=== PATIENT | male | born 1940 | race Caucasian/White ===

== ENCOUNTER → 2016-12-06 | Outpatient (CLI) | payer OTHER ==
[~2016-12-06] MED LIST: AMLO-110 PO; ASCO1CAP3 PO; ASPEC325 PO; ASPI81TA28 PO; CHOL400T PO; CLC100 PO; COEN1CAP37 PO; DOCU100C31 PO; FRRG PO; IBUP-103 PO; LOSA50TA6 PO; LVNIS30 SQ; NRV5 PO; NTRGSL/4 UT; OMEGCAP2 PO; OXYC-57 PO; PRLSR20 PO; SIMV40TA2 PO; VITAMIN D3 PO
[2016-12-06 10:16] LABS: ALT/SGPT 30 U/L (12-78); AST/SGOT 11 U/L (15-37); BLOOD UREA NITROGEN 23 mg/dl (7-18); BUN/CREATININE RATIO 13.3 (10-20); CALCIUM 9.3 mg/dl (8.5-10.1); CARBON DIOXIDE 33 mmol/L (21-32); CHLORIDE 106 mmol/L (98-107); GLUCOSE 101 mg/dl (70-99); POTASSIUM 4.2 mmol/L (3.5-5.1); SODIUM 143 mmol/L (136-145)
[2016-12-06 10:19] LABS: CHOLESTEROL 180 mg/dl (0-200); CHOLESTEROL/HDL RATIO 3.7; HDL CHOLESTEROL 49 mg/dl; LDL CHOLESTEROL CALCULATED 93 mg/dl; TRIGLYCERIDES 188 mg/dl (0-150); VERY LOW DENSITY LIPOPROT CALC 38 mg/dl
== END | disposition home or self-care (01) ==
LOC: C.LAB 09:08
PROVIDERS: ATTEND Internal Medicine Cardiovascular Disease
DX: I25.10 Atherosclerotic heart disease of native coronary artery without angina pectoris (principal); E78.00 Pure hypercholesterolemia, unspecified; I10 Essential (primary) hypertension

== ENCOUNTER 2017-02-21 05:12 | Inpatient (IN) | payer OTHER ==
[2017-01-26 15:22] VITALS: BMI 27.0
--- NOTE | 2017-01-26 16:08 | PAT Medication Instructions ---
Service Date January 26, 2017. Current Home Medication List Ascorbic Acid (Vitamin C), 500 MG PO QPM Aspirin (Aspirin Ec), 81 MG PO HS Coenzyme Q10 (Ubidecarenone) (Co Q-10), 200 MG PO BID Ibuprofen Tab (Advil), 200-400 MG PO PRN Losartan Potassium (Cozaar), 50 MG PO QAM Nitroglycerin (Nitrostat), 0.4 MG UT PRN Orange-3 Fatty Acids (Fish Oil), 2 CAPSULES PO BID Omeprazole (Prilosec), 20 MG PO PRN Simvastatin (Zocor), 40 MG PO HS [Vitamin D3], 1 TAB PO QPM Medication Instructions For Your Scheduled Surgery Nitroglycerin (Nitrostat), 0.4 MG UT PRN (only if needed) - Hold the following medications 2 weeks prior to surgery: Orange-3 Fatty Acids (Fish Oil), 2 CAPSULES PO BID Coenzyme Q10 (Ubidecarenone) (Co Q-10), 200 MG PO BID - Hold the following medications 7 days prior to surgery per surgeon instructions: Ibuprofen Tab (Advil), 200-400 MG PO PRN - Hold the following medications the morning of surgery: Losartan Potassium (Cozaar), 50 MG PO QAM - Take the following medications the morning of surgery with a sip of water: Omeprazole (Prilosec), 20 MG PO PRN - Take the following medications as scheduled the night before surgery: Simvastatin (Zocor), 40 MG PO HS Vitamin D3, 1 TAB PO QPM Ascorbic Acid (Vitamin C), 500 MG PO QPM Aspirin (Aspirin Ec), 81 MG PO HS If you have any questions please call us at [phone] or [phone] ( Laurie) or [phone]
[2017-01-26 16:28] LABS: BASO % 0.4 %; BASO ABS # 0.03 K/uL (0-0.2); COMPLETE YES; EOS % 2.7 %; HEMATOCRIT 42.3 % (42-52); IG% 0.1 %; LYMPH % 34.7 %; LYMPH ABS # 2.42 K/uL (1.2-3.4); MEAN CELL VOLUME 97.9 fL (80-100); MEAN CORPUSCULAR HEMOGLOBIN 31.5 pg (25-34); MEAN CORPUSCULAR HGB CONC 32.2 g/dl (32-36); MEAN PLATELET VOLUME 9.2 fL (7.4-10.4); NEUT % 54.1 %; PLATELET COUNT 181 K/uL (130-400); RED BLOOD COUNT 4.32 M/uL (4.7-6.1); WHITE BLOOD COUNT 6.97 K/uL (4.8-10.8)
[2017-01-26 16:33] LABS: MANUAL MICROSCOPIC REQUIRED? NO; REVIEW REQ? NO; URINE APPEARANCE CLEAR (CLEAR); URINE BILIRUBIN NEG (NEG); URINE COLOR YELLOW; URINE NITRITE NEG (NEG); URINE PH 6.5 (4.5-7.5); URINE SPECIFIC GRAVITY 1.017 (1.000-1.030); UROBILINOGEN NEG (NEG)
--- NOTE | 2017-01-26 16:39 | History and Physical ---
History & Physical Date January 26, 2017. Chief Complaint Right knee pain History of Present Illness The patient is a 76 year old male patient of Dr. Gastelum from [facility] with complaints of right knee pain that interferes with his life on a daily basis. He has failed conservative management, such as behavior modification, rest, ice, OTC medications, injections, and bracing. Jose states it makes it difficult performing some of his ADL's and certain elective activity. Pain is present at rest and with activity. The patient denies any numbness or tingling distally and no calf pain. Past Medical/Surgical History Medical Problems: (1) Benign hypertension (2) Hyperlipidemia (3) Osteoarthritis Surgical History: -Cataracts b/l -Hernia repair -Finger fibroma -Skin basal cell excision Additional History Hepatic Disease: No Endocrine Disorder: No Kidney Disease: No Hypertension: Yes Heart Disease: No Bleeding Tendencies: No Infectious Diseases: No Other: Social History: -The patient admits to 3 ETOH beverages per week. Lives in a safe environment. Continues to work. Denies any tobacco or illegal drug use. Family History: -Noncontributory Review of Systems: -The patient denies headache, chest pain, shortness of breath, fevers, chills, or night sweats Allergies Coded Allergies: No Known Allergies (Unverified , 01/26/17) Home Medications Scheduled Ascorbic Acid (Vitamin C), 500 MG PO QPM Aspirin (Aspirin Ec), 81 MG PO HS Coenzyme Q10 (Ubidecarenone) (Co Q-10), 200 MG PO BID Ibuprofen Tab (Advil), 200-400 MG PO PRN Losartan Potassium (Cozaar), 50 MG PO QAM Nitroglycerin (Nitrostat), 0.4 MG UT PRN Rutherford-3 Fatty Acids (Fish Oil), 2 CAPSULES PO BID Omeprazole (Prilosec), 20 MG PO PRN Simvastatin (Zocor), 40 MG PO HS [Vitamin D3], 1 TAB PO QPM Physical Examination Skin: warm/dry, no rash Eyes: normal inspection, + pertinent finding (wearing reading glasses ) ENT: normal ENT inspection Head: normocephalic, atraumatic Respiratory/Chest: lungs clear, normal breath sounds, no respiratory distress Cardiovascular: regular rate, rhythm, no edema, no murmur (the patient reports a history of murmur but I was unable to identify any of murmur ) Abdomen / GI: normal bowel sounds, non tender Extremities: normal inspection, + pertinent finding (range of motion 0-130 degrees with pain at endpoints of flexion, notable joint line tenderness, crepitation noted in the patellofemoral joint, ligamentously stable, extensor mechanism intact, varus alingment 7 degrees on the right) Neurologic/Psych: no motor/sensory deficits, alert, normal reflexes, oriented x 3 Addiitonal Comments: Radiographs: -Xrays of the right knee reveal endstage DJD with bone on bone joint space narrowing medially, sclerotic bone change, periarticular osteophytosis, subchondral cyst formation. No evidence of fracture or dislocation. Diagnosis Right knee osteoarthritis Plan of Treatment Jose is to undergo a Right total knee arthroplasty by Dr. Enmanuel Sigala MD from [facility] scheduled for 02/21/17 at the [facility]. Jose had an appointment at the PAT office at the [facility] on 01/26/17 to obtain preoperative EKG, CXR, UA, CBC with diff, Lytes, BUN/Creatinine, PT/INR, and Type and Screen. Jose will obtain preoperative medical clearance from Dr. Snáchez's office. The patient will use a walker post-operatively. Jose would like to use a rehab hospital upon discharge from the hospital but understands approval may be an issue and is accepting if plans change otherwise , such as home health. Jose will use post-operative medications, including Percocet and Lovenox 30mg BID x 3 weeks after surgery, along with Iron and Vitamin C for 4 weeks. These medications will be provided upon discharge after surgery. All appropriate consents and forms were completed and signed at his pre-operative history and physical. Approximately 60 minutes was spent with the patient during this appointment. Jose will follow-up with Dr. Sigala at [facility] 2 weeks after surgery for staple removal. Any other questions or concerns please notify our office at [phone], thank you.
--- NOTE | 2017-01-26 16:40 | DIAGNOSTIC IMAGING REPORT ---
CHEST PREADMISSION(PA/LAT) CLINICAL HISTORY: PAT preoperative evaluation COMPARISON STUDY: 01/15/2013 FINDINGS: The bones soft tissues and hemidiaphragms are normal. The cardiomediastinal silhouette is normal. The lungs are clear. The pulmonary vasculature is normal. IMPRESSION: Negative chest. Electronically signed by: David Avalos M.D. 01/26/2017 4:38 PM Dictated Date/Time: 01/26/2017 4:38 PM
[2017-01-26 16:43] LABS: INR 0.9 (0.9-1.1); PARTIAL THROMBOPLASTIN RATIO 1.1
[2017-01-26 16:59] LABS: BUN/CREATININE RATIO 14.6 (10-20); CALCIUM 9.6 mg/dl (8.5-10.1); CREATININE 1.6 mg/dl (0.60-1.40); POTASSIUM 4.2 mmol/L (3.5-5.1)
[~2017-02-21] VITALS: Ht 170.2 cm; Wt 77.5 kg
[2017-02-21] VITALS (10 sets, daily range): BP systolic 146–184; BP diastolic 73–97; PULSE 47–53; TEMP 36.5–36.6; O2SAT 94–98; Ht 170.2 cm; Wt 77.5 kg
[~2017-02-21 05:12] MED LIST changes: -AMLO-110 PO; -ASPEC325 PO; -CHOL400T PO; -CLC100 PO; -DOCU100C31 PO; -FRRG PO; -LVNIS30 SQ; -NRV5 PO; -OXYC-57 PO
[2017-02-21] MEDS ORDERED: CEFAZOLIN 2000 MG/60 ML D5W 60 ML IV SCH (06:00)
[2017-02-21] MEDS ORDERED: LACTATED RINGER'S 1000ML IV SCH (06:00)
[2017-02-21] MEDS ORDERED: ROPIVACAINE 5MG/ML 30 ML 150 MG, BUPIVACAINE/EPINEPHR 0.5% MPF 30 ML, KETOROLAC TROMETH... INFIL SCH ×7 (06:00)
[2017-02-21] MEDS ORDERED: LACTATED RINGER'S 1000ML 1,000 ML IV SCH (06:00)
[2017-02-21] MEDS ORDERED: BUPIVACAINE 0.5 % 5 MG/1 ML PF 10ML VIAL ONE (06:25)
[2017-02-21] MEDS ORDERED: BUPIVACAINE 0.25% 30 ML VIAL ONE (06:26)
[2017-02-21] MEDS: TRANEXAMIC ACID INJ 1,000 MG in SODIUM CHLORIDE 0.9% 100ML 100 ML IV SCH ×2 (06:27→06:30)
--- NOTE | 2017-02-21 06:35 | History & Physical Bridge Note ---
H&P Re-Evaluation Bridge Note: I have examined the patient, reviewed the History & Physical and in the interval since the performance of the History & Physical I have noted the following changes of clinical significance: No changes noted
[2017-02-21] MEDS ORDERED: MIDAZOLAM HCL 1 MG/ML 2ML VIAL ONE (06:37)
[2017-02-21] MEDS ORDERED: FENTANYL CITRATE INJ 50 MCG/1 ML 2 ML VIAL ONE (06:37)
[2017-02-21] MEDS ORDERED: ORTHO JOINT ANESTHETIC ONE (06:40)
[2017-02-21] MEDS ORDERED: POVIDONE-IODINE OP SOLN 30 ML BTL ONE (06:40)
[2017-02-21] MEDS ORDERED: EpHEDrine SULFATE INJ 50 MG/ML AMP IV PRN (09:15)
[2017-02-21] MEDS ORDERED: HYDROmorphone INJ 2 MG/ML SYR/VIAL IV PRN (09:15)
[2017-02-21] MEDS ORDERED: PHENYLEPHRINE 100MCG/ML 5ML SYR IV PRN (09:15)
[2017-02-21] MEDS ORDERED: ONDANSETRON INJ 2 MG/ML 2 ML VIAL IV PRN ×2 (09:15→11:00)
[2017-02-21] MEDS ORDERED: ATROPINE SULFATE 0.1 MG/ML 5ML SYR IV PRN (09:15)
[2017-02-21] MEDS ORDERED: LIDOCAINE HCL 2% 2 ML VIAL (20MG/ML) ONE (09:49)
[2017-02-21] MEDS ORDERED: PROPOFOL IV EMULSION 10 MG/ML 20 ML VIAL IV ONE (09:49)
--- NOTE | 2017-02-21 10:42 | [facility] Post Operative Brief Note ---
Immediate Operative Summary Operative Date Feb 21, 2017. Pre-Operative Diagnosis Right Knee Osteoarthritis Post-Operative Diagnosis Right Knee Osteoarthritis Procedure(s) Performed Right Total Knee Arthroplasty Surgeon Dr. Enmanuel Sigala Early Learning Teacher Surgeon(s) Bree Leal PA-C; Avtar Antony MD - Resident Estimated Blood Loss 120ml Findings Severe Right knee OA Fluids (cc crystalloids) 2000 Specimens A. Right Knee Bone and Tissue Drains n/a Anesthesia Spinal & adductor block Complication(s) None Disposition Recovery Room / PACU (Stable)
--- NOTE | 2017-02-21 10:45 | [facility] Operative Report ---
Operative Report Operative Date Feb 21, 2017. Pre-Operative Diagnosis Right Knee Osteoarthritis Post-Operative Diagnosis Same Procedure(s) Performed Right Total Knee Arthroplasty Surgeon Dr. Enmanuel Sigala Pumper Gager Surgeon(s) Bree Leal PA-C; Avtar Antony MD - Resident Estimated Blood Loss 120ml Findings Examined Under Anesthesia: ROM -- There was 5 degrees to 130 degrees of flexion Ligamentous examination -- revealed stable Lyssa, posterior drawer, varus and valgus stress at 0 and 30 degrees. Severe Right knee DJD with bone on bone medial compartment, mild-moderate changes P-F and lateral compartment, varus alignment. Fluids 2000 Specimens A. Right Knee Bone and Tissue Drains n/a Anesthesia Spinal & adductor block Complication(s) None Disposition Recovery Room / PACU (Stable) Indications This is a 76-year-old male who has clinical and radiographic findings consistent with osteoarthritis of the a right knee. I recommended that a right total knee replacement be performed. The patient understands the risks of surgery, which include but not limited to: bleeding, infection, re-operation, damage to nerves and arteries, continued knee pain, knee stiffness, DVT, and . The patient understands all of these instructions and explanations, all of his questions have been satisfactorily addressed and the patient has elected to proceed. Informed consent was signed. Description of Procedure IMPLANTS: 1. Femur: Triathlon #6 Right PS. 2. Tibia: Triathlon #6 primary. 3. Insert: Triathlon #6 x9mm PS X3 poly. 4. Patella: Triathlon A35 x 10mm X3 poly. Description of Procedure: The patient was taken to the Operating Room and placed in the supine position after spinal and adductor nerve block was administered. My initials and a multidisciplinary time-out were used to identify the right leg as the correct operative limb. A tourniquet was placed high in the thigh. Prior to the incision, 2 grams of intravenous Ancef were given. The right leg was then prepped and draped in a standard sterile fashion. An Esmarch was used to exsanguinate the leg and the tourniquet was inflated to 250 mmHg. The planned mid-line 12 cm incision was created exposing the extensor mechanism. The medial parapatellar arthrotomy was made and the patella was everted. The femur was addressed first and the guide lamar was placed intramedullary. The initial cutting block was placed with 5 degrees of valgus and removing 10 mm for the anterior cut. The cut was made and the 4-in-1 cutting block initially a size 7 and then downsize to a size 6 femur was placed. These cuts and the cuts to place the box were made in the standard fashion. Our attention was then drawn to the tibia cut with the external cutting guide, taking 4mm from the medial, low side. A #6 Tibial baseplate fit well. A trial with a 9mm spacer showed excellent stability in both flexion and extension, with good ligament balance. Range of motion of 0-130 degrees. The tibial baseplate was pinned and the final preparation for the keel was made. Next the patella was prepared by reaming from 25mm down to 16mm and an additional 1 mm was removed freehand with a saw. A35 button was found to fit best. The peg holes were made in the standard fashion. All the trial components were tested again, with good stability and slight lateral tracking of the patella. A partial lateral release was performed. All components were removed. The tourniquet was deflated. Hemostasis was obtained. 93 ml of "joint juice" were injected into the soft tissues and periosteum. After a 15 minute break, the limb was exsanguinated again and the tourniquet was re- inflated. All surfaces were copiously irrigated prior to placement of the components. The Tibial baseplate and patellar button were placed using the first batch of cement. A bone plug was placed in the femur and covered with bone wax. The femur was placed using the second batch. Again a 9mm trial poly was placed and the range of motion and stability were unchanged. Once the cement had cured, the 9mm X3 poly was placed. The extensor mechanism was closed with 1-0 and 0 Vicryl with the knee bent approximately 60 degrees in a standard fashion. The peritenon and deep fascia was closed with 2-0 Vicryl. The subcutaneous layer was closed with 3-0 Vicryl. The skin was closed with ghanshyam. The limb was cleaned and dried. Xeroform was placed over top followed by 4x4's, ABDs, sterile Webril, and a foot to thigh Maycol bandage. The patient was then transferred to the Recovery Room in stable condition. The sponge and needle counts were correct. POST-OP INSTRUCTIONS: The patient will be WBAT. The patient will be admitted to the hospital. The patient will use the knee immobilizer when ambulating and standing until good quad control is achieved. Labs will be obtained during her stay. DVT prophylaxis will included Lovenox for 3 weeks then switching to aspirin for 3 more weeks, TEDs, and mechanical foot pumps. I attest to the content of the Intraoperative Record and any orders documented therein. Any exceptions are noted below.
--- NOTE | 2017-02-21 10:58 | [facility] Operative Report ---
Operative Report Operative Date Feb 21, 2017. Pre-Operative Diagnosis Right Knee Osteoarthritis Post-Operative Diagnosis Same Procedure(s) Performed Right Total Knee Arthroplasty Surgeon Dr. Enmanuel Sigala Director Of Vocational Training Surgeon(s) Bree Leal PA-C; Avtar Antony MD - Resident Estimated Blood Loss 120ml Findings DJD right knee Fluids 2000 Specimens A. Right Knee Bone and Tissue Drains n/a Anesthesia Spinal & adductor block Complication(s) None Disposition Recovery Room / PACU (Stable) Indications Patient is a 76 year old male with complaints of progressively worsening right knee pain, failed conservative treatment. X-rays obtained, found to have end- stage DJD of right knee. Surgical intervention recommended. He wished to proceed with surgery. Risks/complications discussed, informed consent obtained. Description of Procedure Patient was taken to the operating room, given IV Ancef for surgical prophylaxis. Time out performed, prepped and draped in routine sterile fashion. I was present the entire case, please see Dr. Sigala's operative report for further detail. Patient was awakened and taken to the recovery room in stable condition. I attest to the content of the Intraoperative Record and any orders documented therein. Any exceptions are noted below.
[2017-02-21] MEDS ORDERED: NITROGLYCERIN 0.4 MG SL PER TAB CHARGE UT PRN (11:00)
[2017-02-21] MEDS ORDERED: BISACODYL 10 MG SUPP PR PRN (11:00)
[2017-02-21] MEDS ORDERED: MAGNESIUM HYDROXIDE SUSP 30 ML UDC PO PRN (11:00)
[2017-02-21] MEDS ORDERED: MoRPHine SULFATE 2 MG/ML CARP IV PRN (11:00)
[2017-02-21] MEDS ORDERED: TAMSULOSIN HCL 0.4 MG CAP PO PRN (11:00)
[2017-02-21] MEDS ORDERED: SOD PHOSPHATE/SOD BIPHOSPHATE ENEMA 132 ML BTL PR PRN (11:00)
--- NOTE | 2017-02-21 11:17 | DIAGNOSTIC IMAGING REPORT ---
RIGHT KNEE 1 OR 2 VIEWS ROUTINE CLINICAL HISTORY: Right knee osteoarthritis. Postoperative evaluation. COMPARISON: Right knee radiographs August 05, 2016. FINDINGS: Alignment of the total right knee arthroplasty is anatomic. There is no fracture or unexpected radiopaque foreign body. There are skin ghanshyam. IMPRESSION: Expected findings following total right knee arthroplasty. Electronically signed by: Daniele Meléndez M.D. 02/21/2017 11:16 AM Dictated Date/Time: 02/21/2017 11:15 AM
--- NOTE | 2017-02-21 11:31 | Anesthesiology Progress Note ---
Anesthesia Post Op Note Date & Time Feb 21, 2017 at 11:32 Vital Signs Pain Intensity: 0 Vital Signs Past 12 Hours Date Time Temp Pulse Resp B/P (MAP) Pulse Ox O2 Delivery O2 Flow Rate FiO2 02/21/17 11:20 36.4 47 16 126/69 98 Nasal Cannula 2 02/21/17 11:10 47 16 126/78 98 Nasal Cannula 2 02/21/17 11:00 44 16 130/70 98 Nasal Cannula 2 02/21/17 10:50 46 16 127/77 98 Mask 10 02/21/17 10:43 36.3 47 16 114/77 100 Mask 10 02/21/17 05:41 36.6 50 20 169/92 94 Room Air Notes Mental Status: alert / awake / arousable, participated in evaluation Pt Amnestic to Procedure: Yes Nausea / Vomiting: adequately controlled Pain: adequately controlled Airway Patency, RR, SpO2: stable & adequate BP & HR: stable & adequate Hydration State: stable & adequate Anesthetic Complications: no major complications apparent
[2017-02-21] MEDS ORDERED: METOCLOPRAMIDE HCL INJ 5 MG/ML 2 ML VIAL ONE (12:34)
[2017-02-21] MEDS ORDERED: HydrALAZINE HCL 20 MG/ML VIAL IV. PRN (14:15)
--- NOTE | 2017-02-21 14:19 | Medical Consult ---
Consultation Date of Consultation: Feb 21, 2017. Attending Physician: Enmanuel Sigala MD Reason for Consultation: Medical management History of Present Illness This is a 76 y/o male with a history of CAD, HTN, HLD and GERD who presents s/p right TKA with Dr. Sigala on 02/21 for medical management. The patient reports feeling well post operatively. He states that he was able to eat without any difficulties. A Still catheter is in place. He denies passing gas or having a bowel movement. He complains of some mild pain at the right knee and some residual numbness/tingling from anesthesia, but this is resolving. The patient denies fevers, chills, sweats, chest pain, palpitations, claudication, cough, wheezing, shortness of breath, nausea, vomiting, abdominal pain, dysuria, hematuria, urinary retention, paralysis, weakness. Past Medical/Surgical History CAD HTN HLD GERD H/o cardiac cath (no stents) Family History Colon cancer Diabetes mellitus Heart disease Social History Smoking Status: Former Smoker (quit 40 years ago) Smokeless Tobacco Use: No Alcohol Use: socially (1 beer or glass of wine 3x/week) Drug Use: none Marital Status: Housing Status: lives with significant other Occupation Status: retired Allergies Coded Allergies: No Known Allergies (Unverified , 02/21/17) Current Inpatient Medications Current Inpatient Medications Medications (Trade) Dose Ordered Sig/Gregory Route Start Time Stop Time Status Last Admin Dose Admin Ropivacaine 150 mg/Bupivacaine HCl/Epinephrine Bitart 30 ml/ Ketorolac Tromethamine 30 mg/Dexamethasone Sodium Phosphate 4 mg/Ketamine HCl 10 mg/Clonidine 100 mcg/Sodium Chloride 30 ml/ Empty Bag 93.2 ml @ 0 mls/hr PREOP INFIL 02/21/17 06:00 02/21/17 18:00 02/21/17 06:00 93.2 MLS/HR Lactated Ringer's 1,000 ml @ 60 mls/hr [id number] IV 02/21/17 06:00 02/21/17 22:39 Cefazolin Sodium 60 ml @ 100 mls/hr PREOP IV 02/21/17 06:00 02/21/17 18:00 02/21/17 07:03 100 MLS/HR Tranexamic Acid 1000 mg/Sodium Chloride 110 ml @ 660 mls/hr TODAY@06,0630 IV 02/21/17 06:00 02/21/17 18:00 02/21/17 06:27 660 MLS/HR Lactated Ringer's 1,000 ml @ 15 mls/hr Q24H IV 02/21/17 06:00 02/22/17 05:59 02/21/17 06:26 15 MLS/HR Potassium Chloride/Dextrose/ Sod Cl 1,000 ml @ 100 mls/hr Q10H IV 02/21/17 12:30 02/22/17 12:29 Cefazolin Sodium 2000 mg/Dextrose 60 ml @ 100 mls/hr Q8H IV 02/21/17 14:00 02/21/17 22:35 Celecoxib (CeleBREX CAP) 200 mg BID PO 02/21/17 21:00 03/23/17 20:59 Oxycodone HCl (Roxicodone Immediate Rel Tab) 1 TABLET FOR PAIN RATING... Q4H PRN PO 02/21/17 11:00 03/07/17 10:59 Morphine Sulfate (MoRPHine SULFATE INJ) 2mg for pain 1-5 3mg ... Q2H PRN IV 02/21/17 11:00 03/07/17 10:59 Acetaminophen (Tylenol Tab) 650 mg Q6H PRN PO 02/21/17 11:00 03/23/17 10:59 Magnesium Hydroxide (Milk Of Magnesia Susp) 30 ml Q6H PRN PO 02/21/17 11:00 03/23/17 10:59 Bisacodyl (Dulcolax Supp) 10 mg DAILY PRN MI 02/21/17 11:00 03/23/17 10:59 Sodium Biphosphate/ Sodium Phosphate (Fleet Enema) 132 ml DAILY PRN MI 02/21/17 11:00 03/23/17 10:59 Docusate Sodium (coLACE CAP) 100 mg BID PO 02/21/17 21:00 03/23/17 20:59 Multivitamins (Multivitamin Tab) 1 tab QAM PO 02/22/17 09:00 03/24/17 08:59 Ondansetron HCl (Zofran Inj) 4 mg Q6H PRN IV 02/21/17 11:00 03/23/17 10:59 Ferrous Gluconate (Ferrous Gluconate Tab) 324 mg TIDM PO 02/21/17 12:30 03/23/17 12:29 Pantoprazole Sodium (Protonix Tab) 40 mg QAM PO 02/22/17 09:00 03/24/17 08:59 Tamsulosin HCl (Flomax Cap) 0.4 mg QAM PRN PO 02/21/17 11:00 03/23/17 10:59 Enoxaparin Sodium (Lovenox Inj) 30 mg Q12H SQ 02/22/17 09:00 03/15/17 08:59 Ascorbic Acid (Vitamin C Tab) 500 mg QPM PO 02/21/17 21:00 03/23/17 20:59 Aspirin (Ecotrin Tab) 81 mg HS PO 02/21/17 21:00 03/23/17 20:59 Losartan Potassium (coZAAR TAB) 50 mg QAM PO 02/22/17 09:00 03/24/17 08:59 Nitroglycerin (Nitrostat Tab) 0.4 mg UD PRN UT 02/21/17 11:00 03/23/17 10:59 Simvastatin (Zocor Tab) 40 mg HS PO 02/21/17 21:00 03/23/17 20:59 Cholecalciferol (Vitamin D Tab) 1,000 inter.unit QPM PO 02/21/17 21:00 03/23/17 20:59 Review of Systems See HPI for pertinent positives and negatives. All other systems reviewed and negative. Physical Exam Date Time Temp Pulse Resp B/P (MAP) Pulse Ox O2 Delivery O2 Flow Rate FiO2 02/21/17 13:39 52 16 165/76 (105) 96 Room Air 02/21/17 12:43 36.6 49 17 153/77 (102) 98 Room Air 02/21/17 11:40 98 Nasal Cannula 2.0 02/21/17 11:40 36.6 47 20 154/81 (105) 98 Nasal Cannula 2.0 02/21/17 11:40 Nasal Cannula 02/21/17 11:20 36.4 47 16 126/69 98 Nasal Cannula 2 02/21/17 11:10 47 16 126/78 98 Nasal Cannula 2 02/21/17 11:00 44 16 130/70 98 Nasal Cannula 2 02/21/17 10:50 46 16 127/77 98 Mask 10 6/6/17 10:43 36.3 47 16 114/77 100 Mask 10 02/21/17 05:41 36.6 50 20 169/92 94 Room Air General Appearance: WD/WN, no apparent distress Head: normocephalic, atraumatic Eyes: normal inspection, PERRL, EOMI ENT: normal ENT inspection, hearing grossly normal, pharynx normal Neck: supple, no JVD, trachea midline Respiratory/Chest: lungs clear, normal breath sounds, no respiratory distress Cardiovascular: regular rate, rhythm, no gallop, no murmur Abdomen/GI: normal bowel sounds, non tender, soft Extremities/Musculoskelatal: normal inspection (right leg wrapped in clifford bandage), normal capillary refill, no pedal edema Neurologic/Psych: alert, normal mood/affect, oriented x 3 Skin: normal color, warm/dry, no rash Assessment & Plan 76 y/o male with a history of CAD, HTN, HLD and GERD who presents s/p right TKA with Dr. Sigala on 02/21 for medical management. -Pain management, DVT prophylaxis, and PT/OT as per primary team -POD #0 Bradycardia--stable. Asymptomatic -Pt states his HR typically runs low to mid 50s -HR has been in 40s here -Continue to monitor, currently asymptomatic CAD -Continue ASA 81 mg PO qd HTN--stable -Hold Losartan for now until renal function checked/stable -Pre op labs show creatinine of 1.6, but this appears to be his new baseline for the last 9 months -Cover with hydralazine 10 mg IV q6h prn SBP >180 HLD -Continue simvastatin 20 mg PO qd GERD -Omeprazole changed to pantoprazole 40 mg PO qam Allergic rhinitis -Claritin 10 mg PO qd Thank you for this consultation. We will continue to follow. Assessment and Plan Attending Addendum: I have physically seen and examined this patient, directed their medical care, supervised the Physician Gypsum Block Setter's activity, and agree with the H&P as noted above, with the following changes: NONE.
[2017-02-21] MEDS: CEFAZOLIN IV 2,000 MG in DEXTROSE 5% 50ML 50 ML IV SCH ×2 (14:28→20:56)
[2017-02-21] MEDS: D5W AND 1/2NSS + 20MEQ KCL 1,000 ML IV SCH ×2 (14:28→22:14)
[2017-02-21] MEDS: FERROUS GLUCONATE 324 MG TAB PO SCH ×2 (14:29→18:41)
[2017-02-21] MEDS: ACETAMINOPHEN 325 MG TAB PO PRN (14:34)
[2017-02-21] MEDS ORDERED: CETIRIZINE HCL 10 MG TAB PO ONE (14:43)
[2017-02-21] MEDS ORDERED: LORATADINE 10 MG TAB PO ONE (15:00)
--- NOTE | 2017-02-21 18:52 | Orthopedic Progress Note ---
Orthopedic Progress Note Date of Service Feb 21, 2017. Subjective Post OP Day: 0 Reports: feeling well, Denies: chest pain, SOB Additional Notes: Had been up walking in brace with nurse earlier today. Only using Tylenol for pain. Objective calves soft nontender, dressing C/D/I, A&O x3 Resting comfortably in chair with knee bent 90 degrees. Date Time Temp Pulse Resp B/P (MAP) Pulse Ox O2 Delivery O2 Flow Rate FiO2 02/21/17 15:03 36.5 47 16 147/79 (101) 98 Nasal Cannula 2.0 02/21/17 14:41 47 16 146/73 (97) 96 Room Air 02/21/17 13:39 52 16 165/76 (105) 96 Room Air 02/21/17 12:43 36.6 49 17 153/77 (102) 98 Room Air 02/21/17 11:40 98 Nasal Cannula 2.0 02/21/17 11:40 36.6 47 20 154/81 (105) 98 Nasal Cannula 2.0 02/21/17 11:40 Nasal Cannula 02/21/17 11:20 36.4 47 16 126/69 98 Nasal Cannula 2 02/21/17 11:10 47 16 126/78 98 Nasal Cannula 2 02/21/17 11:00 44 16 130/70 98 Nasal Cannula 2 02/21/17 10:50 46 16 127/77 98 Mask 10 02/21/17 10:43 36.3 47 16 114/77 100 Mask 10 02/21/17 05:41 36.6 50 20 169/92 94 Room Air Assessment & Plan Assessment: POD # 0 s/p R TKA Plan: continue pain control. WBAT with brace, can d/c brace in 24 hrs and once good quad control. PT/OT. Reg diet. D/C brown 02/22/17 am. Change dressing 02/23/2017, keep covered while in hospital. DVT Prophylaxis: TEDs and foot pumps, start Lovenox 02/22/17 am. Check labs in am. Discharge Planning DVT Prophylaxis: TEDs, Lovenox (Start 02/22/17 in am and continue for 3 weeks, then swithch to ASA 325 mg PO BID for another 3 weeks.)
[2017-02-21] MEDS: SIMVASTATIN 20 MG TAB PO SCH (20:50)
[2017-02-21] MEDS: ASCORBIC ACID 500 MG TAB PO SCH (20:51)
[2017-02-21] MEDS: CHOLECALCIFEROL 1000 INTER.UNIT TAB PO SCH (20:52)
[2017-02-21] MEDS: CeleBREX 200 MG CAP PO SCH (20:53)
[2017-02-21] MEDS: ASPIRIN 81 MG ECTAB PO SCH (20:53)
[2017-02-21] MEDS: DOCUSATE SODIUM 100 MG CAP PO SCH (20:54)
[2017-02-21] MEDS ORDERED: NON-FORMULARY MEDICATION (Coenzyme Q10 (Ubidecarenone) (Co Q-10) 200 MG) PO SCH (21:00)
[2017-02-21] MEDS ORDERED: SIMVASTATIN 40 MG TAB PO SCH (21:00)
[2017-02-21] MEDS: OXYCODONE HCL IR 5 MG TAB (IMMEDIATE RELEASE) PO PRN (22:13)
[2017-02-22] VITALS (7 sets, daily range): BP systolic 134–173; BP diastolic 73–84; PULSE 52–65; TEMP 36.4–36.8; O2SAT 95–97
[2017-02-22 05:36] LABS: HEMATOCRIT 30.4 % (42-52); MEAN CELL VOLUME 95.6 fL (80-100); MEAN CORPUSCULAR HEMOGLOBIN 33.3 pg (25-34); MEAN CORPUSCULAR HGB CONC 34.9 g/dl (32-36); MEAN PLATELET VOLUME 9.6 fL (7.4-10.4); PLATELET COUNT 152 K/uL (130-400); RED BLOOD COUNT 3.18 M/uL (4.7-6.1); WHITE BLOOD COUNT 11.48 K/uL (4.8-10.8)
[2017-02-22 06:02] LABS: BUN/CREATININE RATIO 13.8 (10-20); CALCIUM 7.9 mg/dl (8.5-10.1); CREATININE 1.6 mg/dl (0.60-1.40); POTASSIUM 4.5 mmol/L (3.5-5.1)
--- NOTE | 2017-02-22 08:28 | Clinical Documentation Query ---
CLINICAL DOCUMENTATION QUERY Dr. CHRISTIANSEN, In your clinical opinion does this patient have: ( x ) Chronic kidney disease, stage 3 ( ) Other explanation of clinical findings (Please Explain) ( ) Unable to determine (Please Define) ( ) Need to Discuss ( ) Not Agree The medical record reflects the following clinical findings, treatment, and risk factors. Clinical Indicators: 76 yo male presenting for a R TKA. Review of IM consult indicates pt with new baseline Cr of 1.6. Resultant GFR range is 38.6-49.1 Treatment: monitor PRP's Risk Factors: age, HTN, CAD Please clarify and document your clinical opinion in the progress notes and discharge summary. Terms such as "probable", "suspected", "likely", "questionable", "possible", or "still to be ruled out" are acceptable. IF IN AGREEMENT, YOU MUST DOCUMENT ABOVE DIAGNOSTIC STATEMENT IN DAILY PROGRESS NOTES AND DISCHARGE SUMMARY. This document is not part of the patient's record. Thank You, Alee Cummins RN [phone]
[2017-02-22] MEDS ORDERED: FRRG PO (08:29)
[2017-02-22] MEDS ORDERED: CLC100 PO (08:29)
[2017-02-22] MEDS ORDERED: LVNIS30 SQ (08:29)
[2017-02-22] MEDS ORDERED: OXYC-57 PO (08:30)
--- NOTE | 2017-02-22 08:33 | Anesthesiology Progress Note ---
Anesthesia Post Op Note Date & Time Feb 22, 2017 at 08:33 Vital Signs Vital Signs Past 12 Hours Date Time Temp Pulse Resp B/P (MAP) Pulse Ox O2 Delivery O2 Flow Rate FiO2 02/22/17 07:55 95 Room Air 02/22/17 07:25 36.5 53 14 142/82 (102) 95 Room Air 02/22/17 07:15 Room Air 02/22/17 04:00 36.4 55 18 134/73 (93) 97 Room Air 02/21/17 23:45 Room Air 02/21/17 23:35 36.6 50 18 150/77 (101) 94 Room Air 02/21/17 22:36 170/97 (121) 02/21/17 21:48 36.5 53 16 184/80 (114) 97 Room Air Notes Mental Status: alert / awake / arousable, participated in evaluation Pt Amnestic to Procedure: Yes Nausea / Vomiting: adequately controlled Pain: adequately controlled Airway Patency, RR, SpO2: stable & adequate BP & HR: stable & adequate Hydration State: stable & adequate Neuraxial Anesthesia: was administered, sensory block resolved Anesthetic Complications: no major complications apparent
[2017-02-22] MEDS: D5W AND 1/2NSS + 20MEQ KCL 1,000 ML IV SCH (08:34)
--- NOTE | 2017-02-22 08:41 | Discharge Instructions ---
Discharge Instructions Date of Service Feb 22, 2017. Admission Reason for Admission: Right Knee Osteoarthritis Discharge Discharge Diagnosis / Problem: Right Knee Osteoarthritis Discharge Goals Goal(s): Decrease discomfort, Improve function, Increase independence Activity Recommendations Activity Limitations: per Instructions/Follow-up section Weightbearing Status: Left weightbearing (as tolerated), Right weightbearing ( as tolerated) . Instructions / Follow-Up Instructions / Follow-Up New Medicine: * You will likely be taking one or more of these medications: 1. Lovenox - You will be on Lovenox for 3 weeks after surgery to prevent blood clots. The CBC blood test will need to be done every Monday while on Lovenox. Do not take anti-inflammatory pills (Advil or Aleve) while on Lovenox. Aspirin, 81 mg is OK. 2. Percocet - Take, as directed, when you need it, every four to six hours to control your pain. 3. Colace & Senokot - Take to prevent constipation which can be caused by narcotics. These can be bought [id number] at the pharmacy 4. Iron supplement - get over the counter or a script has been provided. This can make you constipated when taken alone or in combination with pain medication. Please take over the counter stool softener (Colace) and have a laxative available if needed. If you have questions or concerns regarding constipation please call the office. * The most common side effects of pain medicine and iron are nausea and constipation. If nausea or constipation is too much of a problem or if you have any questions about your new medicines or doses, call [facility] at . We will try to help you manage these issues. VERY IMPORTANT TO READ AND REVIEW" Blood Clots and Blood Thinning Medicine: * You are given Lovenox during the immediate post-operative period to lessen the risk of blood clots forming in your legs and/or lungs. Lovenox is usually given for six weeks after surgery. * You need to get your blood checked every Monday three weeks or as directed. Physical Therapy: * Do your physical therapy at home. These are the exercises you learned while in the hospital (quad sets, leg raises, calf pumps, gluteal squeezes, knee bending, and heel props.) You should do these exercises 3-4 times per day. * You will either go to inpatient rehab ([facility]), home with Home Therapy and nursing or home with outpatient rehab. You should do rehab with the therapist 2-3 times per week. You should do therapy on your own daily. * You may bear full weight on your leg with crutches or walker unless otherwise advised. Home Exercise: * You were shown a series of exercises (heel props, heel slides, etc.) in the hospital. Do these exercises three to four times each day including the exercises you were shown in physical therapy. Walking: * You may be up for short periods of time. Standing and walking for 1-2 hours at a time is usually okay. You should not stand or walk for excessive periods of time as this may cause increased pain and swelling. SELF CARE INSTRUCTIONS AFTER TOTAL KNEE REPLACEMENT A. You may need to continue a physical therapy program after discharge from the hospital. There are several options available to you. Your doctor will assist you in selecting the best one for you. 1. An out-patient facility 2 to 3 times a week for therapy or home therapy. 2. Continue working on all exercises taught to you in the hospital. Your goals should be to increase bending of your knee to 90 degrees and beyond and to fully straighten your knee. B. Your therapist will notify you when you are able to progress from a walker to a cane. C. Wear TEDS as much as possible.~ They may be removed at night for laundering. D. Do not place a pillow behind your knee when resting. A pillow at your ankle is okay. E. Ice your knee 15-20 minutes every 2-3 hours and elevate it above the level of your heart. F. You may shower on the fourth day after surgery using regular soap and water. Do not submerge until the wound is completely healed (approximately 2 weeks ). Until the fourth day after surgery, cover the incision/bandage with a bag or plastic wrap. G. Anyone who is touching your surgical incision area should wash their hands and wear gloves. H. Keep your incision covered with gauze pads under the BANDAR hose until it is dry. VERY IMPORTANT TO READ AND REVIEW A. YOU WILL BE GIVEN AN ORDER AT DISCHARGE FOR PT/INR (BLOOD WORK). PLEASE HAVE THIS DONE INSTRUCTED. PLEASE CALL OUR OFFICE AFTER YOUR BLOODWORK IS COMPLETE SO WE CAN TRACK YOUR RESULTS. IF YOU ARE GOING TO OUTPATIENT PHYSICAL THERAPY, YOU WILL NEED TO GO TO OUTPATIENT TESTING TO HAVE IT DRAWN. B. There are a few signs you need to watch for after you are home. Call [facility] if you notice any of the followin. Increased severe knee pain. Some pain is expected especially when you exercise. 2. Increased swelling in your leg or knee; pain or swelling of the calf muscle in either lower leg. 3. Any fluid drainage from the incision. 4. Shortness of breath or chest pain. 5. Numbness and tingling in the surgical extremity C. Please call [facility] at if you have any concerns or questions about your operation or recovery. The doctor or his nurse will return your call promptly. D. Do not have any elective dental work or other elective procedures done for 6 weeks after your knee replacement. When you have any invasive procedure (dental cleaning, extraction, colonoscopy etc) performed, you will need to take antibiotics to prevent infection from developing in your artificial joint. Tell your other health care providers you have an artificial joint. My office will supply you with further information and the antibiotics. Call your doctor if: * Temperature above 101 degrees F. * Pain not relieved by pain medicine ordered. * Increased drainage or redness from incision. * Notify your doctor with any questions or concerns. Follow-up Visit: You will follow-up with Dr. Sigala 10-14 days after surgery. The office number is . Avoid all tobacco products. If you need help to stop smoking, call [place] at . This is a free call. Current Hospital Diet Patient's current hospital diet: Regular Diet Discharge Diet Recommended Diet: Regular Diet Procedures Procedures Performed: Right Total Knee Arthroplasty Pending Studies Studies pending at discharge: no Laboratory Results Lipid Panel Test 12/06/16 09:11 Range/Units Triglycerides Level 188 H 0-150 mg/dl Cholesterol Level 180 0-200 mg/dl HDL Cholesterol 49 mg/dl Cholesterol/HDL Ratio 3.7 LDL Cholesterol, Calculated 93 mg/dl Medical Emergencies . Who to Call and When: Medical Emergencies: If at any time you feel your situation is an emergency, please call 911 immediately. . Non-Emergent Contact Non-Emergency issues call your: Surgeon Call Non-Emergent contact if: you have a fever, temperature is above 101, your pain is not controlled, wound has increased drainage, wound has increased pain, you have any medication questions . "Provider Documentation" section prepared by Bree Leal. . VTE Core Measure Inpt VTE Proph given/why not?: Enoxaparin (Lovenox)SQ (30 mg SQ twice daily x 3 weeks after surgery; then take Aspirin 325mg twice daily with food x 3 weeks.) [place] [facility] Monitoring Program Search Results: patient reviewed within database, no issues identified
[2017-02-22] MEDS: DOCUSATE SODIUM 100 MG CAP PO SCH ×2 (08:48→20:39)
[2017-02-22] MEDS: ACETAMINOPHEN 325 MG TAB PO PRN (08:48)
[2017-02-22] MEDS: LORATADINE 10 MG TAB PO SCH (08:48)
[2017-02-22] MEDS: OXYCODONE HCL IR 5 MG TAB (IMMEDIATE RELEASE) PO PRN ×3 (08:48→22:38)
[2017-02-22] MEDS: PANTOprazole SOD 40 MG TAB PO SCH (08:49)
[2017-02-22] MEDS: MULTIVITAMIN TAB PO SCH (08:49)
[2017-02-22] MEDS: FERROUS GLUCONATE 324 MG TAB PO SCH ×3 (08:49→18:10)
[2017-02-22] MEDS: CeleBREX 200 MG CAP PO SCH ×2 (08:51→20:40)
--- NOTE | 2017-02-22 08:53 | Orthopedic Progress Note ---
Orthopedic Progress Note Date of Service Feb 22, 2017. Subjective Post OP Day: 1 Reports: feeling well, pain controlled w PO medications, Denies: complaints, chest pain, SOB, nausea / vomiting, light headedness, calf pain Additional Notes: Tolerating a regular diet. OOB bed eating breakfast this morning. States that his pain is about a 3/10. Objective calves soft nontender, N/V intact, capillary refill less than 2 sec., dressing C /D/I, A&O x3, toes mobile Knee immobilizer on at this time as he is sitting in chair for breakfast. Dressings intact. Distal pulses 1+. Foot warm. Able to slightly SLR independently, but again Knee immobilizer is on. Alert and oriented x 3. Date Time Temp Pulse Resp B/P (MAP) Pulse Ox O2 Delivery O2 Flow Rate FiO2 02/22/17 07:55 95 Room Air 02/22/17 07:25 36.5 53 14 142/82 (102) 95 Room Air 02/22/17 07:15 Room Air 02/22/17 04:00 36.4 55 18 134/73 (93) 97 Room Air 02/21/17 23:45 Room Air 02/21/17 23:35 36.6 50 18 150/77 (101) 94 Room Air 02/21/17 22:36 170/97 (121) 02/21/17 21:48 36.5 53 16 184/80 (114) 97 Room Air 02/21/17 16:00 98 Nasal Cannula 2.0 02/21/17 15:03 36.5 47 16 147/79 (101) 98 Nasal Cannula 2.0 02/21/17 14:41 47 16 146/73 (97) 96 Room Air 02/21/17 13:39 52 16 165/76 (105) 96 Room Air 02/21/17 12:43 36.6 49 17 153/77 (102) 98 Room Air 02/21/17 11:40 98 Nasal Cannula 2.0 02/21/17 11:40 36.6 47 20 154/81 (105) 98 Nasal Cannula 2.0 02/21/17 11:40 Nasal Cannula 02/21/17 11:20 36.4 47 16 126/69 98 Nasal Cannula 2 02/21/17 11:10 47 16 126/78 98 Nasal Cannula 2 02/21/17 11:00 44 16 130/70 98 Nasal Cannula 2 02/21/17 10:50 46 16 127/77 98 Mask 10 02/21/17 10:43 36.3 47 16 114/77 100 Mask 10 Laboratory Results 24 Hours: Test 02/22/17 04:55 Hematocrit 30.4 % Hemoglobin 10.6 g/dL Additional Notes: Knee x-rays taken post op on 02/21/17 show stable prosthesis in good alignment. Assessment & Plan Assessment: POD # 1 s/p R TKA Plan: continue pain control. - pain medication as prescribed. WBAT with brace, can d/c brace once good quad control. PT/OT. Reg diet. Still removed 02/22/2017. Change dressing 02/23/2017, keep covered while in hospital. Dressings not changed today. DVT Prophylaxis: TEDs and foot pumps, Lovenox to start this morning. Will continue x 3 weeks post op. H/H stable VSS Script for walker written and in patient chart. Plans for home with OPPT (although he states this is "up for discussion"). Discussed with nursing to have case management see again to see if home health is something he'd rather have. Will continue to follow, possible discharge to home on 02/23/17. Findings discussed with Dr. Sigala. I, Dr. Sigala, saw and examined the patient and discussed the management with my PA. I reviewed my PAs note and agree with the documented findings and the plan of care I developed. Discharge Planning Pain Management: Oxy IR DVT Prophylaxis: TEDs, Lovenox (Start 02/22/17 in am and continue for 3 weeks, then swithch to ASA 325 mg PO BID for another 3 weeks.)
[2017-02-22] MEDS ORDERED: LOSARTAN POTASSIUM 50 MG TAB PO SCH (09:00)
[2017-02-22] MEDS ORDERED: CETIRIZINE HCL 10 MG TAB PO SCH (09:00)
[2017-02-22] MEDS: ENOXAPARIN 30 MG/0.3 ML SYR SQ SCH ×2 (10:47→20:39)
--- NOTE | 2017-02-22 12:49 | Hospitalist Progress Note ---
Hospitalist Progress Note Date of Service Feb 22, 2017. Subjective Pt evaluation today including: conversation w/ patient Doing well, pain controlled, no CP or SOB. Abdomen: No pain, No nausea All Other Systems: Reviewed and Negative Objective Vital Signs Date Time Temp Pulse Resp B/P (MAP) Pulse Ox O2 Delivery O2 Flow Rate FiO2 02/22/17 11:40 36.8 65 16 152/73 (99) 95 Room Air 02/22/17 07:55 95 Room Air 02/22/17 07:25 36.5 53 14 142/82 (102) 95 Room Air 02/22/17 07:15 Room Air 02/22/17 04:00 36.4 55 18 134/73 (93) 97 Room Air 02/21/17 23:45 Room Air 02/21/17 23:35 36.6 50 18 150/77 (101) 94 Room Air 02/21/17 22:36 170/97 (121) 02/21/17 21:48 36.5 53 16 184/80 (114) 97 Room Air 02/21/17 16:00 98 Nasal Cannula 2.0 02/21/17 15:03 36.5 47 16 147/79 (101) 98 Nasal Cannula 2.0 02/21/17 14:41 47 16 146/73 (97) 96 Room Air 02/21/17 13:39 52 16 165/76 (105) 96 Room Air Physical Exam General Appearance: WD/WN, no apparent distress (sitting in chair eating lunch) Eyes: normal inspection, sclerae normal ENT: + pertinent finding (slightly LAC COURTE OREILLES) Neck: trachea midline Respiratory/Chest: lungs clear, normal breath sounds, no respiratory distress, no accessory muscle use Cardiovascular: regular rate, rhythm, no edema, no gallop, no murmur Abdomen: normal bowel sounds, non tender, soft Extremities: no pedal edema, no calf tenderness, + pertinent finding (right knee in dresing and wrap) Neurologic/Psychiatric: alert, normal mood/affect, oriented x 3 Skin: normal color, warm/dry, no rash Laboratory Results Last 24 Hours Test 02/22/17 04:55 White Blood Count 11.48 K/uL Red Blood Count 3.18 M/uL Hemoglobin 10.6 g/dL Hematocrit 30.4 % Mean Corpuscular Volume 95.6 fL Mean Corpuscular Hemoglobin 33.3 pg Mean Corpuscular Hemoglobin Concent 34.9 g/dl RDW Standard Deviation 40.4 fL RDW Coefficient of Variation 11.5 % Platelet Count 152 K/uL Mean Platelet Volume 9.6 fL Sodium Level 143 mmol/L Potassium Level 4.5 mmol/L Chloride Level 109 mmol/L Carbon Dioxide Level 28 mmol/L Anion Gap 6.0 mmol/L Blood Urea Nitrogen 22 mg/dl Creatinine 1.60 mg/dl Est Creatinine Clear Calc Drug Dose 37.3 ml/min Estimated GFR () 48.1 Estimated GFR (Non- 41.5 BUN/Creatinine Ratio 13.8 Random Glucose 133 mg/dl Calcium Level 7.9 mg/dl Assessment and Plan 76 y/o male with a history of nonobstructive CAD, HTN, HLD, CKD stage III, and GERD who presents s/p right TKA with Dr. Sigala on 02/21 for medical management. -Pain management, DVT prophylaxis with Lovenox 30 q12 x 3 weeks, and PT/OT as per primary team -POD #1 Bradycardia--stable. Asymptomatic -Pt states his HR typically runs low to mid 50s -HR has been in 40s here but now improved -Continue to monitor, currently asymptomatic CKD Stage III-coke oven mason baseline at 1.6 since 05/2016 but was 1.4 prior to that. He was unaware of this. -avoid nephrotoxins--would recommend AGAINST NSAIDs -follow PRP tomorrow and if coke oven mason stable, can restart losartan cautiously -follow as outpatient with PCP -renally dose all meds CAD-nonobstructive as per pt report on cath in 2010, no stress test he thinks since then, followed by Dr. Orourke of Cardiology -Continue ASA 81 mg PO qd, statin -control BP HTN--elevated due to being off losartan -Hold Losartan for elevated coke oven mason which is stale from pre-op -if coke oven mason stable tomorrow, can restart losartan -consider amlodipine instead if cannot restart losartan -Cover with hydralazine 10 mg IV q6h prn SBP >180 Prediabetes-HgbA1C 6.0% in 05/2016 -check A1C here again in AM HLD/bilateral JOSH-stable -Continue simvastatin 20 mg PO qd -has upcoming carotid US scheduled GERD -continue PPI Allergic rhinitis -Claritin 10 mg PO qd Thank you for this consultation. We will continue to follow.
[2017-02-22] MEDS: ASCORBIC ACID 500 MG TAB PO SCH (20:39)
[2017-02-22] MEDS: CHOLECALCIFEROL 1000 INTER.UNIT TAB PO SCH (20:39)
[2017-02-22] MEDS: ASPIRIN 81 MG ECTAB PO SCH (20:39)
[2017-02-22] MEDS: SIMVASTATIN 20 MG TAB PO SCH (20:40)
[2017-02-23] MEDS: OXYCODONE HCL IR 5 MG TAB (IMMEDIATE RELEASE) PO PRN ×4 (05:36→22:39)
[2017-02-23 05:59] VITALS: BP 173/98; PULSE 58; TEMP 36.9; O2SAT 96
[2017-02-23 06:45] LABS: BASO % 0.2 %; BASO ABS # 0.02 K/uL (0-0.2); COMPLETE YES; HEMATOCRIT 31.7 % (42-52); IG% 0.2 %; LYMPH % 21.6 %; LYMPH ABS # 2.44 K/uL (1.2-3.4); MEAN CELL VOLUME 96.9 fL (80-100); MEAN CORPUSCULAR HEMOGLOBIN 32.4 pg (25-34); MEAN CORPUSCULAR HGB CONC 33.4 g/dl (32-36); MEAN PLATELET VOLUME 9.7 fL (7.4-10.4); MONO % 13.8 %; NEUT % 63.2 %; PLATELET COUNT 171 K/uL (130-400); RED BLOOD COUNT 3.27 M/uL (4.7-6.1); WHITE BLOOD COUNT 11.29 K/uL (4.8-10.8)
[2017-02-23 06:47] LABS: PARTIAL THROMBOPLASTIN RATIO 1.1
[2017-02-23 07:13] LABS: BUN/CREATININE RATIO 12.2 (10-20); CALCIUM 8.4 mg/dl (8.5-10.1); CREATININE 1.7 mg/dl (0.60-1.40); MAGNESIUM 2.2 mg/dl (1.8-2.4); POTASSIUM 4.1 mmol/L (3.5-5.1)
[2017-02-23 07:45] LABS: ESTIMATED AVERAGE GLUCOSE 123 mg/dl; HA1C FLAG Normal (Normal)
[2017-02-23 07:46] VITALS: BP 164/84; PULSE 64
[2017-02-23] MEDS: FERROUS GLUCONATE 324 MG TAB PO SCH ×3 (07:52→17:40)
[2017-02-23] MEDS: CeleBREX 200 MG CAP PO SCH ×2 (07:53→20:16)
[2017-02-23] MEDS: LORATADINE 10 MG TAB PO SCH (07:54)
[2017-02-23] MEDS: MULTIVITAMIN TAB PO SCH (07:54)
[2017-02-23] MEDS: DOCUSATE SODIUM 100 MG CAP PO SCH ×2 (07:54→20:14)
[2017-02-23] MEDS: PANTOprazole SOD 40 MG TAB PO SCH (07:55)
[2017-02-23] MEDS: ENOXAPARIN 30 MG/0.3 ML SYR SQ SCH ×2 (07:56→20:55)
--- NOTE | 2017-02-23 08:23 | Orthopedic Progress Note ---
Orthopedic Progress Note Date of Service Feb 23, 2017. 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 Objective calves soft nontender, N/V intact, capillary refill less than 2 sec., dressing C /D/I, incision C/D/I, A&O x3, toes mobile, CMS intact Date Time Temp Pulse Resp B/P (MAP) Pulse Ox O2 Delivery O2 Flow Rate FiO2 02/23/17 07:46 64 164/84 (110) 02/23/17 05:59 36.9 58 16 173/98 (123) 96 Room Air 02/22/17 23:12 36.8 58 17 142/73 (96) 95 02/22/17 20:05 Room Air 02/22/17 18:13 64 16 173/82 (112) 96 Room Air 02/22/17 18:13 172/84 (113) 02/22/17 16:15 Room Air 02/22/17 15:41 36.7 52 16 158/79 (105) 97 Room Air 02/22/17 11:40 36.8 65 16 152/73 (99) 95 Room Air Laboratory Results 24 Hours: Test 02/23/17 05:49 White Blood Count 11.29 K/uL Red Blood Count 3.27 M/uL Hemoglobin 10.6 g/dL Hematocrit 31.7 % Mean Corpuscular Volume 96.9 fL Mean Corpuscular Hemoglobin 32.4 pg Mean Corpuscular Hemoglobin Concent 33.4 g/dl Platelet Count 171 K/uL Mean Platelet Volume 9.7 fL Neutrophils (%) (Auto) 63.2 % Lymphocytes (%) (Auto) 21.6 % Monocytes (%) (Auto) 13.8 % Eosinophils (%) (Auto) 1.0 % Basophils (%) (Auto) 0.2 % Neutrophils # (Auto) 7.14 K/uL Lymphocytes # (Auto) 2.44 K/uL Monocytes # (Auto) 1.56 K/uL Eosinophils # (Auto) 0.11 K/uL Basophils # (Auto) 0.02 K/uL Assessment & Plan Assessment: POD # 2 s/p R TKA Plan: continue pain control. - pain medication as prescribed. WBAT with brace, can d/c brace once good quad control. PT/OT. Reg diet. Still removed 02/22/2017. Changed dressing this AM, keep covered while in hospital. DVT Prophylaxis: TEDs and foot pumps, Lovenox started yesterday morning. Will continue x 3 weeks post op. H/H stable VSS Script for walker written and in patient chart. Plans for home with OPPT (although he states this is "up for discussion"). Discussed with nursing to have case management see again to see if home health is something he'd rather have. Will continue to follow, possible discharge to home this afternoon. Findings discussed with Dr. Sigala. I, Dr. Sigala, saw and examined the patient and discussed the management with my PA. I reviewed my PAs note and agree with the documented findings and the plan of care I developed. Discharge Planning Pain Management: Oxy IR DVT Prophylaxis: TEDs, Lovenox (Start 02/22/17 in am and continue for 3 weeks, then swithch to ASA 325 mg PO BID for another 3 weeks.)
[2017-02-23] MEDS ORDERED: NRV5 PO (08:47)
[2017-02-23] MEDS ORDERED: ASPEC325 PO (08:47)
[2017-02-23] MEDS: AMLODIPINE BESYLATE 5 MG TAB PO SCH (10:15)
[2017-02-23 11:34] VITALS: BP 159/83; PULSE 62; O2SAT 96
[2017-02-23 14:01] VITALS: O2SAT 96
[2017-02-23 15:17] VITALS: BP 128/79; PULSE 61; TEMP 37.1; O2SAT 94
--- NOTE | 2017-02-23 16:04 | Orthopedic Progress Note ---
Orthopedic Progress Note Date of Service Feb 23, 2017. 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 Objective calves soft nontender, N/V intact, capillary refill less than 2 sec., dressing C /D/I, incision C/D/I, A&O x3, toes mobile, CMS intact Date Time Temp Pulse Resp B/P (MAP) Pulse Ox O2 Delivery O2 Flow Rate FiO2 02/23/17 15:17 37.1 61 16 128/79 (95) 94 Room Air 02/23/17 14:01 96 Room Air 02/23/17 11:34 62 159/83 (108) 96 Room Air 02/23/17 08:00 Room Air 02/23/17 07:50 Room Air 02/23/17 07:46 64 164/84 (110) 02/23/17 05:59 36.9 58 16 173/98 (123) 96 Room Air 02/22/17 23:12 36.8 58 17 142/73 (96) 95 02/22/17 20:05 Room Air 02/22/17 18:13 64 16 173/82 (112) 96 Room Air 02/22/17 18:13 172/84 (113) 02/22/17 16:15 Room Air Laboratory Results 24 Hours: Test 02/23/17 05:49 White Blood Count 11.29 K/uL Red Blood Count 3.27 M/uL Hemoglobin 10.6 g/dL Hematocrit 31.7 % Mean Corpuscular Volume 96.9 fL Mean Corpuscular Hemoglobin 32.4 pg Mean Corpuscular Hemoglobin Concent 33.4 g/dl Platelet Count 171 K/uL Mean Platelet Volume 9.7 fL Neutrophils (%) (Auto) 63.2 % Lymphocytes (%) (Auto) 21.6 % Monocytes (%) (Auto) 13.8 % Eosinophils (%) (Auto) 1.0 % Basophils (%) (Auto) 0.2 % Neutrophils # (Auto) 7.14 K/uL Lymphocytes # (Auto) 2.44 K/uL Monocytes # (Auto) 1.56 K/uL Eosinophils # (Auto) 0.11 K/uL Basophils # (Auto) 0.02 K/uL Assessment & Plan Assessment: POD # 2 s/p R TKA Plan: continue pain control. - pain medication as prescribed. WBAT with walker assistance PT/OT. Reg diet. Changed dressing this AM, keep covered while in hospital. DVT Prophylaxis: TEDs and foot pumps, Lovenox started yesterday morning. Will continue x 3 weeks post op. H/H stable VSS After discussion with Case Management, pt opted for D/C to home with home health therapy for 2 wks ([facility]) Will continue to follow with probable discharge tomorrow. Findings discussed with Dr. Sigala. Discharge Planning Discharge Planning: home with home health Pain Management: Percocet, Oxy IR DVT Prophylaxis: TEDs, Lovenox (Start 02/22/17 in am and continue for 3 weeks, then swithch to ASA 325 mg PO BID for another 3 weeks.) Therapy: Physical Therapy, Occupational Therapy
[2017-02-23] MEDS: SIMVASTATIN 20 MG TAB PO SCH (20:15)
[2017-02-23] MEDS: ASPIRIN 81 MG ECTAB PO SCH (20:15)
[2017-02-23] MEDS: CHOLECALCIFEROL 1000 INTER.UNIT TAB PO SCH (20:17)
[2017-02-23] MEDS: ASCORBIC ACID 500 MG TAB PO SCH (20:17)
[2017-02-23 23:06] VITALS: BP 157/77; PULSE 70; TEMP 37.2; O2SAT 95
[2017-02-24 07:39] VITALS: BP 164/85; PULSE 69; TEMP 36.7; O2SAT 96
--- NOTE | 2017-02-24 07:49 | Hospitalist Progress Note ---
Hospitalist Progress Note Date of Service Feb 23, 2017. Subjective Pt evaluation today including: conversation w/ patient Doing well, renal function only slightly worse today but essentially stable. Pain controlled. BPs up and added amlodipine All Other Systems: Reviewed and Negative Objective Vital Signs Date Time Temp Pulse Resp B/P (MAP) Pulse Ox O2 Delivery O2 Flow Rate FiO2 02/23/17 11:34 62 159/83 (108) 96 Room Air 02/23/17 08:00 Room Air 02/23/17 07:50 Room Air 02/23/17 07:46 64 164/84 (110) 02/23/17 05:59 36.9 58 16 173/98 (123) 96 Room Air 02/22/17 23:12 36.8 58 17 142/73 (96) 95 02/22/17 20:05 Room Air 02/22/17 18:13 64 16 173/82 (112) 96 Room Air 02/22/17 18:13 172/84 (113) 02/22/17 16:15 Room Air 02/22/17 15:41 36.7 52 16 158/79 (105) 97 Room Air 02/22/17 11:40 36.8 65 16 152/73 (99) 95 Room Air Physical Exam General Appearance: WD/WN, no apparent distress Eyes: normal inspection, sclerae normal ENT: hearing grossly normal Neck: trachea midline Respiratory/Chest: lungs clear, normal breath sounds, no respiratory distress, no accessory muscle use Cardiovascular: regular rate, rhythm, no edema, no gallop, no murmur Abdomen: normal bowel sounds, non tender, soft Extremities: no pedal edema, no calf tenderness Neurologic/Psychiatric: alert, normal mood/affect, oriented x 3 Skin: no rash Laboratory Results Last 24 Hours Test 02/23/17 05:49 White Blood Count 11.29 K/uL Red Blood Count 3.27 M/uL Hemoglobin 10.6 g/dL Hematocrit 31.7 % Mean Corpuscular Volume 96.9 fL Mean Corpuscular Hemoglobin 32.4 pg Mean Corpuscular Hemoglobin Concent 33.4 g/dl Platelet Count 171 K/uL Mean Platelet Volume 9.7 fL Neutrophils (%) (Auto) 63.2 % Lymphocytes (%) (Auto) 21.6 % Monocytes (%) (Auto) 13.8 % Eosinophils (%) (Auto) 1.0 % Basophils (%) (Auto) 0.2 % Neutrophils # (Auto) 7.14 K/uL Lymphocytes # (Auto) 2.44 K/uL Monocytes # (Auto) 1.56 K/uL Eosinophils # (Auto) 0.11 K/uL Basophils # (Auto) 0.02 K/uL RDW Standard Deviation 42.4 fL RDW Coefficient of Variation 11.9 % Immature Granulocyte % (Auto) 0.2 % Immature Granulocyte # (Auto) 0.02 K/uL Activated Partial Thromboplast Time 29.8 SECONDS Partial Thromboplastin Ratio 1.1 Sodium Level 144 mmol/L Potassium Level 4.1 mmol/L Chloride Level 109 mmol/L Carbon Dioxide Level 26 mmol/L Anion Gap 9.0 mmol/L Blood Urea Nitrogen 21 mg/dl Creatinine 1.70 mg/dl Est Creatinine Clear Calc Drug Dose 35.1 ml/min Estimated GFR () 44.7 Estimated GFR (Non- 38.6 BUN/Creatinine Ratio 12.2 Random Glucose 121 mg/dl Estimated Average Glucose 123 mg/dl Hemoglobin A1c 5.9 % Calcium Level 8.4 mg/dl Magnesium Level 2.2 mg/dl Assessment and Plan 76 y/o male with a history of nonobstructive CAD, HTN, HLD, CKD stage III, and GERD who presents s/p right TKA with Dr. Sigala on 02/21 for medical management. -Pain management, DVT prophylaxis with Lovenox 30 q12 x 3 weeks, and PT/OT as per primary team -POD #2 Bradycardia--improved. 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 He was unaware of this. 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 Orourke of Cardiology -Continue ASA 81 mg PO qd, statin -control BP HTN--elevated due to being off losartan -as above, dc losartan -start amlodipine Prediabetes-HgbA1C 6.0% in 05/2016, now 5.9% -low carb diet -follow as outpt HLD/bilateral JOSH-stable -Continue simvastatin 20 mg PO qd -has upcoming carotid US scheduled GERD -continue PPI Allergic rhinitis -Claritin 10 mg PO qd Stable for dc to home Thank you for this consultation.
[2017-02-24] MEDS: DOCUSATE SODIUM 100 MG CAP PO SCH (08:21)
[2017-02-24] MEDS: PANTOprazole SOD 40 MG TAB PO SCH (08:21)
[2017-02-24] MEDS: MULTIVITAMIN TAB PO SCH (08:21)
[2017-02-24] MEDS: ENOXAPARIN 30 MG/0.3 ML SYR SQ SCH (08:21)
[2017-02-24] MEDS: AMLODIPINE BESYLATE 5 MG TAB PO SCH (08:21)
[2017-02-24] MEDS: LORATADINE 10 MG TAB PO SCH (08:21)
[2017-02-24] MEDS: FERROUS GLUCONATE 324 MG TAB PO SCH ×2 (08:21→12:50)
--- NOTE | 2017-02-24 08:23 | Orthopedic Progress Note ---
Orthopedic Progress Note Date of Service Feb 24, 2017. Subjective Post OP Day: 3 Reports: feeling well, pain controlled w PO medications, Denies: complaints, chest pain, SOB, nausea / vomiting, light headedness, calf pain, using DIRECTOR CORPORATE COMMUNICATIONS Objective calves soft nontender, N/V intact, capillary refill less than 2 sec., dressing C /D/I, incision C/D/I, A&O x3, toes mobile, CMS intact Date Time Temp Pulse Resp B/P (MAP) Pulse Ox O2 Delivery O2 Flow Rate FiO2 02/24/17 07:39 36.7 69 18 164/85 (111) 96 Room Air 02/23/17 23:06 37.2 70 18 157/77 (103) 95 Room Air 02/23/17 20:10 Room Air 02/23/17 15:17 37.1 61 16 128/79 (95) 94 Room Air 02/23/17 14:01 96 Room Air 02/23/17 11:34 62 159/83 (108) 96 Room Air Assessment & Plan Assessment: POD # 3 s/p R TKA Plan: continue pain control. - pain medication as prescribed. WBAT with walker assistance PT/OT this AM then Discharge to home. Reg diet. DVT Prophylaxis: TEDs and foot pumps, Lovenox started Monday morning. Will continue x 3 weeks post op then do an additional 2-3 wks of ASA 325 mg PO BID. H/H stable VSS After discussion with Case Management, pt opted for D/C to home with home health therapy for 2 wks ([facility]) Findings discussed with Dr. Sigala. Discharge Planning Discharge Planning: home with home health Pain Management: Percocet, Oxy IR DVT Prophylaxis: TEDs, Lovenox (Start 02/22/17 in am and continue for 3 weeks, then swithch to ASA 325 mg PO BID for another 3 weeks.) Therapy: Physical Therapy, Occupational Therapy
[2017-02-24] MEDS: CeleBREX 200 MG CAP PO SCH (08:58)
[2017-02-24 09:42] VITALS: BP 164/85; PULSE 69; TEMP 36.7; O2SAT 96
[2017-02-24] MEDS: OXYCODONE HCL IR 5 MG TAB (IMMEDIATE RELEASE) PO PRN (10:24)
--- NOTE | 2017-02-24 12:58 | Discharge Summary ---
Orthopedic Discharge Summary Admission Date/Reason Feb 21, 2017 at 06:31 Right Knee Osteoarthritis. Discharge Date/Disposition Feb 24, 2017 Home with services ([facility]) Diagnosis Principal Diagnosis: Right knee osteoarthritis Procedure(s) Performed Right Total Knee Arthroplasty Consultations Hospitalist Consultation due to chronic health issues. Cleared for discharge this AM. Case Management eval to set up Home Health Services. Medication Reconciliation Percocet 5/325 mg take 1-2 tabs PO q 4-6 hrs prn pain #30 dispensed. Lovenox 30 mg SQ q12 hrs x 3 wks After completion of Lovenox patient will take Aspirin 325 mg PO BID for 3 additional weeks Amlodipine Besylate 5 mg PO qAM x 30 days. Docusate Sodium 100 mg PO BID x 30 days. Ferrous Gluconate 324mg PO TID x 30 days. Will continue all previous prescription meds. Admission Physical Exam As per Admitting History & Physical. Hospital Course Day 1 post-op: patient was doing well. Had no complaints of CP, SOB, N/V/D/C, fever, chills or sweats. Pain was well controlled with oral pain meds. Patient had some pain/discomfort this PT/OT, but was able to transition from bed to chair and perform straight leg raises with immobilizer in place. Day 2 post-op: patient states that he tried to go for a walk the night before and experienced severe pain throughout entire Right LE and had to be helped back to his bed. AM eval; denies CP, SOB, N/V/D/C, fever ,chills, sweat or pain at that time. Able to do straight leg raise but was hesitant to try flexion at knee joint. Dressing changed. AM PT/OT: patient had 3 episodes of HELLER while ambulating with walker that immediately subsided with rest. Met with Case Management and requested home health therapy for 2 wks before switching to outpatient PT. Saw patient that afternoon and states that he may benefit from additional night stay with AM PT/OT. Day 3 post-op: Patient doing very well this AM. Able to extent to 0 and flex to 90 with only mild discomfort. State that he will be ready to leave after AM PT/OT. No CP, SOB, N/V/D/C, fever, chills, sweats or N/T in Rt LE. Discharge placed. Pt scheduled to see Dr. Sigala in 2 weeks. Discharge Instructions Please refer to the electronic Patient Visit Report (Discharge Instructions) for additional information. Additional Copies To Enmanuel Sigala MD
--- NOTE | 2017-02-24 19:47 | Hospitalist Progress Note ---
Hospitalist Progress Note Date of Service Feb 24, 2017. Subjective Pt evaluation today including: conversation w/ patient Doing well, BPs still high but has not yet received BP meds today. No CP or SOB All Other Systems: Reviewed and Negative Objective Vital Signs Date Time Temp Pulse Resp B/P (MAP) Pulse Ox O2 Delivery O2 Flow Rate FiO2 02/24/17 09:42 36.7 69 18 96 Room Air 02/24/17 07:45 Room Air 02/24/17 07:39 36.7 69 18 164/85 (111) 96 Room Air 02/23/17 23:06 37.2 70 18 157/77 (103) 95 Room Air 02/23/17 20:10 Room Air Physical Exam General Appearance: WD/WN, no apparent distress Eyes: normal inspection, sclerae normal ENT: hearing grossly normal Neck: trachea midline Respiratory/Chest: lungs clear, normal breath sounds, no respiratory distress, no accessory muscle use Cardiovascular: regular rate, rhythm, no edema, no murmur Abdomen: normal bowel sounds, non tender, soft Extremities: no calf tenderness Neurologic/Psychiatric: alert, normal mood/affect, oriented x 3 Skin: normal color, warm/dry, no rash Assessment and Plan 76 y/o male with a history of nonobstructive CAD, HTN, HLD, CKD stage III, and GERD who presents s/p right TKA with Dr. Sigala on 02/21 for medical management. -Pain management, DVT prophylaxis with Lovenox 30 q12 x 3 weeks then ASA 325 bid x 3 weeks, and PT/OT as per primary team -POD #3 Bradycardia--improved. 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 He was unaware of this. 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 Orourke of Cardiology -Continue ASA 81 mg PO qd, statin -control BP HTN--elevated due to being off losartan, just started amlodipine and not given yet this AM -as above, dc losartan -continue amlodipine 5mg daily Prediabetes-HgbA1C 6.0% in 05/2016, now 5.9% -low carb diet -follow as outpt HLD/bilateral JOSH-stable -Continue simvastatin 20 mg PO qd -has upcoming carotid US scheduled GERD -continue PPI Allergic rhinitis -Claritin 10 mg PO qd Stable for dc to home Thank you for this consultation.
== END 2017-02-24 14:12 | disposition home health service (06) | DRG 470 ==
LOC: C.ACU 05:12 → C.3E 06:31 → ENRESERV 11:16
PROVIDERS: ADMIT Orthopaedic Surgery Sports Medicine; ATTEND Orthopaedic Surgery Sports Medicine
PROC: 0SRC0J9 Replacement of Right Knee Joint with Synthetic Substitute, Cemented, Open Approach (ICD-10-PCS; principal; 2017-02-21 07:00)
DX: M17.31 Unilateral post-traumatic osteoarthritis, right knee (principal); E78.5 Hyperlipidemia, unspecified; I12.9 Hypertensive chronic kidney disease with stage 1 through stage 4 chronic kidney disease, or unspecified chronic kidney disease; N18.3 Chronic kidney disease, stage 3 (moderate); R00.1 Bradycardia, unspecified; K21.9 Gastro-esophageal reflux disease without esophagitis; I25.10 Atherosclerotic heart disease of native coronary artery without angina pectoris; R73.03 Prediabetes; J32.9 Chronic sinusitis, unspecified; Z85.828 Personal history of other malignant neoplasm of skin; Z79.899 Other long term (current) drug therapy; Z79.82 Long term (current) use of aspirin

== ENCOUNTER → 2017-04-07 | Outpatient (CLI) | payer OTHER ==
[~2017-04-07] MED LIST changes: +AMLO-110 PO; +ASPEC325 PO; +CHOL400T PO; +CLC100 PO; +DOCU100C31 PO; +FRRG PO; -IBUP-103 PO; -LOSA50TA6 PO; +LVNIS30 SQ; +NRV5 PO; +OXYC-57 PO
--- NOTE | 2017-04-07 16:35 | DIAGNOSTIC IMAGING REPORT ---
ULTRASOUND VENOUS DOPPLER ULTRASOUND OF THE RIGHT LOWER EXTREMITY CLINICAL HISTORY: Right leg pain COMPARISON STUDY: May 20, 2015 FINDINGS: Real-time and color flow Doppler imaging were performed. Flow was seen within the femoral, popliteal and calf veins with no intraluminal thrombus demonstrated. The saphenous vein is patent. There is 25 x 36 x 11 mm complex right popliteal cyst IMPRESSION: 1. No evidence of right lower extremity DVT 2. Small right popliteal cyst Electronically signed by: Luciano Hewitt M.D. 04/07/2017 4:33 PM Dictated Date/Time: 04/07/2017 4:32 PM
== END | disposition home or self-care (01) ==
LOC: C.ULTR 15:46
PROVIDERS: ATTEND Physician Assistant
DX: M25.561 Pain in right knee (principal); M71.21 Synovial cyst of popliteal space [Baker], right knee

== ENCOUNTER → 2017-05-18 | Outpatient (CLI) | payer OTHER ==
--- NOTE | 2017-05-18 10:33 | DIAGNOSTIC IMAGING REPORT ---
RENAL ULTRASOUND HISTORY: Follow-up RENAL CYST, N28.1, N40.1 COMPARISON: Renal ultrasound 05/27/2015. FINDINGS: Right kidney: 9.7 cm. No hydronephrosis. Normal corticomedullary differentiation and cortical thickness. A 1.7 cm upper pole cyst. 1 cm cortical calcification within the lower pole. Stable 5 mm cyst within the interpolar region. Left kidney: 10.3 cm. No hydronephrosis. Normal corticomedullary differentiation and cortical thickness. A 2 cm upper pole cyst. Bladder: No bladder wall thickening. The bilateral ureteral jets were identified. IMPRESSION: 1. No hydronephrosis. 2. Slight increase in size of the bilateral renal cysts. The largest on the left measures 2 cm. Electronically signed by: Juan Jose Carey M.D. 05/18/2017 10:32 AM Dictated Date/Time: 05/18/2017 10:29 AM
[2017-05-18 10:43] LABS: BLOOD UREA NITROGEN 17 mg/dl (7-18); BUN/CREATININE RATIO 11.9 (10-20)
== END | disposition home or self-care (01) ==
LOC: C.ULTR 09:33
PROVIDERS: ATTEND Urology
DX: N28.1 Cyst of kidney, acquired (principal); N40.1 Benign prostatic hyperplasia with lower urinary tract symptoms

== ENCOUNTER 2017-05-29 15:06 | Emergency (ER) | payer OTHER ==
[~2017-05-29] VITALS: Ht 170.2 cm; Wt 68.9 kg
[~2017-05-29 15:06] MED LIST changes: -AMLO-110 PO; -CHOL400T PO; -DOCU100C31 PO
[2017-05-29 15:15] VITALS: BP 168/92; PULSE 56; TEMP 36.7; O2SAT 94; Ht 170.2 cm; Wt 68.9 kg
[2017-05-29] MEDS ORDERED: AMLO-110 PO (15:40)
[2017-05-29] MEDS ORDERED: DOCU100C31 PO (16:05)
[2017-05-29] MEDS ORDERED: CHOL400T PO (16:09)
--- NOTE | 2017-05-29 16:30 | EMERGENCY ROOM VISIT NOTE ---
ED Visit Note First contact with patient: 15:28 CHIEF COMPLAINT: Dog bite right lower leg 3 weeks ago HISTORY OF PRESENT ILLNESS: Patient is a 76-year-old white male who presents to the emergency department for evaluation after he was bitten by a dog on the right leg about 3 weeks ago. He reports that he was walking his dog, and neighbor with whom he is loosely acquainted was also walking their dog. He states the dog bit him on the lateral aspect of the right knee. He says within the next 5-10 minutes, he was home, had washed out with soap and water and applied Neosporin to the area. The pain has since healed. The patient reports that his tetanus is up to date. He has no knowledge of the dog's vaccination status, the only way he has to get in touch with the dog's barbecue cook is by email, and he reports that he sent an email to the barbecue cook this morning. He is wondering whether he can be tested for rabies. He states the dog was aggressive , but not acting unusually. REVIEW OF SYSTEMS: Review of systems as per HPI. All other systems reviewed were negative. At least 6 systems reviewed. PMH: Electronic medical records are reviewed and summarized as above/below. See Problem List. Patient's tetanus vaccination is current. SOCIAL HISTORY: Patient lives at home with his . He is retired. Does not smoke. PHYSICAL EXAM: Vital Signs: Reviewed Nurse's notes. HEAD: Atraumatic, without temporal or scalp tenderness. EYES: PERRL, EOMI, no discharge or injection. SKIN: Normal. NEUROLOGICAL: Alert and cooperative. Sensory and motor functions grossly intact. EMERGENCY DEPARTMENT COURSE: The patient was seen and evaluated as above. [facility] Animal Bite paperwork was completed. According to the Department of Health treatment algorithm, I discussed the patient that the recommendation would be that he should proceed with the post exposure rabies prophylaxis vaccination series. The vaccination series was explained to the patient in detail including risks, benefits and alternatives. At this time the patient would like to defer, and wait to see if he can get additional information from the dog 's barbecue cook. If he desires to proceed, he was encouraged to return to the ED for his vaccinations. Regarding the dog bite, the site is well-healed, without signs of infection, and does not require any antibiotic therapy. Blood pressure screening: Patient was found to have a slightly elevated blood pressure due to circumstances. Patient does have a history of hypertension and is followed for this. Medication reconciliation: I attest that I have personally reviewed the patient' s current medication list. 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 Chr Kdny Status: Chronic (6) Right knee DJD Status: Resolved Surgical Problems: (1) Cataract Nos Status: Resolved (2) History of total knee arthroplasty Status: Resolved Current/Historical Medications Scheduled Amlodipine (Norvasc), 5 MG PO QAM Ascorbic Acid (Vitamin C), 500 MG PO 3XWK Aspirin (Aspirin Ec), 81 MG PO HS Cholecalciferol (Vitamin D3), 400 UNITS PO 3XWK Coenzyme Q10 (Ubidecarenone) (Co Q-10), 200 MG PO BID Nitroglycerin (Nitrostat), 0.4 MG UT PRN [place]-3 Fatty Acids (Fish Oil), 2 CAPSULES PO BID Omeprazole (Prilosec), 20 MG PO PRN Simvastatin (Zocor), 20 MG PO HS Scheduled PRN Docusate Sodium (Docusate Sodium), 100 MG PO BID PRN for Constipation Allergies Coded Allergies: No Known Allergies (Unverified , 02/21/17) Vital Signs Date Time Temp Pulse Resp B/P (MAP) Pulse Ox O2 Delivery O2 Flow Rate FiO2 05/29/17 16:45 05/29/17 15:15 36.7 56 20 168/92 94 Room Air Departure Information Impression Primary Impression: Dog bite of right lower leg Referrals Brendan Sánchez M.D. (PCP) Patient Instructions My [facility] Additional Instructions Return to the emergency department if you desire to proceed with post exposure rabies prophylaxis.
--- NOTE | 2017-05-29 16:39 | EMERGENCY ROOM VISIT NOTE ---
ED Visit Note First contact with patient: 15:28 Patient was seen by our PA/BANKRUPTCY MANAGER. I was involved in the patient's care and did evaluate the patient myself. I was involved in the care throughout the ER stay. The patient had questions regarding rabies. The patient does know the candy polisher of the dog and the dog is domesticated. He will contact the candy polisher. No rabies vaccinations to be started today.
== END 2017-05-29 16:45 | disposition home or self-care (01) ==
LOC: C.EDB 15:07 → C.EDD 16:45
DX: S89.81XA Other specified injuries of right lower leg, initial encounter (principal); W54.0XXA Bitten by dog, initial encounter; Y92.89 Other specified places as the place of occurrence of the external cause; Y93.K1 Activity, walking an animal; I25.10 Atherosclerotic heart disease of native coronary artery without angina pectoris; K21.9 Gastro-esophageal reflux disease without esophagitis; E78.5 Hyperlipidemia, unspecified; I12.9 Hypertensive chronic kidney disease with stage 1 through stage 4 chronic kidney disease, or unspecified chronic kidney disease; Z79.82 Long term (current) use of aspirin; Z79.899 Other long term (current) drug therapy

== ENCOUNTER 2017-06-05 08:54 | Emergency (ER) | payer OTHER ==
[~2017-06-05] VITALS: Ht 170.2 cm; Wt 76.0 kg
[~2017-06-05 08:54] MED LIST changes: +AMLO-110 PO; -ASPEC325 PO; +CHOL400T PO; -CLC100 PO; +DOCU100C31 PO; -FRRG PO; -LVNIS30 SQ; -NRV5 PO; -OXYC-57 PO; -VITAMIN D3 PO
[2017-06-05 09:00] VITALS: TEMP 36.6; Ht 170.2 cm; Wt 76.0 kg
[2017-06-05] MEDS ORDERED: IBUPROFEN 600 MG TAB PO STA (09:20)
[2017-06-05] MEDS ORDERED: RABIES IMMUNE GLOBULIN (HUMAN) 150 INTER.UNIT/ML 2 ML VIAL IM. ONE (09:30)
[2017-06-05] MEDS ORDERED: RABIES VACCINE (IMOVAX) HUMAN DIPL CELL 2.5 INTER.UNIT/ML SYR IM. ONE (09:30)
--- NOTE | 2017-06-05 09:55 | EMERGENCY ROOM VISIT NOTE ---
ED Visit Note First contact with patient: 09:07 CHIEF COMPLAINT: Need for rabies prophylaxis HISTORY OF PRESENT ILLNESS: This 76-year-old male patient presents to the emergency department, ambulatory, with a female. The patient was bitten by a dog on May 15 or states. The patient was seen here in the emergency department on May 29 for a puncture wound in the lateral right knee. The patient at that time was instructed that he should receive rabies prophylaxis injections. At that time, the patient states he wanted to look into the dog's history to verify the dog was vaccinated properly. The patient spoke with the dog's owners in [place], who state the dogs last rabies vaccination was in February 2014. Rabies vaccinations are generally good for approximately 3 years. The dog did have a booster shot after the bite. The patient states the vet stated that there were no symptoms of rabies, but the patient is concerned due to the late rabies booster and the aggressiveness of the dog. The patient presents today because he would like to receive the rabies vaccinations. The patient denies any symptoms including nausea, vomiting, fatigue, neurological symptoms, confusion, numbness, tingling, redness or swelling at the site of the bite, or other associated symptoms. REVIEW OF SYSTEMS: A 6 system review of systems was completed with positives and pertinent negatives listed in the HPI. ALLERGIES: None MEDICATIONS: amlodipine, vitamin C, aspirin, vitamin D, CoQ10, docusate sodium , nitroglycerin, fish oil, Prilosec, Zocor PMH: Hyperlipidemia, hypertension, GERD. SOCIAL HISTORY: The patient lives locally with family. He denies drug, alcohol , tobacco use.. PHYSICAL EXAM: Vital Signs: Reviewed Nurse's notes, vital signs stable. GENERAL : This is a 76-year-old white male, in no acute distress, well-developed, well- nourished. HEAD: Atraumatic, without temporal or scalp tenderness. EYES: PERRLA, EOMI, no discharge or injection. SKIN: Scar on the lateral right knee, the wound has healed over. Capillary refill less than 2 seconds. NEUROLOGICAL : Alert and oriented to person place and time. Normal sensation to light and sharp touch. MUSCULOSKELETAL: Motor functions grossly intact of the bilateral lower extremities. Full range of motion. There is no tenderness. EMERGENCY DEPARTMENT COURSE: I examined the patient. The patient states he is concerned about the immunoglobulin shot, that it may hurt. He does request Percocet due to the potential for pain. I discussed with the patient that I do not normally have to give patient's narcotic pain medication due to these injections. I offered him ibuprofen and he states "I will take whatever you are willing to give me." The patient was given a dose of 600 mg ibuprofen prior to the injections. The patient was given RIG 20 Units/kg. 150 Units. The patient was given Imovax 1ml IM. He was given an ice pack for comfort after the injections. The patient was observed for 20 minutes with no reaction. The patient was discharged home in stable condition. DIFFERENTIAL DIAGNOSIS: Dog bite, rabies, need for rabies prophylaxis DIAGNOSIS: Rabies prophylaxis DISCHARGE INSTRUCTIONS: Today is day 0. Return to the ER on days 3, 7, 14, and 28 for subsequent vaccinations. Return sooner or follow up with your family doctor for signs of infection (increased redness, discharge, fever) or for complications with the vaccine series. 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 Chr Kdny Status: Chronic (6) Right knee DJD Status: Resolved Surgical Problems: (1) Cataract Nos Status: Resolved (2) History of total knee arthroplasty Status: Resolved Current/Historical Medications Scheduled Amlodipine (Norvasc), 5 MG PO QAM Ascorbic Acid (Vitamin C), 500 MG PO 3XWK Aspirin (Aspirin Ec), 81 MG PO HS Cholecalciferol (Vitamin D3), 400 UNITS PO 3XWK Coenzyme Q10 (Ubidecarenone) (Co Q-10), 200 MG PO BID Nitroglycerin (Nitrostat), 0.4 MG UT PRN [place]-3 Fatty Acids (Fish Oil), 2 CAPSULES PO BID Omeprazole (Prilosec), 20 MG PO PRN Simvastatin (Zocor), 20 MG PO HS Scheduled PRN Docusate Sodium (Docusate Sodium), 100 MG PO BID PRN for Constipation Allergies Coded Allergies: No Known Allergies (Unverified , 06/05/17) Vital Signs Date Time Temp Pulse Resp B/P (MAP) Pulse Ox O2 Delivery O2 Flow Rate FiO2 06/05/17 10:30 50 18 149/83 96 06/05/17 09:00 36.6 67 18 157/80 93 Room Air Medications Administered Medications (Trade) Dose Ordered Sig/Gregory Route Start Time Stop Time Status Last Admin Dose Admin Ibuprofen (Motrin Tab) 600 mg NOW STAT PO 06/05/17 09:20 06/05/17 09:23 DC 06/05/17 09:28 600 MG Rabies Vaccine Human Diploid Cell (Imovax Rabies) 2.5 interunit ONCE ONCE IM. 06/05/17 09:30 06/05/17 09:31 DC 06/05/17 09:35 2.5 INTERUNIT Rabies Immune Globulin (Imogam Rabies Inj) 1,500 interunit ONCE ONCE IM. 06/05/17 09:30 06/05/17 09:31 DC 06/05/17 09:59 1,500 INTERUNIT Departure Information Impression Primary Impression: Encounter for prophylactic rabies immune globin Additional Impression: Need for prophylactic vaccination against rabies Dispostion Home / Self-Care Condition GOOD Referrals Brendan Sánchez M.D. (PCP) Patient Instructions My [facility], Rabies Additional Instructions Today is day 0. Return to the ER on days 3, 7, and 14 for subsequent vaccinations. Return sooner or follow up with your family doctor for signs of infection ( increased redness, discharge, fever) or for complications with the vaccine series. Problem Qualifiers
[2017-06-05 10:30] VITALS: BP 149/83; PULSE 50; O2SAT 96
== END 2017-06-05 10:36 | disposition home or self-care (01) ==
LOC: C.EDB 08:54
DX: Z20.3 Contact with and (suspected) exposure to rabies (principal); Z23 Encounter for immunization; Z79.82 Long term (current) use of aspirin; Z79.899 Other long term (current) drug therapy; E78.5 Hyperlipidemia, unspecified; K21.9 Gastro-esophageal reflux disease without esophagitis; I25.10 Atherosclerotic heart disease of native coronary artery without angina pectoris; N18.4 Chronic kidney disease, stage 4 (severe); I12.9 Hypertensive chronic kidney disease with stage 1 through stage 4 chronic kidney disease, or unspecified chronic kidney disease; Z98.49 Cataract extraction status, unspecified eye; Z96.659 Presence of unspecified artificial knee joint

== ENCOUNTER 2017-06-08 13:17 | Emergency (ER) | payer OTHER ==
[~2017-06-08] VITALS: Ht 170.2 cm; Wt 77.4 kg
[2017-06-08 13:19] VITALS: TEMP 36.8; Ht 170.2 cm; Wt 77.4 kg
--- NOTE | 2017-06-08 13:44 | EMERGENCY ROOM VISIT NOTE ---
ED Visit Note First contact with patient: 13:37 Chief Complaint: Rabies Return Visit History of Present Illness: This patient is a 76-year-old male who presents to the Emergency Department via private vehicle for their second Rabies Vaccination Injections. The patient reports that they had no reaction to previous injection. Patient denies the development of any fevers, chills, sweats, or URI symptoms. Medications: Unchanged from previous visit. Allergies: None PMH: Unchanged from previous visit. SHx: Pt. lives locally. ROS: All pertinent positive and negative review of systems are appropriately documented in the History of Present Illness. Physical Exam: VITAL SIGNS - Vital signs and Nursing Notes were reviewed. Stable. GENERAL - 76 year old male, well-developed, well-nourished, and in no acute distress. SKIN - Without rashes or lesions. NEURO - Patient is A&O and communicates appropriately with the provider. ED Course: Previous ED visit note was reviewed by myself prior to patient evaluation. Patient reports mp reaction to the previous injection(s). Patient received 2.5 IU of IMOVAX intramuscularly. Patient was observed in the Emergency Department for greater than 20 minutes prior to discharge without signs of reaction. Patient was educated on worrisome symptoms for return visit to the Emergency Department. Patient discharged to home with the intent for follow-up in the Emergency Department as scheduled for the remainder of their injections. He notes that he is well aware of the times he is to return in the future. 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 Chr Kdny Status: Chronic (6) Right knee DJD Status: Resolved Surgical Problems: (1) Cataract Nos Status: Resolved (2) History of total knee arthroplasty Status: Resolved Current/Historical Medications Scheduled Amlodipine (Norvasc), 5 MG PO QAM Ascorbic Acid (Vitamin C), 500 MG PO 3XWK Aspirin (Aspirin Ec), 81 MG PO HS Cholecalciferol (Vitamin D3), 400 UNITS PO 3XWK Coenzyme Q10 (Ubidecarenone) (Co Q-10), 200 MG PO BID Nitroglycerin (Nitrostat), 0.4 MG UT PRN [place]-3 Fatty Acids (Fish Oil), 2 CAPSULES PO BID Omeprazole (Prilosec), 20 MG PO PRN Simvastatin (Zocor), 20 MG PO HS Scheduled PRN Docusate Sodium (Docusate Sodium), 100 MG PO BID PRN for Constipation Allergies Coded Allergies: No Known Allergies (Unverified , 06/08/17) Vital Signs Date Time Temp Pulse Resp B/P (MAP) Pulse Ox O2 Delivery O2 Flow Rate FiO2 06/08/17 14:06 80 20 157/92 98 06/08/17 13:19 36.8 62 20 145/77 96 Room Air Medications Administered Medications (Trade) Dose Ordered Sig/Gregory Route Start Time Stop Time Status Last Admin Dose Admin Rabies Vaccine Human Diploid Cell (Imovax Rabies) 2.5 interunit ONCE ONCE IM. 06/08/17 13:45 06/08/17 13:46 DC 06/08/17 13:58 2.5 INTERUNIT Departure Information Impression Primary Impression: Rabies, need for prophylactic vaccination against Dispostion Home / Self-Care Condition GOOD Referrals Brendan Sánchez M.D. (PCP) Patient Instructions My [facility] Additional Instructions Discharge Instructions: You were seen in the Emergency Department today for your Rabies Prophylaxis Injection. You should continue to follow the Discharge Instructions outlined for you in your initial Emergency Department visit. Please return with any new/concerning symptoms.
[2017-06-08] MEDS ORDERED: RABIES VACCINE (IMOVAX) HUMAN DIPL CELL 2.5 INTER.UNIT/ML SYR IM. ONE (13:45)
[2017-06-08 14:06] VITALS: BP 157/92; PULSE 80; O2SAT 98
== END 2017-06-08 14:08 | disposition home or self-care (01) ==
LOC: C.EDB 13:18 → C.EDD 14:08
DX: Z20.3 Contact with and (suspected) exposure to rabies (principal); Z23 Encounter for immunization; I25.10 Atherosclerotic heart disease of native coronary artery without angina pectoris; K21.9 Gastro-esophageal reflux disease without esophagitis; E78.5 Hyperlipidemia, unspecified; I12.9 Hypertensive chronic kidney disease with stage 1 through stage 4 chronic kidney disease, or unspecified chronic kidney disease; N18.9 Chronic kidney disease, unspecified; M17.9 Osteoarthritis of knee, unspecified; Z96.659 Presence of unspecified artificial knee joint; Z98.49 Cataract extraction status, unspecified eye; Z79.899 Other long term (current) drug therapy; Z79.82 Long term (current) use of aspirin

== ENCOUNTER 2017-06-12 10:14 | Emergency (ER) | payer OTHER ==
[2017-06-12 10:20] VITALS: TEMP 36.9
[2017-06-12] MEDS ORDERED: RABIES VACCINE (IMOVAX) HUMAN DIPL CELL 2.5 INTER.UNIT/ML SYR IM. ONE (10:45)
--- NOTE | 2017-06-12 10:51 | EMERGENCY ROOM VISIT NOTE ---
ED Visit Note First contact with patient: 10:42 CHIEF COMPLAINT: Rabies prophylaxis HISTORY OF PRESENT ILLNESS: This 76-year-old male patient presents to the emergency department ambulatory for their third rabies shot. The patient has not had any complications from the previous injections. They deny any other complaints. REVIEW OF SYSTEMS: A 6 system review of systems was completed with positives and pertinent negatives listed in the HPI. ALLERGIES: No known drug allergies MEDICATIONS: Unchanged from previous PMH: Unchanged from previous visit. PHYSICAL EXAM: Vital Signs: Reviewed Nurse's notes, vital signs stable. GENERAL : This is a 76-year-old male, in no acute distress, well-developed, well- nourished. HEAD: Atraumatic, without temporal or scalp tenderness. EYES: PERRLA, EOMI, no discharge or injection. SKIN: Normal. NEUROLOGICAL: Alert and cooperative. Sensory and motor functions grossly intact. EMERGENCY DEPARTMENT COURSE: I examined the patient. The patient was given Imovax 1ml IM. The patient was observed for 20 minutes with no reaction. The patient was discharged home in stable condition. DIAGNOSIS: Rabies prophylaxis DISCHARGE INSTRUCTIONS: Continue vaccination schedule as directed. Return for any complications. 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 Chr Kdny Status: Chronic (6) Right knee DJD Status: Resolved Surgical Problems: (1) Cataract Nos Status: Resolved (2) History of total knee arthroplasty Status: Resolved Current/Historical Medications Scheduled Amlodipine (Norvasc), 5 MG PO QAM Ascorbic Acid (Vitamin C), 500 MG PO 3XWK Aspirin (Aspirin Ec), 81 MG PO HS Cholecalciferol (Vitamin D3), 400 UNITS PO 3XWK Coenzyme Q10 (Ubidecarenone) (Co Q-10), 200 MG PO BID Nitroglycerin (Nitrostat), 0.4 MG UT PRN [place]-3 Fatty Acids (Fish Oil), 2 CAPSULES PO BID Omeprazole (Prilosec), 20 MG PO PRN Simvastatin (Zocor), 20 MG PO HS Scheduled PRN Docusate Sodium (Docusate Sodium), 100 MG PO BID PRN for Constipation Allergies Coded Allergies: No Known Allergies (Unverified , 06/12/17) Vital Signs Date Time Temp Pulse Resp B/P (MAP) Pulse Ox O2 Delivery O2 Flow Rate FiO2 06/12/17 11:05 56 20 157/103 97 Room Air 06/12/17 10:20 36.9 60 20 142/87 97 Room Air Medications Administered Medications (Trade) Dose Ordered Sig/Gregory Route Start Time Stop Time Status Last Admin Dose Admin Rabies Vaccine Human Diploid Cell (Imovax Rabies) 2.5 interunit ONCE ONCE IM. 06/12/17 10:45 06/12/17 10:46 DC 06/12/17 11:05 2.5 INTERUNIT Departure Information Impression Primary Impression: Rabies, need for prophylactic vaccination against Dispostion Home / Self-Care Condition GOOD Referrals Brendan Sánchez M.D. (PCP) Patient Instructions My [facility] Additional Instructions Continue vaccination schedule as directed. Return for any complications.
[2017-06-12 11:05] VITALS: BP 157/103; PULSE 56; O2SAT 97
== END 2017-06-12 11:27 | disposition home or self-care (01) ==
LOC: C.EDB 10:16 → C.EDD 11:27
DX: Z20.3 Contact with and (suspected) exposure to rabies (principal); Z23 Encounter for immunization; I25.10 Atherosclerotic heart disease of native coronary artery without angina pectoris; K21.9 Gastro-esophageal reflux disease without esophagitis; E78.5 Hyperlipidemia, unspecified; N18.4 Chronic kidney disease, stage 4 (severe); I12.9 Hypertensive chronic kidney disease with stage 1 through stage 4 chronic kidney disease, or unspecified chronic kidney disease; Z79.82 Long term (current) use of aspirin; Z79.899 Other long term (current) drug therapy

== ENCOUNTER 2017-06-19 14:53 | Emergency (ER) | payer OTHER ==
[~2017-06-19] VITALS: Ht 170.2 cm; Wt 77.4 kg
[2017-06-19 15:00] VITALS: TEMP 36.8; Ht 170.2 cm; Wt 77.4 kg
--- NOTE | 2017-06-19 15:26 | EMERGENCY ROOM VISIT NOTE ---
ED Visit Note First contact with patient: 15:15 CHIEF COMPLAINT: Rabies prophylaxis HISTORY OF PRESENT ILLNESS: This 76-year-old male patient presents to the emergency department, ambulatory, for their fourth and final rabies shot. The patient has not had any complications from the previous injections. They deny any other complaints. The patient was initially bitten by a dog who had a rabies vaccination which was completed just over 3 years prior. REVIEW OF SYSTEMS: A 6 system review of systems was completed with positives and pertinent negatives listed in the HPI. ALLERGIES: None MEDICATIONS: Please see list. I did personally review the patient's medication list at bedside. PMH: Unchanged from previous visit. PHYSICAL EXAM: Vital Signs: Reviewed Nurse's notes, vital signs stable. GENERAL : This is a 76-year-old male, in no acute distress, well-developed, well- nourished. HEAD: Atraumatic, without temporal or scalp tenderness. EYES: PERRLA, EOMI, no discharge or injection. SKIN: Normal. NEUROLOGICAL: Alert and cooperative. Sensory and motor functions grossly intact. EMERGENCY DEPARTMENT COURSE: I examined the patient. The patient was given Imovax 1ml IM. The patient was observed for 20 minutes with no reaction. The patient was discharged home in stable condition. DIAGNOSIS: Rabies prophylaxis DISCHARGE INSTRUCTIONS: This was your final vaccination. Please return for any complications. You may use OTC Tylenol and/or ibuprofen for any discomfort. 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 Chr Kdny Status: Chronic (6) Right knee DJD Status: Resolved Surgical Problems: (1) Cataract Nos Status: Resolved (2) History of total knee arthroplasty Status: Resolved Current/Historical Medications Scheduled Amlodipine (Norvasc), 5 MG PO QAM Ascorbic Acid (Vitamin C), 500 MG PO 3XWK Aspirin (Aspirin Ec), 81 MG PO HS Cholecalciferol (Vitamin D3), 400 UNITS PO 3XWK Coenzyme Q10 (Ubidecarenone) (Co Q-10), 200 MG PO BID Nitroglycerin (Nitrostat), 0.4 MG UT PRN [place]-3 Fatty Acids (Fish Oil), 2 CAPSULES PO BID Omeprazole (Prilosec), 20 MG PO PRN Simvastatin (Zocor), 20 MG PO HS Scheduled PRN Docusate Sodium (Docusate Sodium), 100 MG PO BID PRN for Constipation Allergies Coded Allergies: No Known Allergies (Unverified , 06/12/17) Vital Signs Date Time Temp Pulse Resp B/P (MAP) Pulse Ox O2 Delivery O2 Flow Rate FiO2 06/19/17 15:00 36.8 68 18 154/83 96 Room Air Medications Administered Medications (Trade) Dose Ordered Sig/Gregory Route Start Time Stop Time Status Last Admin Dose Admin Rabies Vaccine Human Diploid Cell (Imovax Rabies) 2.5 interunit ONCE ONCE IM. 06/19/17 15:30 06/19/17 15:31 DC 06/19/17 15:45 2.5 INTERUNIT Departure Information Impression Primary Impression: Rabies, need for prophylactic vaccination against Dispostion Home / Self-Care Condition GOOD Referrals Brendan Sánchez M.D. (PCP) Patient Instructions My [facility], Rabies Vaccine suspension for injection Additional Instructions This was your final vaccination. Please return for any complications. You may use OTC Tylenol and/or ibuprofen for any discomfort.
[2017-06-19] MEDS ORDERED: RABIES VACCINE (IMOVAX) HUMAN DIPL CELL 2.5 INTER.UNIT/ML SYR IM. ONE (15:30)
[2017-06-19 16:05] VITALS: BP 173/99; PULSE 66; O2SAT 95
== END 2017-06-19 16:06 | disposition home or self-care (01) ==
LOC: C.EDB 14:55 → C.EDD 16:06
DX: Z23 Encounter for immunization (principal); Z20.3 Contact with and (suspected) exposure to rabies; T14.90XA Injury, unspecified, initial encounter; W54.0XXA Bitten by dog, initial encounter; I12.9 Hypertensive chronic kidney disease with stage 1 through stage 4 chronic kidney disease, or unspecified chronic kidney disease; N18.9 Chronic kidney disease, unspecified; I25.10 Atherosclerotic heart disease of native coronary artery without angina pectoris; K21.9 Gastro-esophageal reflux disease without esophagitis; E78.5 Hyperlipidemia, unspecified; Z96.659 Presence of unspecified artificial knee joint; Z79.82 Long term (current) use of aspirin

== ENCOUNTER → 2017-06-22 | Outpatient (CLI) | payer OTHER | END | disposition home or self-care (01) | LOC: C.RDSM 14:09 | PROVIDERS: ATTEND Orthopaedic Surgery Sports Medicine | DX: Z96.651 Presence of right artificial knee joint (principal) ==

== ENCOUNTER → 2017-06-26 | Outpatient (CLI) | payer OTHER | END | disposition home or self-care (01) | LOC: C.LAB 11:02 | PROVIDERS: ATTEND Urology | DX: R97.20 Elevated prostate specific antigen [PSA] (principal) ==

== ENCOUNTER → 2017-08-16 | Outpatient (CLI) | payer OTHER | END | disposition home or self-care (01) | LOC: C.PATHSPEC 10:23 | PROVIDERS: ATTEND Urology | DX: R97.20 Elevated prostate specific antigen [PSA] (principal) ==

== ENCOUNTER → 2017-09-20 | Outpatient (CLI) | payer OTHER ==
[~2017-09-20] MED LIST changes: -AMLO-110 PO; +AMLO5TAB3 PO
[2017-09-20 09:35] LABS: HEMATOCRIT 39.7 % (42-52); HEMOGLOBIN 13.3 g/dL (14.0-18.0); MEAN CORPUSCULAR HEMOGLOBIN 32.8 pg (25-34); MEAN CORPUSCULAR HGB CONC 33.5 g/dl (32-36); MEAN PLATELET VOLUME 9.4 fL (7.4-10.4); PLATELET COUNT 175 K/uL (130-400); RED CELL DISTRIBUTION WIDTH CV 12.5 % (11.5-14.5); RED CELL DISTRIBUTION WIDTH SD 44.5 fL (36.4-46.3); WHITE BLOOD COUNT 6.47 K/uL (4.8-10.8)
[2017-09-20 09:49] LABS: HEMOGLOBIN A1C 5.7 % (4.5-5.6)
[2017-09-20 10:27] LABS: ALT/SGPT 26 U/L (12-78); BLOOD UREA NITROGEN 21 mg/dl (7-18); CALCIUM 9.2 mg/dl (8.5-10.1); CARBON DIOXIDE 33 mmol/L (21-32); CREATININE 1.54 mg/dl (0.60-1.40); GLUCOSE 104 mg/dl (70-99); POTASSIUM 3.8 mmol/L (3.5-5.1); SODIUM 140 mmol/L (136-145)
[2017-09-20 10:37] LABS: CHOLESTEROL 178 mg/dl (0-200); LDL CHOLESTEROL CALCULATED 92 mg/dl
== END | disposition home or self-care (01) ==
LOC: C.LAB 08:42
PROVIDERS: ATTEND Family Medicine
DX: E78.5 Hyperlipidemia, unspecified (principal); I10 Essential (primary) hypertension; R73.01 Impaired fasting glucose

== ENCOUNTER → 2017-10-28 | Outpatient (CLI) | payer OTHER ==
[~2017-10-28] MED LIST changes: +AMLO-110 PO; -AMLO5TAB3 PO
--- NOTE | 2017-10-28 15:55 | DIAGNOSTIC IMAGING REPORT ---
CHEST 2 VIEWS ROUTINE CLINICAL HISTORY: 76 years-old Male presenting with Cough, fever. TECHNIQUE: PA and lateral views of the chest were obtained. COMPARISON: 01/26/2017. FINDINGS: Atherosclerosis of the aortic arch. Cardiac silhouette normal in size. Lungs and pleural spaces clear. Osseous structures normal. Upper abdomen normal. IMPRESSION: 1. No acute cardiopulmonary disease. Electronically signed by: Eduardo Arias M.D. 10/28/2017 3:54 PM Dictated Date/Time: 10/28/2017 3:53 PM
== END | disposition home or self-care (01) ==
LOC: C.RAD 15:40
PROVIDERS: ATTEND Family Medicine Hospice and Palliative Medicine
DX: I70.0 Atherosclerosis of aorta (principal); R05 Cough; R50.9 Fever, unspecified

== ENCOUNTER 2018-01-27 13:48 | Emergency (ER) | payer OTHER ==
[~2018-01-27] VITALS: Ht 170.2 cm; Wt 81.0 kg
[2018-01-27 13:51] VITALS: TEMP 36.7; Ht 170.2 cm; Wt 81.0 kg
[2018-01-27 14:41] LABS: ALBUMIN 3.7 gm/dl (3.4-5.0); BASO % 0.3 %; BASO ABS # 0.02 K/uL (0-0.2); CALCIUM 9.4 mg/dl (8.5-10.1); CREATININE 1.6 mg/dl (0.60-1.40); EOS % 1.6 %; HEMATOCRIT 42.2 % (42-52); HEMOGLOBIN 14.3 g/dL (14.0-18.0); LYMPH % 30.3 %; LYMPH ABS # 1.93 K/uL (1.2-3.4); MEAN CELL VOLUME 95.3 fL (80-100); MEAN CORPUSCULAR HEMOGLOBIN 32.3 pg (25-34); MEAN CORPUSCULAR HGB CONC 33.9 g/dl (32-36); MEAN PLATELET VOLUME 9.5 fL (7.4-10.4); MONO % 9.3 %; MONO ABS # 0.59 K/uL (0.11-0.59); NEUT % 58.5 %; NEUT ABS # 3.73 K/uL (1.4-6.5); PLATELET COUNT 172 K/uL (130-400); POTASSIUM 3.7 mmol/L (3.5-5.1); RED CELL DISTRIBUTION WIDTH CV 12.2 % (11.5-14.5); WHITE BLOOD COUNT 6.37 K/uL (4.8-10.8)
[2018-01-27 14:44] LABS: TOTAL PROTEIN 7.8 gm/dl (6.4-8.2)
--- NOTE | 2018-01-27 15:04 | EMERGENCY ROOM VISIT NOTE ---
History First contact with patient: 13:53 Chief Complaint: CHEST PAIN Stated Complaint: MODERATE CHEST PAIN UPPER LEFT Nursing Triage Summary: Pt ambulated to room. Reports intermittent chest since 0200. Reports a dull ache left chest, 2-3. Pt reports does not worsen with activity. Pt reports he has a aneurysm/aortic arch. Reports he takes an aspirin 81mg daily and did take today. Reports he took a NTG s/l and reports chest pain worsened. Pt reports has had cardiac cath in the past; no stents. SB, HR 48 at this time. Pt reports hhis left hand does get "white" intermittently. Reports this is not new. 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 The pain is there 80% of the time, he cannot determine what makes it worse or better. The pain started when he was resting. Activity doesn 't make the pain worse. Movement doesn't make the pain worse. The patient has been getting left sided chest pain at rest for the past two years but it has only lasted for a few seconds to minutes. This episode is distinctly different. The pain goes up into the left shoulder but does not radiate down the left arm. He still currently has the chest pain. Pt does see a metallurgical laboratory assistant because "he has a lot of risk factors". Pt does not get chest pain while exercising. SHX: 20pack year smoking history. Review of Systems See HPI for pertinent positives and negatives. A total of ten systems were reviewed and were otherwise negative. Constitutional: No fever, No chills ENT: No hearing loss Respiratory: No cough, No sputum, No shortness of breath Cardiovascular: + chest pain Abdomen: No pain, No nausea, No vomiting, No diarrhea Musculoskeletal: No joint pain Genitourinary - Male: No dysuria Psychiatric: No depression symptoms Past Medical/Surgical History Medical Problems: (1) Benign hypertension (2) Coronary artery disease (3) Gastro-Esophageal Reflux Disease Without Esophagitis (4) Hyperlipidemia, Unspecified (5) Hypertensive Chronic Kidney Disease W Stg 1-4/Unsp Chr Kdny (6) Right knee DJD Surgical Problems: (1) Cataract Nos (2) History of total knee arthroplasty Family History Colon cancer Diabetes mellitus Heart disease Social History Smoking Status: Former Smoker Drug Use: none Marital Status: Housing Status: lives with significant other Occupation Status: retired Current/Historical Medications Scheduled Amlodipine (Norvasc), 5 MG PO QAM Ascorbic Acid (Vitamin C), 500 MG PO 3XWK Aspirin (Aspirin Ec), 81 MG PO HS Cholecalciferol (Vitamin D3), 400 UNITS PO 3XWK Coenzyme Q10 (Ubidecarenone) (Co Q-10), 200 MG PO BID Nitroglycerin (Nitrostat), 0.4 MG UT PRN [place]-3 Fatty Acids (Fish Oil), 2 CAPSULES PO BID Omeprazole (Prilosec), 20 MG PO PRN Simvastatin (Zocor), 20 MG PO HS Scheduled PRN Docusate Sodium (Docusate Sodium), 100 MG PO BID PRN for Constipation Physical Exam Vital Signs Date Time Temp Pulse Resp B/P (MAP) Pulse Ox O2 Delivery O2 Flow Rate FiO2 01/27/18 16:50 47 20 179/93 97 Room Air 01/27/18 15:53 48 20 179/83 97 Room Air 01/27/18 14:30 46 01/27/18 13:51 36.7 55 18 140/79 97 Room Air Physical Exam Gen: No acute distress. HEENT: Head - normocephalic and atraumatic. Pupils are equal, round, and reactive to light. Extraocular eye muscles are intact and sclera are anicteric. Ears - bilaterally patent canals with noninjected tympanic membranes and no evidence of hemotympanum. Nose - moist nasal mucosa without discharge. Mouth - moist buccal mucosa. Oropharynx is nonerythematous and there is no tonsillar exudate or edema noted. Neck: Supple; no JVD, nuchal rigidity, cervical lymphadenopathy, or auscultated bruits. Heart: Regular rate and rhythm. There is a normal S1 and S2 with no murmurs, clicks, or gallops appreciated. Palpating the chest does not reproduce his pain. Lungs: Clear to auscultation bilaterally with no wheezes, rales, or rhonchi. Abdomen: Soft, completely nontender, nondistended, with good bowel sounds. There are no palpable pulsatile masses or hepatosplenomegaly. There is no guarding, rigidity, or rebound noted. Extremities: No evidence of cyanosis, clubbing. 2+pitting edema in the RLE s/p TKA. There are easily palpable peripheral pulses. The lift off test on the left produced pain in the pt's left shoulder, this however was a distinctly different pain than the patient was experiencing. Neuro:The patient is awake and alert, oriented to day, time, and place. Muscle strength is 5/5 in all 4 extremities. The patient has equal carton and can supply supervisor strength and equal pedal push and pull. There are no cerebellar signs. Medical Decision & Procedures Laboratory Results 01/27/18 14:01 Red Blood Count 4.43, Mean Corpuscular Volume 95.3, Mean Corpuscular Hemoglobin 32.3, Mean Corpuscular Hemoglobin Concent 33.9, Mean Platelet Volume 9.5, Neutrophils (%) (Auto) 58.5, Lymphocytes (%) (Auto) 30.3, Monocytes (%) (Auto) 9.3, Eosinophils (%) (Auto) 1.6, Basophils (%) (Auto) 0.3, Neutrophils # (Auto) 3.73, Lymphocytes # (Auto) 1.93, Monocytes # (Auto) 0.59, Eosinophils # (Auto) 0.10, Basophils # (Auto) 0.02 01/27/18 16:52 Test 01/27/18 14:01 01/27/18 14:33 01/27/18 16:52 White Blood Count 6.37 K/uL (4.8-10.8) Red Blood Count 4.43 M/uL (4.7-6.1) Hemoglobin 14.3 g/dL (14.0-18.0) Hematocrit 42.2 % (42-52) Mean Corpuscular Volume 95.3 fL (80-100) Mean Corpuscular Hemoglobin 32.3 pg (25-34) Mean Corpuscular Hemoglobin Concent 33.9 g/dl (32-36) Platelet Count 172 K/uL (130-400) Mean Platelet Volume 9.5 fL (7.4-10.4) Neutrophils (%) (Auto) 58.5 % Lymphocytes (%) (Auto) 30.3 % Monocytes (%) (Auto) 9.3 % Eosinophils (%) (Auto) 1.6 % Basophils (%) (Auto) 0.3 % Neutrophils # (Auto) 3.73 K/uL (1.4-6.5) Lymphocytes # (Auto) 1.93 K/uL (1.2-3.4) Monocytes # (Auto) 0.59 K/uL (0.11-0.59) Eosinophils # (Auto) 0.10 K/uL (0-0.5) Basophils # (Auto) 0.02 K/uL (0-0.2) RDW Standard Deviation 42.0 fL (36.4-46.3) RDW Coefficient of Variation 12.2 % (11.5-14.5) Immature Granulocyte % (Auto) 0.0 % Immature Granulocyte # (Auto) 0.00 K/uL (0.00-0.02) Total Bilirubin 0.4 mg/dl (0.2-1) Aspartate Amino Transf (AST/SGOT) 15 U/L (15-37) Alanine Aminotransferase (ALT/SGPT) 25 U/L (12-78) Alkaline Phosphatase 72 U/L (45-117) Total Protein 7.8 gm/dl (6.4-8.2) Albumin 3.7 gm/dl (3.4-5.0) Globulin 4.1 gm/dl (2.5-4.0) Albumin/Globulin Ratio 0.9 (0.9-2) Lipase 197 U/L (73-393) Bedside Troponin I 0.030 ng/ml (0-0.045) Anion Gap 2.0 mmol/L (3-11) Est Creatinine Clear Calc Drug Dose 43.3 ml/min Estimated GFR () 52.5 Estimated GFR (Non- 45.3 BUN/Creatinine Ratio 12.4 (10-20) Calcium Level 8.8 mg/dl (8.5-10.1) Medications Administered Medications (Trade) Dose Ordered Sig/Gregory Route Start Time Stop Time Status Last Admin Dose Admin Sodium Chloride 500 ml @ 999 mls/hr Q31M IV 01/27/18 15:15 02/26/18 15:14 01/27/18 15:25 999 MLS/HR Medical Decision The patient's care and disposition was discussed with Dr. Brar, Attending ED Physician. This is a 77M with chest pain. Differential diagnosis include cardiac ischemia , aortic dissection, pulmonary embolism, pneumonia, pneumothorax, musculoskeletal, infections, gastrointestinal, as well as others were entertained. Triage Nursing notes were reviewed. ED Course included an extensive history and physical exam, labs, EKG and X-ray. The patient was having chest pain when his EKG was done. The likelihood of an ACS is very low. Patient does have a history of an aortic aneurysm - this may be the cause of his symptoms. After hydration and improvement in creatinine we will order a CT for PE. 2pm - Pt was seen and examined at bedside by resident. 5:30 - Lab Results were discussed with patient, creatinine is improving, we are ordering a CT for PE. The pt was informed about the findings as listed above. All questions were answered. Patient was signed out to Dr. Brar, Head Trauma GCS Score: 15 Impression Primary Impression: Chest pain of unknown etiology Departure Information Dispostion Home / Self-Care Condition GOOD Referrals Brendan Sánchez M.D. (PCP) Patient Instructions My [facility] Resident Involvement: Resident Care Provided Care Provided: Adult ED
[2018-01-27] MEDS: SODIUM CHLORIDE 0.9% 500ML 500 ML IV SCH ×2 (15:25→15:46)
--- NOTE | 2018-01-27 15:47 | DIAGNOSTIC IMAGING REPORT ---
CHEST ONE VIEW PORTABLE HISTORY: 77 years-old Male chest pain acute atypical chest pain COMPARISON: Chest radiograph 10/28/2017 TECHNIQUE: Portable AP view of the chest FINDINGS: Cardiac silhouette is upper limits of normal in size. Atherosclerosis of the aorta. No pneumothorax, pleural effusion, focal airspace consolidation or overt pulmonary edema. Bones of the chest appear grossly intact. Degenerative changes of the shoulders and spine. IMPRESSION: No acute process. The above report was generated using voice recognition software. It may contain grammatical, syntax or spelling errors. Electronically signed by: Karri Mcgowan M.D. 01/27/2018 3:45 PM Dictated Date/Time: 01/27/2018 3:44 PM
[2018-01-27 17:21] LABS: CALCIUM 8.8 mg/dl (8.5-10.1); CREATININE 1.48 mg/dl (0.60-1.40)
[2018-01-27] MEDS ORDERED: OPTIRAY 320 IV PRN (17:45)
[2018-01-27 18:41] VITALS: BP 172/97
--- NOTE | 2018-01-27 18:53 | DIAGNOSTIC IMAGING REPORT ---
(CHEST FOR PE) ANGIO WITH CT DOSE: 485.42 mGy.cm HISTORY: 77 years-old Male presents with acute upper chest pain and shortness of breath TECHNIQUE: Multiple CTA images of the chest were obtained after the intravenous administration of 95 ml Optiray 320. Coronal and sagittal MIPS were obtained from the axial data set and were submitted for review. A dose lowering technique was utilized adhering to the principles of ALARA. COMPARISON: Chest radiograph of same day. FINDINGS: CTA: Moderate multichamber cardiac enlargement without pericardial effusion. Coronary arterial calcifications are noted. Fusiform dilation of the ascending thoracic aorta again distal to the sinotubular junction measures 4.7 x 4.6 cm in AP and transverse dimension. Moderate atherosclerosis of the thoracic aorta and proximal great vessels which appear patent. No aortic dissection. Reflux of contrast into the IVC. Mild dilation of the main pulmonary artery, 3.1 cm. Pulmonary arterial is opacified to the level of the subsegmental branches and demonstrates no focal filling defects to suggest pulmonary thromboembolic disease. CT CHEST: No dominant thyroid nodule or pathologic adenopathy. No pleural effusion or pneumothorax. Minimal dependent subsegmental bibasilar atelectasis. No lobar airspace consolidation to suggest pneumonia. There are no suspicious pulmonary nodules or masses. Pleural-based 3 mm nodule of the lingula is likely benign. Central airways are patent. Process of the imaged upper abdomen. Hyperattenuating 2.0 cm lesion of the superior pole left kidney suggests hemorrhagic or proteinaceous cyst. Soft tissues are unremarkable. Bones appear intact. Multilevel degenerative spurring about the spine. IMPRESSION: 1. Fusiform aneurysmal dilation of the ascending thoracic aorta beginning distal to the sinotubular junction measures 4.7 x 4.6 cm. No dissection. 2. No evidence of pulmonary thromboembolic disease. 3. No lobar airspace consolidation or pathologic adenopathy. 4. Cardiomegaly with dilation of the main pulmonary artery, possibly reflecting pulmonary arterial hypertension within the appropriate clinical setting. 5. 2.0 cm proteinaceous or hemorrhagic cyst of the superior pole left kidney. The above report was generated using voice recognition software. It may contain grammatical, syntax or spelling errors. Electronically signed by: Karri Mcgowan M.D. 01/27/2018 6:52 PM Dictated Date/Time: 01/27/2018 6:46 PM
[2018-01-27 19:51] VITALS: PULSE 53; O2SAT 96
--- NOTE | 2018-01-27 20:35 | EMERGENCY ROOM VISIT NOTE ---
History Report prepared by Ericka: Chidi Mcnamara Under the Supervision of: Dr. Paulo Brar M.D. First contact with patient: 13:54 Chief Complaint: CHEST PAIN Stated Complaint: MODERATE CHEST PAIN UPPER LEFT History of Present Illness The patient is a 77 year old male with a history of coronary artery disease, a blood clot in the eye, swelling of the aortic arch, and hypertension who presents to the Emergency Room with complaints of intermittent left-sided chest pain that started around 0200 this morning. He states that the pain started at rest and had a sudden onset, and radiated to his left shoulder. He says that the pain is there 80% of the time, and is there at present. He notes that no movement or position alleviates the pain, and it does not get worse on exertion. He adds that he has had a similar type pain for the past 2 years, and the episodes last a couple minutes at a time and goes away on their own, but this time the pain is just there for a longer period of time. He has no significant cardiac history, and has a 17-year smoking history. He notes that he is concerned about his thoracic aneurysm. Pt denies LOC, headache, fevers, chills, diaphoresis, visual changes, neck pain, tearing pain radiating to the back, uncontrolled hypertension, breathing difficulties, leg swelling, coagulation abnormalities, prolonged travel, recent surgery or immobilization, nausea, vomiting, abdominal pain, melena, hematochezia, urinary symptoms, numbness, weakness, lymphadenopathy, rash, or other complaints. Source of History: patient Onset: 0200 this morning Position: chest (left) Symptom Intensity: there 80% of the time Quality: other (pain) Timing: intermittent Note: Associated symptoms: Left shoulder pain. Review of Systems See HPI for pertinent positives and negatives. A total of ten systems were reviewed and were otherwise negative. Past Medical & Surgical Medical Problems: (1) Benign hypertension (2) Coronary artery disease (3) Gastro-Esophageal Reflux Disease Without Esophagitis (4) Hypercholesteremia (5) Hyperlipidemia, Unspecified (6) Hypertension (7) Hypertensive Chronic Kidney Disease W Stg 1-4/Unsp Chr Kdny (8) Right knee DJD Surgical Problems: (1) Cataract Nos (2) History of total knee arthroplasty Family History Colon cancer Diabetes mellitus Heart disease Social History Smoking Status: Former Smoker Drug Use: none Marital Status: Housing Status: lives with significant other Occupation Status: retired Current/Historical Medications Scheduled Amlodipine (Norvasc), 5 MG PO QAM Ascorbic Acid (Vitamin C), 500 MG PO 3XWK Aspirin (Aspirin Ec), 81 MG PO HS Cholecalciferol (Vitamin D3), 400 UNITS PO 3XWK Coenzyme Q10 (Ubidecarenone) (Co Q-10), 200 MG PO BID Nitroglycerin (Nitrostat), 0.4 MG UT PRN Delanson-3 Fatty Acids (Fish Oil), 2 CAPSULES PO BID Omeprazole (Prilosec), 20 MG PO PRN Simvastatin (Zocor), 20 MG PO HS Scheduled PRN Docusate Sodium (Docusate Sodium), 100 MG PO BID PRN for Constipation Allergies Coded Allergies: No Known Allergies (Unverified , 01/27/18) Physical Exam Vital Signs Date Time Temp Pulse Resp B/P (MAP) Pulse Ox O2 Delivery O2 Flow Rate FiO2 01/27/18 19:51 53 18 96 Room Air 01/27/18 18:49 56 01/27/18 18:41 51 20 172/97 Room Air 01/27/18 16:50 47 20 179/93 97 Room Air 01/27/18 15:53 48 20 179/83 97 Room Air 01/27/18 14:30 46 01/27/18 13:51 36.7 55 18 140/79 97 Room Air Physical Exam GENERAL: Awake, alert, well-appearing, in no distress HENT: Normocephalic, atraumatic. Oropharynx unremarkable. EYES: Normal conjunctiva. Sclera non-icteric. NECK: Supple. No nuchal rigidity. FROM. No masses. RESPIRATORY: Clear to auscultation. No wheezes. No rales. Normal respiratory effort. CARDIAC: Bradycardic rate. Normal rhythm. No murmurs. No rubs. Extremities warm and well perfused. Pulses equal. No JVD. GI: Soft, non-distended. No tenderness to palpation. No rebound or guarding. No masses. RECTAL: Deferred. MUSCULOSKELETAL: Atraumatic. Mild left-sided chest tenderness.. The back is symmetrical on inspection without obvious abnormality. There is no CVA tenderness to palpation. No joint edema. LOWER EXTREMITIES: Right leg has 1+ edema and is slightly larger than left. Patient says this is chronic as he had a knee replacement. No discoloration. NEURO: Normal sensorium. No sensory or motor deficits noted. SKIN: No rash or jaundice noted. Medical Decision & Procedures ER Provider Diagnostic Interpretation: Radiology results as stated below per my review and radiologist interpretation: CHEST ONE VIEW PORTABLE HISTORY: 77 years-old Male chest pain acute atypical chest pain COMPARISON: Chest radiograph 10/28/2017 TECHNIQUE: Portable AP view of the chest FINDINGS: Cardiac silhouette is upper limits of normal in size. Atherosclerosis of the aorta. No pneumothorax, pleural effusion, focal airspace consolidation or overt pulmonary edema. Bones of the chest appear grossly intact. Degenerative changes of the shoulders and spine. IMPRESSION: No acute process. The above report was generated using voice recognition software. It may contain grammatical, syntax or spelling errors. Electronically signed by: Karri Mcgowan M.D. 01/27/2018 3:45 PM Dictated Date/Time: 01/27/2018 3:44 PM (CHEST FOR PE) ANGIO WITH CT DOSE: 485.42 mGy.cm HISTORY: 77 years-old Male presents with acute upper chest pain and shortness of breath TECHNIQUE: Multiple CTA images of the chest were obtained after the intravenous administration of 95 ml Optiray 320. Coronal and sagittal MIPS were obtained from the axial data set and were submitted for review. A dose lowering technique was utilized adhering to the principles of ALARA. COMPARISON: Chest radiograph of same day. FINDINGS: CTA: Moderate multichamber cardiac enlargement without pericardial effusion. Coronary arterial calcifications are noted. Fusiform dilation of the ascending thoracic aorta again distal to the sinotubular junction measures 4.7 x 4.6 cm in AP and transverse dimension. Moderate atherosclerosis of the thoracic aorta and proximal great vessels which appear patent. No aortic dissection. Reflux of contrast into the IVC. Mild dilation of the main pulmonary artery, 3.1 cm. Pulmonary arterial is opacified to the level of the subsegmental branches and demonstrates no focal filling defects to suggest pulmonary thromboembolic disease. CT CHEST: No dominant thyroid nodule or pathologic adenopathy. No pleural effusion or pneumothorax. Minimal dependent subsegmental bibasilar atelectasis. No lobar airspace consolidation to suggest pneumonia. There are no suspicious pulmonary nodules or masses. Pleural-based 3 mm nodule of the lingula is likely benign. Central airways are patent. Process of the imaged upper abdomen. Hyperattenuating 2.0 cm lesion of the superior pole left kidney suggests hemorrhagic or proteinaceous cyst. Soft tissues are unremarkable. Bones appear intact. Multilevel degenerative spurring about the spine. IMPRESSION: 1. Fusiform aneurysmal dilation of the ascending thoracic aorta beginning distal to the sinotubular junction measures 4.7 x 4.6 cm. No dissection. 2. No evidence of pulmonary thromboembolic disease. 3. No lobar airspace consolidation or pathologic adenopathy. 4. Cardiomegaly with dilation of the main pulmonary artery, possibly reflecting pulmonary arterial hypertension within the appropriate clinical setting. 5. 2.0 cm proteinaceous or hemorrhagic cyst of the superior pole left kidney. The above report was generated using voice recognition software. It may contain grammatical, syntax or spelling errors. Electronically signed by: Karri Mcgowan M.D. 01/27/2018 6:52 PM Dictated Date/Time: 01/27/2018 6:46 PM Laboratory Results 01/27/18 14:01 Red Blood Count 4.43, Mean Corpuscular Volume 95.3, Mean Corpuscular Hemoglobin 32.3, Mean Corpuscular Hemoglobin Concent 33.9, Mean Platelet Volume 9.5, Neutrophils (%) (Auto) 58.5, Lymphocytes (%) (Auto) 30.3, Monocytes (%) (Auto) 9.3, Eosinophils (%) (Auto) 1.6, Basophils (%) (Auto) 0.3, Neutrophils # (Auto) 3.73, Lymphocytes # (Auto) 1.93, Monocytes # (Auto) 0.59, Eosinophils # (Auto) 0.10, Basophils # (Auto) 0.02 01/27/18 16:52 Test 01/27/18 14:01 01/27/18 16:52 01/27/18 19:37 White Blood Count 6.37 K/uL (4.8-10.8) Red Blood Count 4.43 M/uL (4.7-6.1) Hemoglobin 14.3 g/dL (14.0-18.0) Hematocrit 42.2 % (42-52) Mean Corpuscular Volume 95.3 fL (80-100) Mean Corpuscular Hemoglobin 32.3 pg (25-34) Mean Corpuscular Hemoglobin Concent 33.9 g/dl (32-36) Platelet Count 172 K/uL (130-400) Mean Platelet Volume 9.5 fL (7.4-10.4) Neutrophils (%) (Auto) 58.5 % Lymphocytes (%) (Auto) 30.3 % Monocytes (%) (Auto) 9.3 % Eosinophils (%) (Auto) 1.6 % Basophils (%) (Auto) 0.3 % Neutrophils # (Auto) 3.73 K/uL (1.4-6.5) Lymphocytes # (Auto) 1.93 K/uL (1.2-3.4) Monocytes # (Auto) 0.59 K/uL (0.11-0.59) Eosinophils # (Auto) 0.10 K/uL (0-0.5) Basophils # (Auto) 0.02 K/uL (0-0.2) RDW Standard Deviation 42.0 fL (36.4-46.3) RDW Coefficient of Variation 12.2 % (11.5-14.5) Immature Granulocyte % (Auto) 0.0 % Immature Granulocyte # (Auto) 0.00 K/uL (0.00-0.02) Total Bilirubin 0.4 mg/dl (0.2-1) Aspartate Amino Transf (AST/SGOT) 15 U/L (15-37) Alanine Aminotransferase (ALT/SGPT) 25 U/L (12-78) Alkaline Phosphatase 72 U/L (45-117) Total Protein 7.8 gm/dl (6.4-8.2) Albumin 3.7 gm/dl (3.4-5.0) Globulin 4.1 gm/dl (2.5-4.0) Albumin/Globulin Ratio 0.9 (0.9-2) Lipase 197 U/L (73-393) Anion Gap 2.0 mmol/L (3-11) Est Creatinine Clear Calc Drug Dose 43.3 ml/min Estimated GFR () 52.5 Estimated GFR (Non- 45.3 BUN/Creatinine Ratio 12.4 (10-20) Calcium Level 8.8 mg/dl (8.5-10.1) Bedside Troponin I < 0.030 ng/ml (0-0.045) Laboratory results reviewed by me Medications Administered Medications (Trade) Dose Ordered Sig/Gregory Route Start Time Stop Time Status Last Admin Dose Admin Sodium Chloride 500 ml @ 999 mls/hr Q31M IV 01/27/18 15:15 01/27/18 20:24 DC 01/27/18 15:25 999 MLS/HR ECG Per My Interpretation Indication: chest pain Rate (beats per minute): 48 Rhythm: sinus bradycardia Findings: Q waves (septal), other (LVH, nonspecific ST) Change: no significant change (from Jan 26 2017) Change: Repeat ECG: Sinus bradycardia at 49 bpm, LVH, nonspecific ST laterally, no significant change from prior. ED Course 1400: The patient was evaluated in room C8 by the resident. A complete history and physical exam was performed. 1501: The patient was evaluated in room C8 by myself. A complete history and physical exam was performed. 1515: NSS 500 ml @ 999 mls/hr IV. 1912: I reevaluated the patient and he does not want to stay in the hospital, but he is willing to get a repeat EKG and troponin. I will get cardiology to do a stress test. 1928: I discussed the patient with Dr. Umana - [facility] [place] cardiology - he said that they will follow him up and see him as an outpatient. They thought it was reasonable for the patient to have a stress test. 1999: I reevaluated the patient and his repeat troponin is done with no change. Discussed results and discharge instructions: he verbalized understanding and agreement. The patient is ready for discharge. Medical Decision Prior records/ancillary studies reviewed. Triage Nursing notes reviewed and agree them. The patient's history was concerning for chest pain. Differential diagnosis: Etiologies such as cardiac ischemia, aortic dissection, pulmonary embolism, pneumonia, pneumothorax, musculoskeletal, infections, pericarditis, myocarditis , esophageal rupture, gastrointestinal, as well as others were entertained. Physical examination: As above. Clinically looks well. Pain is somewhat reproducible with palpation of the left pectoral muscle. ER treatment provided: Saline hydration On reassessment the patient felt better. Diagnostic interpretation by me: The electrocardiogram was negative for pathologic change 2. The labs revealed an unremarkable CBC and chemistry panel. Borderline creatinine was redone after hydration and this was acceptable for CT imaging. Troponin negative 2. Imaging studies: Chest x-ray and CT scan as above. The patient was informed about the CT imaging findings and need for follow-up. The patient has chest pain. His heart score is approximately 5. He does not want to stay in the hospital. I discussed risks and benefits. Treatment options were outlined. The patient desires to go home. He did agree to stay for a repeat troponin and ECG and this was done. This was unchanged. No delta of his troponin. Consultation: A consultation was placed with the web analytics specialist on-call and the case was discussed. The patient does not want to stay in the hospital. Since he does not want to stay in the hospital outpatient follow-up will be arranged. This is the next reasonable option. The patient and were informed about the findings as listed above. All questions were answered and they were pleased with the treatment. Return instructions were outlined and the patient was discharged in stable condition. Referral: The patient was referred back to his web analytics specialist on Monday for a recheck of the current condition. Medication Reconcilliation Current Medication List: was personally reviewed by me Blood Pressure Screening Patient's blood pressure: Elevated blood pressure Referred to cardiology. Consults Time Called: 1919 Consulting Physician: Dr. Lyndsay MACARIO cardiology Returned Call: 1928 I discussed the patient with Dr. Lyndsay MACARIO cardiology - he said that they will follow him up and see him as an outpatient. They thought it was reasonable for the patient to have a stress test. Impression Primary Impression: Left sided chest pain Scribe Attestation The scribe's documentation has been prepared under my direction and personally reviewed by me in its entirety. I confirm that the note above accurately reflects all work, treatment, procedures, and medical decision making performed by me. Departure Information Dispostion Home / Self-Care Referrals Brendan Sánchez M.D. (PCP) Sergey Orourke M.D. Patient Instructions My [facility] Additional Instructions CHEST PAIN INSTRUCTIONS: Rest and drink plenty of fluids as tolerated. Continue current medications. Avoid strenuous activities and anything that worsens your pain. Resume normal activities once your symptoms resolve. Return to the ER immediately for worsening or persistent chest pain, abdominal pain, vomiting, fevers, chest pains, difficulty breathing, worsening of your condition, or as needed. Follow up with your web analytics specialist on Monday for a recheck of your current condition.
== END 2018-01-27 20:05 | disposition home or self-care (01) ==
LOC: C.EDB 13:50 → C.EDC 20:05
DX: R07.9 Chest pain, unspecified (principal); I71.4 Abdominal aortic aneurysm, without rupture; Z87.891 Personal history of nicotine dependence; I12.9 Hypertensive chronic kidney disease with stage 1 through stage 4 chronic kidney disease, or unspecified chronic kidney disease; I25.10 Atherosclerotic heart disease of native coronary artery without angina pectoris; K21.9 Gastro-esophageal reflux disease without esophagitis; E78.00 Pure hypercholesterolemia, unspecified; E78.5 Hyperlipidemia, unspecified; N18.9 Chronic kidney disease, unspecified; Z96.659 Presence of unspecified artificial knee joint; Z98.49 Cataract extraction status, unspecified eye; Z79.899 Other long term (current) drug therapy; Z79.82 Long term (current) use of aspirin; Z80.0 Family history of malignant neoplasm of digestive organs; Z83.3 Family history of diabetes mellitus

== ENCOUNTER 2019-09-09 22:09 | Inpatient (IN) ==
[2019-09-09 22:41] LABS: Basophils # (auto) 0.01 K/uL (0-0.2); Basophils % (auto) 0.2 %; Hematocrit (blood only) 39.7 % (42-52); Hemoglobin 13.3 g/dL (14.0-18.0); Lymphocytes % (auto) 24.5 %; Mean Corpuscular Hemoglobin 32.8 pg (25-34); Mean Corpuscular Hgb Conc 33.5 g/dL (32-36); Mean Corpuscular Volume 97.8 fL (80-100); Monocytes # (auto) 0.83 K/uL (0.11-0.59); Monocytes % (auto) 14.5 %; Neutrophils # (auto) 3.48 K/uL (1.4-6.5); Neutrophils % (auto) 60.8 %; Platelet Count 167 K/uL (130-400); RDW Coefficient of Variation 11.8 % (11.5-14.5); RDW Standard Deviation 42.1 fL (36.4-46.3); Red Blood Count 4.06 M/uL (4.7-6.1); White Blood Count 5.72 K/uL (4.8-10.8)
[2019-09-09 22:53] LABS: D Dimer 470 ug/L FEU (0-500); Partial Thromboplastin Time 27.9 Seconds (21.0-31.0); Prothrombin Time 9.8 Seconds (9.0-12.0)
--- NOTE | 2019-09-09 22:56 | XRay Report ---
XR chest 2V PA/lateral CLINICAL HISTORY: Atypical chest pain, shortness of breath, wheezing. COMPARISON STUDY: June 19, 2019 FINDINGS: The heart is normal in size. There is aortic tortuosity. There is calcification within the aortic knob. There is no failure. There is no focal pulmonary consolidation. There are no pleural eff usions.[ IMPRESSION: No active disease in the chest. ACT 112: Negative or not required by law. Electronically signed by: Luciano Hewitt M.D. 09/09/2019 10:54 PM
[2019-09-09 22:59] LABS: BUN Creatinine Ratio 12.7 (10-20); Blood Urea Nitrogen 23 mg/dl (7-18); Calcium 9.6 mg/dl (8.5-10.1); Carbon Dioxide 30 mmol/L (21-32); Chloride 106 mmol/L (98-107); Creatinine Clr Calc Pharmacy 35.5 ml/min; Est GFR (African American) 40.9; Est GFR (Non-African American) 35.3; Glucose 156 mg/dl (70-99); Lipase 196 U/L (73-393); Sodium 140 mmol/L (136-145)
[2019-09-09 23:04] LABS: Troponin I < 0.015 ng/ml (0-0.045)
--- NOTE | 2019-09-09 23:42 | Emergency Department Note ---
Entered by Sangeeta Howard acting as a scribe for Dax Alvarez History of Present Illness General Chief complaint: Chest Pain Stated complaint: CHEST PAIN Time Seen by Provider: 09/09/19 22:16 Source: patient and EMS History of Present Illness Onset (ago): hour(s) (earlier today) Location: chest Radiation: other (upper left arm) Maximum Pain Intensity: 10 Current Pain Intensity: 2 Quality: + other (pressure) Associated symptoms: + denies other symptoms (abdominal pain), + cough and + shortness of breath Treatments prior to arrival: aspirin The patient is a 78 year old male who presents to the Emergency Room with complaints of chest pain beginning earlier today. EMS reports the patient has had intermittent chest pain over the past several months. The patient reports t he pain extends into his upper left arm. He reports the pain as a 2/10 and notes it as a pressure. He notes some shortness of breath. He states that he has been fighting bronchitis over the last 5 days. The patient reports a cough, but denies any blood in the cough. The patient reports he was given aspirin in the ambulance. The patient denies recent travel, use of hormone pills or creams, and abdominal pain. He reports a cardiac catheterization over 6 years ago. He notes a history of smoking. He states his blood sugar level was 6. He denies a history of high blood pressure. The patient reports his dad had a quadruple bypass surgery at 81 years old. Home Medications Home Medications Medication Instructions Recorded Confirmed Type amlodipine [Norvasc] 10 mg PO QAM 03/06/19 09/09/19 History cholecalciferol (vitamin D3) 2,000 unit PO QDD 03/06/19 09/09/19 History [Vitamin D3] magnesium 30 mg PO QDD 03/06/19 09/09/19 History nitroglycerin 0.4 mg SUBLINGUAL DIRECTED PRN 03/06/19 09/09/19 History simvastatin 20 mg PO QPM 03/06/19 09/09/19 History turmeric 400 mg PO DAILY 03/06/19 09/09/19 History azelastine 137 mcg (0.1 %) nasal 2 sprays INTNAS BID PRN #30 ml 04/29/19 09/09/19 Rx spray aerosol sildenafil (pulm.hypertension) 20 20 - 100 mg PO ONCE PRN #90 tab 05/28/19 09/09/19 Rx mg tablet ascorbic acid (vitamin C) 500 mg 500 mg PO QDD tab 05/29/19 09/09/19 History tablet omega-3 acid ethyl esters 1 gram 4 cap PO DAILY cap 05/29/19 09/09/19 History capsule aspirin 81 mg PO QPM 06/19/19 09/09/19 History coenzyme Q10 200 mg capsule 200 mg PO BID cap 08/26/19 09/09/19 History melatonin 5 mg capsule 5 mg PO HS PRN cap 08/26/19 09/09/19 History resveratrol 100 mg capsule 100 mg PO DAILY cap 08/26/19 09/09/19 History sulfamethoxazole 400 1 tab PO BID 7 Days #14 tab 09/04/19 09/09/19 Rx mg-trimethoprim 80 mg tablet azithromycin 250 mg PO DAILY 09/09/19 09/09/19 History prednisone 20 mg PO DAILY 09/09/19 09/09/19 History Allergies Allergy/AdvReac Type Severity Reaction Status Date / Time No Known Allergies Allergy Unverified 09/09/19 23:23 Past Med/Surg History Medical History Hypercholesteremia (Chronic) Hypertension (Chronic) Rabies, need for prophylactic vaccination against (Acute) Right knee DJD (Resolved) Surgical History History of angioplasty History of Cath laser Angioplasty History of cardiac catheterization History of knee replacement S/P laparoscopic hernia repair Family History Brother Hypertension Pure hypercholesterolemia Sister Diabetes Unknown Colon cancer Social History Preferred Language: Taiwanese marital status: current occupational status: retired Feels Safe at Home: Yes Smoking Status: Former smoker Hx Alcohol Use: Yes Hx Substance Use: No Review of Systems See HPI for pertinent positives & negatives. and A total of 10 systems reviewed and were otherwise negative Physical Exam Vital Signs Vital Signs - 24 hr 09/09/19 22:15 09/09/19 22:30 09/09/19 23:00 Temperature 36.8 C Temperature Source Oral Pulse Rate 92 H 66 56 L Pulse Rate from SpO2 Sensor 64 57 L Respiratory Rate 16 19 16 Respiratory Effort / Characteristics Non-Labored Spontaneous Respiratory Depth Normal Respiratory Pattern Regular Blood Pressure 164/95 H 170/83 H 167/90 H Blood Pressure Mean 118 116 111 Blood Pressure Position Lying Pulse Oximetry 96 94 95 Oxygen Delivery Method Room Air Room Air Room Air Sepsis Recent Fever Within 48 Hours No Sepsis Action Taken by Nursing No Action Required GENERAL: He is oriented to person, place, and time. He appears well-developed and well-nourished. He does not appear distressed. HENT: Exam performed. - Head: Normocephalic and atraumatic. - Right Ear: External ear normal. No mastoid tenderness. - Left Ear: External ear normal. No mastoid tenderness. - Mouth/Throat: The oropharynx is clear and moist. No trismus in the jaw. No dental abscesses or uvula swelling. No oropharyngeal exudate or tonsillar abscesses. EYES: Conjunctivae and EOM are normal. Pupils are equal, round, and reactive to light. Right eye exhibits no discharge. Left eye exhibits no discharge. No scleral icterus. NECK: Normal range of motion. Neck supple. No JVD present. No spinous process tenderness present. No carotid bruit present. No rigidity. No tracheal deviation and normal range of motion present. No Brudzinski's sign and no Kernig's sign noted. CV: Normal rate, regular rhythm, normal heart sounds and intact distal pulses. There is no peripheral edema. Palpable radial pulses bue. PULM/CHEST: Effort normal and breath sounds normal. No respiratory distress. No stridor. He has no wheezes. He has no rales. - Chest Wall: He exhibits no tenderness. ABD: The abdomen is soft. Bowel sounds are normal. He has no distension. No mass is present. There is no tenderness. There is no rebound, no guarding, no Zamarripa's sign and no tenderness at McBurney's point. Rovsig negative. MUSC/SKEL: Normal range of motion. There is no peripheral edema, tenderness or deformity. LYMPH: No cervical adenopathy. NEURO: He is alert and oriented to person, place, and time. He has normal strength. No cranial nerve deficit or sensory deficit. Coordination and gait normal. GCS eye subscore is 4. GCS verbal subscore is 5. GCS motor subscore is 6. Cerebellar tests wnl. SKIN: Skin is warm and dry. He is not diaphoretic. PSYCH: He has a normal mood and affect. Behavior is normal. Judgment and thought content normal. Course Course 2214: Past medical records reviewed. The patient was evaluated in room B02. A complete history and physical exam was performed. 2309: Vital signs were stable. Labs and imaging were within normal limits. The patient had a moderate heart score. The patient will be further evaluated in the hospital to rule out ACS. The patient will be further evaluated by Dr. Jefferson's - [facility] Hospitalist team. Medical Decision Making Medical Records Attestation: I reviewed the patient's medical records. Home Medications Current Medication List: was personally reviewed by me Laboratory Data Attestation: I reviewed the patient's lab results. Result diagrams: 09/09/19 22:28 09/09/19 22:28 Lab Results 09/09/19 09/09/19 09/09/19 Range/Units 22:28 22:28 22:28 WBC 5.72 (4.8-10.8) K/uL RBC 4.06 L (4.7-6.1) M/uL Hgb 13.3 L (14.0-18.0) g/dL Hct 39.7 L (42-52) % MCV 97.8 (80-100) fL MCH 32.8 (25-34) pg MCHC 33.5 (32-36) g/dL RDW Std Deviation 42.1 (36.4-46.3) fL RDW Coeff of Kyra 11.8 (11.5-14.5) % Plt Count 167 (130-400) K/uL MPV 9.0 (7.4-10.4) fL Immature Gran % (Auto) 0.0 % Neut % (Auto) 60.8 % Lymph % (Auto) 24.5 % [place] % (Auto) 14.5 % Eos % (Auto) 0.0 % Baso % (Auto) 0.2 % Immature Gran # (Auto) 0.00 (0.00-0.02) K/uL Neut # (Auto) 3.48 (1.4-6.5) K/uL Lymph # (Auto) 1.40 (1.2-3.4) K/uL [place] # (Auto) 0.83 H (0.11-0.59) K/uL Eos # (Auto) 0.00 (0-0.5) K/uL Baso # (Auto) 0.01 (0-0.2) K/uL PT 9.8 (9.0-12.0) Seconds INR 1.0 (0.9-1.1) APTT 27.9 (21.0-31.0) Seconds PTT Ratio 1.0 D-Dimer 470 (0-500) ug/L FEU Sodium 140 (136-145) mmol/L Potassium 4.0 (3.5-5.1) mmol/L Chloride 106 (98-107) mmol/L Carbon Dioxide 30 (21-32) mmol/L Anion Gap 4.0 (3-11) BUN 23 H (7-18) mg/dl Creatinine 1.81 H (0.6-1.4) mg/dl Est Cr Clr Drug Dosing 35.5 ml/min Est GFR ( Amer) 40.9 Est GFR (Non-Af Amer) 35.3 BUN/Creatinine Ratio 12.7 (10-20) Glucose 156 H (70-99) mg/dl Calcium 9.6 (8.5-10.1) mg/dl Troponin I < 0.015 (0-0.045) ng/ml Lipase 196 (73-393) U/L Imaging Data Radiologist's Impression: Radiology results as stated below per my review and the radiologist's interpretation: XR chest 2V PA/lateral CLINICAL HISTORY: Atypical chest pain, shortness of breath, wheezing. COMPARISON STUDY: June 19, 2019 FINDINGS: The heart is normal in size. There is aortic tortuosity. There is calcification within the aortic knob. There is no failure. There is no focal pulmonary consolidation. There are no pleural effusions.[ IMPRESSION: No active disease in the chest. ACT 112: Negative or not required by law. Electronically signed by: Luciano Hewitt M.D. 09/09/2019 10:54 PM ECG Data Attestation: I personally reviewed and interpreted this ECG as follows: Indication: + chest pain Rate (beats per minute): 67 Rhythm: + sinus rhythm ECG Intervals/blocks: + Normal QRS, + Normal QT and + Normal RI ECG ST segments: no ST depression and no ST elevation Blood Pressure Blood Pressure Findings: Elevated blood pressure Blood Pressure Disposition: further management by hospitalist [facility] Narrative Vital signs were stable. Labs and imaging were within normal limits. The patient had a moderate heart score. The patient will be further evaluated in the hospital to rule out ACS. The patient will be further evaluated by Dr. Jefferson's - [facility] Hospitalist team. Impression & Plan Chest pain Discharge Plan Visit Data Chief Complaint: Chest Pain Stated Complaint: CHEST PAIN ED Provider: Dax Alvarez Discharge Problem: Chest pain Patient Disposition: Being Evaluated by Hospitalist Forms Stand Alone Forms: Call Back Authorization, [facility] Prescriptions Prescriptions: No Action sulfamethoxazole-trimethoprim [Bactrim] 400-80 mg tablet 1 tab PO BID 7 Days Qty: 14 RF: 0 sildenafil (pulm.hypertension) 20 mg tablet 20 - 100 mg PO ONCE PRN (Reason: sexual activity) Qty: 90 RF: 6 azelastine 137 mcg (0.1 %) aerosol,spray 2 sprays INTNAS BID PRN (Reason: ALLERGIC RHINITIS) Qty: 30 RF: 11 ascorbic acid (vitamin C) 500 mg tablet 500 mg PO QDD RF: 0 omega-3 acid ethyl esters 1 gram capsule 4 cap PO DAILY RF: 0 coenzyme Q10 [Co Q-10] 200 mg capsule 200 mg PO BID RF: 0 melatonin 5 mg capsule 5 mg PO HS PRN (Reason: sleep) RF: 0 resveratrol 100 mg capsule 100 mg PO DAILY RF: 0 simvastatin 40 mg tablet 20 mg PO QPM RF: 0 amlodipine [Norvasc] 10 mg tablet 10 mg PO QAM RF: 0 nitroglycerin 0.4 mg tablet, sublingual 0.4 mg sublingual DIRECTED PRN (Reason: Chest Pain) RF: 0 magnesium 30 mg Tablet 30 mg PO QDD RF: 0 cholecalciferol (vitamin D3) [Vitamin D3] 1,000 unit Capsule 2,000 unit PO QDD RF: 0 turmeric 400 mg Capsule 400 mg PO DAILY RF: 0 aspirin 81 mg Tablet,Delayed Release (Dr/Ec) 81 mg PO QPM RF: 0 prednisone 20 mg tablet 20 mg PO DAILY RF: 0 azithromycin 250 mg tablet 250 mg PO DAILY RF: 0 Referrals Referrals: Luis Enrique Hernandez DO [Primary Care Provider] - Discharge Problem: Chest pain Qualifiers: Chest pain type: unspecified Qualified Code(s): R07.9 - Chest pain, unspecified The scribe's documentation has been prepared under my direction and personally reviewed by me in its entirety. I confirm that the note above accurately reflects all work, treatment, procedures, and medical decision making performed by me.
[2019-09-10] MEDS ORDERED: NITROGLYCERIN 2% OINTMENT 30GM TUBE ONE (00:06)
[2019-09-10] MEDS: NITROGLYCERIN 2% OINTMENT 30GM TUBE EXT SCH ×3 (00:09→12:03)
--- NOTE | 2019-09-10 00:21 | History & Physical Report ---
Date of Service September 10, 2019 Assessment & Plan (1) Chest pain: Left chest and arm pain/hypertension- The patient presents to the emergency department with acute worsening of on and off left-sided chest pain with radiation to left arm- Question of unstable angina. The patient will be admitted to telemetry for serial cardiac enzymes, serial EKG's, cardiac rhythm monitoring and a 2-D echocardiogram with Dopplers. Continue amlodipine 10 mg p.o. every morning, aspirin 81 mg p.o. every a fternoon. Placed on Nitropaste 1 inch to anterior chest wall every 6 hours. Patient did receive 4 baby aspirin in route via EMS. Present on Admission?: Yes (2) Hypertension: See above Present on Admission?: Yes (3) Left arm pain: See above Present on Admission?: Yes (4) Hypercholesteremia: Continue simvastatin 20 mg every evening. Check a fasting lipid panel Present on Admission?: Yes (5) Chronic kidney disease: Creatinine 1.81 upon admission with range 1.48-1.78. Repeat in a.m. Present on Admission?: Yes (6) Hyperglycemia: Check a hemoglobin A1c Present on Admission?: Yes (7) Right knee DJD: Continue prednisone 20 mg p.o. daily. . For now hold turmeric. Present on Admission?: Yes History of Present Illness Chief Complaint: The patient presents to the emergency department with acute worsening of left sided chest pain with left arm pain Primary Care Provider: Luis Enrique Hernandez DO The patient is a 78-year-old male with a past medical history including hypertension, hypercholesterolemia, erectile dysfunction, allergic rhinitis, and osteoarthritis. He reports that for several months he has had on and off left chest and arm pain. However. He reports that over the past several days and in particular on this day of admission, he developed more acute, severe and persistent left sided chest pain and left arm pain, and presents to the emergency department for assessment. Allergies Allergy/AdvReac Type Severity Reaction Status Date / Time No Known Allergies Allergy Unverified 09/09/19 23:23 Home Medications Home Medications Medication Instructions Recorded Confirmed Type amlodipine [Norvasc] 10 mg PO QAM 03/06/19 09/09/19 History cholecalciferol (vitamin D3) 2,000 unit PO QDD 03/06/19 09/09/19 History [Vitamin D3] magnesium 30 mg PO QDD 03/06/19 09/09/19 History nitroglycerin 0.4 mg SUBLINGUAL DIRECTED PRN 03/06/19 09/09/19 History simvastatin 20 mg PO QPM 03/06/19 09/09/19 History turmeric 400 mg PO DAILY 03/06/19 09/09/19 History azelastine 137 mcg (0.1 %) nasal 2 sprays INTNAS BID PRN #30 ml 04/29/19 09/09/19 Rx spray aerosol sildenafil (pulm.hypertension) 20 20 - 100 mg PO ONCE PRN #90 tab 05/28/1909/09 Rx mg tablet ascorbic acid (vitamin C) 500 mg 500 mg PO QDD tab 05/29/19 09/09/19 History tablet omega-3 acid ethyl esters 1 gram 4 cap PO DAILY cap 05/29/19 09/09/19 History capsule aspirin 81 mg PO QPM 06/19/19 09/09/19 History coenzyme Q10 200 mg capsule 200 mg PO BID cap 08/26/19 09/09/19 History melatonin 5 mg capsule 5 mg PO HS PRN cap 08/26/19 09/09/19 History resveratrol 100 mg capsule 100 mg PO DAILY cap 08/26/19 09/09/19 History sulfamethoxazole 400 1 tab PO BID 7 Days #14 tab 09/04/19 09/09/19 Rx mg-trimethoprim 80 mg tablet azithromycin 250 mg PO DAILY 09/09/19 09/09/19 History prednisone 20 mg PO DAILY 09/09/19 09/09/19 History Past Med/Surg History Medical History Hypercholesteremia (Chronic) Hypertension (Chronic) Rabies, need for prophylactic vaccination against (Acute) Right knee DJD (Resolved) Surgical History History of angioplasty History of Cath laser Angioplasty History of cardiac catheterization History of knee replacement S/P laparoscopic hernia repair Family History Brother Hypertension Pure hypercholesterolemia Sister Diabetes Unknown Colon cancer Social History Preferred Language: Qatari Communication Ability: Effective Beliefs That Will Affect Care: None marital status: Current Living Situation: Spouse current occupational status: retired Feels Safe at Home: Yes Safety Concerns: Feels Safe At This Time Smoking Status: Former smoker Hx Alcohol Use: Yes Hx Substance Use: No Review of Systems Review of Systems: The patient denies palpitations, shortness of breath, dyspnea on exertion, cough, lower extremity swelling, sore throat, fevers, chills, sweats, weight change, fatigue, nausea, vomiting, diarrhea , constipation, abdominal pain, pelvic pain, blood in urine or stool, dysuria, urinary frequency or urgency, lightheadedness, dizziness, headache, memory loss, loss of consciousness, rash, abnormal bruising or bleeding, imbalance, focal or generalized weakness, numbness or tingling in arms legs, generalized arthralgias or myalgias, back or neck pain, or night sweats. The review of systems is otherwise negative other than for that already noted above, and at least 10 systems have been reviewed. Physical Exam Physical Exam: The patient is awake, alert and oriented 3, well developed and well nourished, normocephalic and atraumatic, lying in bed and in no acute distress. HEENT--PERRL, EOMI, mucous membranes and oropharynx dry. Neck--supple. No JVD. No bruits. Thyroid normal, trachea midline, no adenopathy. Heart--normal S1 and S2. No murmurs, rubs or gallops. Lungs--clear bilaterally, no respiratory distress, no accessory muscle use. Abdomen--normal bowel sounds and soft. Nontender. Nondistended. Extremities--no cyanosis or clubbing. No edema. There are good distal pulses b/l. Dermatologic--normal skin turgor, normal color, no abnormal lymph nodes, no rash. Neurologic--cranial nerves II through XII grossly intact. Rheumatologic--normal range of motion. Psychiatric--normal affect. Results & Data Vital Signs (Past 12 Hours) Vital Signs Temp Pulse Resp BP Pulse Ox 09/09/19 23:31 81 23 172/83 H 96 09/09/19 23:00 56 L 16 167/90 H 95 09/09/19 22:30 66 19 170/83 H 94 09/09/19 22:15 98.2 F 92 H 16 164/95 H 96 Laboratory Results Laboratory Results WBC 5.72 K/uL (4.8-10.8) 09/09/19: RBC 4.06 M/uL (4.7-6.1) L 09/09/19: Hgb 13.3 g/dL (14.0-18.0) L 09/09/19: Hct 39.7 % (42-52) L 09/09/19: MCV 97.8 fL (80-100) 09/09/19: MCH 32.8 pg (25-34) 09/09/19: MCHC 33.5 g/dL (32-36) 09/09/19: RDW Std Deviation 42.1 fL (36.4-46.3) 09/09/19 RDW Coeff of Kyra 11.8 % (11.5-14.5) 09/09/19: Plt Count 167 K/uL (130-400) 09/09/19: MPV 9.0 fL (7.4-10.4) 09/09/19: Immature Gran % (Auto) 0.0 % 09/09/19: Neut % (Auto) 60.8 % 09/09/19: Lymph % (Auto) 24.5 % 09/09/19: [place] % (Auto) 14.5 % 09/09/19: Eos % (Auto) 0.0 % 09/09/19: Baso % (Auto) 0.2 % 09/09/19: Immature Gran # (Auto) 0.00 K/uL (0.00-0.02) 09/09/19: Neut # (Auto) 3.48 K/uL (1.4-6.5) 09/09/19: Lymph # (Auto) 1.40 K/uL (1.2-3.4) 09/09/19: [place] # (Auto) 0.83 K/uL (0.11-0.59) H 09/09/19: Eos # (Auto) 0.00 K/uL (0-0.5) 09/09/19: Baso # (Auto) 0.01 K/uL (0-0.2) 09/09/19 22:28 PT 9.8 Seconds (9.0-12.0) 09/09/19 22:28 INR 1.0 (0.9-1.1) 09/09/19 22:28 APTT 27.9 Seconds (21.0-31.0) 09/09/19 22:28 PTT Ratio 1.0 09/09/19 22:28 D-Dimer 470 ug/L FEU (0-500) 09/09/19 22:28 Sodium 140 mmol/L (136-145) 09/09/19 22:28 Potassium 4.0 mmol/L (3.5-5.1) 09/09/19 22:28 Chloride 106 mmol/L (98-107) 09/09/19 22:28 Carbon Dioxide 30 mmol/L (21-32) 09/09/19 22:28 Anion Gap 4.0 (3-11) 09/09/19 22:28 BUN 23 mg/dl (7-18) H 09/09/19 22:28 Creatinine 1.81 mg/dl (0.6-1.4) H 09/09/19 22:28 Est Cr Clr Drug Dosing 35.5 ml/min 09/09/19 22:28 Est GFR ( Amer) 40.9 09/09/19 22:28 Est GFR (Non-Af Amer) 35.3 09/09/19 22:28 BUN/Creatinine Ratio 12.7 (10-20) 09/09/19 22:28 Glucose 156 mg/dl (70-99) H 09/09/19 22:28 Calcium 9.6 mg/dl (8.5-10.1) 09/09/19 22:28 Troponin I < 0.015 ng/ml (0-0.045) 09/09/19 22:28 Lipase 196 U/L (73-393) 09/09/19 22:28 Diagnostic Findings [facility] BRETT Arias [phone] XRay Report Patient: LUCILA WALKER Date: 09/09/19 MR#: [id number] [address] Acct ID:[id number]: Date: [address] [facility] [address] Zip: [place] [address] Age: 78Location: ED Sex: M Room/Bed: Att Phy:Diagnosis: CHEST PAIN Radha Phy: Luis Enrique Hernandez Anabelle, DOService Date: 09/09/19 [facility] Phy:Interpreting Phy: Luciano Hewitt MD Admit Phy: Ordering Phy: Dax Alvarez M.D. cc: ~ XR chest 2V PA/lateral CLINICAL HISTORY: Atypical chest pain, shortness of breath, wheezing. COMPARISON STUDY: June 19, 2019 FINDINGS: The heart is normal in size. There is aortic tortuosity. There is calcification within the aortic knob. There is no failure. There is no focal pulmonary consolidation. There are no pleural effusions.[ IMPRESSION: No active disease in the chest. ACT 112: Negative or not required by law. Electronically signed by: Luciano Hewitt M.D. 09/09/2019 10:54 PM Dictated: 09/09/[id number] Transcribed: 09/09/192252 Code Status & VTE Plan Code Status Full code VTE Prophylaxis Plan VTE Prophylaxis will be ordered: Yes PG Care Time/CCT Total # of Minutes Spent Total Time Spent with Patient: Total time spent is greater than 50% in coordination of care (as documented) at patient's floor/unit and/or counseling patient: (1) Chest pain Chest pain type: unspecified Qualified Code(s): R07.9 - Chest pain, unspecified
[2019-09-10] MEDS: NITROGLYCERIN SL 0.4 MG/TAB TAB SL PRN (00:47)
[2019-09-10] MEDS ORDERED: ONDANSETRON INJ 2 MG/ML 2 ML VIAL IV PRN (01:16)
[2019-09-10] MEDS ORDERED: NON-FORMULARY MEDICATION (Coenzyme Q10 [Co Q-10] 200 MG) PO SCH (01:16)
[2019-09-10] MEDS ORDERED: ALUMINUM/MAGNESIUM SUSP 30 ML UDC PO PRN (01:16)
[2019-09-10] MEDS ORDERED: ACETAMINOPHEN 325 MG TAB PO PRN (01:16)
[2019-09-10] MEDS ORDERED: MAGNESIUM HYDROXIDE SUSP 30 ML UDC PO PRN (01:16)
[2019-09-10] MEDS ORDERED: NITROGLYCERIN SL 0.4 MG/TAB TAB SL PRN (01:16)
[2019-09-10] MEDS ORDERED: NON-FORMULARY MEDICATION (Melatonin 5 MG) PO PRN (01:16)
[2019-09-10] MEDS ORDERED: Heparin IV Standard *NO* Bolus IV ONE (02:27)
[2019-09-10] MEDS ORDERED: HEPARIN SODIUM/DEXTROSE 25,000 UNITS/500 ML BAG IV SCH (02:30)
[2019-09-10 04:26] LABS: Basophils # (auto) 0.02 K/uL (0-0.2); Basophils % (auto) 0.3 %; Eosinophils # (auto) 0.04 K/uL (0-0.5); Eosinophils % (auto) 0.6 %; Hematocrit (blood only) 35.7 % (42-52); Hemoglobin 11.9 g/dL (14.0-18.0); Immature Granulocytes # (auto) 0.01 K/uL (0.00-0.02); Immature Granulocytes % (auto) 0.2 %; Lymphocytes # (auto) 2.13 K/uL (1.2-3.4); Mean Corpuscular Hemoglobin 32.2 pg (25-34); Mean Corpuscular Hgb Conc 33.3 g/dL (32-36); Mean Corpuscular Volume 96.7 fL (80-100); Mean Platelet Volume 9.5 fL (7.4-10.4); Monocytes # (auto) 0.92 K/uL (0.11-0.59); Monocytes % (auto) 14.2 %; Neutrophils # (auto) 3.34 K/uL (1.4-6.5); Neutrophils % (auto) 51.7 %; Platelet Count 164 K/uL (130-400); RDW Coefficient of Variation 11.8 % (11.5-14.5); RDW Standard Deviation 42.1 fL (36.4-46.3); Red Blood Count 3.69 M/uL (4.7-6.1); White Blood Count 6.46 K/uL (4.8-10.8)
[2019-09-10 04:45] LABS: Albumin Level 2.7 gm/dl (3.4-5.0); BUN Creatinine Ratio 13.1 (10-20); Calcium 8.9 mg/dl (8.5-10.1); Creatinine Clr Calc Pharmacy 37.4 ml/min; Est GFR (African American) 46.1; Est GFR (Non-African American) 39.7; Potassium 3.9 mmol/L (3.5-5.1)
[2019-09-10 04:48] LABS: Albumin Globulin Ratio 0.8 (0.9-2); Bilirubin,Total 0.3 mg/dl (0.2-1); Globulin 3.4 gm/dl (2.5-4.0); Total Protein 6.1 gm/dl (6.4-8.2)
[2019-09-10] MEDS ORDERED: RESVERATROL 100 MG PO SCH (09:00)
[2019-09-10] MEDS ORDERED: HEPARIN SOD 5,000 UNIT/0.5 ML VIAL SQ SCH (09:00)
[2019-09-10] MEDS: OMEGA-3 (PURIFIED FISH OIL) 1 GM CAP PO SCH (09:09)
[2019-09-10] MEDS: AZELASTINE~ORDER AWAITING ACTION SCH ×2 (09:09→16:40)
[2019-09-10] MEDS: predniSONE 20 MG TAB PO SCH (09:10)
[2019-09-10] MEDS: AMLODIPINE BESYLATE 5 MG TAB PO SCH (09:10)
[2019-09-10 09:39] LABS: Partial Thromboplastin Time 53.6 Seconds (21.0-31.0)
--- NOTE | 2019-09-10 12:23 | Cardiology Consultation ---
Date of Consultation September 10, 2019 Assessment & Plan (1) NSTEMI (non-ST elevated myocardial infarction): 2. History of moderate nonobstructive coronary artery disease 3. 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 Hypertension 5. Dyslipidemia 6. Anemia 7. Acute on chronic kidney disease Accelerating angina for weeks with episode of rest pain last night now with elevated troponin/EKG changes consistent with elevated risk ACS. Recommend additional stratification with early invasive approach. Discussed cardiac catheterization with patient and family and willing to proceed. Plan to perform via right radial artery later today. Please keep n.p.o. Continue heparin i nfusion and IV fluids. Further recommendations pending findings of catheterization. History of Present Illness Attending Physician: Nelson Tucker MD History of Present Illness Mr. Rosales is a very pleasant 78-year-old man with a history of hypertension, dyslipidemia, mildly dilated ascending aorta (4.8 cm) with mild AI and prior nonobstructive coronary artery disease here with accelerating anginal symptoms over weeks and episode of rest chest pain last night. Patient is followed by Dr. Orourke for his cardiac care as an outpatient. Last heart catheterization in January 2011 in [place] reportedly had a 40% RCA lesion. Since that time is been followed for hypertension, dyslipidemia and mild valve disease. He is active at baseline usually walking 1 to 2 miles every day. Over the last several weeks when he would go for walks he would developed substernal chest pain that will occasionally radiate to his left arm. Symptoms relieved with rest once he got home. Was seen by cardiology 2 weeks ago and outpatient stress echo recommended. EKG at that time unremarkable. In the interim had also been dealing with cough and wheezing for which is been diagnosed with bronchitis and started on antibiotics. Last night patient awoken with substernal chest pain again radiating to his left arm. Pain stuttering until Nitropatch placed in ED. Initial EKG showed sinus rhythm with subtle lateral ST depressions. Troponin rising now up to 0.3. Repeat echocardiogram today showed no regional wall motion abnormalities. Patient chest pain-free today. Telemetry unremarkable. Family history: No premature CAD. Father did have RI and four-vessel CABG Social history: Denies tobacco or heavy alcohol use. here with and son. Allergies: None Allergies Allergy/AdvReac Type Severity Reaction Status Date / Time No Known Allergies Allergy Unverified 09/09/19 23:23 Home Medications Home Medications Medication Instructions Recorded Confirmed Type amlodipine [Norvasc] 10 mg PO QAM 03/06/19 09/09/19 History cholecalciferol (vitamin D3) 2,000 unit PO QDD 03/06/19 09/09/19 History [Vitamin D3] magnesium 30 mg PO QDD 03/06/19 09/09/19 History nitroglycerin 0.4 mg SUBLINGUAL DIRECTED PRN 03/06/19 09/09/19 History simvastatin 20 mg PO QPM 03/06/19 09/09/19 History turmeric 400 mg PO DAILY 03/06/19 09/09/19 History azelastine 137 mcg (0.1 %) nasal 2 sprays INTNAS BID PRN #30 ml 04/29/19 09/09/19 Rx spray aerosol sildenafil (pulm.hypertension) 20 20 - 100 mg PO ONCE PRN #90 tab 05/28/19 Rx mg tablet ascorbic acid (vitamin C) 500 mg 500 mg PO QDD tab 05/29/19 09/09/19 History tablet omega-3 acid ethyl esters 1 gram 4 cap PO DAILY cap 05/29/19 09/09/19 History capsule aspirin 81 mg PO QPM 06/19/19 09/09/19 History coenzyme Q10 200 mg capsule 200 mg PO BID cap 08/26/19 09/09/19 History melatonin 5 mg capsule 5 mg PO HS PRN cap 08/26/19 09/09/19 History resveratrol 100 mg capsule 100 mg PO DAILY cap 08/26/19 09/09/19 History sulfamethoxazole 400 1 tab PO BID 7 Days #14 tab 09/04/19 09/09/19 Rx mg-trimethoprim 80 mg tablet azithromycin 250 mg PO DAILY 09/09/19 09/09/19 History prednisone 20 mg PO DAILY 09/09/19 09/09/19 History Patient History Medical History (Updated 09/10/19 @ 12:18 by Emeterio Cummins MD) Chronic kidney disease Hypercholesteremia (Chronic) Hypertension (Chronic) Rabies, need for prophylactic vaccination against (Acute) Right knee DJD (Resolved) Surgical History History of angioplasty History of Cath laser Angioplasty History of cardiac catheterization History of knee replacement S/P laparoscopic hernia repair Family History Brother Hypertension Pure hypercholesterolemia Sister Diabetes Unknown Colon cancer Social History Preferred Language: Irish Communication Ability: Effective Beliefs That Will Affect Care: None marital status: Current Living Situation: Spouse current occupational status: retired Feels Safe at Home: Yes Safety Concerns: Feels Safe At This Time Smoking Status: Former smoker Hx Alcohol Use: Yes Hx Substance Use: No Review of Systems Review of Systems: All systems reviewed & are unremarkable except as noted in HPI & below Physical Exam Physical Exam: General: Comfortable, no acute distress HEENT: Sclerae anicteric, mucous membranes moist Lungs: Clear to auscultation with minimal scattered wheezes on left Cardiac: Regular rate and rhythm, no murmurs. No JVD. Abdomen: Soft, nontender, nondistended, positive bowel sounds. Extremities: Warm, well perfused, no edema. 2+ radial pulses Skin: No rashes or lesions. Neuro: Nonfocal Psych: Alert orient x3, normal affect and mood Results & Data Vital Signs (Past 12 Hours) Vital Signs Temp Pulse Pulse Resp BP BP Pulse Ox 09/10/19 12:00 98.6 F 56 L 18 155/74 H 95 09/10/19 07:53 98.2 F 69 16 140/69 98 09/10/19 07:36 57 L 09/10/19 05:11 47 L 16 143/71 H 94 09/10/19 04:11 56 L 21 151/85 H 93 09/10/19 03:13 97.7 F 51 L 20 152/77 H 96 09/10/19 01:12 60 20 150/79 H 96 09/10/19 01:05 54 L 18 150/79 H 95 09/10/19 00:56 61 21 142/82 H 92 09/10/19 00:30 55 L 14 177/93 H 95 09/10/19 00:24 57 L 16 169/91 H 95 Diagnostic Findings Echo today: Mildly dilated LV, EF 55 to 60%, mildly dilated RV, mild to moderate AI, mild MR, dilated ascending aorta 4.7 cm PG Care Time/CCT Total # of Minutes Spent Total Time Spent with Patient: Total time spent is greater than 50% in coordination of care (as documented) at patient's floor/unit and/or counseling patient:
[2019-09-10] MEDS ORDERED: SODIUM CHLORIDE 0.9% 1000ML 1,000 ML IV SCH ×2 (12:30→14:30)
[2019-09-10] MEDS ORDERED: HEPARIN (PORCINE) 1000 UNIT/ML 10 ML (CATH LAB USE ONLY) ONE (12:51)
[2019-09-10] MEDS ORDERED: NiCARDipine HCL INJ 2.5 MG/ML 10 ML AMP ONE (12:51)
[2019-09-10] MEDS ORDERED: fentaNYL citrate 100 MCG/2 ML VIAL ONE (12:51)
[2019-09-10] MEDS ORDERED: MIDAZOLAM HCL 1 MG/ML 2ML VIAL ONE (12:51)
[2019-09-10] MEDS ORDERED: NITROGLYCERIN/D5W 100MCG/ML 20ML SYR ONE (12:52)
[2019-09-10] MEDS ORDERED: TICAGRELOR 90 MG TAB PO ONE (14:08)
--- NOTE | 2019-09-10 14:10 | Post Anesthesia Assessment ---
Date of Service September 10, 2019 Post Sedation Assessment Vital Signs Temp Pulse Pulse Resp BP BP Pulse Ox 09/10/19 12:38 57 L 16 175/82 H 94 09/10/19 12:00 98.6 F 56 L 18 155/74 H 95 09/10/19 07:53 98.2 F 69 16 140/69 98 09/10/19 07:36 57 L 09/10/19 05:11 47 L 16 143/71 H 94 09/10/19 04:11 56 L 21 151/85 H 93 09/10/19 03:13 97.7 F 51 L 20 152/77 H 96 09/10/19 01:12 60 20 150/79 H 96 09/10/19 01:05 54 L 18 150/79 H 95 09/10/19 00:56 61 21 142/82 H 92 09/10/19 00:30 55 L 14 177/93 H 95 09/10/19 00:24 57 L 16 169/91 H 95 09/10/19 00:00 57 L 13 170/88 H 96 09/09/19 23:31 81 23 172/83 H 96 09/09/19 23:00 56 L 16 167/90 H 95 09/09/19 22:30 66 19 170/83 H 94 09/09/19 22:15 98.2 F 92 H 16 164/95 H 96 Recovery Score Activity: Moves 4 extremities Respiration: Deep Breath/Cough Circulation: +/-20% PreAnes Value Consciousness: Fully Awake Oxygen Saturation: O2 needed for >90% Discharge Sedation Level of Care: Fast Track Phase II Post Sedation Plan On clinical assessment, the patient appears to have tolerated the sedation without complications. Patient is recovering as anticipated. Patient will continue to be monitored by nursing and may be discharged when sedation discharge criteria are met per below protocol. Upon Completions of procedure up to 15 minutes continue every 5 minute vital signs and the P.A.R. score; then discharge to a Phase I or Fast Track to Phase II per the following guidelines: * Discharge Patient to appropriate Phase II area if PAR is 8 or greater or return to pre- procedure baseline. The post - procedure orders will be as directed. * If PAR score is less than 8 or not return to pre-procedure baseline then patie nt will follow Phase I monitoring till PAR is reached for Phase II. The Phase I may be done in procedure room or may call to secure a Phase I area. * If naloxone or flumazenil are used for reversal, hold in Phase I for continued monitoring from when last reversal dose was given for a minimum of 60 minutes or longer pending the nurse and/or physician discretion of patient condition before discharge to Phase II. Please call the Sedation Physician to re-evaluate and complete post-note for discharge to Phase II area. Do NOT discharge from procedure sedation or Phase 1 until post- sedation ev aluation note is complete by procedure /sedation MD Sedation Discharge Instructions to be given to the patient at discharge to home.
--- NOTE | 2019-09-10 14:10 | Pre Anesthesia Assessment ---
Date of Service September 10, 2019 Pre Sedation Assessment Vital Signs Temp Pulse Pulse Resp BP BP Pulse Ox 09/10/19 12:38 57 L 16 175/82 H 94 09/10/19 12:00 98.6 F 56 L 18 155/74 H 95 09/10/19 07:53 98.2 F 69 16 140/69 98 09/10/19 07:36 57 L 09/10/19 05:11 47 L 16 143/71 H 94 09/10/19 04:11 56 L 21 151/85 H 93 09/10/19 03:13 97.7 F 51 L 20 152/77 H 96 09/10/19 01:12 60 20 150/79 H 96 09/10/19 01:05 54 L 18 150/79 H 95 09/10/19 00:56 61 21 142/82 H 92 09/10/19 00:30 55 L 14 177/93 H 95 09/10/19 00:24 57 L 16 169/91 H 95 09/10/19 00:00 57 L 13 170/88 H 96 09/09/19 23:31 81 23 172/83 H 96 09/09/19 23:00 56 L 16 167/90 H 95 09/09/19 22:30 66 19 170/83 H 94 09/09/19 22:15 98.2 F 92 H 16 164/95 H 96 Cardiovascular RRR, no murmur, no edema Respiratory normal respiratory effort, lungs clear to auscultation Pre-Sedation Airway Assessment Smoking Status: Former smoker Hx Sleep Apnea: No Short, Thick Neck: No Thyromental Distance: > or= 3.5 Finger Breadths Oral Cavity: + WNL Mallampati Class: I ASA: ASA3 NPO Status Date of Last Intake of Fluids: 09/10/19 Time of Last Intake of Fluids: 10:00 Date of Last Intake of Solid Food: 09/10/19 Time of Last Intake of Solid Foods: 07:00 Procedure Planning Contraindications for Sedation: none Current Medications Reviewed: Yes Notes The planned sedation has been discussed with the patient. Informed Consent was obtained. I have identified the patient, determined the appropriateness of sedation and have assessed the patient immediately prior to the procedure. All medicine(s) and interventions are by my order.
--- NOTE | 2019-09-10 14:24 | Cardiac Catheterization ---
[facility] Data: Herbicide Sprayer Cardiac Status Clinical evaluation leading to the procedure CAD Presenation: Non STEMI Anginal Classification: CCS IV Heart Failure: No Cardiogenic Shock within 24 Hours: No Cardiac Arrest within 24 Hours: No Imaging Studies Past 6 Months: Yes Stress Studies Past 6 Months: No Diagnostic Physicians Name: Kendall Cummins MD Status: Elective Closure Device Percutaneous Entry Location: Radial Closure Device: Radial Band Recommendations: PCI without planned CABG PCI Indication: PCI for high risk Non-DIMITRI Lesion Segment Name: Proximal OM1 Culprit Artery: Yes Stenosis Prior to Rx (%): 99 Chronic Total Occlusion: No IVUS: No FFR: No Pre-Procedure SHAMIR Flow: 2 Previously Treated Lesion: No Lesion Complexity: Non-High/Non-C Lesion Length (mm): 12 Thrombus Present: Yes Bifurcation Lesion: No Guidewire Across Lesion: Stenosis Post-Procedure (%): 0 Post-Procedure SHAMIR Flow: 3 Devices(s) Deployed: Yes Yes Intraprocedure Events Significant Disection: No Perforation: No Cardiac Cath Procedure Full Procedure Date September 10, 2019 Pre-Procedure Diagnosis Pre-Procedure Diagnosis: Non STEMI AUC Score AUC Score: 8 Post-Procedure Diagnosis Post-Procedure Diagnosis: Severe CAD, Successful PCI and Normal Intracardiac Pressures Procedure(s) Performed Procedure(s) Performed: Coronary Angiography, Left Heart Cath and Drug Eluting Stent Engineer Automated Equipment Kendall Cummins MD Home School Liaison Officer(s) Moise Estimated Blood Loss Estimated Blood Loss: 15 Medication(s) Medication(s): Fentanyl, Heparin, Lidocaine 1%, Nicardipine, Nitroglycerin and Versed Medication(s): Ticagrelor Summary of Findings Indication: High risk NSTEMI Access: 604 right radial artery (slender) Catheters: [place], JL 4.5, EBU 4 Findings: LM -Short without significant disease LAD -medium caliber, calcified in proximal to mid segment with diffuse 40% disease, late mid 40% disease after takeoff of second diagonal. Small distal vessel wraps around apex without significant disease. Circumflex -medium caliber, mid segment luminal irregularities. Medium caliber high first OM with 99% acute proximal stenosis and SHAMIR II distal flow. Large OM 3 without significant disease. RCA -dominant, moderate caliber vessel, mildly calcified, 95% ostial stenosis, mild diffuse proximal to mid disease. Luminal irregularities in PDA, PLB LVEDP -12 -- PCI -- Antithrombotic therapy: Heparin, ticagrelor Procedure: Left main cannulated with EBU 4.0 Wicker Worker 50 wire passed across lesion into distal vessel Proximal OM1 lesion predilated with 2.0 compliant balloon Dilated lesion stented with 2.5 x 15 mm [place] drug-eluting stent Stent post-dilated with 2.5 noncompliant balloon IC vasodilators administered for spasm Post procedure SHAMIR 3 flow, stent well expanded with minimal residual stenosis and no apparent cardiac complications. Arterial Closure: TR band Summary: 1. Severe multivessel vessel coronary artery disease -99% acute proximal OM1 95% ostial RCA Diffuse, calcified 40% proximal to mid LAD disease 2. Normal intracardiac filling pressure 3. Successful PCI of proximal OM1 with single drug-eluting stent (2.5 x 15 mm Juan). Recommendations: To PCU for continued monitoring Loaded with ticagrelor 180 mg Continue dual-antiplatelet therapy for at least 1 year Continue statin, and ASCVD risk factor modification Consult cardiac Rehab In the setting of chronic renal insufficiency plan for staged PCI of ostial RCA next week as an outpatient. Hemodynamics Rest Ao:: 114/58/79 Final Ao: 119/63/86 LV: 112/12 Recommendations Recommendations: PCI without planned CABG Specimens Specimens: None Radiation Exposure (mGy) 1855 Contrast (mls) 120 Fluids (cc crystalloids) Fluids (cc crystalloids): 96 Drains Drains: None Anesthesia Moderate Procedural Complication(s) None Disposition PCU I attest to the content of the Intraoperative Record and any orders documented therein. Any exceptions are noted below. [facility] Card Cath Procedure Codes Cardiac Catheterization Procedure 1: Cardiovascular Cath Procedures: 92271 Coronaries and LHC (+/-LV) Moderate Sedation Procedure 1: Sedation/Anesthesia: 98620 Mod Sedation by the same physician;Init15 Min Child Age 5 & Up Procedure 2: Sedation/Anesthesia: 35760 Mod Sedation by the same physician; Ea [id number] Minutes Stenting Procedure 1: Cardiovascular Stent Procedures: 54539 Perc transcatheter placement of intracoronary stent(s), with ang PG Care Time/CCT Total # of Minutes Spent Total Time Spent with Patient: Total time spent is greater than 50% in coordination of care (as documented) at patient's floor/unit and/or counseling patient:
--- NOTE | 2019-09-10 14:34 | History & Physical Bridge Note ---
Date of Service September 10, 2019 History & Physical Bridge Note Patient seen and examined today. No further chest pain; however, troponin is rising. Consulted cardiology. Underwent LHC with Dr. Cummins on 09/10 with successful PCI of proximal OM1 with single drug-eluting stent. - To PCU - DAPT, .statin, beta-makayla - Cardiac rehab
[2019-09-10] MEDS ORDERED: NON-FORMULARY MEDICATION (Magnesium 30 MG) PO SCH (16:30)
[2019-09-10] MEDS: CHOLECALCIFEROL 1,000 UNITS TAB PO SCH (16:49)
[2019-09-10] MEDS: ASCORBIC ACID 500 MG TAB PO SCH (16:49)
[2019-09-10] MEDS ORDERED: Nursing to Pharmacy Communication ONE (18:43)
[2019-09-10] MEDS: AZITHROMYCIN 250 MG TAB PO SCH (19:39)
[2019-09-10] MEDS: ASPIRIN 81 MG ECTAB PO SCH (20:36)
[2019-09-10] MEDS: METOPROLOL TARTRATE 25 MG TAB PO SCH (20:37)
[2019-09-10] MEDS ORDERED: SIMVASTATIN 20 MG TAB PO SCH (21:00)
[2019-09-11] MEDS: AZELASTINE~ORDER AWAITING ACTION SCH ×4 (00:27→23:20)
[2019-09-11] MEDS: TICAGRELOR 90 MG TAB PO SCH ×3 (00:27→20:28)
[2019-09-11 06:46] LABS: Basophils # (auto) 0.02 K/uL (0-0.2); Basophils % (auto) 0.3 %; Eosinophils # (auto) 0.07 K/uL (0-0.5); Hematocrit (blood only) 37.1 % (42-52); Hemoglobin 12.5 g/dL (14.0-18.0); Immature Granulocytes # (auto) 0.02 K/uL (0.00-0.02); Immature Granulocytes % (auto) 0.3 %; Lymphocytes # (auto) 2.05 K/uL (1.2-3.4); Lymphocytes % (auto) 28.2 %; Mean Corpuscular Hemoglobin 32.8 pg (25-34); Mean Corpuscular Hgb Conc 33.7 g/dL (32-36); Mean Corpuscular Volume 97.4 fL (80-100); Mean Platelet Volume 9.3 fL (7.4-10.4); Monocytes # (auto) 0.83 K/uL (0.11-0.59); Monocytes % (auto) 11.4 %; Neutrophils # (auto) 4.27 K/uL (1.4-6.5); Neutrophils % (auto) 58.8 %; Platelet Count 179 K/uL (130-400); RDW Coefficient of Variation 11.8 % (11.5-14.5); Red Blood Count 3.81 M/uL (4.7-6.1); White Blood Count 7.26 K/uL (4.8-10.8)
[2019-09-11 07:20] LABS: Estimated Average Glucose 126 mg/dl
[2019-09-11 07:24] LABS: Albumin Level 2.7 gm/dl (3.4-5.0); BUN Creatinine Ratio 14.9 (10-20); Calcium 8.7 mg/dl (8.5-10.1); Creatinine Clr Calc Pharmacy 35.8 ml/min; Est GFR (African American) 43.8; Est GFR (Non-African American) 37.8; Potassium 3.9 mmol/L (3.5-5.1)
[2019-09-11 07:27] LABS: Albumin Globulin Ratio 0.8 (0.9-2); Bilirubin,Total 0.5 mg/dl (0.2-1); Globulin 3.4 gm/dl (2.5-4.0); Total Protein 6.1 gm/dl (6.4-8.2)
[2019-09-11] MEDS: predniSONE 20 MG TAB PO SCH (08:43)
[2019-09-11] MEDS: OMEGA-3 (PURIFIED FISH OIL) 1 GM CAP PO SCH (08:44)
[2019-09-11] MEDS: ATORVASTATIN 40 MG TAB PO SCH (08:44)
[2019-09-11] MEDS: METOPROLOL TARTRATE 25 MG TAB PO SCH ×3 (08:45→20:43)
[2019-09-11] MEDS: AMLODIPINE BESYLATE 5 MG TAB PO SCH (08:46)
[2019-09-11] MEDS: NITROGLYCERIN SL 0.4 MG/TAB TAB SL PRN (10:27)
[2019-09-11] MEDS ORDERED: LORazepam 0.5 MG/1 ML VIAL IV PRN (10:43)
[2019-09-11] MEDS ORDERED: MoRPHine SULFATE 2 MG/ML CARP IV STA ×2 (10:43→10:49)
--- NOTE | 2019-09-11 10:55 | Cardiology Progress Note ---
Date of Service September 11, 2019 Subjective Still with some chest discomfort this morning. He notes it comes and goes. He does not have the significant arm discomfort that he previously had. He describes it as mild tightness. Is not worse with a deep breath. He denies any lightheadedness or dizziness. He did receive sublingual nitroglycerin this morning with minimal improvement. He does have a cough. He occasionally gets reflux symptoms but this discomfort is not like his typical reflux. He denies a headache with nitroglycerin. The intensity of his discomfort is still significantly better than when he came in the hospital. He denies any dark stools or black stools or bleeding Results & Data Vital Signs (Past 12 Hours) Vital Signs Temp Pulse Pulse Pulse Resp BP Pulse Ox 09/11/19 10:48 56 L 137/74 09/11/19 10:24 53 L 163/88 H 09/11/19 07:38 44 L 09/11/19 07:34 36.5 C 56 L 23 174/88 H 96 09/11/19 03:21 36.5 C 47 L 19 157/82 H 97 09/10/19 23:10 36.6 C 53 L 18 167/80 H 96 x3 is in no acute distress HEENT: 2+ carotid upstrokes no carotid bruits jugular is pressure appeared normal sclerae anicteric his hearing is normal Lungs: Clear to auscultation bilaterally no rales rhonchi or wheezing Heart: Regular rate and rhythm no appreciable murmurs rubs or gallops Abdomen: Soft nontender distended positive bowel sounds Extremities no clubbing cyanosis or edema; 2+ right radial pulse and his right hand was the same temperature as his left hand (1) NSTEMI (non-ST elevated myocardial infarction): 2. Status post catheterization 09/10/2019 LM -Short without significant disease LAD -medium caliber, calcified in proximal to mid segment with diffuse 40% disease, late mid 40% disease after takeoff of second diagonal. Small distal vessel wraps around apex without significant disease. Circumflex -medium caliber, mid segment luminal irregularities. Medium caliber high first OM with 99% acute proximal stenosis and SHAMIR II distal flow. Large OM 3 without significant disease. RCA -dominant, moderate caliber vessel, mildly calcified, 95% ostial stenosis, mild diffuse proximal to mid disease. Luminal irregularities in PDA, PLB 3. 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 Hypertension 5. Dyslipidemia 6. Anemia 7. Acute on chronic kidney disease He has residual chest discomfort this morning which is better than it was when he came in the hospital. The acute lesion was fixed yesterday at the time of his catheterization. He does need a staged procedure for the 95% ostial RCA lesion. Given his discomfort we will add long-acting nitrates Imdur [address] Cummins was contacted by the nursing staff and gave prescription for morphine and Ativan as needed. He will remain on dual antiplatelet therapy. His blood pressure here is much higher than it usually is at home I would avoid MIKA inhibitors or angiotensin receptor blockers given the need for a second contrast load next week. If his blood pressure remains elevated he has lots of room to uptitrate his long-acting nitrates. His simvastatin was changed to high intensity statin therapy with atorvastatin 80 mg daily he remains on max dose amlodipine and there is no room for beta-blockers with a relatively low heart rate. His outpatient resveratrol should be stopped as well.
[2019-09-11] MEDS: ISOSORBIDE MONO EXTENDED REL 30 MG TABCR PO SCH (11:49)
[2019-09-11] MEDS ORDERED: MoRPHine SULFATE 2 MG/ML CARP IV PRN (12:01)
--- NOTE | 2019-09-11 13:07 | Hospitalist Progress Note ---
Date of Service September 11, 2019 Assessment & Plan (1) Chest pain: Left chest and arm pain/hypertension- Pt is s/p cath with ELSA x1 on 09/10 Plans for repeat cath next week to address RCA occlusion as there was concern that renal function would not tolerate both stents being placed in single procedure Aspirin/brillinta x1 yr Plan was for d/c today if no further chest pain, however pt still with mild and fleeting chest pain Cardiology recs for monitoring and if pain worsens, may need to proceed with cath sooner Trop is stable EKG sinus horace on 09/11 ECHO done 09/10 noted with EF 55-60% and mild dilation of RV and ascending aorta (2) Hypertension: Stable (3) Left arm pain: Resolved, likely related to ACS (4) Hypercholesteremia: Changed to lipitor 80mg LDL 75, HDL 48 (5) Chronic kidney disease: Creatinine 1.81 upon admission with range 1.48-1.78. Improved to 1.7 (6) Hyperglycemia: A1c 6.0 BS 90 Will hold on medications for this and work on diet (7) Right knee DJD: Continue prednisone 20 mg p.o. daily. . For now hold turmeric. Subjective Pt feels overall improved s/p cath, however he continues to have fleeting L sided chest pain while at rest. It resolves spontaneously and quickly and is much less intense than the chest pain he has been having over the last two months. That pain would come with exertion and not resolve until after several minutes of rest. That pain also moved into his L UE, this is not. No SOB. Tolerating PO without issue. Pt denies fever, abd pain, n/v/c/d, LE pain or swelling. Review of Systems Review of Systems: Pertinent positives and negatives reviewed in HPI--all others negative Physical Exam Constitutional: WD/WN, vitals as above Eyes: normal visual mayberry by confrontation and + anicteric sclerae Neck: normal visual inspection and trachea midline Respiratory: normal respiratory effort, lungs clear to auscultation Cardiovascular: Rate/Rhythm: regular rate and regular rhythm Gastrointestinal (Abdomen): Inspection/Auscultation: abdomen not distended Percussion/Palpation: abdomen soft; abdomen nontender Musculoskeletal: Head/Neck/Chest: normocephalic and head atraumatic negative for edema, peripheral pulses intact Skin: no rashes, warm and dry Neurologic: awake; not confused Speech / Cognition: normal speech Psychiatric: A+Ox3, euthymic affect Results & Data Vital Signs (Past 12 Hours) Vital Signs Temp Pulse Pulse Pulse Resp BP Pulse Ox 09/11/19 12:00 36.6 C 47 L 18 123/67 93 09/11/19 10:48 56 L 137/74 09/11/19 10:24 53 L 163/88 H 09/11/19 07:38 44 L 09/11/19 07:34 36.5 C 56 L 23 174/88 H 96 09/11/19 03:21 36.5 C 47 L 19 157/82 H 97 PG Care Time/CCT Total # of Minutes Spent Total Time Spent with Patient: Total time spent is greater than 50% in coordi nation of care (as documented) at patient's floor/unit and/or counseling patient: (1) Chest pain Chest pain type: unspecified Qualified Code(s): R07.9 - Chest pain, unspecified
[2019-09-11] MEDS: CHOLECALCIFEROL 1,000 UNITS TAB PO SCH (16:48)
[2019-09-11] MEDS: ASCORBIC ACID 500 MG TAB PO SCH (16:48)
[2019-09-11] MEDS: AZITHROMYCIN 250 MG TAB PO SCH (20:27)
[2019-09-11] MEDS: ASPIRIN 81 MG ECTAB PO SCH (20:28)
[2019-09-12 06:23] LABS: Basophils # (auto) 0.01 K/uL (0-0.2); Basophils % (auto) 0.1 %; Eosinophils # (auto) 0.07 K/uL (0-0.5); Eosinophils % (auto) 0.9 %; Hematocrit (blood only) 35.7 % (42-52); Immature Granulocytes # (auto) 0.02 K/uL (0.00-0.02); Immature Granulocytes % (auto) 0.3 %; Lymphocytes # (auto) 2.13 K/uL (1.2-3.4); Lymphocytes % (auto) 27.4 %; Mean Corpuscular Hemoglobin 32.2 pg (25-34); Mean Corpuscular Hgb Conc 33.6 g/dL (32-36); Mean Corpuscular Volume 95.7 fL (80-100); Mean Platelet Volume 9.5 fL (7.4-10.4); Monocytes # (auto) 0.73 K/uL (0.11-0.59); Monocytes % (auto) 9.4 %; Neutrophils # (auto) 4.81 K/uL (1.4-6.5); Neutrophils % (auto) 61.9 %; Platelet Count 176 K/uL (130-400); RDW Coefficient of Variation 11.8 % (11.5-14.5); RDW Standard Deviation 41.6 fL (36.4-46.3); Red Blood Count 3.73 M/uL (4.7-6.1); White Blood Count 7.77 K/uL (4.8-10.8)
[2019-09-12 06:48] LABS: Albumin Level 2.7 gm/dl (3.4-5.0); BUN Creatinine Ratio 16.2 (10-20); Calcium 8.5 mg/dl (8.5-10.1); Creatinine Clr Calc Pharmacy 36.9 ml/min; Est GFR (African American) 45.4; Est GFR (Non-African American) 39.2; Potassium 3.8 mmol/L (3.5-5.1)
[2019-09-12 06:50] LABS: Albumin Globulin Ratio 0.8 (0.9-2); Bilirubin,Total 0.6 mg/dl (0.2-1); Globulin 3.2 gm/dl (2.5-4.0); Total Protein 5.9 gm/dl (6.4-8.2)
[2019-09-12] MEDS: TICAGRELOR 90 MG TAB PO SCH ×3 (07:59→20:23)
[2019-09-12] MEDS: METOPROLOL TARTRATE 25 MG TAB PO SCH ×2 (08:00→20:23)
[2019-09-12] MEDS: ISOSORBIDE MONO EXTENDED REL 30 MG TABCR PO SCH (08:01)
[2019-09-12] MEDS: ATORVASTATIN 40 MG TAB PO SCH (08:02)
[2019-09-12] MEDS: AMLODIPINE BESYLATE 5 MG TAB PO SCH (08:02)
[2019-09-12] MEDS: OMEGA-3 (PURIFIED FISH OIL) 1 GM CAP PO SCH (08:03)
[2019-09-12] MEDS: AZELASTINE~ORDER AWAITING ACTION SCH ×3 (09:10→23:12)
[2019-09-12] MEDS ORDERED: MIDAZOLAM HCL 1 MG/ML 2ML VIAL ONE (11:48)
[2019-09-12] MEDS ORDERED: NITROGLYCERIN/D5W 100MCG/ML 20ML SYR ONE (11:48)
[2019-09-12] MEDS ORDERED: NiCARDipine HCL INJ 2.5 MG/ML 10 ML AMP ONE (11:48)
[2019-09-12] MEDS ORDERED: HEPARIN (PORCINE) 1000 UNIT/ML 10 ML (CATH LAB USE ONLY) ONE (11:48)
[2019-09-12] MEDS ORDERED: fentaNYL citrate 100 MCG/2 ML VIAL ONE (11:48)
[2019-09-12] MEDS ORDERED: ATROPINE SULFATE 0.1 MG/ML 10ML SYR IV ONE (11:55)
--- NOTE | 2019-09-12 13:42 | Pre Anesthesia Assessment ---
Date of Service September 12, 2019 Pre Sedation Assessment Vital Signs Temp Pulse Pulse Pulse Pulse Resp BP 09/12/19 11:52 97.7 F 53 L 18 148/83 H 09/12/19 08:30 09/12/19 08:00 46 L 09/12/19 07:34 97.9 F 48 L 18 144/74 H 09/12/19 04:52 97.5 F L 47 L 22 135/79 09/12/19 00:26 98.1 F 50 L 19 130/74 09/11/19 20:40 50 L 140/65 09/11/19 18:58 98.6 F 54 L 18 152/73 H 09/11/19 16:00 49 L 09/11/19 15:32 97.9 F 48 L 18 123/64 Pulse Ox Pulse Ox 09/12/19 11:52 94 09/12/19 08:30 95 09/12/19 08:00 09/12/19 07:34 95 09/12/19 04:52 98 09/12/19 00:26 94 09/11/19 20:40 09/11/19 18:58 96 09/11/19 16:00 09/11/19 15:32 94 Cardiovascular RRR, no murmur, no edema Respiratory normal respiratory effort, lungs clear to auscultation Pre-Sedation Airway Assessment Smoking Status: Former smoker Hx Sleep Apnea: No Hx Difficult Intubation: No Short, Thick Neck: No Thyromental Distance: > or= 3.5 Finger Breadths Oral Cavity: + WNL Mallampati Class: I ASA: ASA3 NPO Status Date of Last Intake of Fluids: 09/12/19 Time of Last Intake of Fluids: 06:00 Date of Last Intake of Solid Food: 09/11/19 Time of Last Intake of Solid Foods: 18:00 Procedure Planning Contraindications for Sedation: none Current Medications Reviewed: Yes Notes The planned sedation has been discussed with the patient. Informed Consent was obtained. I have identified the patient, determined the appropriateness of sedation and have assessed the patient immediately prior to the procedure. All medicine(s) and interventions are by my order.
--- NOTE | 2019-09-12 13:44 | Post Operative Brief Note ---
Cardiology Brief Post Op Date of Surgery September 12, 2019 Pre & Post Diagnosis Operation Date: 09/10/19 12:25 <No data on this case meets the specified criteria> Operation Date: 09/12/19 12:00 <No data on this case meets the specified criteria> Procedure -- Fermenting Cellars Receiver Kendall Cummins MD Narcotics Investigator [email or web address] Estimated Blood Loss 5 Findings Consistent with Post-Op Diagnosis PCI of ostial to mid RCA with 3 overlapping ELSA (3.0 x 18, 3.0 x 12, 3.0 x 18 -- most proximal stent extended 5+ mm into aorta - dilated with 5.0 balloon). Complications none Disposition Disposition: PCU
[2019-09-12] MEDS ORDERED: SODIUM CHLORIDE 0.9% 1000ML 1,000 ML IV SCH (13:45)
--- NOTE | 2019-09-12 14:41 | Hospitalist Progress Note ---
Date of Service September 12, 2019 Assessment & Plan (1) Chest pain: Left chest and arm pain/hypertension- Pt is s/p cath with ELSA x1 on 09/10, repeat cath on 09/12 with ELSA x3 in RCA per report Aspirin/brillinta x1 yr Trop is stable EKG sinus horace on 09/11 ECHO done 09/10 noted with EF 55-60% and mild dilation of RV and ascending aorta (2) Hypertension: Stable (3) Left arm pain: Resolved, likely related to ACS (4) Hypercholesteremia: Changed to lipitor 80mg LDL 75, HDL 48 (5) Chronic kidney disease: Creatinine 1.81 upon admission with range 1.48-1.78. Improved to 1.7 (6) Hyperglycemia: A1c 6.0 BS 90 Will hold on medications for this and work on diet (7) Right knee DJD: Continue prednisone 20 mg p.o. daily. . For now hold turmeric. Subjective Pt with no return of fleeting L sided chest pain since around 11am yesterday. No SOB. Tolerating PO without issue. Pt denies fever, abd pain, n/v/c/d, LE pain or swelling. Is awaiting cath during our discussion. Review of Systems Review of Systems: Pertinent positives and negatives reviewed in HPI--all others negative Physical Exam Constitutional: WD/WN, vitals as above Eyes: normal visual mayberry by confrontation and + anicteric sclerae Neck: normal visual inspection and trachea midline Respiratory: normal respiratory effort, lungs clear to auscultation Cardiovascular: Rate/Rhythm: regular rate and regular rhythm Gastrointestinal (Abdomen): Inspection/Auscultation: abdomen not distended Percussion/Palpation: abdomen soft; abdomen nontender Musculoskeletal: Head/Neck/Chest: normocephalic and head atraumatic neg for LE edema Skin: no rashes, warm and dry Neurologic: awake; not confused Speech / Cognition: normal speech Psychiatric: A+Ox3, euthymic affect Results & Data Vital Signs (Past 12 Hours) Vital Signs Temp Pulse Pulse Pulse Pulse Resp BP 09/12/19 14:15 36.5 C 43 L 43 L 18 127/74 09/12/19 14:00 46 L 18 145/69 H 09/12/19 13:55 45 L 18 142/78 H 09/12/19 13:50 43 L 18 145/72 H 09/12/19 13:45 47 L 18 134/101 H 09/12/19 11:52 36.5 C 53 L 18 148/83 H 09/12/19 08:30 09/12/19 08:00 46 L 09/12/19 07:34 36.6 C 48 L 18 144/74 H 09/12/19 04:52 36.4 C L 47 L 22 135/79 Pulse Ox Pulse Ox 09/12/19 14:15 09/12/19 14:00 94 09/12/19 13:55 95 09/12/19 13:50 95 09/12/19 13:45 95 09/12/19 11:52 94 09/12/19 08:30 95 09/12/19 08:00 09/12/19 07:34 95 09/12/19 04:52 98 PG Care Time/CCT Total # of Minutes Spent Total Time Spent with Patient: Total time spent is greater than 50% in coordination of care (as documented) at patient's floor/unit and/or counseling patient: (1) Chest pain Chest pain type: unspecified Qualified Code(s): R07.9 - Chest pain, unspecified
[2019-09-12] MEDS: CHOLECALCIFEROL 1,000 UNITS TAB PO SCH (17:06)
[2019-09-12] MEDS: ASCORBIC ACID 500 MG TAB PO SCH (17:07)
[2019-09-12] MEDS: ASPIRIN 81 MG ECTAB PO SCH (20:23)
--- NOTE | 2019-09-12 22:28 | Cardiac Catheterization ---
[facility] Data: Clerical Car Checker Cardiac Status Clinical evaluation leading to the procedure CAD Presenation: Non STEMI Anginal Classification: CCS IV Heart Failure: No Cardiogenic Shock within 24 Hours: No Cardiac Arrest within 24 Hours: No Imaging Studies Past 6 Months: Yes Stress Studies Past 6 Months: No Diagnostic Physicians Name: Kendall Cummins MD Status: Elective Closure Device Percutaneous Entry Location: Radial Closure Device: Radial Band Recommendations: PCI without planned CABG PCI Indication: Staged PCI Lesion Segment Name: ostial to mid RCA Culprit Artery: No Stenosis Prior to Rx (%): 95 Chronic Total Occlusion: No IVUS: Yes FFR: No Pre-Procedure SHAMIR Flow: 3 Previously Treated Lesion: No Lesion Complexity: High/C Lesion Length (mm): 30 Thrombus Present: No Bifurcation Lesion: Yes Guidewire Across Lesion: Stenosis Post-Procedure (%): 0 Post-Procedure SHAMIR Flow: 3 Devices(s) Deployed: Yes Yes Intraprocedure Events Significant Disection: No Perforation: No Cardiac Cath Procedure Full Procedure Date September 12, 2019 Pre-Procedure Diagnosis Pre-Procedure Diagnosis: Non STEMI AUC Score AUC Score: 8 Post-Procedure Diagnosis Post-Procedure Diagnosis: Severe CAD and Successful PCI Procedure(s) Performed Procedure(s) Performed: Drug Eluting Stent and IVUS Bridge Game Director Kendall Cummins MD Heavy Equipment Operator(s) Moise Estimated Blood Loss Estimated Blood Loss: 15 Medication(s) Medication(s): Fentanyl, Heparin, Lidocaine 1%, Nicardipine, Nitroglycerin and Versed Summary of Findings Indication: Staged PCI of ostial RCA stenosis with recurrent angina Access: 6 Fr slender right radial artery Catheters: JR4 guide Findings: For full details of patient's coronary angiography please cath report dictated 09/10/2019. Patient previously noted to have a severe 95% ostial RCA stenosis here today for staged PCI. -- PCI -- Antithrombotic therapy: Heparin, ticagrelor Procedure: RCA cannulated with JR4 guide House Coordinator 50 wire passed across lesion into distal vessel Pro-water wire placed into right coronary cusp Ostial RCA lesion predilated with 2.5 compliant balloon IVUS used to assess extent of disease and stephanie location of ostium. Ostium with circumferential calcium, moderate to severe disease extending into mid segment of RCA. Mid back into proximal RCA stented with 3.0 x 18 mm Xience Elham Attempt made to place a second 3.0 x 18 Xience Elham stent from ostium back to initial stent With deployment stent slid proximally into aorta with approximately 5 to 10 mm of stent left hanging in aorta A third ELSA was placed across the gap between the 2 stents Ostium/proximal RCA stents post-dilated with 4.0 noncompliant balloon Stent extending into aorta was dilated with 5.0 balloon IC vasodilators administered for spasm Post procedure SHAMIR 3 flow, stent well expanded with minimal residual stenosis and no apparent cardiac complications. Arterial Closure: TR band Summary: 1. Successful PCI of ostial to mid RCA with 3 overlapping drug-eluting stents (3.0 x 18, 3.0 x 12, 3.0 x 18; dilated with 4.0 NC). -Most proximal stent extends across ostium and protrudes into aorta 5+ mm. Stent dilated to >5 mm with NC balloon. Recommendations: To PCU for continued monitoring Recommend continuing DAPT indefinitely with overlapping and protruding RCA stents Continue statin, and ASCVD risk factor modification Hemodynamics Rest Ao:: 110/50/71 Final Ao: 134/59/85 LV: -- Recommendations Recommendations: PCI without planned CABG Specimens Specimens: None Radiation Exposure (mGy) 4592 Contrast (mls) 110 Fluids (cc crystalloids) Fluids (cc crystalloids): 182 Drains Drains: None Anesthesia Moderate Procedural Complication(s) None Disposition PCU I attest to the content of the Intraoperative Record and any orders documented therein. Any exceptions are noted below. [facility] Card Cath Procedure Codes Therapeutic Services & Ancillary Proc Procedure 1: Cardiovascular Tx and Anc Procedures: 73984 IV Ultrasound (Coronary or Graft) Moderate Sedation Procedure 1: Sedation/Anesthesia: 96391 Mod Sedation by the same physician;Init15 Min Child Age 5 & Up Procedure 2: Sedation/Anesthesia: 76827 Mod Sedation by the same physician; Ea [id number] Minutes Stenting Procedure 1: Cardiovascular Stent Procedures: 67650 Perc transcatheter placement of intracoronary stent(s), with ang PG Care Time/CCT Total # of Minutes Spent Total Time Spent with Patient: Total time spent is greater than 50% in coordination of care (as documented) at patient's floor/unit and/or counseling patient:
[2019-09-13] MEDS: AZELASTINE~ORDER AWAITING ACTION SCH (08:56)
[2019-09-13] MEDS: OMEGA-3 (PURIFIED FISH OIL) 1 GM CAP PO SCH (08:57)
[2019-09-13] MEDS: TICAGRELOR 90 MG TAB PO SCH (08:57)
[2019-09-13] MEDS: ISOSORBIDE MONO EXTENDED REL 30 MG TABCR PO SCH (08:57)
[2019-09-13] MEDS: AMLODIPINE BESYLATE 5 MG TAB PO SCH (08:58)
[2019-09-13] MEDS: ATORVASTATIN 40 MG TAB PO SCH (08:58)
[2019-09-13] MEDS: METOPROLOL TARTRATE 25 MG TAB PO SCH (08:58)
--- NOTE | 2019-09-13 09:59 | Cardiology Progress Note ---
Date of Service September 13, 2019 Assessment & Plan (1) NSTEMI (non-ST elevated myocardial infarction): --multivessel CAD post PCI to OM and ostial RCA 2. History of moderate nonobstructive coronary artery disease 3. 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 Hypertension 5. Dyslipidemia 6. Anemia 7. Acute on chronic kidney disease Patient stable from a cardiac standpoint post PCI to ostial RCA yesterday. From a cardiac standpoint okay for discharge today. Home on: DAPT with aspirin, Brilintaplan to continue indefinitely Toprol-XL 25 mg daily Atorvastatin 80 mg daily Continue prior amlodipine Discontinue prior simvastatin, fish oil Can discontinue Imdur Follow-up BMP next week Follow-up with cardiology, Dr. Orourke in 2 to 3 weeks. Subjective Feeling well. No chest pain. No other new concerns. Telemetry reviewedsinus bradycardia down to the 40s. Brief episodes of PAT Review of Systems Review of Systems: All systems reviewed & are unremarkable except as noted in HPI & below Physical Exam Physical Exam: General: Comfortable, no acute distress HEENT: Sclerae anicteric, mucous membranes moist Lungs: Clear to auscultation bilaterally, no rhonchi or wheezes Cardiac: Regular rate and rhythm, no murmurs. No JVD. Abdomen: Soft, nontender, nondistended, positive bowel sounds. Extremities: Warm, well perfused, no edema. Right radial artery access site with no ecchymosis, hematoma. Distal pulse and sensation intact. Skin: No rashes or lesions. Neuro: Nonfocal Psych: Alert orient x3, normal affect and mood Results & Data Vital Signs (Past 12 Hours) Vital Signs Temp Pulse Pulse Pulse Resp BP BP 09/13/19 07:45 97.5 F L 46 L 18 165/85 H 09/13/19 03:39 97.7 F 49 L 18 151/87 H 09/13/19 00:05 97.9 F 49 L 19 149/88 H 09/12/19 23:02 43 L Pulse Ox 09/13/19 07:45 95 09/13/19 03:39 95 09/13/19 00:05 94 09/12/19 23:02 PG Care Time/CCT Total # of Minutes Spent Total Time Spent with Patient: Total time spent is greater than 50% in coordination of care (as documented) at patient's floor/unit and/or counseling patient:
--- NOTE | 2019-09-13 10:06 | Discharge Summary ---
Date of Service September 13, 2019 Admission HPI Per Admitting Provider The patient is a 78-year-old male with a past medical history including hypertension, hypercholesterolemia, erectile dysfunction, allergic rhinitis, and osteoarthritis. He reports that for several months he has had on and off left chest and arm pain. However. He reports that over the past several days and in particular on this day of admission, he developed more acute, severe and persistent left sided chest pain and left arm pain, and presents to the emergency department for assessment. Principal Diagnosis Pt is doing well today. No further chest pain. Denies SOB. Tolerating PO without issue. Pt denies fever, abd pain, n/v/c/d, LE pain or swelling. Discharge Exam Constitutional WD/WN, vitals as above Eyes normal visual mayberry by confrontation and + anicteric sclerae Neck normal visual inspection and trachea midline Respiratory normal respiratory effort, lungs clear to auscultation Cardiovascular Rate/Rhythm: regular rate and regular rhythm Gastrointestinal (Abdomen) Inspection/Auscultation: abdomen not distended Percussion/Palpation: abdomen soft; abdomen nontender Musculoskeletal Head/Neck/Chest: normocephalic and head atraumatic neg LE swelling Skin no rashes, warm and dry Neurologic awake; not confused Speech / Cognition: normal speech Psychiatric A+Ox3, euthymic affect Discharge Data Allergies Allergy/AdvReac Type Severity Reaction Status Date / Time No Known Allergies Allergy Unverified 09/09/19 23:23 Consultations 09/09/19 23:12 ED Decision to Admit Stat 09/10/19 01:16 Consult Case Management - Discharge Planning Routine 09/10/19 11:01 Consult Cardiology Routine 09/10/19 14:27 Consult Cardiac Rehabilitation Routine Procedures Performed Operation Date: 09/10/19 12:25 Actual Procedures p Cath, Left with Cors and Vent - Emeterio Cummins MD s Cineradiography w/Routine Exam - Emeterio Cummins MD s Drug Eluting Stent SGl Vessel - Emeterio Cummins MD Operation Date: 09/12/19 12:00 Actual Procedures s Cineradiography w/Routine Exam - Emeterio Cummins MD p Drug Eluting Stent SGl Vessel - Emeterio Cummins MD s IVUS Coronary Single Vessel - Emeterio Cummins MD Ordered Studies 09/10/19 12:27 CL Cath Imgs for PACS use only Routine 09/12/19 08:51 CL Cath Imgs for PACS use only Stat 09/12/19 12:42 CL IVUS Coronary Single Vessel Routine Hospital Course (1) Chest pain: Left chest and arm pain/hypertension- Pt is s/p cath with ELSA x1 on 09/10, repeat cath on 09/12 with ELSA x3 in RCA Aspirin/brillinta x1 yr Trop is stable EKG sinus horace on 09/11 ECHO done 09/10 noted with EF 55-60% and mild dilation of RV and ascending aorta (2) Hypertension: medication changes as noted above per ACS guidelines (3) Left arm pain: Resolved, likely related to ACS (4) Hypercholesteremia: Changed to lipitor 80mg LDL 75, HDL 48 (5) Chronic kidney disease: Creatinine 1.81 upon admission with range 1.48-1.78. Improved to 1.7 (6) Hyperglycemia: A1c 6.0 BS 90 Will hold on medications for this and work on diet (7) Right knee DJD: Continue prednisone 20 mg p.o. daily. . For now hold turmeric. Total Time Total Time Spent Total Time Spent (In Minutes): >30 Discharge Plan Discharge Items Patient Disposition: Home - Self-Care Reason For Visit: CHEST PAIN Discharge Diagnosis: NSTEMI Activity: Resume your previous activity Non-emergency contact: Primary Care Provider Call non-emergency contact if: you have any medication questions, your symptoms worsen, your pain is not controlled and your pain is worsening Follow-up/Referrals: Emeterio Cummins MD [Physician] - 09/26/19 10:00 am (Please, follow up at [facility] Office with Dr. Cummins on September 26 at 10:00 am. *The office is located in [address] of [facility], next to this [facility]. If you need to change this appointment, call the office at [phone].) Luis Enrique Hernandez DO [Primary Care Provider] - 09/16/19 11:10 am (Please, follow up at Dr. Hernandez's office with her associate, Ashley STEIN, on MondaySeptember 16 at 11:10 am. *If you need to change this appointment, call their office at [phone].) Diet: Heart Healthy Addtl Attending Provider Instructions: Follow up with cardiology in 1 week Follow up with PCP in 1-2 weeks Pending Studies at Discharge: Yes Studies:: Basic metabolic panel Stand-Alone Forms: Call Back Authorization, [facility], Smoking Cessation Medications and DC Order Prescriptions: New atorvastatin 40 mg Tablet 80 mg PO QAM Qty: 30 RF: 3 Brilinta 90 mg Tablet 90 mg PO BID Qty: 60 RF: 3 metoprolol succinate [Toprol XL] 25 mg tablet extended release 24 hr 25 mg PO DAILY Qty: 30 RF: 6 Continued azelastine 137 mcg (0.1 %) aerosol,spray 2 sprays INTNAS BID PRN (Reason: ALLERGIC RHINITIS) Qty: 30 RF: 11 ascorbic acid (vitamin C) 500 mg tablet 500 mg PO QDD RF: 0 coenzyme Q10 [Co Q-10] 200 mg capsule 200 mg PO BID RF: 0 melatonin 5 mg capsule 5 mg PO HS PRN (Reason: sleep) RF: 0 resveratrol 100 mg capsule 100 mg PO DAILY RF: 0 amlodipine [Norvasc] 10 mg tablet 10 mg PO QAM RF: 0 nitroglycerin 0.4 mg tablet, sublingual 0.4 mg sublingual DIRECTED PRN (Reason: Chest Pain) RF: 0 magnesium 30 mg Tablet 30 mg PO QDD RF: 0 cholecalciferol (vitamin D3) [Vitamin D3] 1,000 unit Capsule 2,000 unit PO QDD RF: 0 turmeric 400 mg Capsule 400 mg PO DAILY RF: 0 aspirin 81 mg Tablet,Delayed Release (Dr/Ec) 81 mg PO QPM RF: 0 Discontinued sulfamethoxazole-trimethoprim [Bactrim] 400-80 mg tablet 1 tab PO BID 7 Days Qty: 14 RF: 0 sildenafil (pulm.hypertension) 20 mg tablet 20 - 100 mg PO ONCE PRN (Reason: sexual activity) Qty: 90 RF: 6 omega-3 acid ethyl esters 1 gram capsule 4 cap PO DAILY RF: 0 simvastatin 40 mg tablet 20 mg PO QPM RF: 0 prednisone 20 mg tablet 20 mg PO DAILY RF: 0 azithromycin 250 mg tablet 250 mg PO DAILY RF: 0 Discharge Orders: Discharge Order (Routine); Ordered 09/13/19 Ordered By: Petra Silva Admission Data Admit Date/Time: 09/11/19 08:31 Attending Provider: Petra Silva Admit Provider: Eric Jefferson Primary Care Provider: Luis Enrique Hernandez Other Providers: Nelson Tucker ; Medhat Currie Other Interventions: Discharge Summary Assessment (RN) Last Done: 09/13/19 10:33 DC Date/Time DO NOT enter until pt leaves facility: 09/13/19 11:15
== END 2019-09-13 11:15 | disposition home or self-care (01) | DRG 229 ==
LOC: 1E 22:09 → ED 22:09 → SUATTDRO 09-10 00:19 → 1E 09-10 00:59 → 2S 09-10 07:31 → SUATTDRO 09-11 08:31

== ENCOUNTER 2020-04-15 05:21 | Observation (INO) ==
[2020-04-15] MEDS ORDERED: NITROGLYCERIN SL 0.4 MG/TAB TAB SL STA (05:37)
[2020-04-15] MEDS ORDERED: ASPIRIN 81 MG CHEW PO STA (05:37)
--- NOTE | 2020-04-15 05:40 | Emergency Department Note ---
Impression & Plan Left sided chest pain ED Provider Note Name: LUCILA WALKER Age: 79 Sex: M Arrives Via: Walk-In Informant: Patient ED Provider: Dmitry Vieyra MD Chief Complaint: Chest Pain Impression: Left Sided Chest Pain Medical Decision Making: Pleasant 79 yr old male with history CAD and previous stenting arrives with two nights of waking with left dull chest pain and tonight pain did not relieve on its own. Initial EKG OK. CXR wnl. Patient given ASA and SLNTG with improvement in pain. Labs unremarkable as is initial troponin. He is stable, breathing comfortably and in no distress. Does not a faint bit of Chest pain still but with BP dropping significantly with initial nitro, ekg looking well will hold off on further nitro for now. No evidence dissection, pe, infection, abdominal source. He agrees to hospitalist evaluation. Prior Medical Record and Triage/Nursing Notes reviewed by Me Additional history obtained from chart Differentials:Cardiac ischemia, aortic dissection, pulmonary embolism, pneumothorax, pneumonia, pericarditis, myocarditis, esophageal rupture, GERD, cholecystitis, pancreatitis, musculoskeletal, as well as other pathologies. Vital Signs: reviewed and remarkable for no significant abnormalities Interventions: ASA 324mg PO, SLNTG Labs:Reviewed and remarkable for no significant abnormalities Imaging:X ray results are stated below per my interpretation: Chest: 1 view: No infiltrate, no effusion, normal cardiac border. EKG:Per My Interpretation: Indication Chest Pain: Sinus Devin 49 bpm, qtc 424. No Ectopy. No Ischemia. Compared to EKG 11/19/19, no significant changes. Cardiac/Tele Monitoring: Cardiac Monitoring: An Order was placed for continuous cardiac monitoring. The monitor shows a rate of 50 with a sinus devin rhythm. Consults:Dr Paxton MUSE Hospitalist Plan: Disposition:Hospitalization. Condition: Good Blood pressure:Normal.No Referral necessary Prescriptions:none PDMP: n/a History of Present Illness:79 / male with history CAD s/p stenting x 4, HTN, DLP, CKD arrives for evaluation of chest pain. Patient notes dull left chest pain for last 3 hours which awoke him from sleep. Associated with mild diaphoresis and weakness. This occurred last night as well but resolved on its own. No shortness of breath, syncope, nausea, vomiting, abdominal pain, chest pain nor other symptoms. Nothing makes better nor worse. Took no medications prior to arrival. Admits similar pain to NSTEMI in Aug 2019. ROS: See above HPI for pertinent positives & negatives. A total of 10 systems reviewed and were otherwise negative. Past Medical History:CAD, HTN, DLP, CKD Past Surgical History:Cardiac Stents, Knee replace, hernia repair Family History:Siblings: HTN, DMII, Colon CA, DLP Social History:Former smoker, occasional etoh, no drugs, , retired Home Medications:See Below Allergies:NKDA Vitals:Blood Pressure: 155/78, Pulse 53, RR 16, T 36.7C, O2 97% on RA Physical Exam: GENERAL: Patient is well appearing and in mild distress. EYES: No scleral icterus, unremarkable pupils. ENT: Mucous membranes moist, no nasal congestion. NECK: No masses appreciated, nomeningismus, trachea is midline. RESPIRATORY: No dyspnea. Clear to auscultation and equal bilaterally. No wheeze, no rhonchi. CARDIOVASCULAR: Regular rate and rhythm.No murmurs, rubs, gallops appreciated. GASTROINTESTINAL: Abdomen soft, non-tender, no peritonitis.Bowel sounds positive.No masses appreciated. BACK: No midline tenderness, no CVA tenderness EXTREMITIES: Normal motion all extremities, no cyanosis, no edema. NEUROLOGIC: Alert and oriented, no acute motor or sensory deficits, no focal weakness, cranial nerves grossly intact. SKIN: No rash, no jaundice, no diaphoresis. PSYCH: Appropriate GCS: 15 ED Course: Times/Reassessments: Feelign better, stable, breathing comfortably Dmitry Vieyra MD Past Med/Surg History Medical History (Updated 04/17/20 @ 00:03 by Toma Antonio) Chronic kidney disease Coronary artery disease Hypercholesteremia Hypertension Rabies, need for prophylactic vaccination against (Acute) Right knee DJD (Resolved) Surgical History (Updated 04/15/20 @ 07:55 by Guillaume Barragan) History of angioplasty History of Cath laser Angioplasty History of cardiac catheterization History of knee replacement right S/P laparoscopic hernia repair umbilical Family History (Updated 04/15/20 @ 07:57 by Guillaume Barragan) Brother Hypertension Pure hypercholesterolemia Sister Diabetes Unknown Colon cancer Mother , age 95 Dementia Father , age 90 Coronary heart disease CABG Social History (Updated 04/15/20 @ 07:59 by Guillaume Barragan) Smoking Status: Former smoker Tobacco Type: Cigarettes packs per day: 0.5; Hx Alcohol Use: Yes Alcohol type: beer and wine Alcohol Intake Frequency: 2-4 x/Month Hx Substance Use: No Preferred Language: Haitian Communication Ability: Effective Meeting Facilitator Required: No Beliefs That Will Affect Care: None marital status: Current Living Situation: Spouse 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 How many Children do You have: 2 Feels Safe at Home: Yes Allergies Allergies Allergy/AdvReac Type Severity Reaction Status Date / Time No Known Drug Allergies Allergy Unknown Verified 04/15/20 05:49 Home Meds Home Medications Medication Instructions Recorded Confirmed cholecalciferol (vitamin D3) 2,000 unit PO QDD 03/06/19 04/15/20 [Vitamin D3] ascorbic acid (vitamin C) 500 mg 500 mg PO QDD tab 05/29/19 04/15/20 tablet aspirin 81 mg PO QDD 06/19/19 04/15/20 coenzyme Q10 200 mg capsule 200 mg PO BID cap 08/26/19 04/15/20 melatonin 5 mg capsule 5 mg PO HS PRN cap 08/26/19 04/15/20 resveratrol 100 mg capsule 100 mg PO QAM cap 08/26/19 04/15/20 atorvastatin 80 mg PO HS 11/27/19 04/15/20 turmeric 400 mg capsule 400 mg PO QDD cap 12/02/19 04/15/20 clopidogrel 75 mg PO QAM 04/15/20 04/15/20 magnesium 200 mg PO QDD 04/15/20 04/15/20 Previous Rx's Medication Instructions Recorded nitroglycerin 0.4 mg sublingual 0.4 mg SUBLINGUAL DIRECTED PRN 09/30/19 tablet #20 tab amlodipine 10 mg tablet 10 mg PO QAM #90 tab 02/11/20 erythromycin 1 applic OPHTHALMIC (EYE) HS #1 04/16/20 tube metoprolol succinate [Toprol XL] 12.5 mg PO QAM #90 tab 04/16/20 Results & Data (ED) Vital Signs Vital Signs - 24 hr 04/15/20 05:27 04/15/20 05:32 04/15/20 05:54 Temperature 36.7 C Temperature Source Oral Pulse Rate 53 L 51 L 62 Pulse Rate from SpO2 Sensor 51 L 63 Respiratory Rate 16 18 19 Blood Pressure 155/78 H 170/104 H 109/77 Blood Pressure Mean 103 127 92 Pulse Oximetry 97 97 94 Oxygen Delivery Method Room Air Room Air Room Air Sepsis Recent Fever Within 48 Hours No Sepsis New/Unexplained Change in Mental Status No Sepsis Action Taken by Nursing No Action Required 04/15/20 06:00 04/15/20 06:30 Temperature Temperature Source Pulse Rate 52 L 46 L Pulse Rate from SpO2 Sensor 52 L 45 L Respiratory Rate 16 15 Blood Pressure 129/71 141/71 H Blood Pressure Mean 80 87 Pulse Oximetry 94 93 Oxygen Delivery Method Room Air Room Air Sepsis Recent Fever Within 48 Hours Sepsis New/Unexplained Change in Mental Status Sepsis Action Taken by Nursing Laboratory Data Result diagrams: 04/15/20 05:40 04/16/20 07:47 Lab Results 04/15/20 04/15/20 04/15/20 Range/Units 05:40 05:40 05:40 WBC 6.66 (4.8-10.8) K/uL RBC 3.96 L (4.7-6.1) M/uL Hgb 12.6 L (14.0-18.0) g/dL Hct 37.4 L (42-52) % MCV 94.4 (80-100) fL MCH 31.8 (25-34) pg MCHC 33.7 (32-36) g/dL RDW Std Deviation 40.9 (36.4-46.3) fL RDW Coeff of Kyra 12.1 (11.5-14.5) % Plt Count 181 (130-400) K/uL MPV 9.5 (7.4-10.4) fL Immature Gran % (Auto) 0.2 % Neut % (Auto) 52.9 % Lymph % (Auto) 33.2 % [place] % (Auto) 9.9 % Eos % (Auto) 3.6 % Baso % (Auto) 0.2 % Neut # (Auto) 3.53 (1.4-6.5) K/uL Lymph # (Auto) 2.21 (1.2-3.4) K/uL [place] # (Auto) 0.66 H (0.11-0.59) K/uL Eos # (Auto) 0.24 (0-0.5) K/uL Baso # (Auto) 0.01 (0-0.2) K/uL Immature Gran # (Auto) 0.01 (0.00-0.02) K/uL PT 10.3 (9.0-12.0) Seconds INR 1.0 (0.9-1.1) Sodium 143 (136-145) mmol/L Potassium 3.8 (3.5-5.1) mmol/L Chloride 109 H (98-107) mmol/L Carbon Dioxide 29 (21-32) mmol/L Anion Gap 4.0 (3-11) BUN 17 (7-18) mg/dl Creatinine 1.80 H (0.6-1.4) mg/dl Est Cr Clr Drug Dosing 31.6 ml/min Est GFR ( Amer) 40.9 Est GFR (Non-Af Amer) 35.3 BUN/Creatinine Ratio 9.7 L (10-20) Glucose 108 H (70-99) mg/dl Calcium 9.6 (8.5-10.1) mg/dl Magnesium 2.4 (1.8-2.4) mg/dl Troponin I < 0.015 (0-0.045) ng/ml Administered Medications Discontinued Medications Acetylcysteine (Mucomyst) 600 mg PO NOW ONE Stop: 04/15/20 08:46 Last Admin: 04/15/20 09:15 Dose: 600 mg Documented by: [id number] Acetylcysteine (Mucomyst) 600 mg PO ONE ONE Stop: 04/15/20 21:13 Last Admin: 04/15/20 22:25 Dose: Not Given Documented by: [id number] Amlodipine Besylate (Norvasc) 10 mg PO [facility] Stop: 05/15/20 10:29 Last Admin: 04/16/20 08:29 Dose: 10 mg Documented by: [id number] Admin: 04/15/20 12:16 Dose: 10 mg Documented by: [id number] Ascorbic Acid (Vitamin C) 500 mg PO QDD [facility] Stop: 05/15/20 16:29 Last Admin: 04/15/20 15:37 Dose: 500 mg Documented by: [id number] Aspirin (Aspirin Chew) 324 mg PO NOW STA Stop: 04/15/20 05:38 Last Admin: 04/15/20 05:45 Dose: 324 mg Documented by: [id number] Aspirin (Ecotrin Ectab) 81 mg PO QDD [facility] Stop: 05/15/20 16:29 Last Admin: 04/15/20 15:37 Dose: 81 mg Documented by: [id number] Atorvastatin Calcium (Lipitor) 80 mg PO [facility] Stop: 05/15/20 20:59 Last Admin: 04/15/20 20:42 Dose: 80 mg Documented by: [id number] Atropine Sulfate (Atropine Sulfate) Confirm Administered Dose 2 mg IV .STK-MED ONE Stop: 04/16/20 10:11 Last Admin: 04/16/20 11:11 Dose: Not Given Documented by: [id number] Clopidogrel Bisulfate (Plavix) 75 mg PO QAM [facility] Stop: 05/15/20 10:29 Last Admin: 04/16/20 08:29 Dose: 75 mg Documented by: [id number] Admin: 04/15/20 12:16 Dose: 75 mg Documented by: [id number] Dobutamine HCl (Dobutrex) Confirm Administered Dose 250 mg IV .STK-MED ONE Stop: 04/16/20 10:11 Last Admin: 04/16/20 11:12 Dose: 1 dose Documented by: [id number] Erythromycin (Erythromycin) 1 appln OP [facility] Stop: 04/25/20 20:59 Last Admin: 04/15/20 20:47 Dose: 1 appln Documented by: [id number] Heparin Sodium (Porcine) (Heparin Sodium (Porcine)) 5,000 units SQ Q12 [facility] Stop: 05/15/20 20:59 Last Admin: 04/16/20 08:29 Dose: 5,000 units Documented by: [id number] Cosigned by: [id number] Admin: 04/15/20 20:48 Dose: Not Given Documented by: [id number] Sodium Chloride (Nss 1000ml) 1,000 mls @ 100 mls/hr IV .Q10H [facility] Stop: 05/15/20 08:29 Last Infusion: 04/15/20 18:34 Dose: 0 mls/hr Documented by: [id number] Infusion: 04/15/20 18:30 Dose: 0 mls/hr Documented by: [id number] Admin: 04/15/20 09:18 Dose: 100 mls/hr Documented by: [id number] Ioversol (Optiray 320 125ml) 120 ml IV ONCE PRN PRN Reason: Interaction Checking Stop: 04/19/20 09:42 Last Admin: 04/15/20 09:44 Dose: 120 ml Documented by: [id number] Magnesium Oxide (Mag-Ox) 400 mg PO QDD [facility] Stop: 05/15/20 16:29 Last Admin: 04/15/20 15:37 Dose: 400 mg Documented by: [id number] Metoprolol Succinate (Toprol Xl) 12.5 mg PO QAM [facility] Stop: 05/15/20 10:29 Last Admin: 04/16/20 08:35 Dose: Not Given Documented by: [id number] Admin: 04/15/20 12:19 Dose: Not Given Documented by: [id number] Metoprolol Tartrate (Lopressor) Confirm Administered Dose 10 mg IV .STK-MED ONE Stop: 04/16/20 10:11 Last Admin: 04/16/20 11:12 Dose: 2.5 mg Documented by: [id number] Nitroglycerin (Nitrostat) 0.4 mg SL NOW [facility] Stop: 04/15/20 05:38 Last Admin: 04/15/20 05:45 Dose: 0.4 mg Documented by: [id number] Vitamin D (Vitamin D3) 2,000 units PO QDD [facility] Stop: 05/15/20 16:29 Last Admin: 04/15/20 15:37 Dose: 2,000 units Documented by: [id number] Discharge Plan Visit Data *Final* Discharge Date/Time: 04/15/20 09:20 Chief Complaint: Chest Pain Stated Complaint: CHEST PAIN AND DOWN ARM ED Provider: Dmitry Vieyra Discharge Problem: Left sided chest pain Patient Disposition: Admitted As Inpatient Discharge Instructions Interventions: ED Discharge Assessment Last Done: 04/15/20 09:20
[2020-04-15 05:59] LABS: Basophils # (auto) 0.01 K/uL (0-0.2); Basophils % (auto) 0.2 %; Eosinophils # (auto) 0.24 K/uL (0-0.5); Eosinophils % (auto) 3.6 %; Hematocrit (blood only) 37.4 % (42-52); Hemoglobin 12.6 g/dL (14.0-18.0); Immature Granulocytes # (auto) 0.01 K/uL (0.00-0.02); Immature Granulocytes % (auto) 0.2 %; Lymphocytes # (auto) 2.21 K/uL (1.2-3.4); Lymphocytes % (auto) 33.2 %; Mean Corpuscular Hemoglobin 31.8 pg (25-34); Mean Corpuscular Hgb Conc 33.7 g/dL (32-36); Mean Corpuscular Volume 94.4 fL (80-100); Mean Platelet Volume 9.5 fL (7.4-10.4); Monocytes # (auto) 0.66 K/uL (0.11-0.59); Monocytes % (auto) 9.9 %; Neutrophils # (auto) 3.53 K/uL (1.4-6.5); Neutrophils % (auto) 52.9 %; Platelet Count 181 K/uL (130-400); RDW Coefficient of Variation 12.1 % (11.5-14.5); RDW Standard Deviation 40.9 fL (36.4-46.3); Red Blood Count 3.96 M/uL (4.7-6.1); White Blood Count 6.66 K/uL (4.8-10.8)
[2020-04-15 06:10] LABS: Prothrombin Time 10.3 Seconds (9.0-12.0)
[2020-04-15 06:16] LABS: BUN Creatinine Ratio 9.7 (10-20); Blood Urea Nitrogen 17 mg/dl (7-18); Calcium 9.6 mg/dl (8.5-10.1); Carbon Dioxide 29 mmol/L (21-32); Chloride 109 mmol/L (98-107); Creatinine Clr Calc Pharmacy 31.6 ml/min; Est GFR (African American) 40.9; Est GFR (Non-African American) 35.3; Glucose 108 mg/dl (70-99); Magnesium 2.4 mg/dl (1.8-2.4); Potassium 3.8 mmol/L (3.5-5.1); Sodium 143 mmol/L (136-145)
[2020-04-15 06:21] LABS: Troponin I < 0.015 ng/ml (0-0.045)
--- NOTE | 2020-04-15 06:46 | XRay Report ---
XR chest 1V portable CLINICAL HISTORY: Atypical chest pain COMPARISON STUDY: 11/27/2019 FINDINGS: The cardiac and mediastinal contours are normal. There is no evidence of focal pulmonary co nsolidation. There is no evidence of failure. No pleural effusions are visualized.[ IMPRESSION: No active disease in the chest. ACT 112: Negative or not required by law. Electronically signed by: Luciano Hewitt M.D. 04/15/2020 6:44 AM
--- NOTE | 2020-04-15 07:34 | History & Physical Report ---
Date of Service April 15, 2020 Assessment & Plan (1) Chest pain: thus far w/u for ischemia negative (EKG, trop, etc). pain episodes are odd in that they are waking him from sleep, but he has had no daytime symptoms. either way has known CAD with last stents in 08/2019. has ascending aortic aneursym and thus CTA dissection protocol to be performed to r/o aortic dissection, PE, etc. give mucomyst x 2 doses and fluids given CKD. if CTA negative continue serial trops and consult cardiology (Dr Orourke) -- stress test in am? cath? obtain echo (2) Coronary artery disease: see above in "CAD" cont asa cont plavix cont BB cont high-intensity statin cath from 08/2019 reviewed in detail Consult Dr Orourke [facility] [place] (3) Hypertension: uncontrolled may need additional agents cont BB cont amlodipine not MIKA or ARB candidate due to CKD may need nitrates and/or hydralazine (4) Hypercholesteremia: cont lipitor LDL 37 on 11/2019 defer on lipid testing at this time (5) Blepharitis of both eyes: start erythromycin eye ointment at HS f/u ophtho after d/c (6) Ascending aortic aneurysm: see above in "chest pain" (7) Chronic kidney disease, stage 3a: baseline Cr about 1.7/1.[address] contrast repeat BMP am (8) Sinus bradycardia: likely 2nd to beta makayla seems asymptomatic from such TSH 11/2019 wnl (9) DVT prophylaxis: heparin 5000 BID updated at bedside History of Present Illness Chief Complaint: chest pain Primary Care Provider: Luis Enrique Hernandez DO 79yo male with history of CAD who presents with chest pain episodes. Monday night during sleep he had cold sweats. He was awoken by the sweating, and noted left sided chest pain over the left breast. He described the pain as a "dull ache." No stabbing or sharpness. No dyspnea. Monday night the pain traveled into the left arm. Pain resolved when he sat up in bed and moved around. When he tried to go back to bed the pain returned. Took nitro Monday evening for the pain but he isn't sure if it helped. Throughout the day on Monday he had no exertional chest pain, dyspnea or sweats. He didn't feel ill on Monday. Then, last night, again had sweating along with dull chest pain on the left. The symptoms were very similar to Monday night. In the ER he mentions mild dull pain in the right chest. No recent travel. No sick contacts. Lives in [place] with . Has known h/o CAD. Last stent 08/2019 at [facility] by Dr Cummins. Symptoms are similar to past heart events. Allergies Allergy/AdvReac Type Severity Reaction Status Date / Time No Known Drug Allergies Allergy Unknown Verified 04/15/20 05:49 Home Medications Home Medications Medication Instructions Recorded Confirmed Type cholecalciferol (vitamin D3) 2,000 unit PO QDD 03/06/19 04/15/20 History [Vitamin D3] ascorbic acid (vitamin C) 500 mg 500 mg PO QDD tab 05/29/19 04/15/20 History tablet aspirin 81 mg PO QDD 06/19/19 04/15/20 History coenzyme Q10 200 mg capsule 200 mg PO BID cap 08/26/19 04/15/20 History melatonin 5 mg capsule 5 mg PO HS PRN cap 08/26/19 04/15/20 History resveratrol 100 mg capsule 100 mg PO QAM cap 08/26/19 04/15/20 History nitroglycerin 0.4 mg sublingual 0.4 mg SUBLINGUAL DIRECTED PRN 09/30/19 04/15/20 Rx tablet #20 tab atorvastatin 80 mg PO HS 11/27/19 04/15/20 History turmeric 400 mg capsule 400 mg PO QDD cap 12/02/19 04/15/20 History amlodipine 10 mg tablet 10 mg PO QAM #90 tab 02/11/20 04/15/20 Rx metoprolol succinate 25 mg 25 mg PO QAM #90 tab 03/02/20 04/15/20 Rx tablet,extended release 24 hr clopidogrel 75 mg PO QAM 04/15/20 04/15/20 History magnesium 200 mg PO QDD 04/15/20 04/15/20 History Past Med/Surg History Medical History (Updated 04/15/20 @ 10:35 by Guillaume Barragan) Chronic kidney disease Coronary artery disease Hypercholesteremia (Chronic) Hypertension (Chronic) Rabies, need for prophylactic vaccination against (Acute) Right knee DJD (Resolved) Surgical History (Updated 04/15/20 @ 07:55 by Guillaume Barragan) History of angioplasty History of Cath laser Angioplasty History of cardiac catheterization History of knee replacement right S/P laparoscopic hernia repair umbilical Family History (Updated 04/15/20 @ 07:57 by Guillaume Barragan) Brother Hypertension Pure hypercholesterolemia Sister Diabetes Unknown Colon cancer Mother , age 95 Dementia Father , age 90 Coronary heart disease CABG Social History (Updated 04/15/20 @ 07:59 by Guillaume Barragan) Smoking Status: Former smoker Tobacco Type: Cigarettes packs per day: 0.5; Years Smoked: 15; Smoking End Date: 1976; Hx Alcohol Use: Yes Alcohol type: beer and wine Alcohol Intake Frequency: 2-4 x/Month Hx Substance Use: No Preferred Language: Turkish Communication Ability: Effective Poleyard Supervisor Required: No Beliefs That Will Affect Care: None marital status: Current Living Situation: Spouse 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 How many Children do You have: 2 Other Information That Helps Us Care for You: No Feels Safe at Home: Yes Safety Concerns: Feels Safe At This Time Review of Systems Constitutional: no fever, no chills, no body aches, no fatigue, no weakness, no anorexia, no weight loss and no weight gain Eyes: + discharge (b/l, worse on right ) Ear, Nose, Mouth, Throat: no nasal congestion, no post nasal drip and no sore throat no loss of smell or taste Respiratory: no cough and no dyspnea Cardiovascular: as per Subjective / HPI, + chest pain and + edema (occasional - ankles); no orthopnea Gastrointestinal: no abdominal pain, no nausea, no vomiting and no diarrhea/loose stools Genitourinary: no dysuria Musculoskeletal: no back pain, no neck pain and no joint pain Integumentary: no rash Neurologic: no loss of sensation Psychiatric: no depression Endocrine: no diabetes Hematologic / Lymphatic: no easy bleeding and no easy bruising Physical Exam Constitutional: well developed and well nourished; no acute distress and no altered mental status Eyes: + eyelid abnormality (bletharitis b/l, worse on right ) and PERRL (lens implants b/l ) ENMT: Ears: + unable to visualize TM (hearing aid, left ear); no TM abnormality (right TM) Mouth: no oropharynx abnormality, no oral mucosal abnormality and oral mucous membranes not dry Neck: trachea midline, no thyromegaly Respiratory: normal respiratory effort, lungs clear to auscultation Cardiovascular: Rate/Rhythm: regular rhythm and + bradycardic Heart Sounds: normal S1 and normal S2; no murmur Vessels: posterior tibial pulses present and dorsalis pedis pulses present; no JVD Extremities: no edema Chest (Breasts): Additional Comments: no reproducible chest wall tenderness to palpation Gastrointestinal (Abdomen): normal bowel sounds, soft, nontender, no hepatosplenomegaly Musculoskeletal: no cyanosis or clubbing, extremities motor strength 5/5 Skin: no rashes, warm and dry Neurologic: deep tendon reflexes 2+ bilaterally and moves all extremities; no focal motor deficits Psychiatric: A+Ox3, euthymic affect Lymphatic: no cervical lymphadenopathy Results & Data Results & Data ([facility]) Vital Signs (Past 12 Hours) Vital Signs Temp Pulse Resp BP Pulse Ox 04/15/20 06:30 46 L 15 141/71 H 93 04/15/20 06:00 52 L 16 129/71 94 04/15/20 05:54 62 19 109/77 94 04/15/20 05:32 51 L 18 170/104 H 97 04/15/20 05:27 36.7 C 53 L 16 155/78 H 97 Laboratory Results Laboratory Results - last 24 hr 04/15/20 04/15/20 04/15/20 05:40 05:40 05:40 WBC 6.66 RBC 3.96 L Hgb 12.6 L Hct 37.4 L MCV 94.4 MCH 31.8 MCHC 33.7 RDW Std Deviation 40.9 RDW Coeff of Kyra 12.1 Plt Count 181 MPV 9.5 Immature Gran % (Auto) 0.2 Neut % (Auto) 52.9 Lymph % (Auto) 33.2 [place] % (Auto) 9.9 Eos % (Auto) 3.6 Baso % (Auto) 0.2 Neut # (Auto) 3.53 Lymph # (Auto) 2.21 [place] # (Auto) 0.66 H Eos # (Auto) 0.24 Baso # (Auto) 0.01 Immature Gran # (Auto) 0.01 PT 10.3 INR 1.0 Sodium 143 Potassium 3.8 Chloride 109 H Carbon Dioxide 29 Anion Gap 4.0 BUN 17 Creatinine 1.80 H Est Cr Clr Drug Dosing 31.6 Est GFR ( Amer) 40.9 Est GFR (Non-Af Amer) 35.3 BUN/Creatinine Ratio 9.7 L Glucose 108 H Calcium 9.6 Magnesium 2.4 Troponin I < 0.015 Diagnostic Findings EKG - my reading - NSR, scant ST depression anterolateral leads unchanged from 11/2019 EKG cxr - no infiltrates Code Status & VTE Plan Code Status full code VTE Prophylaxis Plan VTE Prophylaxis will be ordered: Yes PG Care Time/CCT Total # of Minutes Spent Total Time Spent with Patient: Total time spent is greater than 50% in coordination of care (as documented) at patient's floor/unit and/or counseling patient: Coding Level of Care Code 74591 OBS Care - Level 3 Diagnoses Chest pain R07.9 Coronary artery disease I25.10 Hypertension I10 Hypercholesteremia E78.00 Blepharitis of both eyes H01.003; H01.006 Ascending aortic aneurysm I71.2 Chronic kidney disease, stage 3a N18.3 Sinus bradycardia R00.1 DVT prophylaxis Z29.9
[2020-04-15] MEDS ORDERED: SODIUM CHLORIDE 0.9% 1000ML 1,000 ML IV SCH (08:30)
[2020-04-15] MEDS ORDERED: ACETYLCYSTEINE 600 MG CAP PO ONE ×2 (08:45→21:12)
[2020-04-15] MEDS ORDERED: OPTIRAY 320 125ml IV PRN (09:43)
--- NOTE | 2020-04-15 10:08 | CT Scan Report ---
CT ANGIOGRAPHY THE CHEST WITHOUT AND WITH CONTRAST CLINICAL HISTORY: Ascending thoracic aortic aneurysm. Chest pain. COMPARISON STUDY: CT scan dated 01/27/2018 TECHNIQUE: Unenhanced images were obtained through the chest. Following the IV administration of 120 mL of Optiray-320, CT angiography of the thorax was performed from the thoracic inlet to the lung bas es. Images are reviewed in the axial, sagittal, and coronal planes. MIP images were acquired. IV cont rast was administered without complication. A dose lowering technique was utilized adhering to the p rinciples of ALA. CT DOSE: 848.14 mGy.cm FINDINGS: Thyroid: Imaged portions of the thyroid gland are normal in appearance. Thoracic aorta: Noncontrast images reveal no evidence of acute aortic hematoma. Postcontrast images r eveal no evidence of thoracic aortic dissection. There is mild aneurysmal dilatation of the ascending thoracic aorta which measures 45 mm at the level of the main pulmonary artery. Pulmonary vasculature: The pulmonary trunk is normal in caliber. There are no central filling defects identified to suggest pulmonary embolus. Note that this examination was not protocoled for the evalu ation of pulmonary emboli. HEART: The heart is enlarged with coronary artery calcifications. Lungs and pleural spaces: There are no pleural effusions. There is no focal pulmonary consolidation. Parenchymal evaluation is somewhat limited due to respiratory motion artifact. A right lung micronodu le was visualized. This is not felt to be of clinical significance Mediastinum: There is no mediastinal lymphadenopathy. There is no evidence of pathologic mediastinal lymphadenopathy. There is no evidence for mediastinal hematoma Preeti: There is no evidence of pathologic hilar adenopathy Axilla: There is no evidence of pathologic axillary lymphadenopathy Upper abdomen: Cholelithiasis. Partially visualized 3 cm right renal hypodense lesion which slightly exceeds water attenuation. This was unfortunately not included on the noncontrast portion of the sebastian dy. Renal ultrasonography is recommended in follow-up Skeletal structures: There are no lytic or blastic osseous lesions. IMPRESSION: 1. 45 mm fusiform aneurysmal dilatation of the ascending thoracic aorta. This remains unchanged from the preceding study 2. No evidence of thoracic aortic dissection 3. No evidence of focal pulmonary consolidation 4. Partially visualized 3 cm right renal hypodense lesion with slightly exceeds water attenuation and is therefore indeterminate. Renal ultrasonography is recommended in follow-up. 5. Cholelithiasis ACT 112: Negative or not required by law. Electronically signed by: Luciano Hewitt M.D. 04/15/2020 10:06 AM
[2020-04-15] MEDS ORDERED: NITROGLYCERIN SL 0.4 MG/TAB TAB SL PRN (10:10)
[2020-04-15] MEDS ORDERED: ONDANSETRON INJ 2 MG/ML 2 ML VIAL IV PRN (10:10)
[2020-04-15] MEDS ORDERED: NON-FORMULARY MEDICATION (Coenzyme Q10 [Co Q-10] 200 MG) PO SCH (10:10)
[2020-04-15] MEDS ORDERED: ACETAMINOPHEN 325 MG TAB PO PRN (10:10)
[2020-04-15] MEDS ORDERED: MELATONIN 3 MG TAB PO PRN (10:13)
--- NOTE | 2020-04-15 12:11 | XCELERA ---
[id number] \\[id number]___[id number]
[2020-04-15] MEDS: CLOPIDOGREL BISULFATE 75 MG TAB PO SCH (12:16)
[2020-04-15] MEDS: AMLODIPINE BESYLATE 5 MG TAB PO SCH (12:16)
[2020-04-15] MEDS: METOPROLOL SUCC 25MG EXT REL TAB PO SCH (12:19)
[2020-04-15] MEDS ORDERED: ASPIRIN 81 MG ECTAB PO SCH (16:30)
[2020-04-15] MEDS ORDERED: MAGNESIUM OXIDE 400 MG TAB PO SCH (16:30)
[2020-04-15] MEDS ORDERED: ASCORBIC ACID 500 MG TAB PO SCH (16:30)
[2020-04-15] MEDS ORDERED: CHOLECALCIFEROL 1,000 UNITS 25 MCG TAB PO SCH (16:30)
[2020-04-15] MEDS: HEPARIN SOD 5,000 UNIT/0.5 ML VIAL SQ SCH (20:48)
[2020-04-15] MEDS ORDERED: ATORVASTATIN 40 MG TAB PO SCH (21:00)
[2020-04-15] MEDS ORDERED: ERYTHROMYCIN OP OINT 5 MG/GM 3.5 GM TUBE OP SCH (21:00)
--- NOTE | 2020-04-16 08:21 | Electrocardiogram Report ---
Test Reason : Blood Pressure : / mmHG Vent. Rate : 049 BPM Atrial Rate : 049 BPM P-R Int : 152 ms QRS Dur : 106 ms QT Int : 470 ms P-R-T Axes : 082 -14 090 degrees QTc Int : 424 ms Sinus bradycardia Left ventricular hypertrophy with repolarization abnormality Abnormal ECG When compared with ECG of 19-NOV-2019 09:08, No significant change was found Confirmed by Magdiel Taylor ([id number]) on 04/16/2020 8:21:21 AM Referred By: REFERRED SELF Confirmed By:Magdiel Taylor
--- NOTE | 2020-04-16 08:22 | Electrocardiogram Report ---
Test Reason : Blood Pressure : / mmHG Vent. Rate : 047 BPM Atrial Rate : 047 BPM P-R Int : 152 ms QRS Dur : 098 ms QT Int : 484 ms P-R-T Axes : 086 004 112 degrees QTc Int : 428 ms Sinus bradycardia Left ventricular hypertrophy with repolarization abnormality Abnormal ECG When compared with ECG of 15-APR-2020 05:33, No significant change was found Confirmed by Magdiel Taylor ([id number]) on 04/16/2020 8:21:42 AM Referred By: REFERRED SELF Confirmed By:Magdiel Taylor
[2020-04-16] MEDS: HEPARIN SOD 5,000 UNIT/0.5 ML VIAL SQ SCH (08:29)
[2020-04-16] MEDS: AMLODIPINE BESYLATE 5 MG TAB PO SCH (08:29)
[2020-04-16] MEDS: CLOPIDOGREL BISULFATE 75 MG TAB PO SCH (08:29)
[2020-04-16] MEDS: METOPROLOL SUCC 25MG EXT REL TAB PO SCH (08:35)
[2020-04-16 09:01] LABS: Calcium 8.6 mg/dl (8.5-10.1); Creatinine Clr Calc Pharmacy 36.7 ml/min; Est GFR (African American) 46.4; Est GFR (Non-African American) 40.1; Potassium 4.1 mmol/L (3.5-5.1)
[2020-04-16] MEDS ORDERED: DOBUTamine HCL 12.5 MG/ML 20 ML VIAL IV ONE (10:10)
[2020-04-16] MEDS ORDERED: METOPROLOL TARTRATE 1 MG/ML VIAL IV ONE (10:10)
[2020-04-16] MEDS ORDERED: ATROPINE SULFATE 0.1 MG/ML 10ML SYR IV ONE (10:10)
--- NOTE | 2020-04-16 10:18 | Cardiology Consultation ---
Date of Consultation April 16, 2020 Assessment & Plan (1) Chest pain: -atypical chest discomfort on presentation. -undetectable troponin levels. -chest CT without aortic dissection. -proceed with dobutamine stress test. (2) Coronary artery disease: -PCI as described above. -continue medical management. (3) Ascending aortic aneurysm: -chest CT noted 4.5 cm ascending thoracic aortic aneurysm. -stable compared with prior studies. -continue surveillance as an outpatient. (4) Aortic valve insufficiency: -mild to moderate aortic insufficiency on current echocardiogram. -stable compared to study done May 2019. History of Present Illness Attending Physician: Guillaume Barragan History of Present Illness Mr. Rosales Is a 79-year-old male admitted yesterday with a chest pain syndrome. This consultation was ordered to assist in his cardiac management. Of note, the patient is well known to me from the outpatient setting. The patient was in his usual state of health until Monday evening. The patient awoke from sleep with a waxing waning midsternal chest discomfort radiating to the left shoulder and arm. He had associated diaphoresis but no shortness of breath, nausea, or vomiting. The episode lasted for approximately 30 minutes. The patient eventually fell back to sleep and then had a normal day on Monday. However, Monday night, the patient again was awaken from sleep with symptoms as described above. Again, this lasted 30 minutes and resolved spontaneously. The patient is vigorous on a daily basis caring for his home property. He does not experience exertional angina pectoris or limiting dyspnea. He further denies syncope, presyncope, PND, orthopnea, palpitations, lower extremity edema, and claudication. The patient does carry history of coronary artery disease. He suffered a non ST elevation VT on September 10, 2019. He had a drug-eluting stent placed in OM1 on the day of presentation. He had a staged procedure on September 12 where he had 3 drug-eluting stents placed in the ostial proximal RCA. There was protrusion of the ostial ELSA into the aorta ( 5-10 mm) and lifelong dual platelet therapy was suggested. Currently, patient is resting comfortably in bed without complaints. Past medical and surgical history 1. Coronary artery disease- see above 2. OM 1 ELSA - August 2019 3. RCA ELSA times - August 2019 4. Protruding RCA ELSA - August 2019 5. Hypertension 6. Hypercholesterolemia 7. Ascending thoracic aortic aneurysm - 4.8 cm, May 2019 8. Dilated aortic root 9. Mild to moderate aortic insufficiency 10. Mild mitral regurgitation 11. Chronic renal failure 12. Cerebral vascular disease- <50% ICA stenoses B/L 13. TKR 14. Laparoscopic hernia repair Social history lives with his No tobacco alcohol Family history No early coronary artery disease Review of systems A 10 point review systems was negative except for that described above. Allergies Allergy/AdvReac Type Severity Reaction Status Date / Time No Known Drug Allergies Allergy Unknown Verified 04/15/20 05:49 Home Medications Home Medications Medication Instructions Recorded Confirmed Type cholecalciferol (vitamin D3) 2,000 unit PO QDD 03/06/19 04/15/20 History [Vitamin D3] ascorbic acid (vitamin C) 500 mg 500 mg PO QDD tab 05/29/19 04/15/20 History tablet aspirin 81 mg PO QDD 06/19/19 04/15/20 History coenzyme Q10 200 mg capsule 200 mg PO BID cap 08/26/19 04/15/20 History melatonin 5 mg capsule 5 mg PO HS PRN cap 08/26/19 04/15/20 History resveratrol 100 mg capsule 100 mg PO QAM cap 08/26/19 04/15/20 History nitroglycerin 0.4 mg sublingual 0.4 mg SUBLINGUAL DIRECTED PRN 09/30/19 04/15/20 Rx tablet #20 tab atorvastatin 80 mg PO HS 11/27/19 04/15/20 History turmeric 400 mg capsule 400 mg PO QDD cap 12/02/19 04/15/20 History amlodipine 10 mg tablet 10 mg PO QAM #90 tab 02/11/20 04/15/20 Rx metoprolol succinate 25 mg 25 mg PO QAM #90 tab 03/02/20 04/15/20 Rx tablet,extended release 24 hr clopidogrel 75 mg PO QAM 04/15/20 04/15/20 History magnesium 200 mg PO QDD 04/15/20 04/15/20 History Patient History Medical History (Updated 04/15/20 @ 10:35 by Guillaume Barragan) Chronic kidney disease Coronary artery disease Hypercholesteremia (Chronic) Hypertension (Chronic) Rabies, need for prophylactic vaccination against (Acute) Right knee DJD (Resolved) Surgical History (Updated 04/15/20 @ 07:55 by Guillaume Barragan) History of angioplasty History of Cath laser Angioplasty History of cardiac catheterization History of knee replacement right S/P laparoscopic hernia repair umbilical Family History (Updated 04/15/20 @ 07:57 by Guillaume Barragan) Brother Hypertension Pure hypercholesterolemia Sister Diabetes Unknown Colon cancer Mother , age 95 Dementia Father , age 90 Coronary heart disease CABG Social History (Updated 04/15/20 @ 07:59 by Guillaume Barragan) Smoking Status: Former smoker Tobacco Type: Cigarettes packs per day: 0.5; Years Smoked: 15; Smoking End Date: 1976; Hx Alcohol Use: Yes Alcohol type: beer and wine Alcohol Intake Frequency: 2-4 x/Month Hx Substance Use: No Preferred Language: Danish Communication Ability: Effective Supervising Editor News Reel Required: No Beliefs That Will Affect Care: None marital status: Current Living Situation: Spouse 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 HEENT exam is negative. Neck reveals normal carotid upstrokes without bruits. No jugular venous distention. There is no thyromegaly. Cardiovascular exam reveals a regular rhythm with a normal S1 and S2. No murmurs, S3, or S4 are noted. Lungs are clear without rales, rhonchi, or wheezes. Abdomen is soft without bruits. Extremities reveal intact radial artery and posterior tibial pulses bilaterally. There is no peripheral edema. Results & Data ([facility]) Vital Signs (Past 12 Hours) Vital Signs Temp Pulse Resp BP Pulse Ox 04/16/20 07:43 36.7 C 55 L 18 157/83 H 94 04/16/20 03:04 36.8 C 53 L 18 165/84 H 94 04/15/20 23:29 36.6 C 50 L 18 160/81 H 94 Laboratory Results Troponin I level is undetectable x3. Diagnostic Findings EKG notes sinus bradycardia and left ventricular hypertrophy with repolarization changes. Chest x-ray shows no acute disease. PG Care Time/CCT Total # of Minutes Spent Total Time Spent with Patient: Total time spent is greater than 50% in coordination of care (as documented) at patient's floor/unit and/or counseling patient: Coding Level of Care Code 83252 OBS Care - Level 3 Diagnoses Chest pain R07.9 Coronary artery disease I25.10 Ascending aortic aneurysm I71.2 Aortic valve insufficiency I35.1
--- NOTE | 2020-04-16 14:10 | XCELERA ---
[id number]___[id number]
--- NOTE | 2020-04-16 15:47 | Discharge Summary ---
Date of Service date of admission - April 15, 2020 date of discharge - April 16, 2020 Admission HPI Per Admitting Provider 79yo male with history of CAD who presents with chest pain episodes. Monday night during sleep he had cold sweats. He was awoken by the sweating, and noted left sided chest pain over the left breast. He described the pain as a "dull ache." No stabbing or sharpness. No dyspnea. Monday night the pain traveled into the left arm. Pain resolved when he sat up in bed and moved around. When he tried to go back to bed the pain returned. Took nitro Monday evening for the pain but he isn't sure if it helped. Throughout the day on Monday he had no exertional chest pain, dyspnea or sweats. He didn't feel ill on Monday. Then, last night, again had sweating along with dull chest pain on the left. The symptoms were very similar to Monday night. In the ER he mentions mild dull pain in the right chest. No recent travel. No sick contacts. Lives in [place] with . Has known h/o CAD. Last stent 08/2019 at [facility] by Dr Cummins. Symptoms are similar to past heart events. Principal Diagnosis atypical chest pain - ACS ruled out, negative stress test Discharge Exam Constitutional well developed and well nourished; no acute distress and no altered mental status Eyes + eyelid abnormality (bletharitis b/l, worse on right ) ENMT Mouth: no oropharynx abnormality, no oral mucosal abnormality and oral mucous membranes not dry Respiratory normal respiratory effort, lungs clear to auscultation Cardiovascular Rate/Rhythm: regular rhythm and + bradycardic Heart Sounds: normal S1 and normal S2; no murmur Vessels: posterior tibial pulses present and dorsalis pedis pulses present; no JVD Extremities: no edema Gastrointestinal (Abdomen) normal bowel sounds, soft, nontender, no hepatosplenomegaly Psychiatric A+Ox3, euthymic affect Lymphatic no cervical lymphadenopathy Discharge Data Allergies Allergy/AdvReac Type Severity Reaction Status Date / Time No Known Drug Allergies Allergy Unknown Verified 04/15/20 05:49 Consultations Cardiology - Nilesh Orourke MD Ordered Studies CT angio chest dissec wo/w con: IMPRESSION: 1. 45 mm fusiform aneurysmal dilatation of the ascending thoracic aorta. This remains unchanged from the preceding study 2. No evidence of thoracic aortic dissection 3. No evidence of focal pulmonary consolidation 4. Partially visualized 3 cm right renal hypodense lesion with slightly exceeds water attenuation and is therefore indeterminate. Renal ultrasonography is recommended in follow-up. 5. Cholelithiasis Dobutamine Stress Echocardiogram: NEGATIVE dobutamine stress echocardiogram for ischemia at 88% MPHR. Echocardiogram: * EF 55-60% * normal LV wall motion * dilated aortic root * ascending aortic aneurysm - 4.6cm * mild-moderate AI * mild-moderate MR * mild TR * mild-moderate pulmonary HTN Hospital Course (1) Chest pain: Troponins x 3 were negative. Telemetry showed sinus bradycardia in the 40s and 50s but no pauses or AV block. He had no additional symptoms during his stay. Pain episodes at home were odd in that they woke him from sleep, but he had no daytime symptoms or exertional symptoms. CTA dissection protocol showed no evidence of aortic dissection, PE, aortic rupture, or pneumonia. 2D echo did not show anything that would cause chest pain. Dobutamine stress echo was NEGATIVE for ischemia. Exact cause of his presenting symptoms were uncertain. Episodes of reflux? esophageal spasm? musculoskeletal? other? Given his known CAD (last cath 08/2019 with stents) - if he continues with symptoms - he would need to have repeat heart catheterization. He will continue aspirin, statin, plavix, beta makayla, and nitro SL prn. (2) Coronary artery disease: see above in "chest pain" cont asa cont plavix cont BB cont high-intensity statin cath from 08/2019 with stent placement by Dr Cummins follow-up with Dr Orourke from [facility] cardiolology post-discharge (3) Hypertension: BPs were mildly high while here cont BB at reduced dose of 12.5mg daily due to significant sinus bradycardia cont amlodipine not MIKA or ARB candidate due to CKD may need nitrates and/or hydralazine as outpatient if BPs continue to remain high (4) Hypercholesteremia: cont lipitor LDL 37 on 11/2019 defer on lipid testing at this time (5) Blepharitis of both eyes: start erythromycin eye ointment at HS f/u ophtho after d/c (6) Ascending aortic aneurysm: 4.5-4.6cm in diameter no change from prior studies continue BP control with metoprolol xl and amlodipine needs ongoing surveillance as outpatient (7) Chronic kidney disease, stage 3a: baseline Cr about 1.7/1.8 no contrast injury from CT contrast discharge Cr was 1.6 (8) Sinus bradycardia: likely 2nd to beta makayla asymptomatic from such, but HRs were 40s at rest consistently LOWERED his metorprolol xl from 25mg daily to 12.5mg daily TSH 11/2019 wnl (9) Renal cyst: 3cm RIGHT-SIDED renal cyst. did not appear to be simple cyst. [facility] OUTPATIENT AND UROLOGY REFERRAL IF NEEDED. Cyst seen incidentally on CTA dissection protocol. Total Time Total Time Spent Total Time Spent (In Minutes): 45 Total Time Includes: Examination of the Patient, Discharge Planning, Medication Reconciliation and Communication With Other Providers Discharge Plan Discharge Items Patient Disposition: Home - Self-Care Reason For Visit: CHEST PAIN Discharge Diagnosis: 1. chest pain - no evidence of heart attack; negative dobutamine stress test. No evidence of aortic dissection or rupture. No evidence of blood clots or pneumonia in the heart. cause of chest pain uncertain - GI? 2. aortic aneurysm - 4.7cm in size 3. bradycardia - slow heart rate - likely due to beta makayla medication 4. suspected bletharitis of eyelids Activity: Resume your previous activity Non-emergency contact: Primary Care Provider and Parallel Computing Software Engineer Call non-emergency contact if: you have any medication questions, your symptoms worsen, your pain is not controlled, your pain is worsening, your pain is unusual for you, your pain is concerning for you and you have a fever Follow-up/Referrals: Sergey Orourke MD [Physician] - (see Dr Orourke within 2 weeks ) Luis Enrique Hernandez DO [Primary Care Provider] - (see Dr Hernandez within 1 week ) Diet: Heart Healthy Addtl Attending Provider Instructions: You were admitted to the hospital for chest pain. We performed 3 sets of blood work for the heart and all 3 were negative ruling out a heart attack. You underwent CAT scan of the lungs - this did NOT show pneumonia, blood clots or rupture/dissection of your aneurysm. Dr Orourke saw you from cardiology & performed a stress test which was negative. Your heart monitoring showed slow heart rate in the 40s/50s (especially 40s much of the time). This is likely due to your beta makayla heart medication. The exact cause of your recent sweats & chest pain is uncertain. Gastrointestinal? If you continue to have symptoms you may need a GI work-up and/or additional heart testing (heart cath). recommendations - 1. cut your metoprolol xl in half to 12.5mg once daily. 2. use erythromycin eye ointment at bedtime to both eyes until you see an eye doctor. follow-up - 1. see Dr Orourke within [address] Hernandez within 1 week 3. see an eye doctor at your convenience return to [facility] if - * you have to take nitroglycerin tablets for chest pain * you have severe shortness of breath * you have fever over 100.4 degrees * any other concerns Pending Studies at Discharge: No Stand-Alone Forms: My [facility], Smoking Cessation Medications and DC Order Prescriptions: New erythromycin 5 mg/gram (0.5 %) Ointment 1 applic ophthalmic (eye) HS Qty: 1 RF: 2 Continued amlodipine [Norvasc] 10 mg tablet 10 mg PO QAM Qty: 90 RF: 3 nitroglycerin 0.4 mg tablet, sublingual 0.4 mg sublingual DIRECTED PRN (Reason: Chest Pain) Qty: 20 RF: 3 ascorbic acid (vitamin C) 500 mg tablet 500 mg PO QDD RF: 0 coenzyme Q10 [Co Q-10] 200 mg capsule 200 mg PO BID RF: 0 melatonin 5 mg capsule 5 mg PO HS PRN (Reason: sleep) RF: 0 resveratrol 100 mg capsule 100 mg PO QAM RF: 0 cholecalciferol (vitamin D3) [Vitamin D3] 1,000 unit Capsule 2,000 unit PO QDD RF: 0 turmeric 400 mg capsule 400 mg PO QDD RF: 0 aspirin 81 mg Tablet,Delayed Release (Dr/Ec) 81 mg PO QDD RF: 0 clopidogrel 75 mg tablet 75 mg PO QAM RF: 0 magnesium 200 mg Tablet 200 mg PO QDD RF: 0 atorvastatin 80 mg tablet 80 mg PO HS RF: 0 Changed metoprolol succinate [Toprol XL] 25 mg tablet extended release 24 hr 12.5 mg PO QAM Qty: 90 RF: 3 Discharge Orders: Discharge Order (Routine); Ordered 04/16/20 Ordered By: Guillaume Barragan Admission Data Admit Date/Time: 04/15/20 07:31 Attending Provider: Guillaume Barragan Admit Provider: Guillaume Barragan Primary Care Provider: Luis Enrique Hernandez Other Providers: Chris Matta ; Sergey Orourke Other Interventions: Discharge Summary Assessment (RN) Last Done: 04/16/20 15:58 DC Date/Time DO NOT enter until pt leaves facility: 04/16/20 16:25 Coding Level of Care Code 13281 OBS Care - Discharge Diagnoses Chest pain R07.9 Coronary artery disease I25.10 Hypertension I10 Hypercholesteremia E78.00 Blepharitis of both eyes H01.003; H01.006 Ascending aortic aneurysm I71.2 Chronic kidney disease, stage 3a N18.3 Sinus bradycardia R00.1 Renal cyst N28.1
== END 2020-04-16 16:25 | disposition home or self-care (01) ==
LOC: 2S 05:21 → ED 05:21 → 2S 09:20

== ENCOUNTER 2020-10-30 07:04 | Inpatient (IN) ==
[2020-10-30] MEDS ORDERED: PANTOprazole 80 MG in DEXTROSE 5% 100 ML IV STA (07:22)
[2020-10-30] MEDS ORDERED: FAMOTIDINE 20MG IV PUSH 20 MG/5 ML SYR IV STA (07:22)
[2020-10-30] MEDS ORDERED: GI COCKTAIL ED USE PO ONE (07:22)
--- NOTE | 2020-10-30 07:30 | Emergency Department Note ---
Impression & Plan Melena, Heartburn, Weakness ED Provider Note Provider: Jerry Benitez MD DATE OF SERVICE: 10/30/2020 CHIEF COMPLAINT: Heartburn, weakness HISTORY OF PRESENT ILLNESS: Patient is a 79-year-old gentleman history of CAD status post stent placement August 2019 on aspirin Plavix and, BPH, CKD, h ypertension presenting here today reporting that last night he began to have some GI upset. Patient states that he did have some chicken soup with rice he thought was a bit spicy and initially treated last night some central heartburn rating to his throat to this. Denies vomiting but states he was burping and belching and had some central burning in his chest. Patient denies significant shortness of breath or fever. States 2 days ago he did have the first dose of the Covid vaccine. Denies ill contacts. Denies significant abdominal discomfort overnight. States this morning and throughout the night he had recurrent issues with some heartburn discomfort. States he went to the bathroom today and had some dark or tarry stools and became weak and dizzy and lowered himself to the ground due to this at home in the bathroom. States had a bowel movement on himself at that point on the floor but did not lose consciousness. called for EMS and he was assisted to the bed. Patient denies significant abdominal pain at this time. Patient states he is getting a little bit of burning in his chest and some belching sensation. Denies significant nausea. Patient states he does not regularly take Protonix but did take a dose last night and has not seemed to help. She drinking little bit of water or milk did temporarily cause some of symptoms to improve. Denies any significant trauma either from going down to the ground today which he again states was slowly or otherwise. States he had an endoscopy about a week ago at [facility] but is unsure of the results and states he was having this just because of recurrent heartburn issues. States compliance with his home aspirin and Plavix. Denies other significant anticoagulation. Patient denies significant dizziness at this time. REVIEW OF SYSTEMS: A total of 10 review of systems was obtained and negative except as stated above in the HPI. PAST MEDICAL HISTORY: As noted above MEDICATIONS: Reviewed home medications with the patient SOCIAL HISTORY: Lives at home with PHYSICAL EXAM: GENERAL: alert and oriented in no acute distress on stretcher Head: normocephalic and atraumatic EYES: No injection, discharge or icterus. NECK: Trachea midline. Supple. LUNGS: Airway patent. No retractions. Breath sounds clear HEART: Regular rate and rhythm. No chest wall tenderness ABDOMEN: Soft and non-tender, without guarding or rebound. Rectal: With RN yard hand, patient rotated onto his left hip in a brief rectal exam standard fashion was present of the Hemoccult positive black stool noted diffusely around the anus. No bright red blood noted. SKIN: Acyanotic, warm, dry, without rashes EXTREMITIES: Without swelling, tenderness or deformity NEUROLOGICAL: No focal deficits. No aphasia. No facial droop or slurred speech. EK bpm normal sinus rhythm with PAC. No acute ST segment elevation or depression noted. Normal QTC. CONTINUOUS CARDIAC MONITORING: was ordered and showed a heart rate of 65 bpm in normal sinus rhythm Patient's laboratory studies and imaging reviewed. Differential includes Infection, dehydration, metabolic abnormality, hypo/hyperglycemia, electrolyte disturbance, anemia, hypoxia, cardiac sources, intracerebral event, toxicologic, neurologic, as well as other pathologies. IMPRESSION/MEDICAL DECISION MAKING: Patient presents here with complaint of some heartburn type symptoms and belching as well as an episode of weakness and black tarry stools overnight. P atient felt weak and lowered to the ground but did not fall. No focal deficits and doubt this is CVA. Patient is on aspirin and Plavix with a history of cardiac disease stent placed in August 2019. Inconsistent use of Protonix at home. Abdomen is soft and nontender. Basic blood work was sent and EKG and chest x-ray obtained. Given the Protonix, Pepcid, GI cocktail here initially. Question if this is gastrointestinal related versus some component of cardiac disease given his history. Patient does report he had an EGD within he thinks last week down at [facility] presented to give significant details on this. Request for outside records was initiated. Prior EGD in June 2020 without significant findings beyond a duodenal polyp that was biopsied. Blood work here shows no leukocytosis but hemoglobin drop from the mid 12's to 9.2 today over the past 2 months. Platelet count appears stable. INR is normal. BUN significantly elevated but creatinine is at baseline. No other significant electrolyte abnormality noted. Troponin is undetectable and EKG without significant abnormality and of lower suspicion this is ACS. No evidence of acute hepatitis or pancreatitis based on labs. CT scan of the abdomen pelvis question some small metallic foreign bodies in the duodenum and the small bowel in the right lower quadrant. Again the patient is unsure of exact details but thinks something was clipped or biopsy done during his recent EGD; question if there is an upper GI component given the BUN elevation today. Discussed with the patient findings and his drop in hemoglobin. Protonix drip was ordered and feel that further observation and GI consultation going forward at the hospital would be appropriate and he is in agreement. The hospitalist was contacted. Later patient's endoscopy report from [facility] later arrives from October 22 that indicates the patient had a single duodenal polyp that was removed with a hot snare and then cold snare. Argon plasma was applied to the area as well as four hemostatic clips. DIAGNOSIS: Melena, heartburn, weakness DISPOSITION: Hospitalist will evaluate Patient was agreeable with this plan. Past Med/Surg History Medical History (Updated 10/30/20 @ 11:03 by Chris Matta MD) Anemia recent H/H are improving as of 07/09/2020 ?? BPH (benign prostatic hyperplasia) CAD (coronary artery disease) Chronic kidney disease Coronary artery disease Dark stools Hearing deficit Hypercholesteremia Hypertension NSTEMI (non-ST elevated myocardial infarction) 09/10/2019--follows with Dr. Orourke On anticoagulant therapy plavix daily Right knee DJD Spondylolysis Surgical History History of bilateral cataract extraction History of cardiac catheterization x3--first 2007 ? in [place] no stents placed --09/10/2019 1 ELSA placed and 09/12/2019 3 ELSA placed @ [facility] History of coronary angiogram 2008 History of heart artery stent x4---1 ELSA placed 09/10/2019 and 3 ELSA placed 09/12/2019 @ [facility] History of knee replacement right History of prostate biopsy benign History of total right knee replacement (TKR) History of umbilical hernia repair S/P laparoscopic hernia repair umbilical Family History Brother Pure hypercholesterolemia Hypertension Sister Family history of diabetes mellitus Mother , age 95 Dementia Father , age 90 Coronary heart disease CABG Grandmother (Paternal) Family history of diabetes mellitus Other No family history of adverse response to anesthesia Social History Smoking Status: Never smoker Tobacco Type: Cigarettes packs per day: 0.5; Years Smoked: 15; Second Hand Exposure: Yes (mom smoked); Hx Alcohol Use: Yes Alcohol type: beer and wine Alcohol Intake Frequency: 2-4 x/Month Hx Substance Use: No Preferred Language: Ecuadorean Communication Ability: Effective Materials Management Supervisor Required: No Beliefs That Will Affect Care: None marital status: Current Living Situation: Spouse 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 How many Children do You have: 2 Feels Safe at Home: Yes Safety Concerns: Feels Safe At This Time Assistive Devices: None Allergies Allergies Allergy/AdvReac Type Severity Reaction Status Date / Time amoxicillin Allergy Intermediate itchy/body Verified 10/30/20 08:20 shaking Home Meds Home Medications Medication Instructions Recorded Confirmed cholecalciferol (vitamin D3) 0 unit PO QDD 03/06/19 10/30/20 [Vitamin D3] ascorbic acid (vitamin C) 500 mg 500 mg PO QDD tab 05/29/19 10/30/20 tablet aspirin 81 mg PO QDD 06/19/19 10/30/20 coenzyme Q10 200 mg capsule 200 mg PO QAM cap 08/26/19 10/30/20 melatonin 5 mg capsule 5 mg PO HS PRN cap 08/26/19 10/30/20 resveratrol 100 mg capsule 100 mg PO QAM cap 08/26/19 10/30/20 turmeric 400 mg capsule 400 mg PO QDD cap 12/02/19 10/30/20 clopidogrel 75 mg PO QAM 04/15/20 10/30/20 clindamycin HCl 600 mg PO UD 07/23/20 10/30/20 magnesium oxide 400 mg PO QDD 10/30/20 10/30/20 Previous Rx's Medication Instructions Recorded nitroglycerin 0.4 mg sublingual 0.4 mg SUBLINGUAL DIRECTED PRN 09/30/19 tablet #20 tab amlodipine 10 mg tablet 10 mg PO QAM #90 tab 02/11/20 metoprolol succinate [Toprol XL] 12.5 mg PO QAM #90 tab 04/16/20 sildenafil (pulm.hypertension) 20 20 mg PO DAILY PRN #60 tab MDD 100 09/09/20 mg tablet mg atorvastatin 80 mg tablet 80 mg PO HS #90 tab 09/21/20 Results & Data (ED) Vital Signs Vital Signs - 24 hr 10/30/20 07:10 10/30/20 08:26 10/30/20 10:10 Temperature 36.7 C Temperature Source Oral Pulse Rate 73 69 Pulse Rate from SpO2 Sensor 69 70 Pulse Rhythm Regular Pulse Strength Normal Respiratory Rate 26 H 20 Respiratory Effort / Characteristics Non-Labored Respiratory Depth Normal Respiratory Pattern Regular Blood Pressure 125/67 120/67 126/76 Blood Pressure Mean 86 84 92 Blood Pressure Position Sitting Pulse Oximetry 98 97 96 Oxygen Delivery Method Room Air Sepsis Recent Fever Within 48 Hours No Sepsis New/Unexplained Change in Mental Status No Sepsis Action Taken by Nursing No Action Required 10/30/20 10:17 10/30/20 10:30 Temperature Temperature Source Pulse Rate 69 66 Pulse Rate from SpO2 Sensor 69 66 Pulse Rhythm Pulse Strength Respiratory Rate 17 18 Respiratory Effort / Characteristics Respiratory Depth Respiratory Pattern Blood Pressure 126/76 114/69 Blood Pressure Mean 92 84 Blood Pressure Position Pulse Oximetry 96 97 Oxygen Delivery Method Sepsis Recent Fever Within 48 Hours Sepsis New/Unexplained Change in Mental Status Sepsis Action Taken by Nursing Laboratory Data Result diagrams: 10/30/20 07:26 10/30/20 07:26 Lab Results 10/30/20 10/30/20 10/30/20 Range/Units 07:25 07:26 07:26 WBC 10.76 (4.8-10.8) K/uL RBC 2.86 L (4.7-6.1) M/uL Hgb 9.2 L (14.0-18.0) g/dL Hct 27.7 L (42-52) % MCV 96.9 (80-100) fL MCH 32.2 (25-34) pg MCHC 33.2 (32-36) g/dL RDW Std Deviation 42.4 (36.4-46.3) fL RDW Coeff of Kyra 12.1 (11.5-14.5) % Plt Count 180 (130-400) K/uL MPV 9.4 (7.4-10.4) fL Immature Gran % (Auto) 0.2 % Neut % (Auto) 77.9 % Lymph % (Auto) 15.2 % Swain % (Auto) 5.8 % Eos % (Auto) 0.7 % Baso % (Auto) 0.2 % Neut # (Auto) 8.39 H (1.4-6.5) K/uL Lymph # (Auto) 1.64 (1.2-3.4) K/uL Swain # (Auto) 0.62 H (0.11-0.59) K/uL Eos # (Auto) 0.07 (0-0.5) K/uL Baso # (Auto) 0.02 (0-0.2) K/uL Immature Gran # (Auto) 0.02 (0.00-0.02) K/uL PT 10.5 (9.0-12.0) Seconds INR 1.0 (0.9-1.1) Sodium (136-145) mmol/L Potassium (3.5-5.1) mmol/L Chloride (98-107) mmol/L Carbon Dioxide (21-32) mmol/L Anion Gap (3-11) BUN (7-18) mg/dl Creatinine (0.6-1.4) mg/dl Est Cr Clr Drug Dosing ml/min Est GFR ( Amer) Est GFR (Non-Af Amer) BUN/Creatinine Ratio (10-20) Glucose (70-99) mg/dl Calcium (8.5-10.1) mg/dl Magnesium (1.8-2.4) mg/dl Total Bilirubin (0.2-1) mg/dl AST (15-37) U/L ALT (12-78) U/L Alkaline Phosphatase (45-117) U/L Troponin I (0-0.045) ng/ml Total Protein (6.4-8.2) gm/dl Albumin (3.4-5.0) gm/dl Globulin (2.5-4.0) gm/dl Albumin/Globulin Ratio (0.9-2) Lipase (73-393) U/L TSH (0.300-4.500) uIu/ml POC Stool Occult Blood Positive A (Negative) Blood Type Antibody Screen 10/30/20 10/30/20 10/30/20 Range/Units 07:26 07:26 07:55 WBC (4.8-10.8) K/uL RBC (4.7-6.1) M/uL Hgb (14.0-18.0) g/dL Hct (42-52) % MCV (80-100) fL MCH (25-34) pg MCHC (32-36) g/dL RDW Std Deviation (36.4-46.3) fL RDW Coeff of Kyra (11.5-14.5) % Plt Count (130-400) K/uL MPV (7.4-10.4) fL Immature Gran % (Auto) % Neut % (Auto) % Lymph % (Auto) % Swain % (Auto) % Eos % (Auto) % Baso % (Auto) % Neut # (Auto) (1.4-6.5) K/uL Lymph # (Auto) (1.2-3.4) K/uL Swain # (Auto) (0.11-0.59) K/uL Eos # (Auto) (0-0.5) K/uL Baso # (Auto) (0-0.2) K/uL Immature Gran # (Auto) (0.00-0.02) K/uL PT (9.0-12.0) Seconds INR (0.9-1.1) Sodium 142 (136-145) mmol/L Potassium 4.3 (3.5-5.1) mmol/L Chloride 109 H (98-107) mmol/L Carbon Dioxide 26 (21-32) mmol/L Anion Gap 7.0 (3-11) BUN 61 H (7-18) mg/dl Creatinine 1.78 H (0.6-1.4) mg/dl Est Cr Clr Drug Dosing 34.9 ml/min Est GFR ( Amer) 41.4 Est GFR (Non-Af Amer) 35.7 BUN/Creatinine Ratio 34.3 H (10-20) Glucose 178 H (70-99) mg/dl Calcium 9.0 (8.5-10.1) mg/dl Magnesium 2.0 (1.8-2.4) mg/dl Total Bilirubin 0.4 (0.2-1) mg/dl AST 8 L (15-37) U/L ALT 20 (12-78) U/L Alkaline Phosphatase 56 (45-117) U/L Troponin I < 0.015 (0-0.045) ng/ml Total Protein 5.6 L (6.4-8.2) gm/dl Albumin 2.7 L (3.4-5.0) gm/dl Globulin 2.8 (2.5-4.0) gm/dl Albumin/Globulin Ratio 0.9 (0.9-2) Lipase 218 (73-393) U/L TSH 0.483 (0.300-4.500) uIu/ml POC Stool Occult Blood (Negative) Blood Type A Positive Antibody Screen NEGATIVE Administered Medications Discontinued Medications Al Hydrox/Mg Hydrox/Simethicone (Gi Cocktail Ed Use) 1 dose PO ONE ONE Stop: 10/30/20 07:23 Last Admin: 10/30/20 07:48 Dose: 1 dose Documented by: [id number] Famotidine (Pepcid 20mg Iv Push) 20 mg in 5 mls @ 2.5 mls/min IV NOW STA Stop: 10/30/20 07:23 Last Admin: 10/30/20 07:46 Dose: 2.5 mls/min Documented by: [id number] Pantoprazole Sodium 80 mg/ (Dextrose) 100 mls @ 400 mls/hr IV ONE STA Stop: 10/30/20 07:36 Last Infusion: 10/30/20 08:15 Dose: 0 mls/hr Documented by: [id number] Admin: 10/30/20 07:46 Dose: 400 mls/hr Documented by: [id number] Sodium Chloride (Nss) 500 mls @ 999 mls/hr IV .Q31M ONE Stop: 10/30/20 08:54 Last Infusion: 10/30/20 09:25 Dose: 0 mls/hr Documented by: [id number] Admin: 10/30/20 08:54 Dose: 999 mls/hr Documented by: [id number] Pantoprazole Sodium 40 mg/ (Dextrose) 100 mls @ 20 mls/hr IV Q5H [facility] Stop: 11/29/20 09:44 Last Infusion: 10/30/20 12:42 Dose: 0 mg/hr, 0 mls/hr Documented by: [id number] Admin: 10/30/20 10:17 Dose: 8 mg/hr, 20 mls/hr Documented by: [id number] Discharge Plan Visit Data Chief Complaint: GI Assessment ED Provider: Jerry Benitez Discharge Problem: Melena, Heartburn, Weakness Patient Disposition: Admitted As Inpatient Discharge Instructions Interventions: ED Discharge Assessment Last Done: 10/30/20 12:09
[2020-10-30 07:36] LABS: Basophils # (auto) 0.02 K/uL (0-0.2); Basophils % (auto) 0.2 %; Eosinophils # (auto) 0.07 K/uL (0-0.5); Eosinophils % (auto) 0.7 %; Hematocrit (blood only) 27.7 % (42-52); Hemoglobin 9.2 g/dL (14.0-18.0); Immature Granulocytes # (auto) 0.02 K/uL (0.00-0.02); Immature Granulocytes % (auto) 0.2 %; Lymphocytes # (auto) 1.64 K/uL (1.2-3.4); Lymphocytes % (auto) 15.2 %; Mean Corpuscular Hemoglobin 32.2 pg (25-34); Mean Corpuscular Hgb Conc 33.2 g/dL (32-36); Mean Corpuscular Volume 96.9 fL (80-100); Mean Platelet Volume 9.4 fL (7.4-10.4); Monocytes # (auto) 0.62 K/uL (0.11-0.59); Monocytes % (auto) 5.8 %; Neutrophils # (auto) 8.39 K/uL (1.4-6.5); Neutrophils % (auto) 77.9 %; Platelet Count 180 K/uL (130-400); RDW Coefficient of Variation 12.1 % (11.5-14.5); RDW Standard Deviation 42.4 fL (36.4-46.3); Red Blood Count 2.86 M/uL (4.7-6.1); White Blood Count 10.76 K/uL (4.8-10.8)
[2020-10-30 07:43] LABS: Prothrombin Time 10.5 Seconds (9.0-12.0)
--- NOTE | 2020-10-30 07:48 | XRay Report ---
XR chest 1V portable CLINICAL HISTORY: Weakness. COMPARISON STUDY: Chest CT April 15, 2020. Chest radiograph July 23, 2020. FINDINGS: Lung volumes are normal. Lungs are clear. There is no pneumothorax or pleural effusion. Mil d cardiomegaly is unchanged. Mediastinal contours are normal. There is no evidence for pulmonary nam a. IMPRESSION: No acute cardiopulmonary findings. No change in appearance of the chest. ACT 112: Negative or not required by law. Electronically signed by: Daniele Meléndez M.D. 10/30/2020 7:47 AM
[2020-10-30 08:09] LABS: Alanine Aminotransferase 20 U/L (12-78); Albumin Level 2.7 gm/dl (3.4-5.0); Aspartate Aminotransferase 8 U/L (15-37); BUN Creatinine Ratio 34.3 (10-20); Blood Urea Nitrogen 61 mg/dl (7-18); Carbon Dioxide 26 mmol/L (21-32); Chloride 109 mmol/L (98-107); Creatinine Clr Calc Pharmacy 34.9 ml/min; Est GFR (African American) 41.4; Est GFR (Non-African American) 35.7; Glucose 178 mg/dl (70-99); Potassium 4.3 mmol/L (3.5-5.1); Sodium 142 mmol/L (136-145)
[2020-10-30 08:20] LABS: Albumin Globulin Ratio 0.9 (0.9-2); Alkaline Phosphatase 56 U/L (45-117); Bilirubin,Total 0.4 mg/dl (0.2-1); Globulin 2.8 gm/dl (2.5-4.0); Thyroid Stimulating Hormone 0.483 uIu/ml (0.300-4.500); Total Protein 5.6 gm/dl (6.4-8.2); Troponin I < 0.015 ng/ml (0-0.045)
[2020-10-30] MEDS ORDERED: SODIUM CHLORIDE 0.9% 500 ML IV ONE (08:24)
--- NOTE | 2020-10-30 09:08 | CT Scan Report ---
CT SCAN OF THE ABDOMEN AND PELVIS WITHOUT IV CONTRAST CLINICAL HISTORY: Generalized weakness. Epigastric abdominal pain. Melanotic stool. COMPARISON STUDY: Abdominal CT dated 10/29/2012. TECHNIQUE: CT scan of the abdomen and pelvis is performed from the lung bases to the proximal femora. Images are reviewed in the axial, sagittal, and coronal planes. IV contrast was not administered for this examination. Note that the examination was performed in significantly suboptimal fashion withou t oral and IV contrast. A dose lowering technique was utilized adhering to the principles of ALARA. CT DOSE: 378.45 mGy.cm FINDINGS: Lung bases: The heart is enlarged and without pericardial effusion. The coronary arteries are densely calcified. There is a small hiatal hernia. The lung bases are clear. Liver: The unenhanced liver is normal in size, contour, and attenuation. There is no intrahepatic geena iary ductal dilatation. Gallbladder: There are calcified gallstones with no CT evidence of acute cholecystitis. Spleen: Normal in size and attenuation. Pancreas: The unenhanced pancreas is grossly unremarkable. Adrenal glands: A 1.2 cm right adrenal nodule meets CT criteria for a fat-containing adenoma. There i s also nodular thickening of the left adrenal gland. Kidneys: The unenhanced kidneys are normal in size and without hydronephrosis. There are no renal gurvinder culi identified. A 2.7 cm complex/hyperdense cyst arises from the upper pole of the left kidney. Graeme ical calcifications are noted in the right lower pole and unchanged from previous. Abdominal vasculature: The abdominal aorta is normal in course and caliber noting advanced atheroscle rotic calcification. Bowel: There is mild colonic fecal retention. No bowel obstruction is seen. An 8 mm metallic foreign body is present within a loop of small bowel in the right lower quadrant on image #[id number]. A small metal lic foreign body is also present within the duodenum on image #195. The appendix is not identified a nd postoperative change in the right lower quadrant suggests previous appendectomy. Peritoneum: There is no intraperitoneal free air or abdominal ascites. Lymphadenopathy: None. Pelvic viscera: The prostate gland is enlarged and heterogeneous noting median lobe hypertrophy. The bladder wall is thickened and trabeculated indicating chronic outlet obstruction. There is evidence o f previous bilateral inguinal herniorrhaphy. Skeletal structures: The skeletal structures are osteopenic. There are chronic compression deformitie s of L2-L3. Mild lumbosacral spondylosis is observed. No lytic or blastic lesions are seen. IMPRESSION: 1. There are no acute infectious or inflammatory findings in the abdomen or pelvis. 2. Small metallic foreign bodies are present within the duodenum and within a loop of small bowel in the right lower quadrant. 3. Cholelithiasis. 4. Cardiomegaly. 5. Additional findings as above. ACT 112: Negative or not required by law. Electronically signed by: Jv Mondragon M.D. 10/30/2020 9:07 AM
[2020-10-30] MEDS ORDERED: PANTOprazole 40 MG in DEXTROSE 5% 100 ML IV SCH (09:45)
--- NOTE | 2020-10-30 10:24 | History & Physical Report ---
Date of Service October 30, 2020 Assessment & Plan (1) Anemia: Concerns for acute blood loss anemia with recent endoscopic procedure with polypectomy. Patient will have her hemoglobin checked in the afternoon of 10/30 and then the morning CBCs. This point time unless he goes in the below 8 g we will not transfuse. Patient was given a bolus of Protonix in the ER will be transition to 40 mg IV twice daily. Patient will be kept on a clear liquid diet. Patient will have his dual antiplatelets held. Patient will see [facility] gastroenterology Dr. Hartley or Col[place] (2) CAD (coronary artery disease): Patient history of coronary artery disease and NSTEMI's. As mentioned above his dual antiplatelets will be held. He will be continued on his metoprolol atorvastatin and amlodipine (3) CKD (chronic kidney disease), stage III: Patient has history of chronic kidney disease stage III his creatinine is the range that he typically would fall we will continue to watch this for changes and dose medications appropriately (4) BPH (benign prostatic hyperplasia): Patient has a history of this he is having no lower urinary tract symptoms at the time does not take any antihormonal or alpha blockers (5) DVT prophylaxis: Patient be on SCDs for DVT prophylaxis with concern for GI bleed Patient is a full code History of Present Illness Primary Care Provider: Luis Enrique Hernandez DO 79-M presents with melena presyncope and acute blood loss anemia. The patient underwent an endoscopy at [facility] on October 22 with removal of a 25 mm sessile duodenal polyp and clips were placed. CT scan in the ER shows these clips to be present there is no perforated bowel. Patient did have some increased heartburn over the last few days which preceded his event of melena and presyncope. The patient has a history of CAD status post stent placement August 2019 on aspirin Plavix and, BPH, CKD, hypertension Patient denies significant abdominal pain, he describes a burning sensation in his chest that is distinctly different from his previous anginal episodes that occurred during his NSTEMI's. Denies significant nausea. Patient states he does not regularly take Protonix but did take a dose last night and has not seemed to help. In the emergency department patient was hemodynamically stable he had no reproducible discomfort on exam his hemoglobin did drop 3 g from previous recorded hemoglobin and was heme positive from below per ER notes Allergies Allergy/AdvReac Type Severity Reaction Status Date / Time amoxicillin Allergy Intermediate itchy/body Verified 10/30/20 08:20 shaking Home Medications Medication Instructions Recorded Confirmed Type cholecalciferol (vitamin D3) 0 unit PO QDD 03/06/19 10/30/20 History [Vitamin D3] ascorbic acid (vitamin C) 500 mg 500 mg PO QDD tab 05/29/19 10/30/20 History tablet aspirin 81 mg PO QDD 06/19/19 10/30/20 History coenzyme Q10 200 mg capsule 200 mg PO QAM cap 08/26/19 10/30/20 History melatonin 5 mg capsule 5 mg PO HS PRN cap 08/26/19 10/30/20 History resveratrol 100 mg capsule 100 mg PO QAM cap 08/26/19 10/30/20 History nitroglycerin 0.4 mg sublingual 0.4 mg SUBLINGUAL DIRECTED PRN 09/30/19 10/30/20 Rx tablet #20 tab turmeric 400 mg capsule 400 mg PO QDD cap 12/02/19 10/30/20 History amlodipine 10 mg tablet 10 mg PO QAM #90 tab 02/11/20 10/30/20 Rx clopidogrel 75 mg PO QAM 04/15/20 10/30/20 History metoprolol succinate [Toprol XL] 12.5 mg PO QAM #90 tab 04/16/20 10/30/20 Rx clindamycin HCl 600 mg PO UD 07/23/20 10/30/20 History sildenafil (pulm.hypertension) 20 20 mg PO DAILY PRN #60 tab MDD 100 09/09/20 10/30/20 Rx mg tablet mg atorvastatin 80 mg tablet 80 mg PO HS #90 tab 09/21/20 10/30/20 Rx magnesium oxide 400 mg PO QDD 10/30/20 10/30/20 History Past Med/Surg History Medical History (Updated 10/30/20 @ 11:03 by Chris Matta MD) Anemia recent H/H are improving as of 07/09/2020 ?? BPH (benign prostatic hyperplasia) CAD (coronary artery disease) Chronic kidney disease Coronary artery disease Dark stools Hearing deficit Hypercholesteremia Hypertension NSTEMI (non-ST elevated myocardial infarction) 09/10/2019--follows with Dr. Orourke On anticoagulant therapy plavix daily Right knee DJD Spondylolysis Surgical History History of bilateral cataract extraction History of cardiac catheterization x3--first 2007 ? in [place] no stents placed --09/10/2019 1 ELAS placed and 09/12/2019 3 ELSA placed @ [facility] History of coronary angiogram 2008 History of heart artery stent x4---1 ELSA placed 09/10/2019 and 3 ELSA placed 09/12/2019 @ [facility] History of knee replacement right History of prostate biopsy benign History of total right knee replacement (TKR) History of umbilical hernia repair S/P laparoscopic hernia repair umbilical Family History Brother Pure hypercholesterolemia Hypertension Sister Family history of diabetes mellitus Mother , age 95 Dementia Father , age 90 Coronary heart disease CABG Grandmother (Paternal) Family history of diabetes mellitus Other No family history of adverse response to anesthesia Social History Smoking Status: Never smoker Tobacco Type: Cigarettes packs per day: 0.5; Years Smoked: 15; Second Hand Exposure: Yes (mom smoked); Hx Alcohol Use: Yes Alcohol type: beer and wine Alcohol Intake Frequency: 2-4 x/Month Hx Substance Use: No Preferred Language: Mauritanian Communication Ability: Effective Hose Handler Required: No Beliefs That Will Affect Care: None marital status: Current Living Situation: Spouse 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 How many Children do You have: 2 Feels Safe at Home: Yes Assistive Devices: Hearing Aid - Bilateral Review of Systems Review of Systems: Mild distress and fatigue no headache, blurry or double vision no speech or swallowing issues no chest pain, pressure or palpitations no shortness of breath, cough or wheezes no abdominal pain, nausea or vomiting, complains of dark stools no dysuria, hematuria or frequency no focal joint pain or swelling no back pain, CVA tenderness or radicular pain no bruising, bleeding or rashes no focal signs of weakness or numbness or altered sensation Did have presyncope or almost passed out in the bathroom no complaints of anxiety or depression.. Physical Exam Physical Exam: The patient appeared well nourished and normally developed. Vital signs as documented. Head exam is normocephalic atraumatic no scleral icterus Neck is without JVD, thyromegaly, or carotid bruits. Lungs are clear to auscultation, no focal loss of breath sounds Cardiac exam, Rhythm is regular.. No murmurs, rubs or gallops. Abdominal exam reveals normal bowel sounds, soft non tender, no masses Extremities are nonedematous and both pedal pulses are present Neurologic exam is alert and oriented, no focal loss of strength or sensation Skin is without bruises or rashes Psychologically is without concerns for anxiety or depression Results & Data Results & Data ([facility]) Vital Signs (Past 12 Hours) Vital Signs Temp Pulse Resp BP Pulse Ox 10/30/20 10:10 126/76 96 10/30/20 08:26 69 20 120/67 97 10/30/20 07:10 98.1 F 73 26 H 125/[address] abd/pelvis, 10/30/20 IMPRESSION: 1. There are no acute infectious or inflammatory findings in the abdomen or pelvis. 2. Small metallic foreign bodies are present within the duodenum and within a loop of small bowel in the right lower quadrant. 3. Cholelithiasis. 4. Cardiomegaly. CXR 10/30/20 no acute disease ECG nsr flattened lateral t waves PG Care Time/CCT Total # of Minutes Spent Total Time Spent with Patient: Total time spent is greater than 50% in coordination of care (as documented) at patient's floor/unit and/or counseling patient: Coding Level of Care Code 00232 Initial Inpt Care Lvl 3 Diagnoses Anemia D64.9 CAD (coronary artery disease) I25.10 CKD (chronic kidney disease), stage III N18.30 BPH (benign prostatic hyperplasia) N40.0 DVT prophylaxis Z29.9
[2020-10-30] MEDS ORDERED: ACETAMINOPHEN 325 MG TAB PO PRN (12:32)
[2020-10-30] MEDS ORDERED: ALUMINUM/MAGNESIUM SUSP 30 ML UDC PO PRN (12:32)
[2020-10-30] MEDS ORDERED: ONDANSETRON INJ 2 MG/ML 2 ML VIAL IV PRN (12:32)
[2020-10-30] MEDS ORDERED: NITROGLYCERIN SL 0.4 MG/TAB TAB SL PRN (12:32)
--- NOTE | 2020-10-30 14:57 | Consultation Report ---
DATE OF CONSULTATION: 10/30/2020 GASTROINTESTINAL CONSULT NOTE REASON FOR EVALUATION: Melena and anemia. HISTORY OF PRESENT ILLNESS: The patient is a 79-year-old who had an EGD a few weeks ago and was found to have a 2-2.5 cm sessile polyp in the duodenum. Biopsies showed tubulovillous adenoma and he was referred to [facility] for endoscopic mucosal resection, which he had on 10/[address] Chidi Palmer. The patient had the lesion removed and I think 4 clips were placed to close the defect. The patient did well until this morning when he went to move his bowels and noticed there was a black tarry material in the toilet paper, got a little bit lightheaded and proceeded to the hospital where he was noted to be anemic with a hemoglobin of 9.2. The patient has been started on Protonix and his aspirin and Plavix have been held. He has eaten today, so we are not able to proceed with an EGD. PAST MEDICAL HISTORY: Remarkable for coronary artery disease, status post ME in the past, chronic kidney disease stage III, benign prostatic hypertrophy. He has decreased hearing, hypertension, hypercholesterolemia, arthritis, spondylolysis. He has had bilateral cataract surgery, cardiac stents x4, right knee replacement, umbilical hernia repair. FAMILY HISTORY: Sister with diabetes. Mother, dementia. Father had a bypass for heart disease, at 90. SOCIAL HISTORY: The patient is and lives with his spouse. 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 PHYSICAL EXAMINATION: GENERAL: The patient appears awake, alert, in no acute distress. He has hearing aids in. VITAL SIGNS: Blood pressure is 126/76, pulse 70 and regular. ABDOMEN: Soft. There are no masses, tenderness, or hepatosplenomegaly. IMPRESSION AND PLAN: The patient had a duodenal polyp removed 8 days ago. It appears that the clips that were placed may have dislodged on the CAT scan as they appeared to be further down in the bowel and this may have provoked bleeding along with the fact that he is taking both aspirin and Plavix now. These are being held. He is on Protonix. I plan on adding Carafate 4 times a day. We will monitor his blood count and if there are signs of any active bleeding, then we may need to do an urgent endoscopy over the weekend. Otherwise, we will reassess on Monday. Dr. Eric Ellis is covering for the weekend.
[2020-10-30] MEDS ORDERED: SODIUM CHLORIDE 0.9% 250 ML IV PRN (15:53)
[2020-10-30] MEDS: SUCRALFATE 1 GM TAB PO SCH ×2 (16:59→20:11)
--- NOTE | 2020-10-30 18:06 | Electrocardiogram Report ---
Test Reason : Blood Pressure : / mmHG Vent. Rate : 067 BPM Atrial Rate : 067 BPM P-R Int : 166 ms QRS Dur : 090 ms QT Int : 386 ms P-R-T Axes : 082 004 110 degrees QTc Int : 407 ms Sinus rhythm with Premature atrial complexes Nonspecific ST and T wave abnormality Abnormal ECG When compared with ECG of 23-JUL-2020 19:37, Premature atrial complexes are now Present Confirmed by Sergey Orourke ([id number]) on 10/30/2020 6:05:54 PM Referred By: REFERRED SELF Confirmed By:Sergey Orourke
[2020-10-30] MEDS: ATORVASTATIN 40 MG TAB PO SCH (20:11)
[2020-10-30] MEDS: PANTOprazole 40 MG in SYRINGE 0 ML IV SCH (20:12)
[2020-10-30 22:40] LABS: Appearance Urine Clear (Clear); Bacteria Urine Automated Negative (Negative); Bilirubin Urine Negative (Negative); Blood Urine 3+ (Negative); Color Urine Yellow; Epithelial Cell Urine Auto 0-5 /lpf (0-5); Glucose Urine UA Negative (Negative); Ketones Urine Negative (Negative); Leukocyte Esterase Urine 1+ (Negative); Nitrite Urine Negative (Negative); Protein Urine 1+ (Negative); Specific Gravity Urine 1.019 (1.000-1.030); Urobilinogen Urine Negative (Negative)
--- NOTE | 2020-10-31 01:02 | Communication Note ---
Date of Service: October 31, 2020 Notified by nursing at 12:31AM that patient had noted 3 dark BM's which were very loose. Went up to evaluate patient who was very anxious in regards to his current situation. Stated that he had not had any dark stools for 5-6 bowel movements and "since we started the blood" he had the dark stools return. Had also noted feeling "sweaty" while undergoing the 3rd bowel movement, but that it had resolved since he laid back down. Currently denying any SOB, chest pain, abdominal pain. PE: Heart RRR no murmurs, Lungs CTA b/l, Abdomen soft n/t normogastric bowel sounds. Plan: -Patient with stable vital signs, 70-80's on telemetry (though on BB therapy) -Observed dark stools in toilet, no bright red blood noted -Has been transfused 2 units PRBC, will continue with transfusion of remaining 2 units PRBC -Will add Famotidine 20mg BID pushes in addition to Pantoprazole 40mg pushes -Will order for hgb/hct after last unit transfused, if Hgb <8 will reassess need for further PRBC transfusion -Suspect need for urgent endoscopy over the weekend if continuing with signs of active bleeding.
[2020-10-31] MEDS: FAMOTIDINE 20 MG in SYRINGE 3 ML IV SCH ×2 (02:24→07:37)
[2020-10-31 03:21] LABS: Hematocrit (blood only) 26.9 % (42-52); Hemoglobin 8.9 g/dL (14.0-18.0); Mean Corpuscular Hemoglobin 30.7 pg (25-34); Mean Corpuscular Hgb Conc 33.1 g/dL (32-36); Mean Corpuscular Volume 92.8 fL (80-100); Mean Platelet Volume 9.8 fL (7.4-10.4); Platelet Count 149 K/uL (130-400); RDW Coefficient of Variation 14.6 % (11.5-14.5); RDW Standard Deviation 50.1 fL (36.4-46.3); White Blood Count 7.33 K/uL (4.8-10.8)
[2020-10-31 03:38] LABS: BUN Creatinine Ratio 38.9 (10-20); Calcium 8.1 mg/dl (8.5-10.1); Creatinine Clr Calc Pharmacy 34.1 ml/min; Est GFR (African American) 40.9; Est GFR (Non-African American) 35.3; Potassium 4.5 mmol/L (3.5-5.1)
[2020-10-31 03:44] LABS: Troponin I 0.016 ng/ml (0-0.045)
[2020-10-31 04:28] LABS: Folate (Folic Acid) 19.2 ng/ml (>5.38)
[2020-10-31] MEDS: PANTOprazole 40 MG in SYRINGE 0 ML IV SCH ×2 (07:37→21:12)
[2020-10-31] MEDS: METOPROLOL SUCC 25MG EXT REL TAB PO SCH (07:38)
[2020-10-31] MEDS: amLODIPine BESYLATE 5 MG TAB PO SCH (07:38)
[2020-10-31] MEDS: SUCRALFATE 1 GM TAB PO SCH ×4 (07:38→21:12)
[2020-10-31 08:36] LABS: Hematocrit (blood only) 27.2 % (42-52); Hemoglobin 9.2 g/dL (14.0-18.0)
--- NOTE | 2020-10-31 10:37 | Gastroenterology Progress Note ---
Date of Service October 31, 2020 Assessment & Plan (1) Melena: His counts are stable, but he had another episode of melena. His anticoagulants are held. He prefers to be proactive, especially given another episode of melena. While the bleeding appears to have slowed down, it appears to be still oozing. Will proceed with and an EGD today. Called OR to add patient on. Admission and Anticipated Discharge Date Admission Date: October 30, 2020 Subjective He just had a dark tarry bowel movement with a tinge of blood. Review of Systems Constitutional: no sweats and no weakness Cardiovascular: no dyspnea at rest Gastrointestinal: + melena; no abdominal pain and no nausea Physical Exam Constitutional: WD/WN, vitals as above comfortable; no acute distress Respiratory: normal respiratory effort, lungs clear to auscultation Cardiovascular: RRR, no murmur, no edema Psychiatric: Orientation: alert Apperance: appropriately dressed Affect: euthymic affect Results & Data ([facility]) Vital Signs (Past 12 Hours) Vital Signs Temp Pulse Pulse Resp BP BP Pulse Ox 10/31/20 07:22 36.7 C 76 20 120/60 98 10/31/20 03:56 36.7 C 80 20 129/55 L 98 10/31/20 00:34 36.6 C 87 18 153/82 H 97 10/31/20 00:12 71 10/30/20 23:10 36.6 C 84 18 141/84 H 97
--- NOTE | 2020-10-31 11:17 | Hospitalist Progress Note ---
Date of Service October 31, 2020 Assessment & Plan (1) Upper GI bleed: Jose Rosales is a 80-year-old male with a notable history of recent duodenal polypectomy on 10/22, CAD (with NSTEMIs) s/p triple stent placement in 08/2019, and CKD Stage III who present to [facility] on 10/30 for evaluation of melena and presyncope, subsequently found to have acute blood loss anemia and CT findings concerning for clip shifting from recent polypectomy. He required transfusion of 2U pRBC on 10/31 with subsequent improvement in his hemoglobin. He has remained hemodynamically stable since that time. Upper GI Bleed - Recently s/p polypectomy of duodenal polyp (5mm sessile duodenal poly) and clip placement at [facility] on 10/22 -- likely source of bleeding - Clinically manifesting as 2 days' of melena, which has continued into current stay - GI consulted, appreciate insight and recommendations: - Add carafate q.i.d. - Proceed with EGD in afternoon of 10/31 - NPO until procedure - Hold DAPT (Plavix, ASA) while here - 2 large-bore PIVs - IV Famotidine, Protonix - NPO pending EGD Acute Blood Loss Anemia - Secondary to UGIB, as aboe - Hgb on admission 9.2 --> Hgb later that afternoon at 7.4 - s/p transfusion of 2U pRBC on 10/30 - Transfuse Hgb < 8 (given CAD) or if symptomatic - Repeat H&H at 1600hr - CBC qAM Coronary Artery Disease - Patient has h/o multiple NSTEMIs, most recently requiring catheterization in 08/2019 (3x stent placement in RCA) - Hold Plavix/ASA -- as above. Anticipate holding Plavix on d/c, possibly ASA -- will discuss with GI - Continue hold metoprolol, atorvastatin, amlodipine - If HoTN (<90/60) in setting of anemia, consider hold of antihypertensives Dispo: Med/surg w/ Tele F/E/N/GI: NPO pending EGD. PPX: PPI/H2s in setting of UGIB. SCDs. No anticoagulation given GIB. Code: FULL CODE (2) Anemia: (3) CAD (coronary artery disease): Admission and Anticipated Discharge Date Admission Date: October 30, 2020 Supervising Physician Co-Signing Physician Notes Resident Physician Supervision Note: I independently interviewed and examined the patient and verified the swanson history and physical, reviewed labs and image studies, discussed the case with the resident Dr. Smyth and agree with the findings and care plan. Subjective Patient had several melanotic bowel movements last night associated with urgency. Thereafter, was mostly able to sleep through the night. Tolerated transfusions well. Had one additional melanotic bowel movement this morning associated with some dark red blood, too. Denies any pain or discomfort at this time. Denies any dizziness or lightheadedness. No chest pain, palpitations, or shortness of breath. Review of Systems Review of Systems: as per HPI Physical Exam Constitutional: Mildly pale-appearing 80 year old gentleman who is lyhing back in his hospital bed watching TV upon my arrival. Conversing freely. NAD. Respiratory: normal respiratory effort, lungs clear to auscultation Cardiovascular: Normal rate, regular rhythm - with intermittent skipped beats and subsequent resumption of regular rhythm. S1 and S2 present without m/r/g. Gastrointestinal (Abdomen): Normoactive bowel sounds. Abdomen is mildly distended. Mild TTP in the epigastrum, no rebound or guarding. No TTP otherwise. Results & Data Results & Data ([facility]) Vital Signs (Past 12 Hours) Vital Signs Temp Pulse Pulse Resp BP BP Pulse Ox 10/31/20 07:22 36.7 C 76 20 120/60 98 10/31/20 03:56 36.7 C 80 20 129/55 L 98 10/31/20 00:34 36.6 C 87 18 153/82 H 97 10/31/20 00:12 71 Resident Activity Tracking Resident Involvement: Resident Care Provided Care Provided: Adult Hospital Medicine
--- NOTE | 2020-10-31 12:20 | Anesthesiology Consultation ---
Date of Service October 31, 2020 Assessment & Plan (1) Encounter for pre-operative examination: Chart Review Chart Review: Acceptable Risk for Surgery (COVID negative 10/30/20) History Height/Weight Height: 5 ft 6 in Weight: 76.2 kg Allergies Allergy/AdvReac Type Severity Reaction Status Date / Time amoxicillin Allergy Intermediate itchy/body Verified 10/30/20 08:20 shaking Medications Home Medications Medication Instructions Recorded Confirmed Last Taken cholecalciferol (vitamin D3) 0 unit PO QDD 03/06/19 10/30/20 10/29/20 [Vitamin D3] ascorbic acid (vitamin C) 500 mg 500 mg PO QDD tab 05/29/19 10/30/20 10/29/20 tablet aspirin 81 mg PO QDD 06/19/19 10/30/20 10/29/20 coenzyme Q10 200 mg capsule 200 mg PO QAM cap 08/26/19 10/30/20 10/29/20 melatonin 5 mg capsule 5 mg PO HS PRN cap 08/26/19 10/30/20 10/29/20 resveratrol 100 mg capsule 100 mg PO QAM cap 08/26/19 10/30/20 10/29/20 nitroglycerin 0.4 mg sublingual 0.4 mg SUBLINGUAL DIRECTED PRN 09/30/19 10/30/20 10/29/20 tablet #20 tab turmeric 400 mg capsule 400 mg PO QDD cap 12/02/19 10/30/20 10/29/20 amlodipine 10 mg tablet 10 mg PO QAM #90 tab 02/11/20 10/30/20 10/29/20 clopidogrel 75 mg PO QAM 04/15/20 10/30/20 10/29/20 metoprolol succinate [Toprol XL] 12.5 mg PO QAM #90 tab 04/16/20 10/30/20 10/29/20 clindamycin HCl 600 mg PO UD 07/23/20 10/30/20 10/29/20 sildenafil (pulm.hypertension) 20 20 mg PO DAILY PRN #60 tab MDD 100 09/09/20 10/30/20 Unknown mg tablet mg atorvastatin 80 mg tablet 80 mg PO HS #90 tab 09/21/20 10/30/20 10/29/20 magnesium oxide 400 mg PO QDD 10/30/20 10/30/20 10/29/20 Active Medications Generic Name Dose Route Start Last Admin Trade Name Janesq PRN Reason Stop Dose Admin Amlodipine Besylate 10 mg 10/31/20 09:00 10/31/20 07:38 Amlodipine Besylate 5 Mg Tab PO 11/30/20 08:59 10 mg QAM BRIGITTE Administration Atorvastatin Calcium 80 mg 10/30/20 21:00 10/30/20 20:11 Atorvastatin 40 Mg Tab PO 11/29/20 20:59 80 mg HS BRIGITTE Administration Pantoprazole Sodium 40 mg/ 10 mls @ 5 mls/min 10/30/20 21:00 10/31/20 07:37 Syringe IV 11/29/20 20:59 5 mls/min BID BRIGITTE Administration Famotidine 20 mg/ Syringe 5 mls @ 2.5 mls/min 10/31/20 01:15 10/31/20 07:37 IV 11/30/20 01:14 2.5 mls/min BID BRIGITTE Administration Metoprolol Succinate 12.5 mg 10/31/20 09:00 10/31/20 07:38 Metoprolol Succ 25mg Ext Rel Tab PO 11/30/20 08:59 12.5 mg QAM BRIGITTE Administration Sucralfate 1 gm 10/30/20 17:00 10/31/20 07:38 Sucralfate 1 Gm Tab PO 11/29/20 16:59 1 gm QID BRIGITTE Administration Past Medical History Medical History Anemia recent H/H are improving as of 07/09/2020 ?? BPH (benign prostatic hyperplasia) CAD (coronary artery disease) Chronic kidney disease Coronary artery disease Dark stools Hearing deficit Hypercholesteremia Hypertension NSTEMI (non-ST elevated myocardial infarction) 09/10/2019--follows with Dr. Orourke On anticoagulant therapy plavix daily Right knee DJD Spondylolysis Past Family History Family History Brother Pure hypercholesterolemia Hypertension Sister Family history of diabetes mellitus Mother , age 95 Dementia Father , age 90 Coronary heart disease CABG Grandmother (Paternal) Family history of diabetes mellitus Other No family history of adverse response to anesthesia Past Surgical History Surgical History History of bilateral cataract extraction History of cardiac catheterization x3--first 2007 ? in [place] no stents placed --09/10/2019 1 ELSA placed and 09/12/2019 3 ELSA placed @ [facility] History of coronary angiogram 2007 History of heart artery stent x4---1 ELSA placed 09/10/2019 and 3 ELSA placed 09/12/2019 @ [facility] History of knee replacement right History of prostate biopsy benign History of total right knee replacement (TKR) History of umbilical hernia repair S/P laparoscopic hernia repair umbilical Past Anesthesia History No Hx of Anesthesia Complications History of PONV No Hx of PONV and No Hx of Motion Sickness Social History Smoking Status: Never smoker Hx Alcohol Use: Yes Alcohol type: beer and wine alcohol intake frequency: a few times a month Hx Substance Use: No substance use type: does not use Physical Exam Vital Signs Last Vital Signs Temp 36.8 C 10/31/20 11:15 Pulse 70 10/31/20 11:15 Resp 20 10/31/20 11:15 BP 130/69 10/31/20 11:15 Pulse Ox 98 10/31/20 11:15 Testing Laboratory Results 10/31/20 07:53 10/31/20 02:49 PT 10.5 Seconds (9.0-12.0) 10/30/20 07:26 INR 1.0 (0.9-1.1) 10/30/20 07:26 Urine Color Yellow 10/30/20 22:20 Urine Appearance Clear (Clear) 10/30/20 22:20 Urine pH 5.0 (4.5-7.5) 10/30/20 22:20 Ur Specific Axis 1.019 (1.000-1.030) 10/30/20 22:20 Urine Protein 1+ (Negative) H 10/30/20 22:20 Urine Glucose (UA) Negative (Negative) 10/30/20 22:20 Urine Ketones Negative (Negative) 10/30/20 22:20 Urine Nitrite Negative (Negative) 10/30/20 22:20 Ur Leukocyte Esterase 1+ (Negative) H 10/30/20 22:20 Urine WBC (Auto) 5-10 /hpf (0-5) H 10/30/20 22:20 Urine RBC (Auto) 10-30 /hpf (0-4) H 10/30/20 22:20 U Hyaline Cast (Auto) 1-5 /lpf (0-5) 10/30/20 22:20 U Epithel Cells (Auto) 0-5 /lpf (0-5) 10/30/20 22:20 Urine Bacteria (Auto) Negative (Negative) 10/30/20 22:20 Blood Type A Positive 10/30/20 07:55 Antibody Screen NEGATIVE 10/30/20 07:55 Electrocardiogram Date: 10/30/20 Findings: + NSR @ (67 Some PAC's) and + NSST changes Echocardiogram Date: 04/15/20 EF: 55-60 LV Function: normal Valvular Disease: + AI (Mild to moderate) RV pressure elevated
[2020-10-31] MEDS ORDERED: ATROPINE SULFATE 0.1 MG/ML 10ML SYR IV PRN ×2 (12:22→14:17)
[2020-10-31] MEDS ORDERED: ONDANSETRON INJ 2 MG/ML 2 ML VIAL IV PRN ×2 (12:22→14:17)
[2020-10-31] MEDS ORDERED: LIDOCAINE HCL 2% 2 ML VIAL/AMP(20MG/ML) INFIL ONE (13:44)
[2020-10-31] MEDS ORDERED: PROPOFOL IV EMULSION 10 MG/ML 20 ML VIAL IV ONE (13:44)
--- NOTE | 2020-10-31 14:44 | GI REPORT ---
Patient Name: Jose Rosales Procedure Date: 10/31/2020 2:06 PM Date of : 1940 Admit Type: Inpatient Age: 80 Gender: Male Attending MD: Eric Ellis MD Procedure: Upper GI endoscopy Providers: Eric Ellis MD Referring MD: Chidi Torres Indications: Melena Medicines: Propofol per Anesthesia Complications: No immediate complications. Estimated blood loss: Minimal. Estimated Blood Loss: Estimated blood loss was minimal. Procedure: Pre-Anesthesia Assessment: - Prior to the procedure, a History and Physical was performed, and patient medications and allergies were reviewed. The patient's tolerance of previous anesthesia was also reviewed. The risks and benefits of the procedure and the sedation options and risks were discussed with the patient. All questions were answered, and informed consent was obtained. Prior Anticoagulants: The patient last took Plavix (clopidogrel) 2 days prior to the procedure. ASA Grade Assessment: III - A patient with severe systemic disease. After reviewing the risks and benefits, the patient was deemed in satisfactory condition to undergo the procedure. After obtaining informed consent, the endoscope was passed under direct vision. Throughout the procedure, the patient's blood pressure, pulse, and oxygen saturations were monitored continuously. The Endoscope was introduced through the mouth, and advanced to the third part of duodenum. The upper GI endoscopy was accomplished without difficulty. The patient tolerated the procedure well. The upper GI endoscopy was accomplished without difficulty. The patient tolerated the procedure well. Findings: The esophagus was normal. The stomach was normal. One oozing cratered duodenal ulcer with a visible vessel was found in the second portion of the duodenum at the prior resection base. The lesion was 15 mm in largest dimension. Coagulation for hemostasis using bipolar probe was successful. To prevent bleeding post-intervention, three hemostatic clips were successfully placed (MR conditional). There was no bleeding at the end of the procedure. This wa a small vessel at thbe base. Only one clip was present form prior porcedure and was holdibng on to only one side. Oozing spots, two at the edgwe was also coagulated. Three clips placed. Impression: - Normal esophagus. - Normal stomach. - Oozing duodenal ulcer with a visible vessel. Treated with bipolar cautery. Clips (MR conditional) were placed. - No specimens collected. Recommendation: - [facility]. - Clear liquid diet. - Continue present medications. - Repeat upper endoscopy PRN for retreatment. - Return to GI clinic at appointment to be scheduled. Eric Ellis M.D. Eric Ellis MD 10/31/2020 2:43:26 PM This report has been signed electronically. Note Initiated On: 10/31/2020 2:06 PM Number of Addenda: 0 I attest to the content of the Intraoperative Record and orders documented therein, exceptions below {[id number]}
--- NOTE | 2020-10-31 15:17 | Anesthesiology Progress Note ---
Date of Service October 31, 2020 Anesthesia Post Procedure Vital Signs Vital Signs: Temp Pulse Pulse Pulse Resp BP BP 10/31/20 15:05 36.7 C 62 20 10/31/20 14:55 63 21 10/31/20 14:49 36.4 C L 64 16 10/31/20 11:15 36.8 C 70 20 130/69 10/31/20 07:22 36.7 C 76 20 120/60 10/31/20 03:56 36.7 C 80 20 129/55 L 10/31/20 00:34 36.6 C 87 18 153/82 H 10/31/20 00:12 71 10/30/20 23:10 36.6 C 84 18 141/84 H 10/30/20 22:10 36.3 C L 76 18 160/84 H 10/30/20 21:40 36.9 C 75 18 148/83 H 10/30/20 21:25 36.9 C 73 18 145/82 H 10/30/20 21:07 36.9 C 73 18 131/78 10/30/20 20:25 36.7 C 73 18 130/82 10/30/20 19:52 36.9 C 75 18 123/79 10/30/20 19:20 36.7 C 73 18 158/72 H 10/30/20 18:50 36.7 C 74 18 137/82 10/30/20 18:20 36.8 C 79 18 137/76 10/30/20 18:07 36.9 C 77 18 144/72 H 10/30/20 17:45 36.6 C 79 18 128/73 10/30/20 16:00 65 10/30/20 15:21 36.6 C 69 18 130/69 BP Pulse Ox 10/31/20 15:05 106/69 99 10/31/20 14:55 118/69 98 10/31/20 14:49 102/66 97 10/31/20 11:15 98 10/31/20 07:22 98 10/31/20 03:56 98 10/31/20 00:34 97 10/31/20 00:12 10/30/20 23:10 97 10/30/20 22:10 97 10/30/20 21:40 98 10/30/20 21:25 98 10/30/20 21:07 98 10/30/20 20:25 99 10/30/20 19:52 99 10/30/20 19:20 96 10/30/20 18:50 99 10/30/20 18:20 10/30/20 18:07 98 10/30/20 17:45 98 10/30/20 16:00 10/30/20 15:21 96 Pain Intensity Abdomen: Pain Intensity: 2 Transfer of Care Handoff Completed per policy Notes Mental Status: alert / awake / arousable Patient Amnestic to Procedure: Yes Nausea / Vomiting: adequately controlled Pain: adequately controlled Airway Patency, RR, SpO2: stable & adequate BP & HR: stable & adequate Hydration State: stable & adequate Anesthetic Complications: no major complications apparent
[2020-10-31 16:34] LABS: Hematocrit (blood only) 26.6 % (42-52); Hemoglobin 8.8 g/dL (14.0-18.0)
[2020-10-31] MEDS: ATORVASTATIN 40 MG TAB PO SCH (21:12)
[2020-11-01 06:12] LABS: Hematocrit (blood only) 23.9 % (42-52); Hemoglobin 7.7 g/dL (14.0-18.0); Mean Corpuscular Hemoglobin 30.2 pg (25-34); Mean Corpuscular Hgb Conc 32.2 g/dL (32-36); Mean Corpuscular Volume 93.7 fL (80-100); Mean Platelet Volume 9.8 fL (7.4-10.4); Platelet Count 139 K/uL (130-400); RDW Standard Deviation 51.1 fL (36.4-46.3); Red Blood Count 2.55 M/uL (4.7-6.1); White Blood Count 5.63 K/uL (4.8-10.8)
[2020-11-01 06:38] LABS: BUN Creatinine Ratio 27.7 (10-20); Calcium 8.6 mg/dl (8.5-10.1); Est GFR (African American) 40.6; Potassium 4.2 mmol/L (3.5-5.1)
[2020-11-01] MEDS ORDERED: SODIUM CHLORIDE 0.9% 250 ML IV PRN (06:44)
--- NOTE | 2020-11-01 07:13 | Hospitalist Progress Note ---
Date of Service November 01, 2020 Assessment & Plan (1) Upper GI bleed: Jose Rosales is a 80-year-old male with a notable history of recent duodenal polypectomy on 10/22, CAD (with NSTEMIs) s/p triple stent placement in 08/2019, and CKD Stage III who present to [facility] on 10/30 for evaluation of melena and presyncope, subsequently found to have acute blood loss anemia and CT findings concerning for clip shifting from recent polypectomy. He required transfusion of 2U pRBC on 10/31, and again in the morning of 11/01. He has remained hemodynamically stable since that time. Upper GI Bleed - Recently s/p polypectomy of duodenal polyp (5mm sessile duodenal poly) and [place] [facility] [place] -- likely source of bleeding - Clinically manifesting as 2 days' of melena, which has continued into current stay - GI consulted, appreciate insight and recommendations: - Add Carafate q.i.d. - EGD 10/31: Demonstrated oozing from previous duodenal procedural site. Cauterized and new clips inserted. 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 Anticipate holding Plavix on d/c, possibly ASA -- will discuss with GI - Continue hold metoprolol, atorvastatin, amlodipine - If HoTN (<90/60) in setting of anemia, consider hold of antihypertensives Dispo: Med/surg w/ Tele --> anticipate d/c on 10/31 pending repeat H&H F/E/N/GI: Full liquid PPX: PPI/H2s in setting of UGIB. SCDs. No anticoagulation given GIB. Code: FULL CODE (2) Anemia: (3) CAD (coronary artery disease): Admission and Anticipated Discharge Date Admission Date: October 30, 2020 Supervising Physician Co-Signing Physician Notes Resident Physician Supervision Note: I independently interviewed and examined the patient and verified the swanson history and physical, reviewed labs and image studies, discussed the case with the resident Dr. Smyth and agree with the findings and care plan. Subjective NAEO. Patient feeling well this morning. Denies any further bowel movements. Asking when he can eat. Tolerating liquids fine. Pain well controlled and is minimal. Voiding without difficulty. His Hgb did return at 7.7 this morning. We discussed that his threshold for transfusion with history of NSTEMIs (CAD) is Hgb 8, thereby requiring transfusion. He is amenable to proceed. Denies any lightheadedness, dizziness, or shortness of breath through the night / throughout yesterday. Review of Systems Review of Systems: as per HPI Physical Exam Constitutional: WD/WN, vitals as above Pale-appearing 80 year old gentleman who is lying back in his hospital bed awake upon my arrival. He converses freely without dyspnea. NAD. Respiratory: normal respiratory effort, lungs clear to auscultation Cardiovascular: RRR, no murmur, no edema Capillary refill < 3 seconds in the distal upper extremities b/l Gastrointestinal (Abdomen): normal bowel sounds, soft, nontender, no hepatosplenomegaly Results & Data Results & Data ([facility]) Vital Signs (Past 12 Hours) Vital Signs Temp Pulse Pulse Resp BP Pulse Ox 11/01/20 01:11 62 10/31/20 23:41 36.6 C 59 L 17 128/63 100 Resident Activity Tracking Resident Involvement: Resident Care Provided Care Provided: Adult Hospital Medicine
[2020-11-01] MEDS: SUCRALFATE 1 GM TAB PO SCH ×4 (07:27→20:06)
[2020-11-01] MEDS: PANTOprazole 40 MG in SYRINGE 0 ML IV SCH ×2 (07:27→20:06)
[2020-11-01] MEDS: amLODIPine BESYLATE 5 MG TAB PO SCH (07:27)
[2020-11-01] MEDS: METOPROLOL SUCC 25MG EXT REL TAB PO SCH (07:28)
--- NOTE | 2020-11-01 07:56 | Gastroenterology Progress Note ---
Date of Service November 01, 2020 Assessment & Plan (1) Melena: His counts dropped as his system is re calibrating. No evidence of active bleed given no BMs. Ok to give him a full liquid diet and observe. Plan to keep him till tomorrow when he can be advanced t a soft diet. . Admission and Anticipated Discharge Date Admission Date: October 30, 2020 Anticipated date of discharge: 11/02/20 Subjective Agree with documentation below. Discussed with resident and saw patient this AM. No bowemovements. NAEO. Patient feeling well this morning. Denies any further bowel movements. Asking when he can eat. Tolerating liquids fine. Pain well controlled and is minimal. Voiding without difficulty. His Hgb did return at 7.7 this morning. We discussed that his threshold for transfusion with history of NSTEMIs (CAD) is Hgb 8, thereby requiring transfusion. He is amenable to proceed. Denies any lightheadedness, dizziness, or shortness of breath through the night / throughout yesterday. Physical Exam Constitutional: WD/WN, vitals as above comfortable; no acute distress Respiratory: normal respiratory effort, lungs clear to auscultation Cardiovascular: RRR, no murmur, no edema Gastrointestinal (Abdomen): Inspection/Auscultation: abdomen normal to inspection Percussion/Palpation: + abdomen tender (deep epigastric mild) Results & Data ([facility]) Vital Signs (Past 12 Hours) Vital Signs Temp Pulse Pulse Resp BP BP Pulse Ox 11/01/20 07:47 36.4 C L 53 L 20 157/75 H 11/01/20 07:45 36.7 C 56 L 20 127/64 97 11/01/20 07:31 36.7 C 56 L 20 127/64 97 11/01/20 01:11 62 10/31/20 23:41 36.6 C 59 L 17 128/63 100
[2020-11-01 14:08] LABS: Hematocrit (blood only) 27.7 % (42-52); Hemoglobin 9.2 g/dL (14.0-18.0)
[2020-11-01] MEDS: ATORVASTATIN 40 MG TAB PO SCH (20:06)
[2020-11-02 06:01] LABS: Hematocrit (blood only) 27.4 % (42-52); Hemoglobin 9.2 g/dL (14.0-18.0); Mean Corpuscular Hemoglobin 30.9 pg (25-34); Mean Corpuscular Hgb Conc 33.6 g/dL (32-36); Mean Corpuscular Volume 91.9 fL (80-100); Mean Platelet Volume 9.6 fL (7.4-10.4); Platelet Count 133 K/uL (130-400); RDW Coefficient of Variation 14.5 % (11.5-14.5); RDW Standard Deviation 48.1 fL (36.4-46.3); Red Blood Count 2.98 M/uL (4.7-6.1); White Blood Count 5.81 K/uL (4.8-10.8)
[2020-11-02 06:28] LABS: BUN Creatinine Ratio 19.6 (10-20); Calcium 8.5 mg/dl (8.5-10.1); Creatinine Clr Calc Pharmacy 30.4 ml/min; Est GFR (African American) 41.1; Est GFR (Non-African American) 35.5; Potassium 3.8 mmol/L (3.5-5.1)
--- NOTE | 2020-11-02 08:09 | Hospitalist Progress Note ---
Date of Service November 02, 2020 Assessment & Plan (1) Upper GI bleed: Jose Rosales is a 80-year-old male with a notable history of recent duodenal polypectomy on 10/22, CAD (with NSTEMIs) s/p triple stent placement in 08/2019, and CKD Stage III who present to [facility] on 10/30 for evaluation of melena and presyncope, subsequently found to have acute blood loss anemia and CT findings concerning for clip shifting from recent polypectomy. He required transfusion of 2U pRBC on 10/31, and again in the morning of 11/01. He has remained hemodynamically stable since that time. Upper GI Bleed - Recently s/p polypectomy of duodenal polyp (5mm sessile duodenal poly) and clip placement at [facility] [place] on 10/22 -- likely source of bleeding - Clinically manifesting as 2 days' of melena, which has continued into current stay - GI consulted, appreciate insight and recommendations: - Add Carafate q.i.d. - EGD 10/31: Demonstrated oozing from previous duodenal procedural site. Cauterized and new clips inserted. - Hold DAPT (Plavix, ASA) while here - 2 large-bore PIVs - IV Famotidine, Protonix - OK to proceed with Full Liquid Diet Acute Blood Loss Anemia - Requiring an additional 1U pRBC on 11/01 AM - Secondary to UGIB, as above - s/p transfusion of 2U pRBC on 10/30 for Hgb 7.4, and 1 u pRBC on 11/01 -Hgb: 7.4->8.9->9.2->8.8->7.7->9.2->9.2 -Transfuse Hgb < 8 (given CAD) or if symptomatic - CBC qAM while here Coronary Artery Disease - Patient has h/o multiple NSTEMIs, most recently requiring catheterization in 08/2019 (3x stent placement in RCA) - Hold Plavix/ASA -- as above. Anticipate holding Plavix on d/c, possibly ASA -- will discuss with GI - Continue hold metoprolol, atorvastatin, amlodipine - If HoTN (<90/60) in setting of anemia, consider hold of antihypertensives Dispo: Med/surg w/ Tele F/E/N/GI: Full liquid PPX: PPI/H2s in setting of UGIB. SCDs. No anticoagulation given GIB. Code: FULL CODE (2) Anemia: (3) CAD (coronary artery disease): Admission and Anticipated Discharge Date Admission Date: October 30, 2020 Results & Data Results & Data ([facility]) Vital Signs (Past 12 Hours) Vital Signs Temp Pulse Pulse Resp BP Pulse Ox 11/02/20 07:46 49 L 11/02/20 02:59 36.7 C 58 L 18 116/62 94 11/02/20 01:22 50 L 11/01/20 23:09 36.4 C L 55 L 18 130/65 98 Laboratory Results 11/02/20 11/02/20 11/01/20 Range/Units 05:37 05:37 14:01 WBC 5.81 (4.8-10.8) K/uL RBC 2.98 L (4.7-6.1) M/uL Hgb 9.2 L 9.2 L (14.0-18.0) g/dL Hct 27.4 L 27.7 L (42-52) % MCV 91.9 (80-100) fL MCH 30.9 (25-34) pg MCHC 33.6 (32-36) g/dL RDW Std Deviation 48.1 H (36.4-46.3) fL RDW Coeff of Kyra 14.5 (11.5-14.5) % Plt Count 133 (130-400) K/uL MPV 9.6 (7.4-10.4) fL Sodium 145 (136-145) mmol/L Potassium 3.8 (3.5-5.1) mmol/L Chloride 112 H (98-107) mmol/L Carbon Dioxide 30 (21-32) mmol/L Anion Gap 3.0 (3-11) BUN 35 H (7-18) mg/dl Creatinine 1.78 H (0.6-1.4) mg/dl Est Cr Clr Drug Dosing 30.4 ml/min Est GFR ( Amer) 41.1 Est GFR (Non-Af Amer) 35.5 BUN/Creatinine Ratio 19.6 (10-20) Glucose 97 (70-99) mg/dl Calcium 8.5 (8.5-10.1) mg/dl Crossmatch 10/30/20 Range/Units 07:55 WBC (4.8-10.8) K/uL RBC (4.7-6.1) M/uL Hgb (14.0-18.0) g/dL Hct (42-52) % MCV (80-100) fL MCH (25-34) pg MCHC (32-36) g/dL RDW Std Deviation (36.4-46.3) fL RDW Coeff of Kyra (11.5-14.5) % Plt Count (130-400) K/uL MPV (7.4-10.4) fL Sodium (136-145) mmol/L Potassium (3.5-5.1) mmol/L Chloride (98-107) mmol/L Carbon Dioxide (21-32) mmol/L Anion Gap (3-11) BUN (7-18) mg/dl Creatinine (0.6-1.4) mg/dl Est Cr Clr Drug Dosing ml/min Est GFR ( Amer) Est GFR (Non-Af Amer) BUN/Creatinine Ratio (10-20) Glucose (70-99) mg/dl Calcium (8.5-10.1) mg/dl Crossmatch See Detail Medications Administered Current Inpatient Medications Acetaminophen (Acetaminophen 325 Mg Tab) 650 mg PO Q4H PRN PRN Reason: Pain or Fever Stop: 11/29/20 12:31 Al Hydrox/Mg Hydrox/Simethicone (Aluminum/Magnesium Susp 30 Ml Udc) 15 ml PO Q4H PRN PRN Reason: Dyspepsia Stop: 11/29/20 12:31 Amlodipine Besylate (Amlodipine Besylate 5 Mg Tab) 10 mg PO QAM BRIGITTE Stop: 11/30/20 08:59 Last Admin: 11/01/20 07:27 Dose: 10 mg Documented by: Atorvastatin Calcium (Atorvastatin 40 Mg Tab) 80 mg PO HS BRIGITTE Stop: 11/29/20 20:59 Last Admin: 11/01/20 20:06 Dose: 80 mg Documented by: Pantoprazole Sodium 40 mg/ (Syringe) 10 mls @ 5 mls/min IV BID BRIGITTE Stop: 11/29/20 20:59 Last Admin: 11/01/20 20:06 Dose: 5 mls/min Documented by: Metoprolol Succinate (Metoprolol Succ 25mg Ext Rel Tab) 12.5 mg PO QAM BRIGITTE Stop: 11/30/20 08:59 Last Admin: 11/01/20 07:28 Dose: 12.5 mg Documented by: Nitroglycerin (Nitroglycerin Sl 0.4 Mg/Tab Tab) 0.4 mg SL UD PRN PRN Reason: Chest Pain Stop: 11/29/20 12:31 Ondansetron HCl (Ondansetron Inj 2 Mg/Ml 2 Ml Vial) 4 mg IV Q6H PRN PRN Reason: Nausea Stop: 11/29/20 12:31 Sucralfate (Sucralfate 1 Gm Tab) 1 gm PO QID BRIGITTE Stop: 11/29/20 16:59 Last Admin: 11/01/20 20:06 Dose: 1 gm Documented by:
[2020-11-02] MEDS: METOPROLOL SUCC 25MG EXT REL TAB PO SCH (08:23)
[2020-11-02] MEDS: amLODIPine BESYLATE 5 MG TAB PO SCH (08:23)
[2020-11-02] MEDS: PANTOprazole 40 MG in SYRINGE 0 ML IV SCH (08:24)
[2020-11-02] MEDS: SUCRALFATE 1 GM TAB PO SCH (08:24)
--- NOTE | 2020-11-02 08:24 | Gastroenterology Progress Note ---
Date of Service November 02, 2020 Assessment & Plan (1) Melena: Counts are stable. No current evidence of bleeding. Advance to soft diet. Maintain soft diet at home x 1 week after discharge discussed with patient. Recommend GI office visit follow-up in 2 weeks. Continue pantoprazole and QID Carafate. Optimally, would hold aspirin and Plavix x 1 week. Okay to discharge today from GI. Please refer to supervising physician addendum for further recommendations. 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 EMIL Kruse saw patient and I reviewed with her but patient DCed prior to me being available to round today. Subjective The patient reports that he is doing well this morning. S/P duodenal polyp resection approximately 2-2.5 cm on 10/22/2020 at [facility] [place]. Presented to the ED after passing out at home with melena and anemia. EGD by Dr. Eric Ellis 10/31/2020 demonstrated one oozing duodenal ulcer with a visible vessel. Treated with bipolar cautery. 3 clips (MR conditional) were placed. Patient denies further melena of hematochezia. Reports he has only passed very small amounts of stool since admission. Denies abdominal pain, nausea, or vomiting. He is eating a full liquid breakfast and tolerating it well. Review of Systems Review of Systems: All systems reviewed & are unremarkable except as noted in Subjective Physical Exam Constitutional: WD/WN, vitals as above ENMT: Ears: + hearing impairment (wears bilateral hearing aides) Neck: normal visual inspection Respiratory: normal respiratory effort; no respiratory distress and no labored breathing Cardiovascular: Rate/Rhythm: regular rate and regular rhythm Gastrointestinal (Abdomen): Inspection/Auscultation: normal bowel sounds Percussion/Palpation: abdomen soft; abdomen nontender Neurologic: PERRL, EOMI, accommodation nl, no face palsy, no dysarthria Psychiatric: A+Ox3, euthymic affect Results & Data ([facility]) Vital Signs (Past 12 Hours) Vital Signs Temp Pulse Pulse Resp BP Pulse Ox 11/02/20 08:09 36.9 C 60 18 122/74 97 11/02/20 07:46 49 L 11/02/20 02:59 36.7 C 58 L 18 116/62 94 11/02/20 01:22 50 L 11/01/20 23:09 36.4 C L 55 L 18 130/65 98 Laboratory Results - last 24 hr 10/30/20 11/01/20 11/02/20 07:55 14:01 05:37 WBC 5.81 RBC 2.98 L Hgb 9.2 L 9.2 L Hct 27.7 L 27.4 L MCV 91.9 MCH 30.9 MCHC 33.6 RDW Std Deviation 48.1 H RDW Coeff of Kyra 14.5 Plt Count 133 MPV 9.6 Sodium Potassium Chloride Carbon Dioxide Anion Gap BUN Creatinine Est Cr Clr Drug Dosing Est GFR ( Amer) Est GFR (Non-Af Amer) BUN/Creatinine Ratio Glucose Calcium Crossmatch See Detail 11/02/20 05:37 WBC RBC Hgb Hct MCV MCH MCHC RDW Std Deviation RDW Coeff of Kyra Plt Count MPV Sodium 145 Potassium 3.8 Chloride 112 H Carbon Dioxide 30 Anion Gap 3.0 BUN 35 H Creatinine 1.78 H Est Cr Clr Drug Dosing 30.4 Est GFR ( Amer) 41.1 Est GFR (Non-Af Amer) 35.5 BUN/Creatinine Ratio 19.6 Glucose 97 Calcium 8.5 Crossmatch
--- NOTE | 2020-11-02 09:22 | Discharge Summary ---
Date of Service November 02, 2020 Admission HPI Per Admitting Provider [id number] presents with melena presyncope and acute blood loss anemia. The patient underwent an endoscopy at [facility] on October 22 with removal of a 25 mm sessile duodenal polyp and clips were placed. CT scan in the ER shows these clips to be present there is no perforated bowel. Patient did have some increased heartburn over the last few days which preceded his event of melena and presyncope. The patient has a history of CAD status post stent placement August 2019 on aspirin Plavix and, BPH, CKD, hypertension Patient denies significant abdominal pain, he describes a burning sensation in his chest that is distinctly different from his previous anginal episodes that occurred during his NSTEMI's. Denies significant nausea. Patient states he does not regularly take Protonix but did take a dose last night and has not seemed to help. In the emergency department patient was hemodynamically stable he had no reproducible discomfort on exam his hemoglobin did drop 3 g from previous recorded hemoglobin and was heme positive from below per ER notes Admission Exam Per Admitting Provider The patient appeared well nourished and normally developed. Vital signs as documented. Head exam is normocephalic atraumatic no scleral icterus Neck is without JVD, thyromegaly, or carotid bruits. Lungs are clear to auscultation, no focal loss of breath sounds Cardiac exam, Rhythm is regular.. No murmurs, rubs or gallops. Abdominal exam reveals normal bowel sounds, soft non tender, no masses Extremities are nonedematous and both pedal pulses are present Neurologic exam is alert and oriented, no focal loss of strength or sensation Skin is without bruises or rashes Psychologically is without concerns for anxiety or depression Principal Diagnosis acute blood loss anemia in the setting of Upper GI bleed secondary to recent duodenal clipping complicated by coronary artery disease Discharge Exam General: No acute distress HEENT: Normocephalic atraumatic Neck: No significant lymphadenopathy, trachea midline, normal to visual inspection Cardiac: Regular rate and rhythm, normal S1, normal S2, I did not appreciated any significant murmurs rubs or gallops, I did not appreciate any significant pedal edema, No calf tenderness, capillary refill is less than 3 seconds Respiratory: Clear to auscultation bilaterally with symmetrical chest rise, I did not appreciate any significant wheezes, rales, rhonchi, no increased work of breathing GI: Normal bowel sounds, soft, nontender in all 4 quadrants, nondistended MSK: No sensory or motor changes, moves all extremities without issue, extremities are warm and well-perfused Neuro: Alert and oriented x4 Psych: Calm, cooperative, logical thought process Discharge Data Allergies Allergy/AdvReac Type Severity Reaction Status Date / Time amoxicillin Allergy Intermediate itchy/body Verified 10/30/20 08:20 shaking Consultations 10/30/20 10:42 ED Decision to Admit Stat 10/30/20 12:32 Consult Gastroenterology Routine Procedures Performed Operation Date: 10/31/20 14:00 Actual Procedures p Esophagogastroduodenoscopy(Not Applicable) - Eric Ellis Ordered Studies 10/30/20 08:24 CT abd pelvis wo con Stat Hospital Course (1) Upper GI bleed: Jose Rosales is a 80-year-old male with a notable history of recent duodenal polypectomy on 10/22, CAD (with NSTEMIs) s/p triple stent placement in 08/2019, and CKD Stage III who present to [facility] on 10/30 for evaluation of melena and presyncope, subsequently found to have acute blood loss anemia and CT findings concerning for clip shifting from recent polypectomy. He required transfusion of 2U pRBC on 10/31, and again in the morning of 11/01. He has remained hemodynamically stable since that time. Upper GI Bleed On 10/22 patient underwent polypectomy of duodenal polyp (5 mm sessile duodenal polyp) and clipped placement at [facility]. Given the temporality of his procedure this is likely the source of his current bleed prior to arrival he was experiencing 2 days of melena. On arrival GI was consulted and performed an EGD on 10/31 that demonstrated oozing from the previous duodenal procedure site. They cauterized and placed new clips. Patient has improved since that time but no more episodes patient is improved since that time, his hemoglobin has stabilized at 9. The day of discharge patient reported feeling well, tolerating a soft diet, per discussion with GI patient stable for discharge. - GI consulted, appreciate insight and recommendations: - Add Carafate q.i.d. - EGD 10/31: Demonstrated oozing from previous duodenal procedural site. Cauterized and new clips inserted. - Hold DAPT (Plavix, ASA) while here - 2 large-bore PIVs - IV Famotidine, Protonix - OK to proceed with Full Liquid Diet Acute Blood Loss Anemia - Requiring an additional 1U pRBC on 11/01 AM - Secondary to UGIB, as above - s/p transfusion of 2U pRBC on 10/30 for Hgb 7.4, and 1 u pRBC on 11/01 -Hgb: 7.4->8.9->9.2->8.8->7.7->9.2->9.2 -Recommend follow-up in outpatient CBC with a primary care physician in 1 week Coronary Artery Disease - Patient has h/o multiple NSTEMIs, most recently requiring catheterization in 08/2019 (3x stent placement in RCA) - Resumed metoprolol, amlodipine, statin Dispo: Home F/E/N/GI: Tolerating soft diet PPX: PPI/H2s in setting of UGIB. SCDs. No anticoagulation given GIB. Code: FULL CODE Total Time Total Time Spent Total Time Spent (In Minutes): 37.5 Discharge Plan Discharge Items Patient Disposition: Home - Self-Care Reason For Visit: GI ASSESSMENT Discharge Diagnosis: Acute blood loss anemia in the setting of Upper GI bleed secondary to recent duodenal clipping complicated by coronary artery disease Activity: Resume your previous activity Non-emergency contact: Helmet Hat Puncher Call non-emergency contact if: you have any medication questions, your symptoms worsen and your temperature is above 101.5 Follow-up/Referrals: Luis Enrique Hernandez DO [Primary Care Provider] - 11/05/20 9:10 am (You have an appt with Ashley Deirdretanisha on 11/05 at 0910am. Please arrive 15 minutes prior to your appt. It is important that you keep this appt, if for any reason this appt does not fit your schedule please call [phone] to reschedule. ) Diet: Regular Addtl Attending Provider Instructions: Care instructions: Jose Rosales is a 80-year-old male with a notable history of recent duodenal polypectomy on 10/22, CAD (with NSTEMIs) s/p triple stent placement in 08/2019, and CKD Stage III who presented to [facility] on 10/30 for evaluation of melena and presyncope, and was subsequently found to have acute blood loss anemia and CT findings concerning for clip shifting from recent polypectomy. He was admitted to medical telemetry for work-up and treatment of his upper GI bleed. Standard upper GI bleed protocol was followed, and 2 large-bore IVs were placed alongside intravenous PPIs with gastrointestinal consultation. During his first night of admission, he was found to have a hemoglobin of 7.3, which prompted transfusion of 2 units of packed red blood cells (threshold Hgb < 8 to transfuse given CAD) the following day, he underwent upper endoscopy, which showed oozing. He tolerated these well. From the previous surgical site of the polypectomy. The site was subsequently cauterized and reclipped. He tolerated this procedure well and without difficulty. The following morning, his hemoglobin again returned under 8 (at 7.7), requiring an additional 1 unit of packed red blood cells. He remained hemodynamically stable and asymptomatic from an anemic standpoint throughout his course. His final hemoglobin prior to discharge was 9.2. He was gradually allowed to resume his diet. By his time of discharge, he was no longer having melanotic bowel movements and remains symptom-free from an anemic standpoint. -On discharge please continue the soft diet as was instructed by you fuel cell engineer. If you have any questions please feel free to contact them for further assistance. -see sttached document for further information on a soft diet -Please do not take your scheduled aspirin or clopidogrel for 1 week, and resume next Monday11/09/20 -Please continue to take Carafate with meals and and at bedtime these medications been called into [facility] on sabbatical. A discharge summary will be sent to your primary care physician to ensure continuity of care. Please bring this discharge summary with you to your next office appointment so that your provider can review it at that time. Follow-up appointments: - Keep all your follow-up appointments as already scheduled. If you cannot make an appointment, notify your provider. - Please call to request a follow-up appointment with your primary care physician within one week of discharge. Please let us know if you are unable to obtain an appointment Follow-up labs: - Please go to a lab nearest you and obtain the requested lab work. Please have this completed at least 3 hours before your doctor's appointment (or the day before your appointment if possible). Medications: - Your medication list has been reviewed and reconciled upon discharge to ensure accuracy and continuity of care. - You are provided with a list of all your current medications at this time. Please review this list closely and make note of any changes. - Please take all of your medications exactly as prescribed. - Tell your primary care provider if you cannot afford your medications. - Call your primary care provider if you are having any side effects or any other problems. - Call your primary care provider before taking any over the counter medications or supplements, including herbals and vitamins, because some of these may interact with your current medications and/or make your symptoms worse. Symptoms: Please call your primary care provider for symptoms including, but not limited to: fevers (temperatures greater than 100.4), chills, intractable nausea or vomiting, diarrhea, rash, shortness of breath, bleeding, pain, or if you experience any worsening of the symptoms that brought you to the hospital. For EMERGENCY and VERY SERIOUS health-related issues, such as chest pain, shortness of breath, or sudden onset of the symptoms that brought you to the hospital, you may need to call 911 or go directly to the Emergency Room It has been our privilege to take care of you during your hospital stay. And Above All Else Feel Better! Best Wishes, Gage Ceballos MD PGY2 Resident, Family & Community Medicine [facility] [address] [facility] Residency at [facility] - [address], [address] : [place] [address] Pending Studies at Discharge: No Stand-Alone Forms: [facility], Smoking Cessation Medications and DC Order Prescriptions: New sucralfate [Carafate] 100 mg/mL suspension 1 g PO ACHS 28 Days Qty: 280 RF: 0 Continued amlodipine [Norvasc] 10 mg tablet 10 mg PO QAM Qty: 90 RF: 3 sildenafil (pulm.hypertension) 20 mg tablet 20 mg PO DAILY MDD 100 mg PRN (Reason: sexual activity) Qty: 60 RF: 2 atorvastatin 80 mg tablet 80 mg PO HS Qty: 90 RF: 3 nitroglycerin 0.4 mg tablet, sublingual 0.4 mg sublingual DIRECTED PRN (Reason: Chest Pain) Qty: 20 RF: 3 ascorbic acid (vitamin C) 500 mg tablet 500 mg PO QDD RF: 0 coenzyme Q10 [Co Q-10] 200 mg capsule 200 mg PO QAM RF: 0 melatonin 5 mg capsule 5 mg PO HS PRN (Reason: sleep) RF: 0 resveratrol 100 mg capsule 100 mg PO QAM RF: 0 cholecalciferol (vitamin D3) [Vitamin D3] 1,000 unit Capsule 0 unit PO QDD RF: 0 turmeric 400 mg capsule 400 mg PO QDD RF: 0 aspirin 81 mg Tablet,Delayed Release (Dr/Ec) 81 mg PO QDD RF: 0 clopidogrel 75 mg tablet 75 mg PO QAM RF: 0 metoprolol succinate [Toprol XL] 25 mg tablet extended release 24 hr 12.5 mg PO QAM Qty: 90 RF: 3 clindamycin HCl 150 mg capsule 600 mg PO UD RF: 0 magnesium oxide 400 mg magnesium Tablet 400 mg PO QDD RF: 0 Discharge Orders: Discharge Order (Routine); Ordered 11/02/20 Ordered By: Gage Mills/Other Patient Handouts: Discharge Instructions- Eating a ..., ED Soft Diet Admission Data Admit Date/Time: 10/30/20 10:37 Attending Provider: Vish Falcon Admit Provider: Chris Matta Primary Care Provider: Luis Enrique Hernandez Other Providers: Chris Matta ; Nigel Hartley Other Interventions: Discharge Summary Assessment (RN) Last Done: 11/02/20 10:35 Supervising Physician Co-Signing Physician Notes I personally examined the patient and verified all swanson points of history and exam, discussed case, and agree with decision making with Dr Ceballos. Feeling better and wants to go home. Eating okay. Vitals noted, in general he is awake and alert pleasant no distress. HEENT normocephalic atraumatic mucous membranes moist. Breathing unlabored no accessory muscle use good effort. Skin shows no rashes no pallor or icterus. Neuro shows no focal deficits. Acute upper GI bleed with acute blood loss anemia requiring 3 units of packed red cell transfusionhappening status post duodenal polypectomy and clipping about 10 days ago. Now status post repeat EGD. Clinically bleeding appears to have stopped. Stable for home. Hold antiplatelets for now. Coronary artery diseasestenting greater than a year agono symptoms. For now hold both aspirin and Plavix for about 7 days, then resume aspirin, if he has no recurrent bleeding, resume Plavix about 3 to 4 days later. Certainly if he has any ongoing or recurrent bleeding, then considerations may need to be given to reducing him to a single antiplatelet agent, but given the context, once he has a chance to heal, it seems quite likely he will do okay back on both. Resident Activity Tracking Resident Involvement: Resident Care Provided Care Provided: Adult Hospital Medicine
--- NOTE | 2020-11-02 17:18 | Billing Data ---
Date of Service November 02, 2020 Coding Level of Care Code D/C Day Management <30 mins
== END 2020-11-02 13:00 | disposition home or self-care (01) | DRG 919 ==
LOC: ED 07:04 → 2N 10:37 → SUATTDRO 10:37 → 2N 12:09

== ENCOUNTER 2020-12-20 05:56 | Observation (INO) ==
[2020-12-20 06:25] LABS: Basophils # (auto) 0.02 K/uL (0-0.2); Basophils % (auto) 0.3 %; Eosinophils # (auto) 0.23 K/uL (0-0.5); Eosinophils % (auto) 3.4 %; Hematocrit (blood only) 37.8 % (42-52); Hemoglobin 12.1 g/dL (14.0-18.0); Immature Granulocytes # (auto) 0.01 K/uL (0.00-0.02); Immature Granulocytes % (auto) 0.1 %; Lymphocytes # (auto) 2.15 K/uL (1.2-3.4); Lymphocytes % (auto) 32.2 %; Mean Corpuscular Hemoglobin 29.2 pg (25-34); Mean Corpuscular Volume 91.3 fL (80-100); Mean Platelet Volume 9.4 fL (7.4-10.4); Neutrophils # (auto) 3.66 K/uL (1.4-6.5); Platelet Count 215 K/uL (130-400); RDW Coefficient of Variation 15.3 % (11.5-14.5); RDW Standard Deviation 51.5 fL (36.4-46.3); Red Blood Count 4.14 M/uL (4.7-6.1); White Blood Count 6.67 K/uL (4.8-10.8)
[2020-12-20 06:36] LABS: Partial Thromboplastin Time 25.7 Seconds (21.0-31.0); Prothrombin Time 9.7 Seconds (9.0-12.0)
[2020-12-20 06:41] LABS: Alanine Aminotransferase 26 U/L (12-78); Albumin Level 3.7 gm/dl (3.4-5.0); Aspartate Aminotransferase 19 U/L (15-37); BUN Creatinine Ratio 12.8 (10-20); Blood Urea Nitrogen 21 mg/dl (7-18); Calcium 9.3 mg/dl (8.5-10.1); Carbon Dioxide 26 mmol/L (21-32); Chloride 108 mmol/L (98-107); Creatinine Clr Calc Pharmacy 34.1 ml/min; Est GFR (African American) 45.4; Est GFR (Non-African American) 39.2; Glucose 110 mg/dl (70-99); Potassium 3.9 mmol/L (3.5-5.1); Sodium 140 mmol/L (136-145)
[2020-12-20 06:46] LABS: Albumin Globulin Ratio 1.1 (0.9-2); Alkaline Phosphatase 83 U/L (45-117); Bilirubin,Total 0.5 mg/dl (0.2-1); Globulin 3.4 gm/dl (2.5-4.0); Total Protein 7.1 gm/dl (6.4-8.2); Troponin I < 0.015 ng/ml (0-0.045)
[2020-12-20] MEDS ORDERED: SODIUM CHLORIDE 0.9% 1000ML 500 ML IV ONE (06:48)
--- NOTE | 2020-12-20 06:59 | Emergency Department Note ---
Impression & Plan Chest discomfort, Frequent PVCs, Ascending aortic aneurysm, CAD (coronary artery disease) ED Provider Note NAME: LUCILA WALKER AGE: 80 SEX: M : 1940 ARRIVES VIA: Walk-In INFORMANT: Patient, ED PROVIDER(S): Tani Rao MD CHIEF COMPLAINT: palpitations HPI: This is a 80-year-old male who presents emergency department complaining of palpitations. The patient reports he woke up in a cold sweat this morning. He reports he normally has cold sweats however this 1 was much worse. He then began palpating his carotid artery and felt that his heart was skipping beats. He has never noticed this before. He noted that it was quite frequent. He was also having chest pain at the time. He denies any fevers or chills. Patient has a history of cardiac stents and is currently on Plavix. He describes the pain as an ache with no radiation. He reports nothing made the pain better or worse. He is currently pain-free. The patient took his amiodarone this morning and came to the emergency department. ROS: See above HPI for pertinent positives & negatives. A total of 10 systems reviewed and were otherwise negative. PAST MEDICAL HISTORY: See Below PAST SURGICAL HISTORY: See Below FAMILY HISTORY: See Below SOCIAL HISTORY: See Below HOME MEDICATIONS: See Below ALLERGIES: See Below VITALS: See Below PHYSICAL EXAMINATION: VITAL SIGNS - Vital signs and nursing notes were reviewed. GENERAL - 80-year-old male appearing stated age who is in no acute distress. Communicates well with provider and answers questions appropriately. SKIN - Without rashes. HEAD - NC/AT. EYES - PERRL with EOMI bilaterally. Sclera anicteric. Palpebral conjunctiva pink and moist with no injection noted. EARS - No deformities of external structures noted on gross examination bilaterally. NOSE - Midline and without cyanosis. No epistaxis or purulent drainage noted. Septum midline without deviation or septal hematoma noted. MOUTH/OROPHARYNX - Without perioral cyanosis. Buccal mucosa pink and moist and without leukoplakia. Tongue midline with equal elevation of palate bilaterally. No tonsillar hypertrophy, erythema, or exudates noted. NECK - Neck with FROM. Supple to palpation. lymphadenopathy noted. No nuchal rigidity. LUNGS - Chest wall symmetric without accessory muscle use, intercostals retractions, or central cyanosis. Normal vesicular breath sounds CTA B/L. No w heezes, rales, or rhonchi appreciated. CARDIAC - RRR with S1/S2. No murmur, rubs, or gallops appreciated. ABDOMEN - Abdominal contour without pulsations or visible masses. BS normoactive all four quadrants. No tenderness, palpable masses, hepatosplenomegaly, or ascites noted. EXTREMITIES - No clubbing or peripheral cyanosis. No pretibial edema present. +3/5 radial, posterior tibial, and dorsalis pedis pulses palpated throughout. +5/5 strength noted in UE/LE bilaterally. NEUROLOGIC - Cranial nerves II through XII grossly intact. Sensory intact to light touch throughout. Patellar reflexes +2/4. PSYCH - A&Ox3 and cooperates fully with examiner. Pt is very pleasant and interacts well with examiner. MEDICAL DECISION MAKING: Patient was seen and evaluated as above in room B9. Review was performed of nursing notes and vital signs. I did review pertinent previous visits and patient history. After obtaining a thorough history and physical examination the above work up was performed. This 80-year-old male who presents emergency department complaining of chest pain diaphoresis as well as palpitations. I did discuss the case with the top lifter on-call who asked that the patient be admitted to the hospital. The patient does not have an elevation in his troponin does have a slight elevation in his white blood cell count. Both patient and are in agreement with the treatment plan. An order was placed for continuous cardiac monitoring. The monitor shows a rate of 56 with Sinus bradycardia rhythm. The patient was evaluated during a period of high volume and high acuity during the global COVID-19 pandemic, and that diagnosis was suspected/considered upon their initial presentation. Their evaluation, treatment and testing was consistent with current guidelines for patients who present with complaints or symptoms that may be related to COVID-19. Patient was seen while provider was wearing PPE. Triage Nursing notes reviewed. Prior medical records reviewed Vital Signs: reviewed and remarkable for no significant abnormalities Differential diagnosis: Cardiac ischemia, aortic dissection, pulmonary embolism, pneumothorax, pneumonia, pericarditis, myocarditis, esophageal rupture, GERD, cholecystitis, pancreatitis, musculoskeletal, as well as other pathologies. ER treatment provided: See below Diagnostics interpreted by me: ECG: EKG shows a sinus bradycardia with frequent PVCs no ST elevation or depression QTC is 416 ventricular rate of 57. EKG is compared to 10/30/2020 PVCs are now present premature atrial complexes are no longer present Laboratory studies: As stated above and show below. Imaging studies: See below Consultation(s): Cardiology, Internal medicine Past Med/Surg History Medical History Arthritis Atypical chest pain BPH (benign prostatic hyperplasia) CAD (coronary artery disease) Carotid artery plaque Chronic cerebral ischemia Chronic kidney disease Coronary artery disease Dark stools Duodenal ulcer due to removal of duodenal polyp - caused acute blood loss anemia Elevated PSA Former smoker Gastro-esophageal reflux disease without esophagitis Hearing deficit Hypercholesteremia Hypercholesterolemia Hypertension Melena Mild mitral regurgitation NSTEMI (non-ST elevated myocardial infarction) (2019) 09/10/2019--follows with Dr. Orourke Numbness of right anterior thigh Obstructive sleep apnea On anticoagulant therapy plavix daily Polyneuropathy Polyp of duodenum removed at [facility] - 10/2020 Renal cyst Sinus bradycardia Spells of decreased attentiveness Spondylolysis Tinnitus Urethral stricture Weakness Surgical History History of bilateral cataract extraction History of cardiac catheterization x3--first 2007 ? in [place] no stents placed --09/10/2019 1 ELSA placed and 09/12/2019 3 ELSA placed @ [facility] History of coronary angiogram 2007 History of heart artery stent x4---1 ELSA placed 09/10/2019 and 3 ELSA placed 09/12/2019 @ [facility] History of knee replacement right History of prostate biopsy benign History of umbilical hernia repair S/P laparoscopic hernia repair umbilical Family History Brother Pure hypercholesterolemia Hypertension Sister Family history of diabetes mellitus Mother , age 95 Dementia Father , age 90 Coronary heart disease CABG Grandmother (Paternal) Family history of diabetes mellitus Other No family history of adverse response to anesthesia Social History Smoking Status: Former smoker Tobacco Type: Cigarettes packs per day: 0.5; Years Smoked: 15; Second Hand Exposure: Yes (mom smoked); Hx Alcohol Use: Yes Alcohol type: beer and wine Alcohol Intake Frequency: 2-4 x/Month Hx Substance Use: No Preferred Language: Italian Communication Ability: Effective Rn Delivery Required: No Beliefs That Will Affect Care: None marital status: Current Living Situation: Spouse 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 How many Children do You have: 2 Feels Safe at Home: Yes Assistive Devices: Glasses Allergies Allergies Allergy/AdvReac Type Severity Reaction Status Date / Time amoxicillin Allergy Intermediate itchy/body Verified 12/20/20 07:34 shaking Home Meds Home Medications Medication Instructions Recorded Confirmed cholecalciferol (vitamin D3) 0 unit PO QDD 03/06/19 12/20/20 [Vitamin D3] ascorbic acid (vitamin C) 500 mg 500 mg PO QDD tab 05/29/19 12/20/20 tablet aspirin 81 mg PO QDD 06/19/19 12/20/20 coenzyme Q10 200 mg capsule 200 mg PO QAM cap 08/26/19 12/20/20 melatonin 5 mg capsule 5 mg PO HS PRN cap 08/26/19 12/20/20 resveratrol 100 mg capsule 100 mg PO QAM cap 08/26/19 12/20/20 turmeric 400 mg capsule 400 mg PO QDD cap 12/02/19 12/20/20 clopidogrel 75 mg PO QAM 04/15/20 12/20/20 clindamycin HCl 600 mg PO UD 07/23/20 12/20/20 magnesium oxide 400 mg PO QDD 10/30/20 12/20/20 ferrous sulfate 325 mg (65 mg 325 mg PO DAILY 12/02/20 12/20/20 iron) tablet Previous Rx's Medication Instructions Recorded nitroglycerin 0.4 mg sublingual 0.4 mg SUBLINGUAL DIRECTED PRN 09/30/19 tablet #20 tab amlodipine 10 mg tablet 10 mg PO QAM #90 tab 02/11/20 metoprolol succinate [Toprol XL] 12.5 mg PO QAM #90 tab 04/16/20 sildenafil (pulm.hypertension) 20 20 mg PO DAILY PRN #60 tab MDD 100 09/09/20 mg tablet mg atorvastatin 80 mg tablet 80 mg PO HS #90 tab 09/21/20 Results & Data (ED) Vital Signs Vital Signs - 24 hr 12/20/20 05:58 12/20/20 06:08 12/20/20 06:10 Temperature 36.5 C Temperature Source Temporal Artery Scan Pulse Rate 88 66 64 Pulse Rate from SpO2 Sensor 57 L Respiratory Rate 18 19 22 Respiratory Effort / Characteristics Non-Labored Respiratory Depth Normal Blood Pressure 142/81 H 148/77 H Blood Pressure Mean 101 100 Pulse Oximetry 98 98 98 Oxygen Delivery Method Room Air Room Air Sepsis Recent Fever Within 48 Hours No Sepsis New/Unexplained Change in Mental Status No Sepsis Action Taken by Nursing No Action Required 12/20/20 06:31 Temperature Temperature Source Pulse Rate 56 L Pulse Rate from SpO2 Sensor Respiratory Rate 14 Respiratory Effort / Characteristics Respiratory Depth Blood Pressure 133/70 Blood Pressure Mean 91 Pulse Oximetry 98 Oxygen Delivery Method Sepsis Recent Fever Within 48 Hours Sepsis New/Unexplained Change in Mental Status Sepsis Action Taken by Nursing Laboratory Data Result diagrams: 12/20/20 06:13 12/21/20 06:04 Lab Results 12/20/20 12/20/20 12/20/20 Range/Units 06:13 06:13 06:13 WBC 6.67 (4.8-10.8) K/uL RBC 4.14 L (4.7-6.1) M/uL Hgb 12.1 L (14.0-18.0) g/dL Hct 37.8 L (42-52) % MCV 91.3 (80-100) fL MCH 29.2 (25-34) pg MCHC 32.0 (32-36) g/dL RDW Std Deviation 51.5 H (36.4-46.3) fL RDW Coeff of Kyra 15.3 H (11.5-14.5) % Plt Count 215 (130-400) K/uL MPV 9.4 (7.4-10.4) fL Immature Gran % (Auto) 0.1 % Neut % (Auto) 55.0 % Lymph % (Auto) 32.2 % Smith % (Auto) 9.0 % Eos % (Auto) 3.4 % Baso % (Auto) 0.3 % Neut # (Auto) 3.66 (1.4-6.5) K/uL Lymph # (Auto) 2.15 (1.2-3.4) K/uL Smith # (Auto) 0.60 H (0.11-0.59) K/uL Eos # (Auto) 0.23 (0-0.5) K/uL Baso # (Auto) 0.02 (0-0.2) K/uL Immature Gran # (Auto) 0.01 (0.00-0.02) K/uL PT 9.7 (9.0-12.0) Seconds INR 1.0 (0.9-1.1) APTT 25.7 (21.0-31.0) Seconds PTT Ratio 1.0 Sodium 140 (136-145) mmol/L Potassium 3.9 (3.5-5.1) mmol/L Chloride 108 H (98-107) mmol/L Carbon Dioxide 26 (21-32) mmol/L Anion Gap 6.0 (3-11) BUN 21 H (7-18) mg/dl Creatinine 1.64 H (0.6-1.4) mg/dl Est Cr Clr Drug Dosing 34.1 ml/min Est GFR ( Amer) 45.4 Est GFR (Non-Af Amer) 39.2 BUN/Creatinine Ratio 12.8 (10-20) Glucose 110 H (70-99) mg/dl Calcium 9.3 (8.5-10.1) mg/dl Phosphorus (2.5-4.9) mg/dl Magnesium (1.8-2.4) mg/dl Total Bilirubin 0.5 (0.2-1) mg/dl AST 19 (15-37) U/L ALT 26 (12-78) U/L Alkaline Phosphatase 83 (45-117) U/L Total Creatine Kinase (39-308) U/L CK-MB (CK-2) (0.5-3.6) ng/ml CK/CKMB % Calc Troponin I < 0.015 (0-0.045) ng/ml Total Protein 7.1 (6.4-8.2) gm/dl Albumin 3.7 (3.4-5.0) gm/dl Globulin 3.4 (2.5-4.0) gm/dl Albumin/Globulin Ratio 1.1 (0.9-2) COVID-19 Eval Order SARS-CoV-2 (PCR) (Negative) Influenza Type A (PCR) (Neg) Influenza Type B (PCR) (Neg) RSV (RT-PCR) (Neg) 12/20/20 12/20/20 12/20/20 Range/Units 06:13 07:50 07:50 WBC (4.8-10.8) K/uL RBC (4.7-6.1) M/uL Hgb (14.0-18.0) g/dL Hct (42-52) % MCV (80-100) fL MCH (25-34) pg MCHC (32-36) g/dL RDW Std Deviation (36.4-46.3) fL RDW Coeff of Kyra (11.5-14.5) % Plt Count (130-400) K/uL MPV (7.4-10.4) fL Immature Gran % (Auto) % Neut % (Auto) % Lymph % (Auto) % Smith % (Auto) % Eos % (Auto) % Baso % (Auto) % Neut # (Auto) (1.4-6.5) K/uL Lymph # (Auto) (1.2-3.4) K/uL Smith # (Auto) (0.11-0.59) K/uL Eos # (Auto) (0-0.5) K/uL Baso # (Auto) (0-0.2) K/uL Immature Gran # (Auto) (0.00-0.02) K/uL PT (9.0-12.0) Seconds INR (0.9-1.1) APTT (21.0-31.0) Seconds PTT Ratio Sodium (136-145) mmol/L Potassium (3.5-5.1) mmol/L Chloride (98-107) mmol/L Carbon Dioxide (21-32) mmol/L Anion Gap (3-11) BUN (7-18) mg/dl Creatinine (0.6-1.4) mg/dl Est Cr Clr Drug Dosing ml/min Est GFR ( Amer) Est GFR (Non-Af Amer) BUN/Creatinine Ratio (10-20) Glucose (70-99) mg/dl Calcium (8.5-10.1) mg/dl Phosphorus 3.4 (2.5-4.9) mg/dl Magnesium 2.4 (1.8-2.4) mg/dl Total Bilirubin (0.2-1) mg/dl AST (15-37) U/L ALT (12-78) U/L Alkaline Phosphatase (45-117) U/L Total Creatine Kinase 123 (39-308) U/L CK-MB (CK-2) < 1.0 (0.5-3.6) ng/ml CK/CKMB % Calc TNP Troponin I (0-0.045) ng/ml Total Protein (6.4-8.2) gm/dl Albumin (3.4-5.0) gm/dl Globulin (2.5-4.0) gm/dl Albumin/Globulin Ratio (0.9-2) COVID-19 Eval Order CovFluRsv at [facility] SARS-CoV-2 (PCR) NEGATIVE (Negative) Influenza Type A (PCR) Negative (Neg) Influenza Type B (PCR) Negative (Neg) RSV (RT-PCR) Negative (Neg) Administered Medications Discontinued Medications Amlodipine Besylate (Amlodipine Besylate 5 Mg Tab) 10 mg PO QAM [facility] Stop: 01/20/21 08:59 Last Admin: 12/21/20 09:56 Dose: 10 mg Documented by: [id number] Ascorbic Acid (Ascorbic Acid 500 Mg Tab) 500 mg PO QDD [facility] Stop: 01/19/21 16:29 Last Admin: 12/20/20 15:48 Dose: 500 mg Documented by: [id number] Aspirin (Aspirin 81 Mg Ectab) 81 mg PO QDD [facility] Stop: 01/19/21 16:29 Last Admin: 12/20/20 15:49 Dose: 81 mg Documented by: [id number] Atorvastatin Calcium (Atorvastatin 40 Mg Tab) 80 mg PO HS [facility] Stop: 01/19/21 20:59 Last Admin: 12/20/20 20:51 Dose: 80 mg Documented by: [id number] Clopidogrel Bisulfate (Clopidogrel Bisulfate 75 Mg Tab) [facility]: 01/20/21 08:59 Last Admin: 12/21/20 09:56 Dose: 75 mg Documented by: [id number] Ferrous Sulfate (Ferrous Sulfate 325 Mg Tab) 325 mg PO DAILY [facility] Stop: 01/20/21 08:59 Last Admin: 12/21/20 09:56 Dose: Not Given Documented by: [id number] Heparin Sodium (Porcine) (Heparin Sod 5,000 Unit/0.5 Ml Vial) 5,000 units SQ TID [facility] Stop: 01/20/21 08:59 Last Admin: 12/21/20 09:56 Dose: Not Given Documented by: [id number] Sodium Chloride (Nss 1000ml) 500 mls @ 999 mls/hr IV .Q31M ONE Stop: 12/20/20 07:18 Last Infusion: 12/20/20 08:27 Dose: 0 mls/hr Documented by: [id number] Admin: 12/20/20 07:55 Dose: 999 mls/hr Documented by: [id number] Sodium Chloride (Nss 1000ml) 1,000 mls @ 80 mls/hr IV .[id number] [facility] Stop: 12/21/20 00:24 Last Infusion: 12/21/20 01:58 Dose: 0 mls/hr Documented by: [id number] Admin: 12/20/20 13:24 Dose: 80 mls/hr Documented by: [id number] Ioversol (Optiray 320 125ml) 120 ml IV ONCE ONE Stop: 12/20/20 10:34 Last Admin: 12/20/20 10:34 Dose: 120 ml Documented by: [id number] Magnesium Oxide (Magnesium Oxide 400 Mg Tab) 400 mg PO QDD [facility] Stop: 01/19/21 16:29 Last Admin: 12/20/20 15:49 Dose: 400 mg Documented by: [id number] Metoprolol Succinate (Metoprolol Succ 25mg Ext Rel Tab) 12.5 mg PO QAM [facility] Stop: 01/20/21 08:59 Last Admin: 12/21/20 09:56 Dose: 12.5 mg Documented by: [id number] Metoprolol Tartrate (Metoprolol Tartrate 1 Mg/Ml Vial) 5 mg IV NOW [facility] Stop: 12/20/20 09:39 Last Admin: 12/20/20 09:59 Dose: Not Given Documented by: [id number] Vitamin D (Cholecalciferol 1,000 Units 25 Mcg Tab) 1,000 units PO QDD [facility] Stop: 01/19/21 16:29 Last Admin: 12/20/20 15:49 Dose: 1,000 units Documented by: [id number] Imaging Data Radiologist's Impression: Chest X-Ray 12/20/20 06:05 SINGLE VIEW CHEST CLINICAL HISTORY: Atypical chest pain. FINDINGS: 2 AP, portable, upright chest radiographs are compared to study dated 10/30/2020 and correlated with chest CT dated 04/15/2020. The heart is enlarged noting atherosclerotic calcification of the thoracic aorta. The lungs and pleural spaces are clear. No pneumothorax is seen. The skeletal structures are osteopenic. The bony thorax is grossly intact. IMPRESSION: Cardiomegaly with no active disease in the chest. ACT 112: Negative or not required by law. Electronically signed by: Jv Mondragon M.D. 12/20/2020 8:11 AM Chest CTA 12/20/20 09:37 CT ANGIOGRAM OF THE CHEST COMBO CLINICAL HISTORY: Atypical chest pain. Known thoracic aortic aneurysm. COMPARISON STUDY: Chest CT dated 04/15/2020. TECHNIQUE: Before and following the IV administration of 120 cc of Optiray 320, CT angiogram of the chest was performed from the thoracic inlet to the upper abdomen utilizing the dissection protocol. Images are reviewed in the axial, sagittal, and coronal planes. 3-D MIPS images are created and assessed. IV contrast was administered without complication. A dose lowering technique was utilized adhering to the principles of ALARA. CT DOSE: 670.45 mGy.cm FINDINGS: Thyroid: Imaged portions of the thyroid gland are normal in size and attenuation. Thoracic aorta: No intramural hematoma is seen on the unenhanced series. There is atherosclerotic calcification of the thoracic aorta. Aneurysmal dilatation of the ascending thoracic aorta is unchanged from previous. This measures up to 4.6 cm in diameter. There is ectasia of the distal arch/proximal descending thoracic aorta which measures up to 3.7 cm in diameter. The arch demonstrates standard 3- vessel anatomy. No dissection is seen. The arch vessels are widely patent. Pulmonary vasculature: The main pulmonary arteries are dilated suggesting pulmonary artery hypertension. There are filling defects within the main, lobar, or segmental pulmonary arteries to suggest pulmonary embolus. Heart: The heart is enlarged and without pericardial effusion. The coronary arteries are densely calcified. Lungs and pleural spaces: There is no airspace consolidation or pleural effusion. Mild scarring/atelectasis is noted at the lung bases. The trachea and central airways are clear. Mediastinum: There is no mediastinal lymphadenopathy. Preeti: Clear. Axillae: There is no axillary lymphadenopathy. Upper abdomen: There is a small hiatal hernia. A 2.7 cm complex/hyperdense cyst is noted in the upper pole of the left kidney. A 1.2 cm hypervascular lesion in the left lobe of liver on image #295 is unchanged and likely represents a flash filling hemangioma. Skeletal structures: The skeletal structures are osteopenic. There is a mild chronic superior endplate compression deformity of L2. No lytic or blastic bony lesions are seen. IMPRESSION: 1. Aneurysmal dilatation of the ascending thoracic aorta is unchanged. This measures up to 4.6 cm in diameter. 2. There is no dissection. 3. There is no evidence of pulmonary embolus in the main, lobar, or segmental pulmonary arteries. 4. The lungs are clear. 5. Advanced coronary artery calcification. 6. Additional findings as above. ACT 112: Negative or not required by law. Electronically signed by: Jv Mondragon M.D. 12/20/2020 10:46 AM Discharge Plan Visit Data Chief Complaint: Arrhythmia/Palpitations Stated Complaint: SWEATY,IRR HEART BEAT ED Provider: Tani Rao Discharge Problem: Chest discomfort, Frequent PVCs, Ascending aortic aneurysm, CAD (coronary artery disease) Patient Disposition: Admitted As Inpatient Discharge Instructions Interventions: ED Discharge Assessment Last Done: 12/20/20 11:00 Discharge Problem: CAD (coronary artery disease) Qualifiers: Coronary Disease-Associated Artery/Lesion type: unspecified vessel or lesion type [place] vs. transplanted heart: unspecified whether circle or transplanted heart Associated angina: unspecified whether angina present Qualified Code(s): I25.10 - Atherosclerotic heart disease of circle coronary artery without angina pectoris
[2020-12-20 07:10] LABS: Creatine Kinase 123 U/L (39-308); Creatine Kinase MB < 1.0 ng/ml (0.5-3.6); Magnesium 2.4 mg/dl (1.8-2.4); Phosphorus 3.4 mg/dl (2.5-4.9)
--- NOTE | 2020-12-20 08:13 | XRay Report ---
SINGLE VIEW CHEST CLINICAL HISTORY: Atypical chest pain. FINDINGS: 2 AP, portable, upright chest radiographs are compared to study dated 10/30/2020 and correla dennys with chest CT dated 04/15/2020. The heart is enlarged noting atherosclerotic calcification of the thoracic aorta. The lungs and pleural spaces are clear. No pneumothorax is seen. The skeletal structu res are osteopenic. The bony thorax is grossly intact. IMPRESSION: Cardiomegaly with no active disease in the chest. ACT 112: Negative or not required by law. Electronically signed by: Jv Mondragon M.D. 12/20/2020 8:11 AM
--- NOTE | 2020-12-20 08:43 | History & Physical Report ---
Date of Service December 20, 2020 Assessment & Plan (1) Chest discomfort: atypical symptoms for ischemia; but [id number] he has known CAD and ischemia needs to be ruled out. serial trops. nitro prn. BB. statin. telemetry. cardiology consult - see CAD below. CTA chest to r/o dissection and aneurysm rupture (patient has known ascending aortic aneurysm). (2) Frequent PVCs: continue BB bradycardia may preclude titration of his metoprolol PVCs - this is likely the cause of his irregular pulse place on telemetry - r/o sustained arrhythmia (3) CAD (coronary artery disease): NSTEMI 09/10/18. Cardiac cath at that time with: Summary: 1. Severe multivessel vessel coronary artery disease -99% acute proximal OM1 95% ostial RCA Diffuse, calcified 40% proximal to mid LAD disease 2. Normal intracardiac filling pressure 3. Successful PCI of proximal OM1 with single drug-eluting stent (2.5 x 15 mm Juan). 09/12/19 - underwent 3 stents to RCA occlusion. In light of chest pain will - * serial troponins * telemetry * DAPT * continue BB and statin * CTA chest, dissection protocol - r/o aortic dissection due to known aneurysm * last stress test 03/2020; negative for ischemia * cardiology consult to be obtained; if w/u is negative -- repeat stress? cath? (4) BPH (benign prostatic hyperplasia): no issues not on meds check u/a given his c/o sweats & chills this am (5) CKD (chronic kidney disease), stage III: Creatinine stable/at baseline. Hydrate with NSS given his CTA chest w/ contrast. BMP in am. (6) Hypercholesteremia: LDL 41 in 10/2020. defer on lipid check this admission. cont statin. (7) Ascending aortic aneurysm: see above CTA dissection protocol negative (8) DVT prophylaxis: heparin 5000 TID if CTA chest is negative for dissection updated at bedside History of Present Illness Chief Complaint: sweats, chest pain Primary Care Provider: Luis Enrique Hernandez DO 80yo male with history of CAD with multiple stents who presents with drenching sweats that awoke him from sleep about 0400 this am. He began to check his pulse and he noted irregularity in his pulse. He also had intermittent chest "discomfort" since 399. Location - upper left chest, near the shoulder. Pain rated 3-4/10. No arm or jaw pain. No nausea or vomiting. While in the ER he had shaking cold chills. No headache. Denies aches. No diarrhea. No sore throat or nasal congestion. No dyspnea on exertion or cough today; he does report frequent throat clearing. In the last month he has had some minor episodes of chest "discomfort" in the upper left chest. Each episode lasts a few seconds. None of his symptoms today remind him of his prior [place]. He walks a 1/2 mile each day with his without any limitation or cardiopulmonary symptoms. He states that the main reason he came today was because of the irregular pulse / palpitations. Yesterday he was well and in his usual state of health. 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 He has been fully vaccinated against COVID. Allergies Allergy/AdvReac Type Severity Reaction Status Date / Time amoxicillin Allergy Intermediate itchy/body Verified 12/20/20 07:34 shaking Home Medications Medication Instructions Recorded Confirmed Type cholecalciferol (vitamin D3) 0 unit PO QDD 03/06/19 12/20/20 History [Vitamin D3] ascorbic acid (vitamin C) 500 mg 500 mg PO QDD tab 05/29/19 12/20/20 History tablet aspirin 81 mg PO QDD 06/19/19 12/20/20 History coenzyme Q10 200 mg capsule 200 mg PO QAM cap 08/26/19 12/20/20 History melatonin 5 mg capsule 5 mg PO HS PRN cap 08/26/19 12/20/20 History resveratrol 100 mg capsule 100 mg PO QAM cap 08/26/19 12/20/20 History nitroglycerin 0.4 mg sublingual 0.4 mg SUBLINGUAL DIRECTED PRN 09/30/19 12/20/20 Rx tablet #20 tab turmeric 400 mg capsule 400 mg PO QDD cap 12/02/19 12/20/20 History amlodipine 10 mg tablet 10 mg PO QAM #90 tab 02/11/20 12/20/20 Rx clopidogrel 75 mg PO QAM 04/15/20 12/20/20 History metoprolol succinate [Toprol XL] 12.5 mg PO QAM #90 tab 04/16/20 12/20/20 Rx clindamycin HCl 600 mg PO UD 07/23/20 12/20/20 History sildenafil (pulm.hypertension) 20 20 mg PO DAILY PRN #60 tab MDD 100 09/09/20 12/20/20 Rx mg tablet mg atorvastatin 80 mg tablet 80 mg PO HS #90 tab 09/21/20 12/20/20 Rx magnesium oxide 400 mg PO QDD 10/30/20 12/20/20 History ferrous sulfate 325 mg (65 mg 325 mg PO DAILY 12/02/20 12/20/20 History iron) tablet Past Med/Surg History Medical History Arthritis Atypical chest pain BPH (benign prostatic hyperplasia) CAD (coronary artery disease) Carotid artery plaque Chronic cerebral ischemia Chronic kidney disease Coronary artery disease Dark stools Duodenal ulcer due to removal of duodenal polyp - caused acute blood loss anemia Elevated PSA Former smoker Gastro-esophageal reflux disease without esophagitis Hearing deficit Hypercholesteremia Hypercholesterolemia Hypertension Melena Mild mitral regurgitation NSTEMI (non-ST elevated myocardial infarction) (2019) 09/10/2019--follows with Dr. Orourke Numbness of right anterior thigh Obstructive sleep apnea On anticoagulant therapy plavix daily Polyneuropathy Polyp of duodenum removed at [facility] - 10/2020 Renal cyst Sinus bradycardia Spells of decreased attentiveness Spondylolysis Tinnitus Urethral stricture Weakness Surgical History History of bilateral cataract extraction History of cardiac catheterization x3--first 2007 ? in [place] no stents placed --09/10/2019 1 ELSA placed and 09/12/2019 3 ELSA placed @ [facility] History of coronary angiogram 2008 History of heart artery stent x4---1 ELSA placed 09/10/2019 and 3 ELSA placed 09/12/2019 @ [facility] History of knee replacement right History of prostate biopsy benign History of umbilical hernia repair S/P laparoscopic hernia repair umbilical Family History Brother Pure hypercholesterolemia Hypertension Sister Family history of diabetes mellitus Mother , age 95 Dementia Father , age 90 Coronary heart disease CABG Grandmother (Paternal) Family history of diabetes mellitus Other No family history of adverse response to anesthesia Social History Smoking Status: Former smoker Tobacco Type: Cigarettes packs per day: 0.5; Years Smoked: 15; Second Hand Exposure: Yes (mom smoked); Hx Alcohol Use: Yes Alcohol type: beer and wine Alcohol Intake Frequency: 2-4 x/Month Hx Substance Use: No Preferred Language: Wolof Communication Ability: Effective Communications Writer Required: No Beliefs That Will Affect Care: None marital status: Current Living Situation: Spouse 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 How many Children do You have: 2 Other Information That Helps Us Care for You: No Feels Safe at Home: Yes Safety Concerns: Feels Safe At This Time Assistive Devices: Glasses and Hearing Aid - Bilateral Review of Systems Constitutional: + chills; no fever, no body aches, no weight loss and no weight gain Eyes: no worsening vision Ear, Nose, Mouth, Throat: + post nasal drip (frequent throat clearing ); no dysphagia no loss of taste or smell Respiratory: no cough Cardiovascular: as per Subjective / HPI, + chest pain and + edema (occasional ); no orthopnea Gastrointestinal: no abdominal pain and no blood in stools Genitourinary: + problem reported (urine is NOT malodorous ); no dysuria and no difficulty urinating Musculoskeletal: + joint pain (knees - chronic ); no myalgia Integumentary: no rash Neurologic: no loss of sensation Psychiatric: no depression and no anxiety Endocrine: denies diabetic Hematologic / Lymphatic: no easy bleeding and no easy bruising Physical Exam Constitutional: well developed, well nourished and average body habitus; no acute distress and no altered mental status Eyes: + conjunctival abnormality (injected right eye ) and PERRL ENMT: external ear and nose normal, oropharynx normal Ears: + hearing impairment (hearing aids b/l ) Neck: trachea midline, no thyromegaly Respiratory: normal respiratory effort, lungs clear to auscultation Cardiovascular: Rate/Rhythm: regular rate and regular rhythm Heart Sounds: normal S1 and normal S2; no murmur Vessels: posterior tibial pulses present and dorsalis pedis pulses present; no JVD Extremities: no edema extra beats heard during auscultation Chest (Breasts): Additional Comments: scant tenderness left upper chest near the shoulder/AC joint but very scant Gastrointestinal (Abdomen): normal bowel sounds, soft, nontender, no hepatosplenomegaly Musculoskeletal: no cyanosis or clubbing, extremities motor strength 5/5 Skin: no rashes, warm and dry Neurologic: deep tendon reflexes 2+ bilaterally and moves all extremities; no focal motor deficits Psychiatric: Orientation: alert and oriented x 3 Lymphatic: no cervical lymphadenopathy Results & Data Results & Data ([facility]) Vital Signs (Past 12 Hours) Vital Signs Temp Pulse Pulse Resp BP BP Pulse Ox 12/20/20 07:57 72 18 182/92 H 98 12/20/20 06:31 56 L 14 133/70 98 12/20/20 06:10 64 22 98 12/20/20 06:08 66 19 148/77 H 98 12/20/20 05:58 36.5 C 88 18 142/81 H 98 Laboratory Results Laboratory Results - last 24 hr 12/20/20 12/20/20 12/20/20 06:13 06:13 06:13 WBC 6.67 RBC 4.14 L Hgb 12.1 L Hct 37.8 L MCV 91.3 MCH 29.2 MCHC 32.0 RDW Std Deviation 51.5 H RDW Coeff of Kyra 15.3 H Plt Count 215 MPV 9.4 Immature Gran % (Auto) 0.1 Neut % (Auto) 55.0 Lymph % (Auto) 32.2 Yell % (Auto) 9.0 Eos % (Auto) 3.4 Baso % (Auto) 0.3 Neut # (Auto) 3.66 Lymph # (Auto) 2.15 Yell # (Auto) 0.60 H Eos # (Auto) 0.23 Baso # (Auto) 0.02 Immature Gran # (Auto) 0.01 PT 9.7 INR 1.0 APTT 25.7 PTT Ratio 1.0 Sodium 140 Potassium 3.9 Chloride 108 H Carbon Dioxide 26 Anion Gap 6.0 BUN 21 H Creatinine 1.64 H Est Cr Clr Drug Dosing 34.1 Est GFR ( Amer) 45.4 Est GFR (Non-Af Amer) 39.2 BUN/Creatinine Ratio 12.8 Glucose 110 H Calcium 9.3 Phosphorus Magnesium Total Bilirubin 0.5 AST 19 ALT 26 Alkaline Phosphatase 83 Total Creatine Kinase CK-MB (CK-2) CK/CKMB % Calc Troponin I < 0.015 Total Protein 7.1 Albumin 3.7 Globulin 3.4 Albumin/Globulin Ratio 1.1 COVID-19 Eval Order SARS-CoV-2 (PCR) Influenza Type A (PCR) Influenza Type B (PCR) RSV (RT-PCR) 12/20/20 12/20/20 12/20/20 06:13 07:50 07:50 WBC RBC Hgb Hct MCV MCH MCHC RDW Std Deviation RDW Coeff of Kyra Plt Count MPV Immature Gran % (Auto) Neut % (Auto) Lymph % (Auto) Yell % (Auto) Eos % (Auto) Baso % (Auto) Neut # (Auto) Lymph # (Auto) Yell # (Auto) Eos # (Auto) Baso # (Auto) Immature Gran # (Auto) PT INR APTT PTT Ratio Sodium Potassium Chloride Carbon Dioxide Anion Gap BUN Creatinine Est Cr Clr Drug Dosing Est GFR ( Amer) Est GFR (Non-Af Amer) BUN/Creatinine Ratio Glucose Calcium Phosphorus 3.4 Magnesium 2.4 Total Bilirubin AST ALT Alkaline Phosphatase Total Creatine Kinase 123 CK-MB (CK-2) < 1.0 CK/CKMB % Calc TNP Troponin I Total Protein Albumin Globulin Albumin/Globulin Ratio COVID-19 Eval Order CovFluRsv at [facility] SARS-CoV-2 (PCR) NEGATIVE Influenza Type A (PCR) Negative Influenza Type B (PCR) Negative RSV (RT-PCR) Negative Diagnostic Findings Chest X-Ray 12/20/20 06:05 SINGLE VIEW CHEST CLINICAL HISTORY: Atypical chest pain. FINDINGS: 2 AP, portable, upright chest radiographs are compared to study dated 10/30/2020 and correlated with chest CT dated 04/15/2020. The heart is enlarged noting atherosclerotic calcification of the thoracic aorta. The lungs and pleural spaces are clear. No pneumothorax is seen. The skeletal structures are osteopenic. The bony thorax is grossly intact. IMPRESSION: Cardiomegaly with no active disease in the chest. ACT 112: Negative or not required by law. Electronically signed by: Jv Mondragon M.D. 12/20/2020 8:11 AM EKG - my reading - NSR, PVCs, <1/2mm of ST segment depression leads V4-V6 and inverted T wave I/AVL Code Status & VTE Plan Code Status full VTE Prophylaxis Plan VTE Prophylaxis will be ordered: Yes PG Care Time/CCT Total # of Minutes Spent Total Time Spent with Patient: Total time spent is greater than 50% in coordination of care (as documented) at patient's floor/unit and/or counseling patient: Coding Level of Care Code 91400 OBS Care - Level 3 Diagnoses Chest discomfort R07.89 Frequent PVCs I49.3 CAD (coronary artery disease) I25.10 Associated angina: unspecified whether angina present Coronary Disease-Associated Artery/Lesion type: [place] artery [place] vs. transplanted heart: [place] heart BPH (benign prostatic hyperplasia) N40.0 Lower urinary tract symptom presence: symptoms absent CKD (chronic kidney disease), stage III N18.32 Chronic kidney disease stage 3 subtype: stage 3b (GFR 30-44) Hypercholesteremia E78.00 Ascending aortic aneurysm I71.2 DVT prophylaxis Z29.9 (1) BPH (benign prostatic hyperplasia) Lower urinary tract symptom presence: symptoms absent Qualified Code(s): N40.0 - Benign prostatic hyperplasia without lower urinary tract symptoms (2) CKD (chronic kidney disease), stage III Chronic kidney disease stage 3 subtype: stage 3b (GFR 30-44) Qualified Code(s): N18.32 - Chronic kidney disease, stage 3b (3) CAD (coronary artery disease) Associated angina: unspecified whether angina present Coronary Disease- Associated Artery/Lesion type: [place] artery [place] vs. transplanted heart: [place] heart Qualified Code(s): I25.10 - Atherosclerotic heart disease of [place] coronary artery without angina pectoris
[2020-12-20 09:18] LABS: Influenza A virus by PCR Negative (Neg); Influenza B virus by PCR Negative (Neg); RSV by PCR Negative (Neg); SARS CoV2 RNA(COVID-19) InHosp NEGATIVE (Negative)
[2020-12-20] MEDS ORDERED: METOPROLOL TARTRATE 1 MG/ML VIAL IV STA (09:38)
[2020-12-20] MEDS ORDERED: OPTIRAY 320 125ml IV ONE (10:33)
--- NOTE | 2020-12-20 10:47 | CT Scan Report ---
CT ANGIOGRAM OF THE CHEST COMBO CLINICAL HISTORY: Atypical chest pain. Known thoracic aortic aneurysm. COMPARISON STUDY: Chest CT dated 04/15/2020. TECHNIQUE: Before and following the IV administration of 120 cc of Optiray 320, CT angiogram of the c hest was performed from the thoracic inlet to the upper abdomen utilizing the dissection protocol. Im ages are reviewed in the axial, sagittal, and coronal planes. 3-D MIPS images are created and assesse d. IV contrast was administered without complication. A dose lowering technique was utilized adherin g to the principles of ALARA. CT DOSE: 670.45 mGy.cm FINDINGS: Thyroid: Imaged portions of the thyroid gland are normal in size and attenuation. Thoracic aorta: No intramural hematoma is seen on the unenhanced series. There is atherosclerotic gurvinder cification of the thoracic aorta. Aneurysmal dilatation of the ascending thoracic aorta is unchanged from previous. This measures up to 4.6 cm in diameter. There is ectasia of the distal arch/proximal d escending thoracic aorta which measures up to 3.7 cm in diameter. The arch demonstrates standard 3-ve ssel anatomy. No dissection is seen. The arch vessels are widely patent. Pulmonary vasculature: The main pulmonary arteries are dilated suggesting pulmonary artery hypertensi on. There are filling defects within the main, lobar, or segmental pulmonary arteries to suggest pulm onary embolus. Heart: The heart is enlarged and without pericardial effusion. The coronary arteries are densely calc ified. Lungs and pleural spaces: There is no airspace consolidation or pleural effusion. Mild scarring/atele ctasis is noted at the lung bases. The trachea and central airways are clear. Mediastinum: There is no mediastinal lymphadenopathy. Preeti: Clear. Axillae: There is no axillary lymphadenopathy. Upper abdomen: There is a small hiatal hernia. A 2.7 cm complex/hyperdense cyst is noted in the upper pole of the left kidney. A 1.2 cm hypervascular lesion in the left lobe of liver on image #295 is un changed and likely represents a flash filling hemangioma. Skeletal structures: The skeletal structures are osteopenic. There is a mild chronic superior endplat e compression deformity of L2. No lytic or blastic bony lesions are seen. IMPRESSION: 1. Aneurysmal dilatation of the ascending thoracic aorta is unchanged. This measures up to 4.6 cm in diameter. 2. There is no dissection. 3. There is no evidence of pulmonary embolus in the main, lobar, or segmental pulmonary arteries. 4. The lungs are clear. 5. Advanced coronary artery calcification. 6. Additional findings as above. ACT 112: Negative or not required by law. Electronically signed by: Jv Mondragon M.D. 12/20/2020 10:46 AM
[2020-12-20] MEDS ORDERED: ONDANSETRON INJ 2 MG/ML 2 ML VIAL IV PRN (11:55)
[2020-12-20] MEDS ORDERED: ACETAMINOPHEN 325 MG TAB PO PRN (11:55)
[2020-12-20] MEDS ORDERED: SODIUM CHLORIDE 0.9% 1000ML 1,000 ML IV SCH (11:55)
[2020-12-20] MEDS ORDERED: POLYETHYLENE (MIRALAX) 17 GM PACK PO PRN (11:55)
[2020-12-20] MEDS ORDERED: NITROGLYCERIN SL 0.4 MG/TAB TAB SL PRN (11:55)
[2020-12-20] MEDS ORDERED: MELATONIN 3 MG TAB PO PRN (12:08)
[2020-12-20 13:41] LABS: Appearance Urine Clear (Clear); Bacteria Urine Automated Negative (Negative); Bilirubin Urine Negative (Negative); Blood Urine 1+ (Negative); Cast Urine Automated 0 /lpf (0-5); Color Urine Yellow; Epithelial Cell Urine Auto 0-5 /lpf (0-5); Glucose Urine UA Negative (Negative); Ketones Urine Negative (Negative); Leukocyte Esterase Urine Negative (Negative); Nitrite Urine Negative (Negative); Protein Urine 2+ (Negative); Specific Gravity Urine 1.042 (1.000-1.030); Urobilinogen Urine Negative (Negative); pH Urine 7.5 (4.5-7.5)
--- NOTE | 2020-12-20 13:44 | Electrocardiogram Report ---
Test Reason : Blood Pressure : / mmHG Vent. Rate : 057 BPM Atrial Rate : 057 BPM P-R Int : 154 ms QRS Dur : 098 ms QT Int : 428 ms P-R-T Axes : 085 -07 093 degrees QTc Int : 416 ms Sinus bradycardia with frequent Premature ventricular complexes Diffuse Nonspecific ST and T wave abnormality Abnormal ECG When compared with ECG of 30-OCT-2020 07:22, Premature ventricular complexes are now Present Premature atrial complexes are no longer Present Confirmed by Magdiel Taylor ([id number]) on 12/20/2020 1:44:35 PM Referred By: REFERRED SELF Confirmed By:Magdiel Taylor
--- NOTE | 2020-12-20 15:09 | Cardiology Consultation ---
Date of Consultation December 20, 2020 Assessment & Plan (1) Chest discomfort: (2) CAD (coronary artery disease): (3) CKD (chronic kidney disease), stage III: (4) Ascending aortic aneurysm: (5) Frequent PVCs: 80-year-old man with significant vascular history awoke with diaphoresis and chest pain and noted ectopy which appears to be frequent PVCs. Upon closer inquiry, it appears that his diaphoretic episodes as well as transient episodes of chest discomfort occur sporadically, albeit not usually together. He is moderately physically active at baseline with no exertional symptoms and he had a negative stress study March 2020. His ECG is abnormal at baseline but not dynamic this admission, initial enzymes are negative, and telemetry shows only PVCs without couplets or runs. Fortunately, CT of the chest shows no evidence of dissection and no change in his ascending aortic diameter (4.6 cm). Given his history, certainly prudent to remain on monitor and observed overnight. He usually takes his metoprolol late afternoon, if frequent ectopy continues could consider increasing his metoprolol to 12.5 mg twice daily. Although he tends to run borderline bradycardic, if the beta-makayla reduces his ventricular ectopy he may in fact have more effective beats to offset any exacerbation of his bradycardia. He follows with Dr. Orourke, defer to Dr. Orourke's evaluation and further recommendations tomorrow based on the patient's clinical course overnight. History of Present Illness Reason for Consultation: Chest pain Requesting Physician: Tani Rao MD Attending Physician: Guillaume Barragan History of Present Illness 80-year-old man with history of CAD and other vascular disease, chronic kidney disease (creatinine 1.64), and fairly recent GI bleed, who awoke with a "cold sweat" and developed transient chest discomfort, he noted frequent ectopic beats and reported to the emergency department. He had an NSTEMI with stenting in late 2018, earlier this year had an upper GI bleed after duodenal polypectomy, when seen in the office by Dr. Orourke 1 month ago he was doing well. When he awoke from sleep yesterday morning he noted a "cold sweat" and subsequent nonradiating left pectoral chest discomfort of moderate severity which lasted for a few minutes. He took a sublingual nitroglycerin but did not note any immediate change in symptoms, within minutes his chest discomfort was gone. When checking his pulse he noted some ectopy and became concerned. Of note, he states that is not at all unusual for him to have episodes of diaphoresis severe enough for him to need to change his shirt. He also has occasional transient chest discomfort, although usually this is separate from the diaphoretic episodes. At recent baseline, he is able to walk up 2 flights of stairs with only mild dyspnea and no chest discomfort. Initial data shows unremarkable ECG and his first 2 sets of enzymes are negative. At the time of my evaluation this afternoon he was comfortable and symptom-free. 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% bilaterally) -Dyslipidemia Allergies Allergy/AdvReac Type Severity Reaction Status Date / Time amoxicillin Allergy Intermediate itchy/body Verified 12/20/20 07:34 shaking Home Medications Medication Instructions Recorded Confirmed Type cholecalciferol (vitamin D3) 0 unit PO QDD 03/06/19 12/20/20 History [Vitamin D3] ascorbic acid (vitamin C) 500 mg 500 mg PO QDD tab 05/29/19 12/20/20 History tablet aspirin 81 mg PO QDD 06/19/19 12/20/20 History coenzyme Q10 200 mg capsule 200 mg PO QAM cap 08/26/19 12/20/20 History melatonin 5 mg capsule 5 mg PO HS PRN cap 08/26/19 12/20/20 History resveratrol 100 mg capsule 100 mg PO QAM cap 08/26/19 12/20/20 History nitroglycerin 0.4 mg sublingual 0.4 mg SUBLINGUAL DIRECTED PRN 09/30/19 12/20/20 Rx tablet #20 tab turmeric 400 mg capsule 400 mg PO QDD cap 12/02/19 12/20/20 History amlodipine 10 mg tablet 10 mg PO QAM #90 tab 02/11/20 12/20/20 Rx clopidogrel 75 mg PO QAM 04/15/20 12/20/20 History metoprolol succinate [Toprol XL] 12.5 mg PO QAM #90 tab 07/30/20 04/04/21 Rx clindamycin HCl 600 mg PO UD 07/23/20 12/20/20 History sildenafil (pulm.hypertension) 20 20 mg PO DAILY PRN #60 tab MDD 100 09/09/20 12/20/20 Rx mg tablet mg atorvastatin 80 mg tablet 80 mg PO HS #90 tab 09/21/20 12/20/20 Rx magnesium oxide 400 mg PO QDD 10/30/20 12/20/20 History ferrous sulfate 325 mg (65 mg 325 mg PO DAILY 12/02/20 12/20/20 History iron) tablet Patient History Medical History Arthritis Atypical chest pain BPH (benign prostatic hyperplasia) CAD (coronary artery disease) Carotid artery plaque Chronic cerebral ischemia Chronic kidney disease Coronary artery disease Dark stools Duodenal ulcer due to removal of duodenal polyp - caused acute blood loss anemia Elevated PSA Former smoker Gastro-esophageal reflux disease without esophagitis Hearing deficit Hypercholesteremia Hypercholesterolemia Hypertension Melena Mild mitral regurgitation NSTEMI (non-ST elevated myocardial infarction) (2019) 09/10/2019--follows with Dr. Orourke Numbness of right anterior thigh Obstructive sleep apnea On anticoagulant therapy plavix daily Polyneuropathy Polyp of duodenum removed at [facility] - 10/2020 Renal cyst Sinus bradycardia Spells of decreased attentiveness Spondylolysis Tinnitus Urethral stricture Weakness Surgical History History of bilateral cataract extraction History of cardiac catheterization x3--first 2007 ? in [place] no stents placed --09/10/2019 1 ELSA placed and 09/12/2019 3 ELSA placed @ [facility] History of coronary angiogram 2008 History of heart artery stent x4---1 ELSA placed 09/10/2019 and 3 ELSA placed 09/12/2019 @ [facility] History of knee replacement right History of prostate biopsy benign History of umbilical hernia repair S/P laparoscopic hernia repair umbilical Family History Father, age 90 Mother, age 95 Family history of diabetes mellitus Sister Grandmother (Paternal) Coronary heart disease Father CABG Dementia Mother No family history of adverse response to anesthesia Pure hypercholesterolemia Brother Hypertension Brother Social History Smoking Status: Former smoker Tobacco Type: Cigarettes packs per day: 0.5; Years Smoked: 15; Second Hand Exposure: Yes (mom smoked); Hx Alcohol Use: Yes Alcohol type: beer and wine Alcohol Intake Frequency: 2-4 x/Month Hx Substance Use: No Preferred Language: Tunisian Communication Ability: Effective [employer] Director Required: No Beliefs That Will Affect Care: None marital status: Current Living Situation: Spouse 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 Afebrile. Normotensive. Pulse 64 and regular with sporadic ectopy. Skin: no ecchymoses or generalized lesions. HEENT: unremarkable. Neck: no JVD or carotid bruits. Lungs: clear. Cardiac: regular rhythm with ectopy, normal S1 and S2, no obvious murmur or gallop. Abdomen: benign. Extremities: no edema, peripheral pulses intact. Neurologic: normal affect and conversation, nonfocal. Results & Data ([facility]) Vital Signs (Past 12 Hours) Vital Signs Temp Pulse Pulse Resp BP BP Pulse Ox 12/20/20 11:59 58 L 12/20/20 11:28 97.5 F L 69 18 136/74 97 12/20/20 09:00 62 18 157/85 H 97 12/20/20 07:57 72 18 182/92 H 98 12/20/20 06:31 56 L 14 133/70 98 12/20/20 06:10 64 22 98 12/20/20 06:08 66 19 148/77 H 98 12/20/20 05:58 97.7 F 88 18 142/81 H 98 Laboratory Results Hemoglobin 12.1 with normal white count and platelet count. Normal electrolytes, BUN 21, creatinine 1.64. Troponin negative x2 thus far. Diagnostic Findings ECG showed sinus bradycardia 57 bpm with frequent PVCs and a diffuse nonspecific ST abnormality ([address] depression in the anterolateral leads) with mildly inverted lateral T waves. Compared with ECG from 10/30/2020, PVCs are new, ST depression is old. CT of the chest shows dilation of the ascending thoracic aorta (4.6 cm), unchanged compared with March 2020 study. No evidence of dissection, pulmonary embolism, or other acute findings. Advanced coronary artery calcification noted. Chest x-ray showed cardiomegaly but no acute process. Dobutamine stress echocardiogram March 2020 showed no ischemia at 88% maximum predicted heart rate. Resting echocardiogram March 2020 showed EF 55 to 60% with normal wall motion, aortic root dilatation (4.6 cm), mild to moderate aortic regurgitation, mild to moderate mitral regurgitation, and mild tricuspid regurgitation with moderate pulmonary hypertension. PG Care Time/CCT Total # of Minutes Spent Total Time Spent with Patient: Total time spent is greater than 50% in coordination of care (as documented) at patient's floor/unit and/or counseling patient: Coding Level of Care Code 51289 Initial Inpt Care Lvl 3 Diagnoses Chest discomfort R07.89 CAD (coronary artery disease) I25.10 Coronary Disease-Associated Artery/Lesion type: [place] artery [place] vs. transplanted heart: [place] heart Associated angina: unspecified whether angina present CKD (chronic kidney disease), stage III N18.32 Chronic kidney disease stage 3 subtype: stage 3b (GFR 30-44) Ascending aortic aneurysm I71.2 Frequent PVCs I49.3 (1) CAD (coronary artery disease) Coronary Disease-Associated Artery/Lesion type: [place] artery [place] vs. transplanted heart: [place] heart Associated angina: unspecified whether angina present Qualified Code(s): I25.10 - Atherosclerotic heart disease of [place] coronary artery without angina pectoris (2) CKD (chronic kidney disease), stage III Chronic kidney disease stage 3 subtype: stage 3b (GFR 30-44) Qualified Code(s): N18.32 - Chronic kidney disease, stage 3b
[2020-12-20] MEDS ORDERED: CHOLECALCIFEROL 1,000 UNITS 25 MCG TAB PO SCH (16:30)
[2020-12-20] MEDS ORDERED: ASCORBIC ACID 500 MG TAB PO SCH (16:30)
[2020-12-20] MEDS ORDERED: ASPIRIN 81 MG ECTAB PO SCH (16:30)
[2020-12-20] MEDS ORDERED: MAGNESIUM OXIDE 400 MG TAB PO SCH (16:30)
[2020-12-20] MEDS ORDERED: ATORVASTATIN 40 MG TAB PO SCH (21:00)
[2020-12-21 07:06] LABS: BUN Creatinine Ratio 11.6 (10-20); Calcium 8.5 mg/dl (8.5-10.1); Creatinine Clr Calc Pharmacy 37.3 ml/min; Est GFR (African American) 50.6; Est GFR (Non-African American) 43.7; Potassium 4.3 mmol/L (3.5-5.1)
[2020-12-21] MEDS ORDERED: FERROUS SULFATE 325 MG TAB PO SCH (09:00)
[2020-12-21] MEDS ORDERED: METOPROLOL SUCC 25MG EXT REL TAB PO SCH (09:00)
[2020-12-21] MEDS ORDERED: NON-FORMULARY MEDICATION (Coenzyme Q10 [Co Q-10] 200 mg capsule) PO SCH (09:00)
[2020-12-21] MEDS ORDERED: amLODIPine BESYLATE 5 MG TAB PO SCH (09:00)
[2020-12-21] MEDS ORDERED: CLOPIDOGREL BISULFATE 75 MG TAB PO SCH (09:00)
[2020-12-21] MEDS ORDERED: HEPARIN SOD 5,000 UNIT/0.5 ML VIAL SQ SCH (09:00)
--- NOTE | 2020-12-21 12:12 | Discharge Summary ---
Date of Service December 21, 2020 Admission HPI Per Admitting Provider 80yo male with history of CAD with multiple stents who presents with drenching sweats that awoke him from sleep about 0400 this am. He began to check his pulse and he noted irregularity in his pulse. He also had intermittent chest "discomfort" since 0400. Location - upper left chest, near the shoulder. Pain rated 3-4/10. No arm or jaw pain. No nausea or vomiting. While in the ER he had shaking cold chills. No headache. Denies aches. No diarrhea. No sore throat or nasal congestion. No dyspnea on exertion or cough today; he does report frequent throat clearing. In the last month he has had some minor episodes of chest "discomfort" in the upper left chest. Each episode lasts a few seconds. None of his symptoms today remind him of his prior [place]. He walks a 1/2 mile each day with his without any limitation or cardiopulmonary symptoms. He states that the main reason he came today was because of the irregular pulse / palpitations. Yesterday he was well and in his usual state of health. 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 He has been fully vaccinated against COVID. Admission Exam Per Admitting Provider Constitutional: well developed, well nourished and average body habitus; no acute distress and no altered mental status Eyes: + conjunctival abnormality (injected right eye ) and PERRL ENMT: external ear and nose normal, oropharynx normal Ears: + hearing impairment (hearing aids b/l ) Neck: trachea midline, no thyromegaly Respiratory: normal respiratory effort, lungs clear to auscultation Cardiovascular: Rate/Rhythm: regular rate and regular rhythm Heart Sounds: normal S1 and normal S2; no murmur Vessels: posterior tibial pulses present and dorsalis pedis pulses present; no JVD Extremities: no edema extra beats heard during auscultation Chest (Breasts): Additional Comments: scant tenderness left upper chest near the shoulder/AC joint but very scant Gastrointestinal (Abdomen): normal bowel sounds, soft, nontender, no hepatosplenomegaly Musculoskeletal: no cyanosis or clubbing, extremities motor strength 5/5 Skin: no rashes, warm and dry Neurologic: deep tendon reflexes 2+ bilaterally and moves all extremities; no focal motor deficits Psychiatric: Orientation: alert and oriented x 3 Lymphatic: no cervical lymphadenopathy Principal Diagnosis chest pain Discharge Exam Constitutional WD/WN, vitals as above Respiratory normal respiratory effort, lungs clear to auscultation Cardiovascular RRR, no murmur, no edema Gastrointestinal (Abdomen) normal bowel sounds, soft, nontender, no hepatosplenomegaly Skin no rashes, warm and dry Psychiatric A+Ox3, euthymic affect Discharge Data Allergies Allergy/AdvReac Type Severity Reaction Status Date / Time amoxicillin Allergy Intermediate itchy/body Verified 12/20/20 07:34 shaking Consultations 12/20/20 09:02 Consult Cardiology Stat 12/20/20 09:43 ED Decision to Admit Stat Ordered Studies 12/20/20 09:37 CT angio chest dissec wo/w con Stat Hospital Course (1) Chest discomfort: Chest discomfort: Presented with chest discomfort. Hx CAD s/p stent x3 in 2018. Also Hx thoracic aortic aneurysm. CTA Chest performed with stable 4.6cm TAA. Dobutamine Stress Echo performed 03/2020 showed no ischemic changes. EKGs without acute ST/T wave changes. Serial troponins negative. Cardiology consulted, no changes made to current medication regimen. Continue beta makayla, statin, aspirin, Plavix, amlodipine. CKD (chronic kidney disease), stage III: Creatinine stable/at baseline. Hypercholesteremia: LDL 41 in 10/2020. Continue statin. Ascending aortic aneurysm: CTA dissection protocol negative. Total Time Total Time Spent Total Time Spent (In Minutes): see attending attestation Discharge Plan Discharge Items Patient Disposition: Home - Self-Care Reason For Visit: CHEST PAIN, PALPITATIONS Discharge Diagnosis: Chest pain Activity: Per Instructions section Non-emergency contact: Primary Care Provider and Cnc Router Operator Call non-emergency contact if: you have any medication questions and your symptoms worsen Follow-up/Referrals: Magdiel Taylor MD [Physician] - Luis Enrique Hernandez DO [Primary Care Provider] - Diet: Heart Healthy Addtl Attending Provider Instructions: You were admitted to the hospital after experiencing chest pain and sweating in the middle of the night. We checked your EKG and cardiac enzymes which did not show signs of new heart attack. Dr. Taylor and Dr. Orourke saw you and did not recommend any changes to your medicaitons. You were felt to be safe for discharge home with the following recommendations: You should have close follow up with Dr. Hernandez and Dr. Orourke in the outpatient setting. If you have recurrence of chest pain, trouble breathing, palpitations, please reach out to Cardiology office and seek urgent medical attention. Pending Studies at Discharge: No Stand-Alone Forms: My [facility], Smoking Cessation Medications and DC Order Prescriptions: Continued amlodipine [Norvasc] 10 mg tablet 10 mg PO QAM Qty: 90 RF: 3 sildenafil (pulm.hypertension) 20 mg tablet 20 mg PO DAILY MDD 100 mg PRN (Reason: sexual activity) Qty: 60 RF: 2 atorvastatin 80 mg tablet 80 mg PO HS Qty: 90 RF: 3 ferrous sulfate [Feosol] 325 mg (65 mg iron) tablet 325 mg PO DAILY RF: 0 nitroglycerin 0.4 mg tablet, sublingual 0.4 mg sublingual DIRECTED PRN (Reason: Chest Pain) Qty: 20 RF: 3 ascorbic acid (vitamin C) 500 mg tablet 500 mg PO QDD RF: 0 coenzyme Q10 [Co Q-10] 200 mg capsule 200 mg PO QAM RF: 0 melatonin 5 mg capsule 5 mg PO HS PRN (Reason: sleep) RF: 0 resveratrol 100 mg capsule 100 mg PO QAM RF: 0 cholecalciferol (vitamin D3) [Vitamin D3] 1,000 unit Capsule 0 unit PO QDD RF: 0 turmeric 400 mg capsule 400 mg PO QDD RF: 0 aspirin 81 mg Tablet,Delayed Release (Dr/Ec) 81 mg PO QDD RF: 0 clopidogrel 75 mg tablet 75 mg PO QAM RF: 0 metoprolol succinate [Toprol XL] 25 mg tablet extended release 24 hr 12.5 mg PO QAM Qty: 90 RF: 3 clindamycin HCl 150 mg capsule 600 mg PO UD RF: 0 magnesium oxide 400 mg magnesium Tablet 400 mg PO QDD RF: 0 Discharge Orders: Discharge Order (Routine); Ordered 12/21/20 Ordered By: Cheyenne Griffin Admission Data Admit Date/Time: 12/20/20 09:54 Attending Provider: Guillaume Barragan Admit Provider: Guillaume Barragan Primary Care Provider: Luis Enrique Hernandez Other Providers: Magdiel Taylor ; Guillaume Barragan Other Interventions: Discharge Summary Assessment (RN) Last Done: 12/21/20 13:03 Supervising Physician Co-Signing Physician Notes Resident Physician Supervision Note: I independently interviewed and examined the patient and verified the swanson history and physical, reviewed labs and image studies, discussed the case with the resident Dr. Griffin and agree with the findings and care plan. Resident Activity Tracking Resident Involvement: Resident Care Provided Care Provided: Adult Hospital Medicine
--- NOTE | 2020-12-21 13:09 | Cardiology Progress Note ---
Date of Service December 21, 2020 Assessment & Plan (1) Chest discomfort: -atypical symptoms at time of presentation. -no further cardiac workup indicated. (2) CAD (coronary artery disease): -non ST elevation [place], August 2019 -OM1 ELSA, RCA ELSA x3, protruding ostial RCA ELSA, August 2019. -continue medical management. (3) CKD (chronic kidney disease), stage III: -management per primary care team. (4) Ascending aortic aneurysm: -mildly dilated ascending thoracic aorta stable at 4.6 cm in diameter. (5) Frequent PVCs: -benign in nature. -could increase metoprolol if the patient so desires. Admission and Anticipated Discharge Date Admission Date: December 20, 2020 Subjective The patient is resting comfortably in bed without complaints of chest pain, dyspnea, or palpitations. We have discussed the benign nature of his PVCs. Physical Exam Physical Exam: In general is well-developed well-nourished male in no acute distress. HEENT exam is negative. Neck is supple with full carotid upstrokes. No carotid bruits. Jugular venous pressure is flat at 90. No thyromegaly. Ca rdiovascular exam reveals a regular rhythm with normal S1 and S2. Heart sounds are distant. No obvious murmurs. Lungs are clear without rales, rhonchi, or wheezes. Abdomen is soft without bruits. Extremities reveal intact radial artery pulses bilaterally. There is no peripheral edema. Results & Data ([facility]) Vital Signs (Past 12 Hours) Vital Signs Temp Pulse Resp BP Pulse Ox 12/21/20 07:34 36.8 C 58 L 18 135/73 98 12/21/20 03:03 36.7 C 50 L 16 150/75 H 96 Diagnostic Findings front desk monitor notes occasional PVCs. PG Care Time/CCT Total # of Minutes Spent Total Time Spent with Patient: Total time spent is greater than 50% in coordination of care (as documented) at patient's floor/unit and/or counseling patient: Coding Level of Care Code 14447 Subseq Hosp Care Lvl 3 Diagnoses Chest discomfort R07.89 CAD (coronary artery disease) I25.10 Coronary Disease-Associated Artery/Lesion type: [place] artery [place] vs. transplanted heart: [place] heart Associated angina: unspecified whether angina present CKD (chronic kidney disease), stage III N18.32 Chronic kidney disease stage 3 subtype: stage 3b (GFR 30-44) Ascending aortic aneurysm I71.2 Frequent PVCs I49.3 (1) CAD (coronary artery disease) Coronary Disease-Associated Artery/Lesion type: [place] artery [place] vs. tr ansplanted heart: [place] heart Associated angina: unspecified whether angina present Qualified Code(s): I25.10 - Atherosclerotic heart disease of [place] coronary artery without angina pectoris (2) CKD (chronic kidney disease), stage III Chronic kidney disease stage 3 subtype: stage 3b (GFR 30-44) Qualified Code(s): N18.32 - Chronic kidney disease, stage 3b
== END 2020-12-21 14:01 | disposition home or self-care (01) ==
LOC: 2W 05:56 → ED 05:56 → 2W 11:00